=== PATIENT | female | born 1955 | race Caucasian/White ===

== ENCOUNTER 2021-08-26 10:53 | Outpatient (REF) | payer MEDICARE, MEDICAID, SELFPAY ==
[2021-08-26 13:46] LABS: MANUAL DIFF FLAG NO
[2021-08-26 13:58] LABS: Basophils Percent Auto 0.3 % (0-2); Eosinophils Percent Auto 0.4 % (0-4); Hematocrit 47.2 % (37-47); Imm Gran Abs Auto 0.03 X10*3/uL (0.00-0.03); Imm Gran Pct Auto 0.3 % (0.0-0.4); Lymphocytes Absolute Auto 0.6 X10*3/uL (1.2-4.9); Lymphocytes Percent Auto 6.7 % (20-40); Mean Corpuscular HGB Conc 31.8 g/dl (31.0-35.0); Mean Corpuscular Volume 91.1 fL (80-98); Mean Platelet Volume 10.9 fL (9.4-12.3); Monocytes Absolute Auto 0.7 X10*3/uL (0.1-1.2); Neutrophils Absolute Auto 8.1 X10*3/uL (2.0-8.3); Neutrophils Percent Auto 85.3 % (45-73); Platelet Count 438 X10*3/uL (160-400); Red Blood Count 5.18 X10*6/uL (4.20-5.50); White Blood Count 9.5 X10*3/uL (4.8-10.8)
[2021-08-26 14:04] LABS: Alanine Aminotransferase 12 U/L (0-31); Albumin Level 3.9 g/dL (3.5-5.0); Alkaline Phosphatase 106 U/L (39-117); Anion Gap 18 (12-20); Aspartate Amino Transferase 16 U/L (5-31); Bilirubin Total 0.4 mg/dL (0.0-1.0); Blood Urea Nitrogen 7 mg/dL (9-16); Calcium 9.4 mg/dL (8.4-10.2); Carbon Dioxide 23 mmol/L (22-29); Chloride 100 mmol/L (96-108); Cholesterol 219 mg/dL; Estimated Glomerular Filt Rate > 60; Glucose Fasting 117 mg/dL (60-99); HDL Cholesterol 52 mg/dL; LDL Cholesterol Calculated 133 mg/dl; Potassium 4.8 mmol/L (3.3-5.1); Sodium 136 mmol/L (135-145); Total Protein 7.5 g/dL (6.5-8.0); Triglycerides 170 mg/dL
== END 2021-08-26 10:54 | disposition home or self-care (01) ==
LOC: HO.10HDL 10:53
PROVIDERS: Visit Provider Internal Medicine
DX: E78.2 Mixed hyperlipidemia (principal); F10.94 Alcohol use, unspecified with alcohol-induced mood disorder; F33.42 Major depressive disorder, recurrent, in full remission; J44.1 Chronic obstructive pulmonary disease with (acute) exacerbation; K51.90 Ulcerative colitis, unspecified, without complications; Z93.2 Ileostomy status
CPT/HCPCS: 36415; 80053; 80061; 85025

== ENCOUNTER 2022-02-23 11:22 | Outpatient (REF) | payer MEDICARE, MEDICAID, SELFPAY ==
[2022-02-23 12:25] LABS: MANUAL DIFF FLAG NO
[2022-02-23 12:32] LABS: Basophils Percent Auto 0.3 % (0-2); Eosinophils Absolute Auto 0.1 X10*3/uL (0.0-0.4); Eosinophils Percent Auto 0.6 % (0-4); Hematocrit 46.1 % (37.0-47.0); Hemoglobin 15.1 g/dl (12.0-16.0); Imm Gran Abs Auto 0.02 X10*3/uL (0.00-0.03); Imm Gran Pct Auto 0.2 % (0.0-0.4); Lymphocytes Percent Auto 10.6 % (20-40); Mean Corpuscular HGB Conc 32.8 g/dl (31.0-35.0); Mean Corpuscular Hemoglobin 31.1 pg (27.0-33.0); Mean Corpuscular Volume 95.1 fL (80.0-98.0); Mean Platelet Volume 10.8 fL (9.4-12.3); Monocytes Absolute Auto 0.5 X10*3/uL (0.1-1.2); Monocytes Percent Auto 5.4 % (2-11); Neutrophils Absolute Auto 7.5 x10*3/uL (2.0-8.3); Neutrophils Percent Auto 82.9 % (45-73); Platelet Count 285 X10*3/uL (160-400); Red Blood Count 4.85 X10*6/uL (4.20-5.50); Red Cell Distribution Width 12.3 % (11.0-16.0); White Blood Count 9.1 X10*3/uL (4.8-10.8)
[2022-02-23 12:46] LABS: Alanine Aminotransferase 14 U/L (0-31); Albumin Level 4.2 g/dL (3.5-5.0); Alkaline Phosphatase 87 U/L (39-117); Anion Gap 13 (12-20); Aspartate Amino Transferase 17 U/L (5-31); Bilirubin Total 0.5 mg/dL (0.0-1.0); Blood Urea Nitrogen 12 mg/dL (9-16); Calcium 9.8 mg/dL (8.4-10.2); Carbon Dioxide 26 mmol/L (22-29); Chloride 105 mmol/L (96-108); Cholesterol 239 mg/dL; Estimated Glomerular Filt Rate 60; Glucose Random 146 mg/dL (60-115); HDL Cholesterol 88 mg/dL; LDL Cholesterol Calculated 83 mg/dl; Potassium 4.3 mmol/L (3.3-5.1); Sodium 140 mmol/L (135-145); Total Protein 7.3 g/dL (6.5-8.0); Triglycerides 343 mg/dL
[2022-02-23 13:06] LABS: Thyroid Stimulating Hormone 1.48 uIU/mL (0.32-4.0)
== END 2022-02-23 11:23 | disposition home or self-care (01) ==
LOC: HO.10HDL 11:22
PROVIDERS: Visit Provider Internal Medicine
DX: E78.2 Mixed hyperlipidemia (principal); F10.21 Alcohol dependence, in remission; I47.1 Supraventricular tachycardia; J44.1 Chronic obstructive pulmonary disease with (acute) exacerbation; F17.201 Nicotine dependence, unspecified, in remission
CPT/HCPCS: 36415; 80053; 80061; 84443; 85025

== ENCOUNTER 2022-04-10 13:46 | Outpatient (REF) | payer MEDICARE, MEDICAID, SELFPAY ==
--- NOTE | ~2022-04-10 | CT_ITS ---
EXAMINATION: CT CHEST SCREENING CLINICAL INFORMATION: Former smoker. 46 pack year history. Quit 5 years ago COMPARISON: None. TECHNIQUE: Multidetector volumetric CT imaging of the chest is performed without contrast using low dose technique. Additional 2D coronal and sagittal reformatted images and axial 3D maximum intensity projection (MIP) images are generated on the CT workstation. This CT examination was performed using dose optimization techniques as appropriate, variously including the following: *Automated exposure control *Adjustment of mA and/or kV according to patient size (this includes techniques or standardized protocols for targeted exams where dose is matched to indication/reason for exam; i.e. extremities or head) *Use of iterative reconstruction technique DLP: 36 mGy-cm FINDINGS: LUNGS: There is evidence of emphysema. There is mild biapical pleural and parenchymal scarring. There is a 4 mm left apical nodule axial image 46 series 5. This may be related to pleural and parenchymal scarring. There is a scarring or subsegmental atelectasis in the lateral right upper lobe extending to the major fissure, for example axial image 195 series 5 . There is a 3 mm left lower lobe nodule axial image 246 series 5. There is a 5 mm slightly heterogeneous left upper lobe nodule axial image 296 series 5. There is a heterogeneous 1.5 cm left upper lobe nodule axial image 304 series 5. This is solid component and cystic or reticular component/question air bronchograms. There is a 3 mm peripheral or subpleural right middle lobe nodule adjacent to the minor fissure axial image 313 series 5. This may represent a subpleural lymph node. There is a 2 mm calcified left lower lobe nodule axial image 344 series 5. There are areas of scarring or subsegmental atelectasis at the lung bases in the right middle lobe, lingula and bilateral lower lobes. There is a nodular appearing area in the right lower lobe measuring 1 cm in AP and transverse dimension laterally axial image 397 series 5 probably representing thick bandlike atelectasis. No endobronchial or endotracheal lesion is seen. MEDIASTINUM: There is atherosclerotic disease. The mediastinum is otherwise normal. PLEURA: There is no pleural effusion. No pleural mass or thickening. AXILLA: No lymphadenopathy. UPPER ABDOMEN: Unremarkable OSSEOUS STRUCTURES: Unremarkable. CT/CT lung screening IMPRESSION: Emphysema. Multiple pulmonary nodules and areas of linear scarring or subsegmental atelectasis. Largest nodule is a heterogeneous 1.5 cm left upper lobe nodule. ASSESSMENT: Lung-RADS category 4 a: Suspicious RECOMMENDATION: 3 month low-dose chest CT follow-up recommended.
== END 2022-04-10 13:47 | disposition home or self-care (01) ==
LOC: HO.CT 13:46
PROVIDERS: PCP Internal Medicine; Visit Provider Physician Assistant Medical
DX: Z12.2 Encounter for screening for malignant neoplasm of respiratory organs (principal); Z87.891 Personal history of nicotine dependence
CPT/HCPCS: 71271; G0296

== ENCOUNTER 2022-08-28 10:53 | Outpatient (REF) | payer MEDICARE, MEDICAID, SELFPAY ==
--- NOTE | ~2022-08-28 | CT_ITS ---
EXAMINATION: CT CHEST SCREENING CLINICAL INFORMATION: Former smoker. Quit 6 years ago. 47 pack year history. COMPARISON: Previous chest CT March 2022 TECHNIQUE: Multidetector volumetric CT imaging of the chest is performed without contrast using low dose technique. Additional 2D coronal and sagittal reformatted images and axial 3D maximum intensity projection (MIP) images are generated on the CT workstation. This CT examination was performed using dose optimization techniques as appropriate, variously including the following: *Automated exposure control *Adjustment of mA and/or kV according to patient size (this includes techniques or standardized protocols for targeted exams where dose is matched to indication/reason for exam; i.e. extremities or head) *Use of iterative reconstruction technique DLP: 33 mGy-cm FINDINGS: LUNGS: There is evidence of emphysema. Left: There is apical pleural and parenchymal scarring. The 3 mm peripheral or subpleural left upper lobe nodule axial image 78 series 5 is stable. The 4 mm left apical nodule axial image 51 series 5 is stable. The 5 mm peripheral or subpleural left upper lobe nodule axial image 297 series 5 is stable. The other the 3 x 5 mm left upper lobe nodule axial image 262 series 5 is stable. The heterogeneous partially cystic partially reticular left upper lobe nodule measuring up to 1.5 cm is no longer seen. The 5 mm left lower lobe nodule axial image 234 series 5 is stable. The 4 mm left lower lobe nodule axial image 252 series 5 is stable. There is a Right: There is apical pleural and parenchymal scarring. The 3 mm right upper lobe nodule axial image 146 series 5 is stable. There is chronic scarring or subsegmental atelectasis of the right upper lobe and some retraction of the right major fissure. This is stable. There is a new peripheral or subpleural nodular density in the right upper lobe adjacent to the minor fissure measuring 5 x 10 mm. On sagittal and coronal reconstructed images this appears linear and probably represents an area of thick bandlike atelectasis. There is an area of peripheral or subpleural thick bandlike atelectasis in the lateral posterior right lower lobe for example axial image 381 series 5 that is stable. MEDIASTINUM: The mediastinum is normal. CORONARY ARTERY CALCIFICATION: None visualized on this study. There is atherosclerotic disease with calcification of the thoracic aorta. PLEURA: There is no pleural effusion. No pleural mass or thickening. AXILLA: No lymphadenopathy. UPPER ABDOMEN: Unremarkable OSSEOUS STRUCTURES: Unremarkable. CT/CT lung screen follow up IMPRESSION: Emphysema. Previously identified 1.5 cm heterogeneous left upper lobe nodule is no longer seen. Otherwise smaller pulmonary nodules are stable. New 5 x 10 mm peripheral or subpleural right upper lobe nodule adjacent to the minor fissure probably representing thick bandlike atelectasis. Pulmonary findings are otherwise stable ASSESSMENT: Lung-RADS category 2: Benign RECOMMENDATION: Annual low-dose chest CT follow-up recommended.
== END 2022-08-28 10:54 | disposition home or self-care (01) ==
LOC: HO.CT 10:53
PROVIDERS: Visit Provider Physician Assistant Medical
DX: Z12.2 Encounter for screening for malignant neoplasm of respiratory organs (principal); Z87.891 Personal history of nicotine dependence
CPT/HCPCS: 71250

== ENCOUNTER 2022-09-15 08:48 | Outpatient (REF) | payer MEDICARE, MEDICAID, SELFPAY ==
[2022-09-15 09:05] LABS: MANUAL DIFF FLAG NO
[2022-09-15 09:53] LABS: Basophils Percent Auto 0.3 % (0-2); Eosinophils Absolute Auto 0.1 X10*3/uL (0.0-0.4); Hematocrit 45.8 % (37.0-47.0); Hemoglobin 14.9 g/dl (12.0-16.0); Imm Gran Abs Auto 0.01 X10*3/uL (0.00-0.03); Imm Gran Pct Auto 0.1 % (0.0-0.4); Lymphocytes Absolute Auto 1.1 X10*3/uL (1.2-4.9); Lymphocytes Percent Auto 15.4 % (20-40); Mean Corpuscular HGB Conc 32.5 g/dl (31.0-35.0); Mean Corpuscular Hemoglobin 30.8 pg (27.0-33.0); Mean Corpuscular Volume 94.8 fL (80.0-98.0); Mean Platelet Volume 10.9 fL (9.4-12.3); Monocytes Absolute Auto 0.5 X10*3/uL (0.1-1.2); Monocytes Percent Auto 7.1 % (2-11); Neutrophils Absolute Auto 5.4 x10*3/uL (2.0-8.3); Neutrophils Percent Auto 76.1 % (45-73); Platelet Count 289 X10*3/uL (160-400); Red Blood Count 4.83 X10*6/uL (4.20-5.50); Red Cell Distribution Width 12.3 % (11.0-16.0); White Blood Count 7.1 X10*3/uL (4.8-10.8)
[2022-09-15 10:08] LABS: Estimated Average Glucose 108 mg/dL; Hemoglobin A1c % 5.4 %
[2022-09-15 10:26] LABS: Alanine Aminotransferase 12 U/L (0-31); Albumin Level 4.5 g/dL (3.5-5.0); Alkaline Phosphatase 71 U/L (39-117); Anion Gap 18 (12-20); Aspartate Amino Transferase 18 U/L (5-31); Bilirubin Total 0.6 mg/dL (0.0-1.0); Blood Urea Nitrogen 12 mg/dL (9-16); Calcium 10.1 mg/dL (8.4-10.2); Carbon Dioxide 25 mmol/L (22-29); Chloride 104 mmol/L (96-108); Cholesterol 260 mg/dL; Estimated Glomerular Filt Rate > 60; Glucose Random 101 mg/dL (60-115); HDL Cholesterol 97 mg/dL; LDL Cholesterol Calculated 133 mg/dl; Sodium 142 mmol/L (135-145); Total Protein 7.7 g/dL (6.5-8.0); Triglycerides 154 mg/dL
== END 2022-09-15 08:49 | disposition home or self-care (01) ==
LOC: HO.LAB 08:48
PROVIDERS: PCP Internal Medicine; Visit Provider Internal Medicine
DX: E78.2 Mixed hyperlipidemia (principal); F10.29 Alcohol dependence with unspecified alcohol-induced disorder; G25.0 Essential tremor; I10 Essential (primary) hypertension; J44.9 Chronic obstructive pulmonary disease, unspecified; R73.01 Impaired fasting glucose
CPT/HCPCS: 36415; 80053; 80061; 83036; 85025

== ENCOUNTER → 2022-09-25 09:25 | Outpatient (BNVA) | payer MEDICARE, MEDICAID, SELFPAY | PROVIDERS: PCP Internal Medicine; Visit Provider Surgery | DX: R91.8 Other nonspecific abnormal finding of lung field (principal); Z87.891 Personal history of nicotine dependence | CPT/HCPCS: 99202 ==

== ENCOUNTER → 2023-06-04 10:24 | Outpatient (BNVA) | payer MEDICARE, MEDICAID, SELFPAY | PROVIDERS: Visit Provider Nurse Practitioner Family | DX: J44.9 Chronic obstructive pulmonary disease, unspecified (principal); R91.8 Other nonspecific abnormal finding of lung field; Z87.891 Personal history of nicotine dependence | CPT/HCPCS: 94640; 99202 ==

== ENCOUNTER 2023-06-14 09:24 | Outpatient (REF) | payer MEDICARE, MEDICAID, SELFPAY ==
--- NOTE | 2023-06-14 10:24 | PFT_ITS ---
FLOWS: 1. FEV1 26% of predicted at 0.69 L. 2. FVC 46% of predicted at 1.59 L. 3. FEV1 to FVC ratio of 0.44. 4. No bronchodilator response. LUNG VOLUMES: 1. Total lung capacity 99% of predicted at 5.50 L. 2. Residual volume 154% of predicted at 3.53 L. 3. Slow vital capacity 61% of predicted at 1.97 L. 4. Expiratory reserve volume 64% of predicted at 0.56 L. 5. Diffusion capacity is decreased, diffusion capacity adjusted to moderately decreased after corrects for alveolar ventilation. IMPRESSION: Very severe obstructive ventilatory defect with no bronchodilator response. Increased residual volume suggests air trapping. Decreased diffusion capacity suggests emphysema. MD JONI Waters/MODL / [id number]
== END 2023-06-14 09:25 | disposition home or self-care (01) ==
LOC: HO.RESP 09:24
PROVIDERS: PCP Family Medicine; Visit Provider Nurse Practitioner Family
DX: J44.9 Chronic obstructive pulmonary disease, unspecified (principal)
CPT/HCPCS: 94010; 94727; 94729

== ENCOUNTER → 2023-06-14 10:24 | Outpatient (BNV) | payer MEDICARE, MEDICAID, SELFPAY | PROVIDERS: PCP Family Medicine; Visit Provider Internal Medicine Pulmonary Disease | DX: J44.9 Chronic obstructive pulmonary disease, unspecified (principal) | CPT/HCPCS: 94060; 94727; 94729 ==

== ENCOUNTER 2023-07-07 09:46 | Outpatient (AMB) | payer MEDICARE, MEDICAID, SELFPAY ==
--- NOTE | 2023-07-07 10:00 | MHC.OFFVIS ---
Intake Vital Signs 07/07/23 10:02 Height 5 ft 7 in Weight 134 lb 7.712 oz BMI 21.1 BP 146/74 H Blood Pressure Location Lt brachial Position Sitting Pulse 86 Pulse Source Pulse Oximeter Pulse Oximetry (%) 92 Oxygen Delivery Method Room Air Intake Visit Reasons: COPD Investor Relations Specialist Required: No School Guard: School Guard offered & declined Accompanied by: Self / Same As Patient Allergies No Known Allergies Allergy (Verified 07/07/23 10:05) Medication List - Last Reconciled 07/07/23 by Asuncion Keys LPN albuterol sulfate 90 mcg/actuation (Ventolin HFA) 2 puffs inhalation Q6H PRN albuterol sulfate 1.25 mg inhalation BID PRN azithromycin For 250 mg dose pack: take 500 mg today (day 1), then 250 mg for 4 days (days 2-5) PO okmokukxzzn-ahfeqbfmr-ljwpzagm 200-62.5-25 mcg (Trelegy Ellipta) 1 inh inhalation DAILY pravastatin 40 mg PO BEDTIME prednisone 4 tabs daily for 4 days, 3 tabs daily for 2 days, 2 tabs daily for 2 days, 1 tab daily for 2 days PO daily; 10 days prednisone 40 mg (2 x 20 mg) PO DAILY sertraline 50 mg PO DAILY HPI COPD HPI Details Mica is a pleasant 67 year old female, former smoker with 47 pack year history, quit 2016 , with underlying COPD. At the last visit, she was having an exacerbation, treated with prednisone and azithromycin and reports feeling back to baseline. She continues with dyspnea on minimal exertion, suboptimally controlled on Trelegy and albuterol neb/MDI. Today she presents to review PFT results. [facility] Medical History (Updated 05/11/23 @ 11:39 by Ronak Pierce) COPD (chronic obstructive pulmonary disease) Depression Personal history of nicotine dependence Surgical History (System 12/31/22 @ 09:41 by Liz Shepherd) History of ankle surgery History of ileostomy (~2018) History of tonsillectomy Social History (Updated 07/07/23 @ 10:07 by Asuncion Keys LPN) Alcohol intake: current Patient Tobacco Use Status: Former Tobacco user Quit Date: 05/02/2016 Tobacco use type: Cigarette Years Smoked: (onset 13, 1.5ppd x 47yrs, 60pyh - quit 2016) Review of Systems Const Denies chills, Denies excessive sweating, Denies fever(s), Denies headache(s) and Denies night sweats Eyes Denies dry eyes, Denies irritation and Denies itchy eyes ENT Reports Normal hearing present and Denies headache(s) Card Denies chest pain, Denies chest pain at rest, Denies chest pain with activity, Denies leg edema, Reports dyspnea on exertion, Denies orthopnea and Denies paroxysmal nocturnal dyspnea Resp Denies pain on inspiration, Denies pain with cough, Reports dyspnea on exertion and Denies stridor Musc Denies myalgias Neuro Reports Normal hearing present and Denies headache(s) Endo Denies excessive sweating Ramiro/Lymph Denies lymphadenopathy Aller/Immun Denies itchy eyes and Denies seasonal rhinorrhea Physical Exam Vital Signs: Last Vital Signs Pulse 86 07/07/23 10:02 BP 146/74 H 07/07/23 10:02 Pulse Ox 92 07/07/23 10:02 Oxygen Delivery Method Room Air 07/07/23 10:02 BMI result Body Mass Index 21.1 Const General: cooperative, healthy appearing, no acute distress, well developed and alert Orientation/consciousness: patient oriented x3 Limitations: no limitations HEENT Head: Yes normal to inspection, Yes normocephalic and Yes atraumatic Ears: hearing grossly normal bilaterally and external ears normal Eyes General: appearance normal, both eyes and all related structures Eyelids: Yes eyelids normal Sclerae: sclerae normal EOM: EOMs intact bilaterally Neck Neck: Yes normal visual inspection and Yes no lymphadenopathy Lymphatic: no lymphadenopathy noted Chest Chest palpation & inspection: normal inspection of the chest Resp Other: moderate respiratory effort Effort & Inspection: able to speak in complete sentences, no audible wheezes, no cough, no stridor, not tachypneic, no tripod positioning and no use of accessory muscles Auscultation: diminished lung sounds Cardio Jugular venous distension: no JVD Rate: regular rate Rhythm: regular rhythm Skin Other: warm, dry General skin exam: no rashes or lesions noted Neuro General: patient oriented x3 Cranial nerves: Yes Normal hearing present Cognition (Neuro): normal cognition Gait exam (Neuro): Normal gait present Extrem General: Yes normal to inspection, Yes capillary refill normal, Yes no clubbing, cyanosis or edema and Yes no pedal edema Psych Appearance: grossly normal and well kempt Speech and movement: Normal speech and movement present and Clear speech present Affect: normal affect Attitude: cooperative Thought process: Normal thought process present Thought content: Normal thought content present Insight: Good insight present (Psych) Judgement: Good judgement present (Psych) Office Procedures 6 Minute Walk Time:: 10:15 SPO2 % at rest: 95 Pulse at rest: 86 SPO2 % during excercise: 90 Pulse during excercise: 115 SPO2 % after excercise: 94 Pulse after excercise: 96 Distance in yards walked: 160 Yvonne Score: 8 Performance Observations:: Patient walked without assistance on level ground. Maintained O2 saturation of 90 during the entire walk. Patient reports significant effort when walking any distance. Patient was short of breath during the entire walk but did not require any supplemental O2. [address]105 - 6 Minute Walk Results Reviewed Results Reviewed: Assessment & Plan Assessment & Plan (1) COPD (chronic obstructive pulmonary disease): Code(s): J44.9 - Chronic obstructive pulmonary disease, unspecified (2) Multiple pulmonary nodules: Code(s): R91.8 - Other nonspecific abnormal finding of lung field (3) Personal history of nicotine dependence: Comment: (former smoker - onset 13, 1.5ppd x 47yrs, 60pyh - quit 2015) Code(s): Z87.891 - Personal history of nicotine dependence Plan Mica has been back on Trelegy regularly and reports decreasing effectiveness with dyspnea on minimal exertion and increased work of breathing. 6MWT performed, at this time patient does not qualify for supplemental oxygen. Reviewed PFT results with patient which revealed severe COPD with a FEV1/FVC 44 , FVC 26 and DLCO 36. Full report above. Will attempt to switch to nebulized therapy only with duonebs and brovana in place of Trelegy. Consider adding Yupelri. Briefly discussed theophylline. Will follow up in 4 weeks. She is aware to call if she needs to be seen sooner. All questions were answered and patient is in agreement of plan. Orders: Orders AMB 6 minute walk 07/07/23 J44.9 - Chronic obstructive pulmonary disease, unspecified Medications: New ipratropium-albuterol 0.5 mg-3 mg(2.5 mg base)/3 mL 3 mL inhalation Q6H PRN 180 mL 3RF wheezing albuterol sulfate 90 mcg/actuation (Ventolin HFA) 2 puffs inhalation Q6H PRN 3 ea 1RF shortness of breath or wheezing arformoterol (Brovana) 2 mL inhalation BID 120 mL 3RF Refilled mjurrjioiyq-kutobduul-lrjlhsyn 200-62.5-25 mcg (Trelegy Ellipta) 1 inh inhalation DAILY 180 ea 2RF Coding Level of Care Code Est Pt Level 4 (98188) Diagnoses COPD (chronic obstructive pulmonary disease) J44.9 Multiple pulmonary nodules R91.8 Personal history of nicotine dependence Z87.891 CPT Codes Coding ([id number])
[2023-07-07 10:02] VITALS: BP 146/74; PULSE 86; O2SAT 92; BMI 21.1
[2023-07-07 10:35] VITALS: PULSE 86; O2SAT 95
== END 2023-07-07 10:42 | disposition home or self-care (01) ==
PROVIDERS: Visit Provider Nurse Practitioner Family
DX: J44.9 Chronic obstructive pulmonary disease, unspecified (principal)
CPT/HCPCS: 94618; 99214

== ENCOUNTER → 2023-07-07 09:46 | Outpatient (BNVA) | payer MEDICARE, MEDICAID, SELFPAY | PROVIDERS: Visit Provider Nurse Practitioner Family | DX: J44.9 Chronic obstructive pulmonary disease, unspecified (principal); R91.8 Other nonspecific abnormal finding of lung field; Z87.891 Personal history of nicotine dependence | CPT/HCPCS: 94618; 99212 ==

== ENCOUNTER 2023-07-30 10:07 | Outpatient (AMB) | payer MEDICARE, MEDICAID, SELFPAY ==
[2023-07-30 10:11] VITALS: BP 130/68; PULSE 92; O2SAT 88; BMI 20.9
--- NOTE | 2023-07-30 10:11 | MHC.OFFVIS ---
Intake Vital Signs 07/30/23 10:11 Height 5 ft 7 in Weight 133 lb 6.075 oz BMI 20.9 BP 130/68 Blood Pressure Location Lt brachial Position Sitting Pulse 92 Pulse Source Pulse Oximeter Pulse Oximetry (%) 88 L Oxygen Delivery Method Room Air Intake Visit Reasons: COPD Disk And Tape Machine Tender Required: No Surgical Training Specialist: Surgical Training Specialist offered & declined Accompanied by: Self / Same As Patient Allergies No Known Allergies Allergy (Verified 07/30/23 10:20) Medication List - Last Reconciled 07/30/23 by Asuncion Keys LPN albuterol sulfate 1.25 mg inhalation BID PRN arformoterol (Brovana) 2 mL inhalation BID azithromycin For 250 mg dose pack: take 500 mg today (day 1), then 250 mg for 4 days (days 2-5) PO euumftopuqq-tzgmovmit-zifkskcf 200-62.5-25 mcg (Trelegy Ellipta) 1 inh inhalation DAILY ipratropium-albuterol 0.5 mg-3 mg(2.5 mg base)/3 mL 3 mL inhalation Q6H PRN pravastatin 40 mg PO BEDTIME prednisone 4 tabs daily for 4 days, 3 tabs daily for 2 days, 2 tabs daily for 2 days, 1 tab daily for 2 days PO daily; 10 days prednisone 40 mg (2 x 20 mg) PO DAILY sertraline 50 mg PO DAILY Ventolin HFA 90 mcg/actuation (albuterol sulfate) 2 puffs inhalation Q6H PRN NS HPI COPD HPI Details Mica is a pleasant 67 year old female, former smoker with 47 pack year history, quit 2016, with underlying severe COPD. At the last visit, she was switched from Trelegy to Brovana and Duoneb due to FEV1 of 26. She reports increased chest tightness, dyspnea on minimal exertion, fever and increased cough over the last week. Of note, she did receive her pneumonia and flu vaccinations, with plan to get the RSV vaccine. [facility] Medical History (Updated 05/11/23 @ 11:39 by Ronak Pierce) COPD (chronic obstructive pulmonary disease) Depression Personal history of nicotine dependence Surgical History (System 12/31/22 @ 09:41 by Liz Shepherd) History of ankle surgery History of ileostomy (~2018) History of tonsillectomy Social History (Updated 07/30/23 @ 10:24 by Asuncion Keys LPN) Alcohol intake: current Patient Tobacco Use Status: Former Tobacco user Quit Date: 05/02/2016 Tobacco use type: Cigarette Years Smoked: (onset 13, 1.5ppd x 47yrs, 60pyh - quit 2016) Review of Systems Const Denies chills, Denies excessive sweating, Denies fever(s), Denies headache(s) and Denies night sweats Eyes Denies dry eyes, Denies irritation and Denies itchy eyes ENT Reports Normal hearing present and Denies headache(s) Card Denies chest pain, Denies chest pain at rest, Denies chest pain with activity, Denies leg edema, Reports dyspnea on exertion, Denies orthopnea and Denies paroxysmal nocturnal dyspnea Resp Denies pain on inspiration, Denies pain with cough, Reports dyspnea on exertion and Denies stridor Musc Denies myalgias Neuro Reports Normal hearing present and Denies headache(s) Endo Denies excessive sweating Ramiro/Lymph Denies lymphadenopathy Aller/Immun Denies itchy eyes and Denies seasonal rhinorrhea Physical Exam Vital Signs: Last Vital Signs Pulse 92 07/30/23 10:11 BP 130/68 07/30/23 10:11 Pulse Ox 88 L 07/30/23 10:11 Oxygen Delivery Method Room Air 07/30/23 10:11 BMI result Body Mass Index 20.9 Const General: cooperative, healthy appearing, no acute distress, well developed and alert Orientation/consciousness: patient oriented x3 Limitations: no limitations HEENT Head: Yes normal to inspection, Yes normocephalic and Yes atraumatic Ears: hearing grossly normal bilaterally and external ears normal Eyes General: appearance normal, both eyes and all related structures Eyelids: Yes eyelids normal Sclerae: sclerae normal EOM: EOMs intact bilaterally Neck Neck: Yes normal visual inspection and Yes no lymphadenopathy Lymphatic: no lymphadenopathy noted Chest Chest palpation & inspection: normal inspection of the chest Resp Other: moderate respiratory effort Effort & Inspection: able to speak in complete sentences, no audible wheezes, no cough and no stridor Auscultation: diminished lung sounds Cardio Jugular venous distension: no JVD Rate: regular rate Rhythm: regular rhythm Skin Other: warm, dry General skin exam: no rashes or lesions noted Neuro General: patient oriented x3 Cranial nerves: Yes Normal hearing present Cognition (Neuro): normal cognition Gait exam (Neuro): Normal gait present Extrem General: Yes normal to inspection, Yes capillary refill normal, Yes no clubbing, cyanosis or edema and Yes no pedal edema Psych Appearance: grossly normal and well kempt Speech and movement: Normal speech and movement present and Clear speech present Affect: normal affect Attitude: cooperative Thought process: Normal thought process present Thought content: Normal thought content present Insight: Good insight present (Psych) Judgement: Good judgement present (Psych) Office Procedures 6 Minute Walk Time:: 11:00 SPO2 % at rest: 89 Pulse at rest: 99 SPO2 % during excercise: 84 Pulse during excercise: 112 SPO2 % after excercise: 94 Pulse after excercise: 100 Distance in yards walked: 100 Yvonne Score: 9 Supplemental Oxygen: 2L Performance Observations:: Patient walked on level ground without assistance. After 50 yards O2 saturation dropped to 84% pulse 112. Patient is very short of breath. Applied O2 at 1L and rested. After one minute O2 saturation increased to 88. O2 increased to 2L and one minute more of rest O2 saturation then increased to 94% pulse 100. Patient was able to complete the walk with O2 saturation of 94%. Patient remains very short of breath. Supplemental O2 at 2L needed to maintain O2 saturation. 09630 - 6 Minute Walk Assessment & Plan Assessment & Plan (1) COPD (chronic obstructive pulmonary disease): Code(s): J44.9 - Chronic obstructive pulmonary disease, unspecified (2) Multiple pulmonary nodules: Code(s): R91.8 - Other nonspecific abnormal finding of lung field (3) Personal history of nicotine dependence: Comment: (former smoker - onset 13, 1.5ppd x 47yrs, 60pyh - quit 2016) Code(s): Z87.891 - Personal history of nicotine dependence Plan Mica has stopped Trelegy since being prescribed Brovana and duonebs, but unfortunately she never received duoneb and has had an increase in symptoms. Will resend to [address], per patient request. Nebulized treatement given in office with moderate improvement in symptoms. Will send in zpak for bronchitic symptoms. 6MWT performed, and patient does qualify for oxygen 2L continuously. Will send in order. Briefly discussed the lung transplant program. Will follow up in 2-4 weeks. She is aware to call if she needs to be seen sooner. All questions were answered and patient is in agreement of plan. Orders: Orders CT chest wo IV con Today R91.8 - Other nonspecific abnormal finding of lung field AMB 6 minute walk Today J44.1 - Chronic obstructive pulmonary disease with (acute) exacerbation, R06.02 - Shortness of breath Medications: Changed From ipratropium-albuterol 0.5 mg-3 mg(2.5 mg base)/3 mL 3 mL inhalation Q6H PRN 180 mL 3RF wheezing To ipratropium-albuterol 0.5 mg-3 mg(2.5 mg base)/3 mL med for home 3 mL inhalation Q6H PRN 180 mL 3RF wheezing Refilled azithromycin For 250 mg dose pack: take 500 mg today (day 1), then 250 mg for 4 days (days 2-5) PO 6 tabs 0RF Coding Level of Care Code Est Pt Level 4 (69192) Diagnoses COPD (chronic obstructive pulmonary disease) J44.9 Multiple pulmonary nodules R91.8 Personal history of nicotine dependence Z87.891 CPT Codes Coding ([id number])
[2023-07-30 11:21] VITALS: PULSE 99; O2SAT 89
== END 2023-07-30 11:39 | disposition home or self-care (01) ==
PROVIDERS: Visit Provider Nurse Practitioner Family
DX: J44.9 Chronic obstructive pulmonary disease, unspecified (principal); R91.8 Other nonspecific abnormal finding of lung field; Z87.891 Personal history of nicotine dependence
CPT/HCPCS: 94618; 99214

== ENCOUNTER → 2023-07-30 10:07 | Outpatient (BNVA) | payer MEDICARE, MEDICAID, SELFPAY | PROVIDERS: Visit Provider Nurse Practitioner Family | DX: J44.9 Chronic obstructive pulmonary disease, unspecified (principal); R91.8 Other nonspecific abnormal finding of lung field; Z87.891 Personal history of nicotine dependence | CPT/HCPCS: 94618; 99212 ==

== ENCOUNTER 2023-08-04 09:48 | Outpatient (AMB) | payer MEDICARE, SELFPAY ==
--- NOTE | 2023-08-04 09:56 | MHC.PC.OV ---
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 She would like a refill of Sertraline. Allergies No Known Allergies Allergy (Verified 08/04/23 10:04) Medication List - Last Reconciled 08/04/23 by Yeyo España MD albuterol sulfate 1.25 mg inhalation BID PRN arformoterol (Brovana) 2 mL inhalation BID azithromycin For 250 mg dose pack: take 500 mg today (day 1), then 250 mg for 4 days (days 2-5) PO pccenidsnkv-giffrjvdq-gfrfzuip 200-62.5-25 mcg (Trelegy Ellipta) 1 inh inhalation DAILY ipratropium-albuterol 0.5 mg-3 mg(2.5 mg base)/3 mL 3 mL inhalation Q6H PRN pravastatin 40 mg PO BEDTIME sertraline 50 mg PO DAILY Ventolin HFA 90 mcg/actuation (albuterol sulfate) 2 puffs inhalation Q6H PRN NS Tobacco use date assessed: 08/04/23 Fall risk assessment: No Falls in past year Last assessed Fall Risk: 08/04/23 Dental Screening Dental Screen Date: 08/04/23 Did you have a dental visit in the last 12 months?: No Did you have a dental problem in the last 6 months where you did not have access to dental care?: No Was dental information given to patient?: 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 Last office visit/CPE: Acute issue(s): PMHx: COPD, Anxiety/Depression, HLD, Ulcerative Colitis SurgHx: Ileostomy and Colectomy, R ankle surgery. Tonsils, Appendectomy, Hysterectomy, Cataracts FHx: Mom: CAD, [place] SocHx: 47 yr hx of smoking and quit 2015. EtOH: 3-6 beers per night. No drugs. [facility] Medical History (Updated 08/04/23 @ 10:38 by Ronak Llenardo Pierce) COPD (chronic obstructive pulmonary disease) Depression Personal history of nicotine dependence Surgical History (Updated 08/04/23 @ 10:11 by Zainab Archuleta [facility]) H/O: hysterectomy History of ankle surgery History of appendectomy History of ileostomy (~2018) History of tonsillectomy Hx of cataract surgery Family History (Updated 08/04/23 @ 10:12 by Zainab Archuleta CMA) Brother History of mental health disorder in sibling Social History (Updated 08/04/23 @ 10:15 by Zainab Archuleta CMA) Household Members: None Housing: House Alcohol intake: current Patient Tobacco Use Status: Former Tobacco user Quit Date: 05/02/2016 Tobacco use type: Cigarette Years Smoked: (onset 13, 1.5ppd x 47yrs, 60pyh - quit 2015) e-Cigarette/Vaping Use: Never Used Special carmen needs: No service: No Current occupational status: retired Cognitive needs: No Hearing needs: No Vision needs: No Questionnaire PHQ-9 Over the last 2 weeks, how often have you been bothered by any of the following problems? 1. Little interest or pleasure in doing things: not at all 2. Feeling down, depressed, or hopeless: not at all 3. Trouble falling or staying asleep, or sleeping too much: not at all 4. Feeling tired or having little energy: not at all 5. Poor appetite or overeating: not at all 6. Feeling bad about yourself - or that you are a failure or have let yourself or your family down: not at all 7. Trouble concentrating on things, such as reading the newspaper or watching television: not at all 8. Moving or speaking so slowly that other people could have noticed. Or the opposite - being so fidgety or restless that you have been moving around a lot more than usual: several days 9. Thoughts that you would be better off or of hurting yourself in some way: not at all Total score: 1 Source: Developed by Drs. Bartolome Geller, Iveth Kaye, Richie Swenson and colleagues, with an educational matilde from [employer]. Thrive Questionnaire I am a: Patient What is your living situation today?: I have a steady place to live Within the past 12 months, did the food you bought not last and you didn't have the money to get more?: Never true Within the past 12 months, did you worry whether your food would run out before you got money to buy more?: Never true Do you have trouble paying for medicines?: No Do you have trouble getting transportation to medical appointments?: No Do you have trouble paying your heating and electricity bill?: No Do you have trouble taking care of your child, family member or friend?: No Do you have trouble with day-to-day activities such as bathing, preparing meals, shopping, managing finances, etc.?: No Are you currently unemployed and looking for a job?: No Are you interested in more education?: No AUDIT C Alcohol Use Questionnaire (AUDIT-C) 1. How often do you have a drink containing alcohol?: 4 or more times a week 2. How many drinks containing alcohol do you have on a typical day when you are drinking?: 3 or 4 3. How often do you have six or more drinks on one occasion?: Less than monthly Total Score: 6 ALIDA-7 AMB Questionnaire ALIDA-7 Feeling nervous, anxious, or on edge: 1 = Several days Not being able to stop or control worryin = Not at all Worrying too much about different things: 0 = Not at all Trouble relaxin = Not at all Being so restless that it is hard to sit still: 0 = Not at all Becoming easily annoyed or irritable: 1 = Several days Feeling afraid as if something awful might happen: 0 = Not at all Total ALIDA-7 score (0-4 normal; 5-9 mild; 10-14 moderate; 15-21 severe): 2 Source: Developed by Drs. Bartolome Geller, Iveth Kaye, Richie Swenson and colleagues, with an educational matilde from [employer]. Review of Systems Const Denies chills, Denies fatigue, Denies fever(s), Denies headache(s) and Denies weakness ENT Denies dizziness and Denies headache(s) Card Denies chest pain, Denies lightheadedness, Denies dyspnea and Denies other (Palpitations) Resp Denies cough, Denies dyspnea, Denies wheezing and Denies other ( shortness of breath) Musc Denies numbness and Denies tingling Neuro Denies dizziness, Denies headache(s), Denies numbness, Denies tingling, Denies paresthesias and Denies weakness Psych Denies anxiety and Denies depression Endo Denies fatigue Aller/Immun Denies wheezing Physical exam (Primary Care) Vital Signs: Last Vital Signs Pulse 91 08/04/23 09:59 BP 140/78 H 08/04/23 09:59 Pulse Ox 94 08/04/23 09:59 Oxygen Delivery Method Room Air 08/04/23 09:59 Oxygen Flow Rate 2 08/04/23 09:59 BMI result Body Mass Index 21.0 Tobacco/Smoking Status: Tobacco use Status Tobacco use date assessed 08/04/23 08/04/23 10:12 Patient Tobacco Use Status Former Tobacco user 08/04/23 10:15 Tobacco use type Cigarette 08/04/23 10:15 e-Cigarette/Vaping Use Never Used 08/04/23 10:12 PHQ-9: PHQ-9 Score PHQ-9: Total score 1 08/04/23 10:28 Const General: no acute distress and well developed Nutritional Appearance: well nourished Orientation/consciousness: patient oriented x3 HENMT Head: Yes normocephalic and Yes atraumatic Eyes General: appearance normal, both eyes and all related structures Pupils: Equal, round and reactive pupils present EOM: EOMs intact bilaterally Resp Effort & Inspection: normal respiratory effort Auscultation: clear to auscultation bilaterally Cardio Rate: regular rate Rhythm: regular rhythm Heart sounds: S1 normal heart sound present, S2 normal heart sound present, no gallops, no murmurs and no rubs Neuro General: patient oriented x3 and gait normal Cranial nerves: Yes Equal, round and reactive pupils present Psych Affect: normal affect Assessment and Plan Assessment & Plan (1) COPD (chronic obstructive pulmonary disease): Code(s): J44.9 - Chronic obstructive pulmonary disease, unspecified Plan: Stable and improving but she does not have her DuoNeb yet. Sent script Continue inhaled meds and follow-up with pulmonology as recommended (2) Depression with anxiety: Code(s): F41.8 - Other specified anxiety disorders Plan: Stable on sertraline 50 mg daily Continue current medication (3) History of ulcerative colitis: Code(s): Z87.19 - Personal history of other diseases of the digestive system Plan: Patient notes history of colectomy Will request records (4) History of smoking: Code(s): Z87.891 - Personal history of nicotine dependence Plan: Former smoker Followed by pulmonology (5) Alcohol use: Code(s): Z78.9 - Other specified health status Plan: Advised weaning this down Check labs (6) Laboratory exam ordered as part of routine general medical examination: Code(s): Z00.00 - Encounter for general adult medical examination without abnormal findings Plan: Check labs Orders: Orders Comprehensive [place]. Panel Fast Today Z00.00 - Encounter for general adult medical examination without abnormal findings Lipid Panel Today Z00.00 - Encounter for general adult medical examination without abnormal findings TSH reflex Free T4 Today Z00.00 - Encounter for general adult medical examination without abnormal findings Microalbumin, Random (w Creat) Today I10 - Essential (primary) hypertension Complete Blood Count Auto Diff Today Z00.00 - Encounter for general adult medical examination without abnormal findings UA and rflx microscopic Today Z00.00 - Encounter for general adult medical examination without abnormal findings Medications: Changed From sertraline 50 mg PO DAILY To sertraline 50 mg PO DAILY 90 tabs 2RF 90 days Refilled ipratropium-albuterol 0.5 mg-3 mg(2.5 mg base)/3 mL med for home 3 mL inhalation Q6H PRN 180 mL 3RF wheezing Coding Level of Care Code Est Pt Level 4 (26281) Diagnoses COPD (chronic obstructive pulmonary disease) J44.9 Depression with anxiety F41.8 History of ulcerative colitis Z87.19 History of smoking Z87.891 Alcohol use Z78.9 Laboratory exam ordered as part of routine general medical examination Z00.00
[2023-08-04 09:59] VITALS: BP 140/78; PULSE 91; O2SAT 94; BMI 21.0
== END 2023-08-04 10:49 | disposition home or self-care (01) ==
PROVIDERS: Visit Provider Family Medicine
DX: J44.9 Chronic obstructive pulmonary disease, unspecified (principal); F41.8 Other specified anxiety disorders; Z87.19 Personal history of other diseases of the digestive system; Z87.891 Personal history of nicotine dependence; Z78.9 Other specified health status; Z00.00 Encounter for general adult medical examination without abnormal findings
CPT/HCPCS: 99214

== ENCOUNTER 2023-08-11 13:38 | Outpatient (REF) | payer MEDICARE, MEDICAID, SELFPAY ==
--- NOTE | ~2023-08-11 | CT_ITS ---
EXAMINATION: CT CHEST WITHOUT CONTRAST CLINICAL INFORMATION: Follow-up lung nodules, abnormal findings of lungs COMPARISON: 04/10/2022 and 08/28/2022 TECHNIQUE: Multidetector volumetric CT imaging of the chest was done. Axial MIP volume rendering provided. Sagittal and coronal reformatted images were obtained. This CT examination was performed using dose optimization techniques as appropriate, variously including the following: *Automated exposure control *Adjustment of mA and/or kV according to patient size (this includes techniques or standardized protocols for targeted exams where dose is matched to indication/reason for exam; i.e. 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 A 6 mm nodule in the left lower lobe, with a linear pleural tail is not significantly changed since 04/10/2022 or 08/28/2022, series 4 image 33. 12 mm area of groundglass opacity in the left lower lobe, series 4 image 32, is unchanged since 08/28/2022. Discoid atelectasis or scar in the right upper lobe and right middle lobe is again evident. Subpleural scarring at both lung bases is unchanged, including a 10 x 10 mm rounded area of nodularity in the subpleural right lower lobe, series 4 image 48. Biapical pleural scarring is unchanged. The trachea and major bronchi are patent. No new mass, nodule or consolidation is evident.- MEDIASTINUM: The mediastinum is normal. CORONARY ARTERY CALCIFICATION: Mild left main coronary artery calcifications are present. PLEURA: There is no pleural effusion. No pleural mass or thickening. AXILLA: No lymphadenopathy. UPPER ABDOMEN: Unremarkable. OSSEOUS STRUCTURES: Unremarkable. CT/CT chest wo IV con IMPRESSION: 1. Since 04/10/2022, no significant change and no new or suspicious disease in the chest. 2. Moderate emphysema, left lower lobe groundglass and nodule and bibasilar nodularity and scarring are stable. 3. Continued annual low-dose screening is recommended. Fleischner guidelines were followed.
== END 2023-08-11 13:39 | disposition home or self-care (01) ==
LOC: HO.CT 13:38
PROVIDERS: PCP Family Medicine; Visit Provider Nurse Practitioner Family
DX: R91.8 Other nonspecific abnormal finding of lung field (principal)
CPT/HCPCS: 71250

== ENCOUNTER 2023-08-20 09:37 | Outpatient (AMB) | payer MEDICARE, MEDICAID, SELFPAY ==
[2023-08-20 09:42] VITALS: BP 116/70; PULSE 78; O2SAT 96; BMI 21.0
--- NOTE | 2023-08-20 09:42 | MHC.OFFVIS ---
Intake Vital Signs 08/20/23 09:42 Height 5 ft 7 in Weight 134 lb BMI 21.0 BP 116/70 Blood Pressure Location Lt brachial Position Sitting Pulse 78 Pulse Source Pulse Oximeter Pulse Oximetry (%) 96 Oxygen Delivery Method Room Air Intake Visit Reasons: COPD Pharmacy Technician Instructor Required: No Carpenter Helper: Carpenter Helper offered & declined Accompanied by: Self / Same As Patient Allergies No Known Allergies Allergy (Verified 08/20/23 09:46) Medication List - Last Reconciled 08/20/23 by Asuncion Keys LPN albuterol sulfate 1.25 mg inhalation BID PRN arformoterol (Brovana) 2 mL inhalation BID azithromycin For 250 mg dose pack: take 500 mg today (day 1), then 250 mg for 4 days (days 2-5) PO ojrecbsgozu-guoiqsdyg-gcdmmzxa 200-62.5-25 mcg (Trelegy Ellipta) 1 inh inhalation DAILY ipratropium-albuterol 0.5 mg-3 mg(2.5 mg base)/3 mL 3 mL inhalation Q6H PRN pravastatin 40 mg PO BEDTIME sertraline 50 mg PO DAILY 90 days Ventolin HFA 90 mcg/actuation (albuterol sulfate) 2 puffs inhalation Q6H PRN NS HPI COPD HPI Details Mica is a pleasant 67 year old female, former smoker with 47 pack year history, quit 2016, with underlying severe COPD, FEV1 26. Patient was trialed on Brovana and duoneb but unfortunately was unable to obtain duoneb, so discontinued Brovana and restarted Trelegy. She reports feeling as though her symptoms are back to baseline, still with moderate dyspnea. Today she is here to discuss medication regimen and review chest CT. [facility], [facility] Medical History (Updated 08/04/23 @ 10:38 by Ronak Pierce) Depression COPD (chronic obstructive pulmonary disease) Personal history of nicotine dependence Surgical History (Updated 08/04/23 @ 10:11 by Zainab Archuleta CMA) History of appendectomy H/O: hysterectomy Hx of cataract surgery History of ileostomy (~2018) History of tonsillectomy History of ankle surgery Family History (Updated 08/04/23 @ 10:12 by Zainab Archuleta CMA) Brother History of mental health disorder in sibling Social History (Updated 08/20/23 @ 09:49 by Asuncion Keys LPN) Household Members: None Housing: House Alcohol intake: current Patient Tobacco Use Status: Former Tobacco user Quit Date: 05/02/2016 Tobacco use type: Cigarette Years Smoked: (onset 13, 1.5ppd x 47yrs, 60pyh - quit 2016) Smoked in Last 30 Days: No e-Cigarette/Vaping Use: Never Used Special carmen needs: No service: No Current occupational status: retired Cognitive needs: No Hearing needs: No Vision needs: No Review of Systems Const Denies chills, Denies excessive sweating, Denies fever(s), Denies headache(s) and Denies night sweats Eyes Denies dry eyes, Denies irritation and Denies itchy eyes ENT Reports Normal hearing present and Denies headache(s) Card Denies chest pain, Denies chest pain at rest, Denies chest pain with activity, Denies leg edema, Reports dyspnea on exertion, Denies orthopnea and Denies paroxysmal nocturnal dyspnea Resp Denies pain on inspiration, Denies pain with cough, Reports dyspnea on exertion and Denies stridor Musc Denies myalgias Neuro Reports Normal hearing present and Denies headache(s) Endo Denies excessive sweating Ramiro/Lymph Denies lymphadenopathy Aller/Immun Denies itchy eyes and Denies seasonal rhinorrhea Physical Exam Vital Signs: Last Vital Signs Pulse 78 08/20/23 09:42 BP 116/70 08/20/23 09:42 Pulse Ox 96 08/20/23 09:42 Oxygen Delivery Method Room Air 08/20/23 09:42 BMI result Body Mass Index 21.0 Const General: cooperative, healthy appearing, no acute distress, well developed and alert Orientation/consciousness: patient oriented x3 Limitations: no limitations HEENT Head: Yes normal to inspection, Yes normocephalic and Yes atraumatic Ears: hearing grossly normal bilaterally and external ears normal Eyes General: appearance normal, both eyes and all related structures Eyelids: Yes eyelids normal Sclerae: sclerae normal EOM: EOMs intact bilaterally Neck Neck: Yes normal visual inspection and Yes no lymphadenopathy Lymphatic: no lymphadenopathy noted Chest Chest palpation & inspection: normal inspection of the chest Resp Other: moderate respiratory effort Effort & Inspection: able to speak in complete sentences, no audible wheezes, no cough and no stridor Auscultation: diminished lung sounds Cardio Jugular venous distension: no JVD Rate: regular rate Rhythm: regular rhythm Skin Other: warm, dry General skin exam: no rashes or lesions noted Neuro General: patient oriented x3 Cranial nerves: Yes Normal hearing present Cognition (Neuro): normal cognition Gait exam (Neuro): Normal gait present Extrem General: Yes normal to inspection, Yes capillary refill normal, Yes no clubbing, cyanosis or edema and Yes no pedal edema Psych Appearance: grossly normal and well kempt Speech and movement: Normal speech and movement present and Clear speech present Affect: normal affect Attitude: cooperative Thought process: Normal thought process present Thought content: Normal thought content present Insight: Good insight present (Psych) Judgement: Good judgement present (Psych) Office Procedures Nebulizer Treatment Nebulizer Treatment 50037-Xyzwhpgik/MDI RX initial, or Nebulizer Subsequent Treatment Office Meds ipratropium 0.5 mg-albuterol 3 mg (2.5 mg base)/3 mL nebulization soln Performing Provider: Ebony Hill NP Performing Location[place] [facility] Administered by: Asuncion Keys LPN on 08/20/23 10:20 Dose Route Admin Location Dispensed Lot Number Expiration Date [facility] Director [employer] 3 mL inhalation 3 mL [id number] 01/26/25 1418-8849-11 [email or web address] JENNIE Results Reviewed Results Reviewed: [address] [address] [address] Scan Report Signed Patient: Mica Dillard MR#: [id number] : 1955 Acct:[id number] Age/Sex: 67 / F ADM Date: 08/11/23 Loc: HO.CT Attending Dr: Ebony Hill NP Ordering Physician: Ebony Hill NP Date of Service: 08/11/23 Procedure(s): CT chest wo IV con Accession Number(s): [id number] cc: Yeyo España MD; Ebony Hill NP~ EXAMINATION: CT CHEST WITHOUT CONTRAST CLINICAL INFORMATION: Follow-up lung nodules, abnormal findings of lungs COMPARISON: 04/10/2022 and 08/28/2022 TECHNIQUE: Multidetector volumetric CT imaging of the chest was done. Axial MIP volume rendering provided. Sagittal and coronal reformatted images were obtained. This CT examination was performed using dose optimization techniques as appropriate, variously including the following: *Automated exposure control *Adjustment of mA and/or kV according to patient size (this includes techniques or standardized protocols for targeted exams where dose is matched to indication/reason for exam; i.e. 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 A 6 mm nodule in the left lower lobe, with a linear pleural tail is not significantly changed since 04/10/2022 or 08/28/2022, series 4 image 33. 12 mm area of groundglass opacity in the left lower lobe, series 4 image 32, is unchanged since 08/28/2022. Discoid atelectasis or scar in the right upper lobe and right middle lobe is again evident. Subpleural scarring at both lung bases is unchanged, including a 10 x 10 mm rounded area of nodularity in the subpleural right lower lobe, series 4 image 48. Biapical pleural scarring is unchanged. The trachea and major bronchi are patent. No new mass, nodule or consolidation is evident.- MEDIASTINUM: The mediastinum is normal. CORONARY ARTERY CALCIFICATION: Mild left main coronary artery calcifications are present. PLEURA: There is no pleural effusion. No pleural mass or thickening. AXILLA: No lymphadenopathy. UPPER ABDOMEN: Unremarkable. OSSEOUS STRUCTURES: Unremarkable. CT/CT chest wo IV con IMPRESSION: 1. Since 04/10/2022, no significant change and no new or suspicious disease in the chest. 2. Moderate emphysema, left lower lobe groundglass and nodule and bibasilar nodularity and scarring are stable. 3. Continued annual low-dose screening is recommended. Fleischner guidelines were followed. Assessment & Plan Assessment & Plan (1) COPD (chronic obstructive pulmonary disease): Code(s): J44.9 - Chronic obstructive pulmonary disease, unspecified (2) Multiple pulmonary nodules: Code(s): R91.8 - Other nonspecific abnormal finding of lung field (3) Personal history of nicotine dependence: Comment: (former smoker - onset 13, 1.5ppd x 47yrs, 60pyh - quit 2016) Code(s): Z87.891 - Personal history of nicotine dependence Plan Reviewed chest CT with patient which revealed stable nodules and stable areas of ground glass opacities compared to scan from one year ago. Will schedule repeat CT in one year. Mica restarted Trelegy as there have been issues with obtaining duoneb. Advised patient to continue Trelegy at this time, as she reports improvements and will attempt Brovana again once able to obtain duoneb. Spoke with pharmacist at [address], informed patient she will need to call for shipment and she should receive the prescription. If she feels as though her symptoms are controlled once starting duoneb QD, then will see her in 3 months, otherwise will schedule a follow up in 4 weeks. She is aware to call if she needs to be seen sooner. All questions were answered and patient is in agreement of plan. Orders: Orders AMB Nebulizer Treatment Today J44.9 - Chronic obstructive pulmonary disease, unspecified Medications: Refilled ipratropium-albuterol 0.5 mg-3 mg(2.5 mg base)/3 mL med for home 3 mL inhalation Q6H PRN 180 mL 3RF wheezing Coding Level of Care Code Est Pt Level 4 (64904) Diagnoses COPD (chronic obstructive pulmonary disease) J44.9 Multiple pulmonary nodules R91.8 Personal history of nicotine dependence Z87.891 CPT Codes Nebulizer Treatment - Nebulizer Treatment, initial or subsequent: [id number]/MDI RX initial, or Nebulizer Subsequent Treatment ([id number])
== END 2023-08-20 14:02 | disposition home or self-care (01) ==
PROVIDERS: PCP Family Medicine; Visit Provider Nurse Practitioner Family
DX: J44.9 Chronic obstructive pulmonary disease, unspecified (principal)
CPT/HCPCS: 99214

== ENCOUNTER → 2023-08-20 09:37 | Outpatient (BNVA) | payer MEDICARE, MEDICAID, SELFPAY | PROVIDERS: PCP Family Medicine; Visit Provider Nurse Practitioner Family | DX: J44.9 Chronic obstructive pulmonary disease, unspecified (principal); R91.8 Other nonspecific abnormal finding of lung field; Z87.891 Personal history of nicotine dependence | CPT/HCPCS: 94640; 99212 ==

== ENCOUNTER 2023-10-27 06:59 | Outpatient (REF) | payer MEDICARE, MEDICAID, SELFPAY ==
[2023-10-27 11:28] LABS: MANUAL DIFF FLAG NO
[2023-10-27 11:43] LABS: Basophils Percent Auto 0.9 % (0-2); Eosinophils Absolute Auto 0.1 X10*3/uL (0.0-0.4); Eosinophils Percent Auto 3.3 % (0-4); Hematocrit 44.8 % (37.0-47.0); Hemoglobin 14.3 g/dl (12.0-16.0); Imm Gran Abs Auto 0.01 X10*3/uL (0.00-0.03); Imm Gran Pct Auto 0.2 % (0.0-0.4); Lymphocytes Absolute Auto 1.2 X10*3/uL (1.2-4.9); Mean Corpuscular HGB Conc 31.9 g/dl (31.0-35.0); Mean Corpuscular Hemoglobin 29.8 pg (27.0-33.0); Mean Corpuscular Volume 93.3 fL (80.0-98.0); Mean Platelet Volume 11.5 fL (9.4-12.3); Monocytes Absolute Auto 0.4 X10*3/uL (0.1-1.2); Monocytes Percent Auto 8.9 % (2-11); Neutrophils Absolute Auto 2.5 x10*3/uL (2.0-8.3); Neutrophils Percent Auto 58.7 % (45-73); Platelet Count 294 X10*3/uL (160-400); Red Cell Distribution Width 12.9 % (11.0-16.0); White Blood Count 4.3 X10*3/uL (4.8-10.8)
[2023-10-27 12:15] LABS: Alanine Aminotransferase 11 U/L (0-31); Albumin Level 3.9 g/dL (3.5-5.0); Alkaline Phosphatase 71 U/L (39-117); Anion Gap 12 (12-20); Aspartate Amino Transferase 16 U/L (5-31); Bilirubin Total 0.3 mg/dL (0.0-1.0); Blood Urea Nitrogen 12 mg/dL (9-16); Calcium 9.4 mg/dL (8.4-10.2); Carbon Dioxide 28 mmol/L (22-29); Chloride 106 mmol/L (96-108); Cholesterol 199 mg/dL (<200); Estimated Glomerular Filt Rate > 60; Glucose Fasting 81 mg/dL (60-99); HDL Cholesterol 74 mg/dL (>40); LDL Cholesterol Calculated 59 mg/dL (<100); Potassium 4.3 mmol/L (3.3-5.1); Sodium 142 mmol/L (135-145); Total Protein 7.2 g/dL (6.5-8.0); Triglycerides 334 mg/dL (<150)
[2023-10-27 13:16] LABS: TSH reflex Free T4 2.67 uIU/mL (0.32-4.0)
== END 2023-10-27 07:00 | disposition home or self-care (01) ==
LOC: HO.WFDLDS 06:59
PROVIDERS: Visit Provider Family Medicine
DX: Z00.00 Encounter for general adult medical examination without abnormal findings (principal)
CPT/HCPCS: 36415; 80053; 80061; 84443; 85025

== ENCOUNTER 2023-11-04 10:39 | Outpatient (AMB) | payer MEDICARE, MEDICAID, SELFPAY ==
--- NOTE | 2023-11-04 10:45 | MHC.PC.OV ---
Vital Signs 11/04/23 10:47 Height 5 ft 7 in Weight 132 lb BMI 20.7 BP 148/70 H Blood Pressure Location Lt brachial Position Sitting Respiration 15 Pulse 97 Pulse Source Pulse Oximeter Pulse Oximetry (%) 92 Oxygen Delivery Method Room Air Intake Visit Reasons: Extended exam with f/u labs and health maint. In Service Coordinator Required: No Allergies No Known Allergies Allergy (Verified 11/04/23 10:50) Tobacco use date assessed: 11/04/23 Fall risk assessment: No Falls in past year Last assessed Fall Risk: 11/04/23 Dental Screening Dental Screen Date: 11/04/23 Did you have a dental visit in the last 12 months?: Yes Did you have a dental problem in the last 6 months where you did not have access to dental care?: No Was dental information given to patient?: Patient has dentist HPI Extended exam with f/u labs and health maint. HPI Details 68 y/o female presents for an extended exam with f/u labs and health maintenance. Labs were drawn 10/27/23. Reviewed labs with pt. Triglycerides 334. TC 199. LDL 59. HDL 74. Pt reports it has been awhile since she had her last mammogram. Pt reports last bone density test was in the 90s. HPI Comments History of Present Illness Details Documentation assistance for Yeyo España MD, was provided by Ronak Pierce,? [employer] on 11/04/2023 11:41 AM IONA. Albertina, Dr. España, have read, observed, and verified documentation.? [facility] Medical History Depression COPD (chronic obstructive pulmonary disease) Personal history of nicotine dependence Surgical History History of appendectomy H/O: hysterectomy Hx of cataract surgery History of ileostomy (~2018) History of tonsillectomy History of ankle surgery Family History Brother History of mental health disorder in sibling Social History Household Members: None Housing: House Alcohol intake: current Patient Tobacco Use Status: Former Tobacco user Quit Date: 05/02/2016 Tobacco use type: Cigarette Years Smoked: (onset 13, 1.5ppd x 47yrs, 60pyh - quit 2015) e-Cigarette/Vaping Use: Never Used Special carmen needs: No service: No Current occupational status: retired Cognitive needs: No Hearing needs: No Vision needs: No Questionnaire PHQ-9 Over the last 2 weeks, how often have you been bothered by any of the following problems? 1. Little interest or pleasure in doing things: not at all 2. Feeling down, depressed, or hopeless: not at all 3. Trouble falling or staying asleep, or sleeping too much: not at all 4. Feeling tired or having little energy: not at all 5. Poor appetite or overeating: not at all 6. Feeling bad about yourself - or that you are a failure or have let yourself or your family down: not at all 7. Trouble concentrating on things, such as reading the newspaper or watching television: not at all 8. Moving or speaking so slowly that other people could have noticed. Or the opposite - being so fidgety or restless that you have been moving around a lot more than usual: not at all 9. Thoughts that you would be better off or of hurting yourself in some way: not at all Total score: 0 Depression Screening Interpretation: Negative Depression Screening Done: Yes 68023 - PHQ-9 Billing: Yes Source: Developed by Drs. Bartolome Geller, Iveth Kaye, Richie Swenson and colleagues, with an educational matilde from [employer]. Thrive Questionnaire Date Thrive assessed: 11/04/23 I am a: Patient What is your living situation today?: I have a steady place to live Within the past 12 months, did the food you bought not last and you didn't have the money to get more?: Never true Within the past 12 months, did you worry whether your food would run out before you got money to buy more?: Never true Do you have trouble paying for medicines?: No Do you have trouble getting transportation to medical appointments?: No Do you have trouble paying your heating and electricity bill?: No Do you have trouble taking care of your child, family member or friend?: No Do you have trouble with day-to-day activities such as bathing, preparing meals, shopping, managing finances, etc.?: No Are you currently unemployed and looking for a job?: No Are you interested in more education?: No Please select the resources that you would like help with: None Currently or been in a relationship where the following occur: no concerns reported Review of Systems Const Denies chills, Denies fatigue, Denies fever(s), Denies headache(s) and Denies weakness Eyes Denies change in vision ENT Denies dizziness, Denies headache(s), Denies hearing loss, Denies nasal congestion, Denies sinus pain, Denies sinus pressure and Denies sore throat Card Denies chest pain, Denies lightheadedness, Denies dyspnea and Denies other (palpitations) Resp Denies cough, Denies dyspnea and Denies wheezing GI Denies abdominal pain, Denies melena, Denies hematochezia, Denies change in bowel habits, Denies dyspepsia and Denies nausea Denies hematuria and Denies dysuria Musc Denies abnormal gait, Denies myalgias, Denies arthralgias, Denies numbness and Denies tingling Skin/Breast Denies rash, Denies unusual bruising and Denies wounds Neuro Denies abnormal gait, Denies dizziness, Denies headache(s), Denies memory loss, Denies numbness, Denies Sensory deficit (Neuro), Denies tingling and Denies weakness Psych Denies anxiety, Denies depression and Denies memory loss Endo Denies cold intolerance, Denies fatigue, Denies heat intolerance, Denies polydipsia and Denies polyuria Ramiro/Lymph Denies easy bleeding and Denies easy bruising Aller/Immun Denies wheezing Physical exam (Primary Care) Vital Signs: Last Vital Signs Pulse 97 11/04/23 10:47 Resp 15 11/04/23 10:47 BP 148/70 H 11/04/23 10:47 Pulse Ox 92 11/04/23 10:47 Oxygen Delivery Method Room Air 11/04/23 10:47 BMI result Body Mass Index 20.7 Tobacco/Smoking Status: Tobacco use Status Tobacco use date assessed 11/04/23 11/04/23 10:51 Patient Tobacco Use Status Former Tobacco user 11/04/23 10:46 Tobacco use type Cigarette 11/04/23 10:46 e-Cigarette/Vaping Use Never Used 11/04/23 10:46 PHQ-9: PHQ-9 Score PHQ-9: Total score 0 11/04/23 11:29 Depression Screening Interpretation: Negative Thrive Assessment: Date of Thrive Assessment Date Thrive assessed 11/04/23 11/04/23 10:54 Currently or been in a relationship where the following occur: no concerns reported Const General: no acute distress, well developed, alert and awake Nutritional Appearance: well nourished Orientation/consciousness: patient oriented x3 HENMT Head: Yes normocephalic and Yes atraumatic Ears: hearing grossly normal bilaterally and TM's normal bilaterally General nose exam: Normal external nose present and Normal nares present Mouth: Normal oral and palatal mucosa present and moist mucous membranes Teeth and gingiva: dentition normal Throat: Yes posterior oropharynx normal Eyes General: appearance normal, both eyes and all related structures Pupils: Equal, round and reactive pupils present and Pupil accommodation reflex normal EOM: EOMs intact bilaterally Neck Neck: Yes normal visual inspection, Yes no lymphadenopathy and Yes trachea midline Thyroid: Thyroid normal Carotids: no bruits Lymphatic: no lymphadenopathy noted Chest Chest palpation & inspection: normal inspection of the chest Resp Other: Distant breath sounds but clear Effort & Inspection: normal respiratory effort Auscultation: clear to auscultation bilaterally Cardio Rate: regular rate Rhythm: regular rhythm Heart sounds: S1 normal heart sound present, S2 normal heart sound present, no gallops, no murmurs and no rubs Bruits: no abdominal aortic bruits and no carotid bruits GI Palpation (GI): No Abdominal aortic bruit present, Soft to palpation, nontender, No hepatosplenomegaly present and No Rebound tenderness present Auscultation: normal bowel sounds General: Yes no CVA tenderness Back/Spine/Pelvis Back: no CVA tenderness Cervical Spine: cervical ROM normal and No Cervical spine tenderness Thoracic/Lumbar Spine: thoraco-lumbar ROM normal, No pain with thoraco-lumbar ROM, No thoracic spinal tenderness and No lumbar spinal tenderness Skin Lesions: no lesions Rashes: no rashes Trauma: no lacerations or abrasions Wounds: no wounds Nails: normal Neuro General: patient oriented x3 Cranial nerves: Yes Equal, round and reactive pupils present Cognition (Neuro): normal cognition Gait exam (Neuro): Normal gait present Motor exam (neuro): 5/5 motor strength present throughout Sensory Exam: No Sensory deficit (Neuro) Deep tendon reflexes (DTR's): Right patellar reflex intensity grade: 2+ and Left patellar reflex intensity grade: 2+ Extrem General: Yes normal to inspection and No edema Psych Appearance: grossly normal Affect: normal affect Attitude: cooperative Thought process: Normal thought process present Assessment and Plan Assessment & Plan (1) Hypertriglyceridemia: Code(s): E78.1 - Pure hyperglyceridemia Plan: Patient's?triglycerides?fluctuate?but?are?high.??She?would?like?to?try?medication?to?control?this Start?fenofibrate (2) Hypertension: Code(s): I10 - Essential (primary) hypertension Plan: Blood?pressure?fluctuates Avoid?salt/sodium Get?plenty?of?sleep Gave?her?a?blood?pressure?monitor?to?check?her?blood?pressures?at?home No?change?to?her?medication?regimen?today (3) COPD (chronic obstructive pulmonary disease): Code(s): J44.9 - Chronic obstructive pulmonary disease, unspecified Plan: Ongoing?shortness?of?breath.??Lungs?are?clear?today. Continue?inhaled?medications?and?follow-up?with?pulmonology?as?recommended (4) Screening for colon cancer: Code(s): Z12.11 - Encounter for screening for malignant neoplasm of colon Plan: Patient?had?colectomy (5) Breast cancer screening by mammogram: Code(s): Z12.31 - Encounter for screening mammogram for malignant neoplasm of breast Plan: Overdue?for?mammogram-ordered (6) Screening for osteoporosis: Code(s): Z13.820 - Encounter for screening for osteoporosis Plan: Overdue?for?bone?density?testing - ordered (7) Adult general medical exam: Code(s): Z00.00 - Encounter for general adult medical examination without abnormal findings Plan: 68-year-old?female?presents?for?extended?exam Stable Orders: Orders MM tomosynthesis screening BI Today Z12.31 - Encounter for screening mammogram for malignant neoplasm of breast XR DEXA axial skeleton Today M81.0 - Age-related osteoporosis without current pathological fracture Lipid Panel Today E78.1 - Pure hyperglyceridemia, Z00.00 - Encounter for general adult medical examination without abnormal findings Comprehensive Kirby. Panel Fast Today E78.1 - Pure hyperglyceridemia, Z00.00 - Encounter for general adult medical examination without abnormal findings Medications: New blood pressure monitor Automatic, Digital. Dx: I10. Daily As directed, 999 days/lifetime 1 ea 0RF I10 - Essential (primary) hypertension blood pressure monitor Automatic, Digital. Dx: I10. Daily As directed, 999 days/lifetime 1 ea 0RF I10 - Essential (primary) hypertension fenofibrate 160 mg PO DAILY 30 days 30 tabs 2RF Coding Level of Care Code Est Pt Level 4 (02743) Diagnoses Hypertriglyceridemia E78.1 Hypertension I10 COPD (chronic obstructive pulmonary disease) J44.9 Screening for colon cancer Z12.11 Breast cancer screening by mammogram Z12.31 Screening for osteoporosis Z13.820 Adult general medical exam Z00.00
[2023-11-04 10:47] VITALS: BP 148/70; PULSE 97; RESP 15; O2SAT 92; BMI 20.7
== END 2023-11-04 11:50 | disposition home or self-care (01) ==
PROVIDERS: Visit Provider Family Medicine
DX: E78.1 Pure hyperglyceridemia (principal); I10 Essential (primary) hypertension; J44.9 Chronic obstructive pulmonary disease, unspecified; Z12.11 Encounter for screening for malignant neoplasm of colon; Z12.31 Encounter for screening mammogram for malignant neoplasm of breast; Z13.820 Encounter for screening for osteoporosis; Z00.00 Encounter for general adult medical examination without abnormal findings
CPT/HCPCS: 99214

== ENCOUNTER 2023-12-10 13:38 | Outpatient (REF) | payer MEDICARE, MEDICAID, SELFPAY | END 2023-12-10 13:39 | disposition home or self-care (01) | LOC: HO.MAMMO 13:38 | PROVIDERS: PCP Family Medicine; Visit Provider Family Medicine | DX: Z12.31 Encounter for screening mammogram for malignant neoplasm of breast (principal) | CPT/HCPCS: 77063; 77067 ==

== ENCOUNTER → 2023-12-10 13:45 | Outpatient (BNV) | payer MEDICARE, MEDICAID, SELFPAY | PROVIDERS: PCP Family Medicine; Visit Provider Radiology Diagnostic Radiology | DX: Z12.31 Encounter for screening mammogram for malignant neoplasm of breast (principal) | CPT/HCPCS: 77063; 77067 ==

== ENCOUNTER 2024-02-03 07:13 | Outpatient (REF) | payer MEDICARE, MEDICAID, SELFPAY ==
[2024-02-03 11:31] LABS: Appearance Urine Turbid; Color Urine Yellow; Glucose Urine UA Negative (Negative); Leukocyte Esterase Urine Trace (Negative); Nitrite Urine Negative (Negative); PH 5.5 (5.0-9.0); Specific Gravity - Urine 1.015 (1.005-1.025); UMIC TRIGGER UA YES; Urine Blood Negative (Negative); Urine Ketones Negative (Negative); Urine Protein Negative (Neg-Trace)
[2024-02-03 11:38] LABS: Bacteria Urine None Seen (None Seen); Hyaline Casts Urine 0-2 /LPF (0-2); RBC Urine 0-2 /HPF (0-2); Squamous Epithelial Cell Urine 0-2 /HPF (0-2)
[2024-02-03 12:33] LABS: Alanine Aminotransferase 10 U/L (0-31); Albumin Level 4.1 g/dL (3.5-5.0); Alkaline Phosphatase 63 U/L (39-117); Anion Gap 11 (12-20); Aspartate Amino Transferase 16 U/L (5-31); Bilirubin Total 0.3 mg/dL (0.0-1.0); Blood Urea Nitrogen 12 mg/dL (9-16); Calcium 9.5 mg/dL (8.4-10.2); Carbon Dioxide 31 mmol/L (22-29); Chloride 104 mmol/L (96-108); Cholesterol 208 mg/dL (<200); Estimated Glomerular Filt Rate > 60; Glucose Fasting 79 mg/dL (60-99); HDL Cholesterol 76 mg/dL (>40); LDL Cholesterol Calculated 80 mg/dL (<100); Potassium 4.5 mmol/L (3.3-5.1); Sodium 141 mmol/L (135-145); Total Protein 7.3 g/dL (6.5-8.0); Triglycerides 263 mg/dL (<150)
[2024-02-03 12:36] LABS: Creatinine Urine 86.88 mg/dL; Microalbum/Creatinine Ratio Ur 12.6 ug/mg cr (<30)
== END 2024-02-03 07:14 | disposition home or self-care (01) ==
LOC: HO.WFDLDS 07:13
PROVIDERS: Visit Provider Family Medicine
DX: Z00.00 Encounter for general adult medical examination without abnormal findings (principal); E78.1 Pure hyperglyceridemia; I10 Essential (primary) hypertension
CPT/HCPCS: 36415; 80053; 80061; 81001; 82043; 82570

== ENCOUNTER 2024-02-07 10:35 | Outpatient (AMB) | payer MEDICARE, MEDICAID, SELFPAY ==
--- NOTE | 2024-02-07 10:45 | MHC.PC.OV ---
Vital Signs 02/07/24 10:47 Height 5 ft 7 in Weight 138 lb 4 oz BMI 21.7 BP 132/80 Blood Pressure Location Lt brachial Position Sitting Pulse 86 Pulse Source Pulse Oximeter Pulse Oximetry (%) 97 Oxygen Delivery Method Room Air Intake Visit Reasons: f/u hypertension Intake Note: Patient is here to follow up on hypertension today. Allergies No Known Allergies Allergy (Verified 02/07/24 10:48) Tobacco use date assessed: 02/07/24 Fall risk assessment: No Falls in past year Last assessed Fall Risk: 02/07/24 HPI f/u hypertension HPI Details 68 y/o female presents to f/u hypertension. Blood pressure today 132/80. She states she was able to get a BP monitor - she notes it has been mostly normal but a few times it has been high. She is unsure what is associated with the few times it has been high. Labs were drawn 02/03/24. Reviewed labs with pt. Triglycerides 263. Improved from 334. She is on fenofibrate 160mg and pravastatin 40mg. LDL 80. HDL 76. PFSH Medical History Depression COPD (chronic obstructive pulmonary disease) Personal history of nicotine dependence Surgical History History of appendectomy H/O: hysterectomy Hx of cataract surgery History of ileostomy (~2018) History of tonsillectomy History of ankle surgery Family History Brother History of mental health disorder in sibling Social History Household Members: None Housing: House Alcohol intake: current Patient Tobacco Use Status: Former Tobacco user Quit Date: 05/02/2016 Tobacco use type: Cigarette Years Smoked: (onset 13, 1.5ppd x 47yrs, 60pyh - quit 2015) e-Cigarette/Vaping Use: Never Used Special carmen needs: No service: No Current occupational status: retired Cognitive needs: No Hearing needs: No Vision needs: No Questionnaire Thrive Questionnaire Date Thrive assessed: 11/04/23 Review of Systems Const Denies chills, Denies fatigue, Denies fever(s), Denies headache(s) and Denies weakness ENT Denies dizziness and Denies headache(s) Card Denies chest pain, Denies lightheadedness, Denies dyspnea and Denies other (Palpitations) Resp Denies cough, Denies dyspnea, Denies wheezing and Denies other ( shortness of breath) Musc Denies numbness and Denies tingling Neuro Denies dizziness, Denies headache(s), Denies numbness, Denies tingling, Denies paresthesias and Denies weakness Psych Denies anxiety and Denies depression Endo Denies fatigue Aller/Immun Denies wheezing Physical exam (Primary Care) Vital Signs: Last Vital Signs Pulse 86 02/07/24 10:47 BP 132/80 02/07/24 10:47 Pulse Ox 97 02/07/24 10:47 Oxygen Delivery Method Room Air 02/07/24 10:47 BMI result Body Mass Index 21.7 Tobacco/Smoking Status: Tobacco use Status Tobacco use date assessed 02/07/24 02/07/24 10:48 Patient Tobacco Use Status Former Tobacco user 02/07/24 10:47 Tobacco use type Cigarette 02/07/24 10:47 e-Cigarette/Vaping Use Never Used 02/07/24 10:47 Thrive Assessment: Date of Thrive Assessment Date Thrive assessed 11/04/23 02/07/24 10:47 Const General: no acute distress and well developed Nutritional Appearance: well nourished Orientation/consciousness: [facility]: Yes normocephalic and Yes atraumatic Eyes General: appearance normal, both eyes and all related structures Pupils: Equal, round and reactive pupils present EOM: EOMs intact bilaterally Resp Effort & Inspection: normal respiratory effort Auscultation: clear to auscultation bilaterally Cardio Rate: regular rate Rhythm: regular rhythm Heart sounds: S1 normal heart sound present, S2 normal heart sound present, no gallops, no murmurs and no rubs Neuro General: patient oriented x3 and gait normal Cranial nerves: Yes Equal, round and reactive pupils present Psych Affect: normal affect Assessment and Plan Assessment & Plan (1) Hypertension: Code(s): I10 - Essential (primary) hypertension Plan: Blood?pressure?is?better?than?her?last?visit?and?is?controlled.??Goal?is?less?than?140/90 She?has?a?blood?pressure?monitor?at?home?now?and?notes?that?blood?pressures?are?mostly Controlled?there?as?well. I?asked?her?to?keep?a?diary?for?when?her?blood?pressures?are?higher (2) Hypertriglyceridemia: Code(s): E78.1 - Pure hyperglyceridemia Plan: Triglycerides?fairly?well?controlled?on?fenofibrate. Continue?fenofibrate Continue?pravastatin Coding Level of Care Code Est Pt Level 3 (80799) Diagnoses Hypertension I10 Hypertriglyceridemia E78.1
[2024-02-07 10:47] VITALS: BP 132/80; PULSE 86; O2SAT 97; BMI 21.7
== END 2024-02-07 11:14 | disposition home or self-care (01) ==
PROVIDERS: PCP Family Medicine; Visit Provider Family Medicine
DX: I10 Essential (primary) hypertension (principal); E78.1 Pure hyperglyceridemia
CPT/HCPCS: 99213

== ENCOUNTER 2024-05-08 10:40 | Outpatient (AMB) | payer MEDICARE, MEDICAID, SELFPAY ==
--- NOTE | 2024-05-08 10:50 | A.OFFPC_ITS ---
Vital Signs 05/08/24 10:52 Height 5 ft 7 in Weight 136 lb 6 oz BMI 21.4 BP 130/66 Blood Pressure Location Lt brachial Position Sitting Pulse 93 Pulse Source Pulse Oximeter Pulse Oximetry (%) 99 Oxygen Delivery Method Room Air Intake Visit Reasons: f/u hypertension Intake Note: Patient is here to follow up on hypertension. Allergies No Known Allergies Allergy (Verified 05/08/24 10:53) Medication List - Last Reconciled 05/08/24 by Yeyo España MD albuterol sulfate 1.25 mg inhalation BID PRN albuterol sulfate 90 mcg/actuation (Ventolin HFA) 2 puffs inhalation Q6H PRN arformoterol (Brovana) 2 mL inhalation BID azithromycin For 250 mg dose pack: take 500 mg today (day 1), then 250 mg for 4 days (days 2-5) PO blood pressure monitor Automatic, Digital. Dx: I10. Daily As directed, 999 days/lifetime fenofibrate 160 mg PO DAILY 30 days lrhddrphrsq-agfttqqie-qszxbjmx 200-62.5-25 mcg (Trelegy Ellipta) 1 inh inh alation DAILY 90 days ipratropium-albuterol 0.5 mg-3 mg(2.5 mg base)/3 mL 3 mL inhalation Q6H PRN pravastatin 40 mg PO BEDTIME 90 days sertraline 50 mg PO DAILY 90 days Tobacco use date assessed: 05/08/24 Fall risk assessment: No Falls in past year Last assessed Fall Risk: 05/08/24 Dental Screening Dental Screen Date: 05/08/24 Did you have a dental visit in the last 12 months?: No Did you have a dental problem in the last 6 months where you did not have access to dental care?: No Was dental information given to patient?: Patient has dentist HPI f/u hypertension HPI Details 68 y/o female presents to f/u hypertensi on. Blood pressure today 130/66. Blood pressures at home have been reaching hypertensive range. She also reports increased heart rate at home. [facility] Medical History Depression COPD (chronic obstructive pulmonary disease) Personal history of nicotine dependence Surgical History History of appendectomy H/O: hysterectomy Hx of cataract surgery History of ileostomy (~2018) History of tonsillectomy History of ankle surgery Family History Brother History of mental health disorder in sibling Social History Household Members: None Housing: House Alcohol intake: current Patient Tobacco Use Status: Former Tobacco user Tobacco use type: Cigarette Years Smoked: (onset 13, 1.5ppd x 47yrs, 60pyh - quit 2016) e-Cigarette/Vaping Use: Never Used Special carmen needs: No service: No Current occupational status: retired Cognitive needs: No Hearing needs: No Vision needs: No Questionnaire Thrive Questionnaire Date Thrive assessed: 11/04/23 Review of Systems Const Denies chills, Denies fatigue, Denies fever(s), Denies headache(s) and Denies weakness ENT Denies dizziness and Denies headache(s) Card Denies chest pain, Denies lightheadedness, Denies dyspnea and Denies other (Palpitations) Resp Denies cough, Denies dyspnea, Denies wheezing and Denies other ( shortness of breath) Musc Denies numbness and Denies tingling Neuro Denies dizziness, Denies headache(s), Denies numbness, Denies tingling, Denies paresthesias and Denies weakness Psych Denies anxiety and Denies depression Endo Denies fatigue Aller/Immun Denies wheezing Physical exam (Primary Care) Vital Signs: Last Vital Signs Pulse 93 05/08/24 10:52 BP 130/66 05/08/24 10:52 Pulse Ox 99 05/08/24 10:52 Oxygen Delivery Method Room Air 05/08/24 10:52 BMI result Body Mass Index 21.4 Tobacco/Smoking Status: Tobacco use Status Tobacco use date assessed 05/08/24 05/08/24 10:54 Patient Tobacco Use Status Former Tobacco user 05/08/24 10:50 Tobacco use type Cigarette 05/08/24 10:50 e-Cigarette/Vaping Use Never Used 05/08/24 10:50 Thrive Assessment: Date of Thrive Assessment Date Thrive assessed 11/04/23 05/08/24 10:50 Const General: no acute distress and well developed Nutritional Appearance: well nourished Orientation/consciousness: patient oriented x3 [facility] Head: Yes normocephalic and Yes atraumatic Eyes General: appearance normal, both eyes and all related structures Pupils: Equal, round and reactive pupils present EOM: EOMs intact bilaterally Resp Effort & Inspection: normal respiratory effort Auscultation: clear to auscultation bilaterally Cardio Rate: regular rate Rhythm: regular rhythm Heart sounds: S1 normal heart sound present, S2 normal heart sound present, no gallops, no murmurs and no rubs Neuro General: patient oriented x3 and gait normal Cranial nerves: Yes Equal, round and reactive pupils present Psych Affect: normal affect Assessment and Plan Assessment & Plan (1) Hypertension: Code(s): I10 - Essential (primary) hypertension Plan: Blood?pressures?at?home?are?getting?up?in?to?hypertensive?range?and?heart?rates? are?at?the?higher?end?of?normal?as?well Will?trial?metoprolol ER?12.5?mg?daily Medications: New metoprolol succinate ER 12.5 mg (1/2 x 25 mg) PO DAILY 90 days 45 tabs 2RF Coding Level of Care Code Est Pt Level 3 (48348) Diagnoses Hypertension I10
[2024-05-08 10:52] VITALS: BP 130/66; PULSE 93; O2SAT 99; BMI 21.4
== END 2024-05-08 11:39 | disposition home or self-care (01) ==
PROVIDERS: PCP Family Medicine; Visit Provider Family Medicine
DX: I10 Essential (primary) hypertension (principal)
CPT/HCPCS: 99213

== ENCOUNTER 2024-06-30 09:27 | Outpatient (AMB) | payer MEDICARE, MEDICAID, SELFPAY ==
--- NOTE | 2024-06-30 09:29 | MHC.OFFVIS ---
Vital Signs 06/30/24 09:30 Height 5 ft 7 in Weight 136 lb 4 oz BMI 21.3 BP 144/68 H Blood Pressure Location Rt brachial Position Sitting Pulse 79 Pulse Source Pulse Oximeter Pulse Oximetry (%) 95 Oxygen Delivery Method Room Air Intake Visit Reasons: COPD Allergies No Known Allergies Allergy (Verified 06/30/24 09:33) HPI HPI COPD: Details: Mica is a pleasant 68 year old female, former smoker with 47 pack year history, quit 2016, with underlying severe COPD, FEV1 26. Patient was trialed on Brovana with minimal effect. She has been using Trelegy and Duoneb with moderate effect. She uses DuoNeb 1-2 times per day depending on symptoms with good relief. She does note significant dyspnea on exertion with associated dry cough and wheezing. She has been using 2L supplemental oxygen at home, but reluctant to use when she leaves her house. Today she presents for routine visit and to recertify for supplemental oxygen. She denies any visits to urgent care or hospitalizations since the last visit. [facility] Medical History (Updated 06/19/24 @ 11:08 by Rin Knapp PA-C) Depression COPD (chronic obstructive pulmonary disease) Personal history of nicotine dependence Surgical History History of appendectomy H/O: hysterectomy Hx of cataract surgery History of ileostomy (~2018) History of tonsillectomy History of ankle surgery Family History Brother History of mental health disorder in sibling Social History Household Members: None Housing: House Alcohol intake: current Patient Tobacco Use Status: Former Tobacco user Tobacco use type: Cigarette Years Smoked: (onset 13, 1.5ppd x 47yrs, 60pyh - quit 2015) e-Cigarette/Vaping Use: Never Used Special carmen needs: No service: No Current occupational status: retired Cognitive needs: No Hearing needs: No Vision needs: No Review of Systems Const Denies chills, Denies excessive sweating, Denies fever(s), Denies headache(s) and Denies night sweats Eyes Denies dry eyes, Denies irritation and Denies itchy eyes ENT Reports Normal hearing present and Denies headache(s) Card Denies chest pain, Denies chest pain at rest, Denies chest pain with activity, Denies leg edema, Reports dyspnea on exertion, Denies orthopnea and Denies paroxysmal nocturnal dyspnea Resp Reports cough, Denies hemoptysis, Denies pain on inspiration, Denies pain with cough, Reports dyspnea on exertion, Denies stridor and Reports wheezing Musc Denies myalgias Neuro Reports Normal hearing present and Denies headache(s) Endo Denies excessive sweating Ramiro/Lymph Denies lymphadenopathy Aller/Immun Denies itchy eyes, Denies seasonal rhinorrhea and Reports wheezing Physical Exam Vital Signs: Last Vital Signs Pulse 79 06/30/24 09:30 BP 144/68 H 06/30/24 09:30 Pulse Ox 95 06/30/24 09:30 Oxygen Delivery Method Room Air 06/30/24 09:30 BMI result Body Mass Index 21.3 Const General: cooperative, no acute distress and alert Nutritional Appearance: thin Orientation/consciousness: patient oriented x3 Limitations: no limitations HEENT Head: Yes normal to inspection, Yes normocephalic and Yes atraumatic Ears: hearing grossly normal bilaterally and external ears normal Eyes General: appearance normal, both eyes and all related structures Eyelids: Yes eyelids normal Sclerae: sclerae normal EOM: EOMs intact bilaterally Neck Neck: Yes normal visual inspection and Yes no lymphadenopathy Lymphatic: no lymphadenopathy noted Chest Chest palpation & inspection: normal inspection of the chest Resp Other: moderate respiratory effort Effort & Inspection: able to speak in complete sentences, no audible wheezes, no cough and no stridor Auscultation: diminished lung sounds Cardio Jugular venous distension: no JVD Rate: regular rate Rhythm: regular rhythm Skin Other: warm, dry General skin exam: no rashes or lesions noted Neuro General: patient oriented x3 Cranial nerves: Yes Normal hearing present Cognition (Neuro): normal cognition Gait exam (Neuro): Normal gait present Extrem General: Yes normal to inspection, Yes capillary refill normal, Yes no clubbing, cyanosis or edema and Yes no pedal edema Psych Appearance: grossly normal and well kempt Speech and movement: Normal speech and movement present and Clear speech present Affect: normal affect Attitude: cooperative Thought process: Normal thought process present Thought content: Normal thought content present Insight: Good insight present (Psych) Judgement: Good judgement present (Psych) Office Procedures 6 Minute Walk Time:: 09:53 SPO2 % at rest: 96 Pulse at rest: 84 SPO2 % during excercise: 88 Pulse during excercise: 124 SPO2 % after excercise: 95 Pulse after excercise: 100 Distance in yards walked: 100 Yvonne Score: 9 Performance Observations:: Patient walked unassisted on level ground at a moderate pace. Patient very short of breath after 20 or so yards with O2 sat at 91 and pulse rate of 112. Stopped to rest for a minute and resumed walk. Patient continues to be very short of breath with O2 sat dropped to 88% and pulse of 124. Rested and O2 applied at 2L via nasal cannula with O2 saturation returned to 95% and pulse of 110. Resumed walk and maintained O2 saturation of 94-95%. Patient reports she tires easily and is short of breath with any exertion. Patient did require the use of supplemental oxygen. 403[address] - 6 Minute Walk Assessment & Plan Assessment & Plan (1) COPD (chronic obstructive pulmonary disease): Code(s): J44.9 - Chronic obstructive pulmonary disease, unspecified Category: Medical (2) Multiple pulmonary nodules: Code(s): R91.8 - Other nonspecific abnormal finding of lung field Category: Medical (3) Personal history of nicotine dependence: Comment: (former smoker - onset 13, 1.5ppd x 47yrs, 60pyh - quit 2016) Code(s): Z87.891 - Personal history of nicotine dependence Category: Medical Plan Mica reports moderate control of symptoms on current regimen, advised to continue. She is aware to call if she needs to be seen sooner. 6MWT performed and patient continues to require 2L on exertion. Discussed importance of using supplemental oxygen and she is interested in B cylinder tanks to use when outside the house. She upcoming chest CT to be scheduled in July. Will review when available. All questions were answered and patient is in agreement of plan. Will follow up in 3 months or sooner if needed. Orders: Orders AMB 6 minute walk Today J44.9 - Chronic obstructive pulmonary disease, unspecified Coding Level of Care Code Est Pt Level 4 (87784) Diagnoses COPD (chronic obstructive pulmonary disease) J44.9 Multiple pulmonary nodules R91.8 Personal history of nicotine dependence Z87.891 CPT Codes Coding ([id number])
[2024-06-30 09:30] VITALS: BP 144/68; PULSE 79; O2SAT 95; BMI 21.3
[2024-06-30 10:33] VITALS: PULSE 84; O2SAT 96
== END 2024-06-30 10:06 | disposition home or self-care (01) ==
PROVIDERS: PCP Family Medicine; Visit Provider Nurse Practitioner Family
DX: J44.9 Chronic obstructive pulmonary disease, unspecified (principal); R91.8 Other nonspecific abnormal finding of lung field; Z87.891 Personal history of nicotine dependence
CPT/HCPCS: 94618; 99214

== ENCOUNTER → 2024-06-30 09:27 | Outpatient (BNVA) | payer MEDICARE, MEDICAID, SELFPAY | PROVIDERS: PCP Family Medicine; Visit Provider Nurse Practitioner Family | DX: J44.9 Chronic obstructive pulmonary disease, unspecified (principal); R91.8 Other nonspecific abnormal finding of lung field; Z87.891 Personal history of nicotine dependence | CPT/HCPCS: 94618; 99212 ==

== ENCOUNTER 2024-07-19 10:36 | Outpatient (AMB) | payer MEDICARE, MEDICAID, SELFPAY ==
--- NOTE | 2024-07-19 10:40 | MHC.PC.OV ---
Vital Signs 07/19/24 10:42 Height 5 ft 7 in Weight 139 lb BMI 21.8 BP 110/60 Blood Pressure Location Lt brachial Position Sitting Respiration 12 Pulse 81 Pulse Source Pulse Oximeter Temp 96.0 F L Temp Source Tympanic Pulse Oximetry (%) 94 Oxygen Delivery Method Room Air Intake Visit Reasons: f/u hypertension Intake Note: FOLLOW UP ON HTN Allergies No Known Allergies Allergy (Verified 07/19/24 10:40) Medication List - Last Reconciled 07/19/24 by Yeyo España MD albuterol sulfate 1.25 mg inhalation BID PRN albuterol sulfate 90 mcg/actuation (Ventolin HFA) 2 puffs inhalation Q6H PRN arformoterol (Brovana) 2 mL inhalation BID blood pressure monitor Automatic, Digital. Dx: I10. Daily As directed, 999 days/lifetime fenofibrate 160 mg PO DAILY 30 days jsvtvvfpfmo-tupmygmni-ompqaypj 200-62.5-25 mcg (Trelegy Ellipta) 1 inh inhalation DAILY 90 days ipratropium-albuterol 0.5 mg-3 mg(2.5 mg base)/3 mL 3 mL inhalation Q6H PRN metoprolol succinate ER 12.5 mg (1/2 x 25 mg) PO DAILY 90 days pravastatin 40 mg PO BEDTIME 90 days sertraline 50 mg PO DAILY 90 days Tobacco use date assessed: 05/08/24 Dental Screening Dental Screen Date: 05/08/24 HPI f/u hypertension HPI Details 68 y/o female presents to f/u hypertension. Had started her on metoprolol 12.5mg daily. Blood pressure today 110/60, 81p. Has complaints of a rash. Denies any pruritus. [facility] Medical History (Updated 07/19/24 @ 11:22 by Ronak Pierce) Depression COPD (chronic obstructive pulmonary disease) Personal history of nicotine dependence Surgical History History of appendectomy H/O: hysterectomy Hx of cataract surgery History of ileostomy (~2017) History of tonsillectomy History of ankle surgery Family History Brother History of mental health disorder in sibling Social History Household Members: None Housing: House Alcohol intake: current Patient Tobacco Use Status: Former Tobacco user Tobacco use type: Cigarette Years Smoked: (onset 13, 1.5ppd x 47yrs, 60pyh - quit 2015) e-Cigarette/Vaping Use: Never Used Special carmen needs: No service: No Current occupational status: retired Cognitive needs: No Hearing needs: No Vision needs: No Questionnaire Thrive Questionnaire Date Thrive assessed: 11/04/23 Review of Systems Const Denies chills, Denies fatigue, Denies fever(s), Denies headache(s) and Denies weakness ENT Denies dizziness and Denies headache(s) Card Denies dyspnea Resp Denies cough, Denies dyspnea, Denies wheezing and Denies other (shortness of breath) Musc Denies numbness and Denies tingling Neuro Denies dizziness, Denies headache(s), Denies numbness, Denies tingling and Denies weakness Psych Denies anxiety and Denies depression Endo Denies fatigue Aller/Immun Denies wheezing Physical exam (Primary Care) Vital Signs: Last Vital Signs Temp 96.0 F L 07/19/24 10:42 Pulse 81 07/19/24 10:42 Resp 12 07/19/24 10:42 BP 110/60 07/19/24 10:42 Pulse Ox 94 07/19/24 10:42 Oxygen Delivery Method Room Air 07/19/24 10:42 BMI result Body Mass Index 21.8 Tobacco/Smoking Status: Tobacco use Status Tobacco use date assessed 05/08/24 07/19/24 10:44 Patient Tobacco Use Status Former Tobacco user 07/19/24 10:44 Tobacco use type Cigarette 07/19/24 10:44 e-Cigarette/Vaping Use Never Used 07/19/24 10:44 Thrive Assessment: Date of Thrive Assessment Date Thrive assessed 11/04/23 07/19/24 10:44 Const General: well developed; No acute distress Nutritional Appearance: well nourished Orientation/consciousness: patient oriented x3 HENMT Head: Yes normocephalic and Yes atraumatic Eyes General: appearance normal, both eyes and all related structures Pupils: Equal, round and reactive pupils present EOM: EOMs intact bilaterally Resp Effort & Inspection: normal respiratory effort Auscultation: clear to auscultation bilaterally Cardio Rate: regular rate Rhythm: regular rhythm Heart sounds: S1 normal heart sound present, S2 normal heart sound present, no gallops, no murmurs and no rubs Neuro General: patient oriented x3 and gait normal Cranial nerves: Yes Equal, round and reactive pupils present Psych Affect: normal affect Assessment and Plan Assessment & Plan (1) Hypertension: Code(s): I10 - Essential (primary) hypertension Plan: Blood?pressure?is?controlled.??Goal?is?less?than?140/90 Continue?current?medication (2) COPD (chronic obstructive pulmonary disease): Code(s): J44.9 - Chronic obstructive pulmonary disease, unspecified Plan: Breathing Without?effort Lungs?are?clear Follow-up?with?pulmonology?as?recommended (3) Rash: Code(s): R21 - Rash and other nonspecific skin eruption Plan: Mild?rash?on?left?forearm?and?right?lower?leg Probable?contact?dermatitis?or?eczema Will?give?her?a?script?for?he?steroid?cream?and?she?can?use?a?moisturizer?without?dyes?or?perfumes She?will?let?me?know?if?this?is?worsening?or?not?improving Medications: New triamcinolone acetonide 0.025% 1 appl topical BID 14 days 15 grams 1RF blood pressure monitor Automatic, Digital. Dx: I10. Daily As directed, 999 days/lifetime 1 ea 0RF I10 - Essential (primary) hypertension Coding Level of Care Code Est Pt Level 3 (64410) Diagnoses Hypertension I10 COPD (chronic obstructive pulmonary disease) J44.9 Rash R21
[2024-07-19 10:42] VITALS: BP 110/60; PULSE 81; RESP 12; TEMP 35.6; O2SAT 94; BMI 21.8
== END 2024-07-19 11:30 | disposition home or self-care (01) ==
PROVIDERS: PCP Family Medicine; Visit Provider Family Medicine
DX: I10 Essential (primary) hypertension (principal); J44.9 Chronic obstructive pulmonary disease, unspecified; R21 Rash and other nonspecific skin eruption
CPT/HCPCS: 99213

== ENCOUNTER 2024-08-14 09:21 | Outpatient (REF) | payer MEDICARE, MEDICAID, SELFPAY ==
--- NOTE | ~2024-08-14 | CT_ITS ---
EXAMINATION: CT LOW-DOSE SCREENING CHEST WITHOUT CONTRAST CLINICAL INFORMATION: Personal history of nicotine dependence. The patient has a 94 pack-year history of smoking, having quit 8 years ago. COMPARISON: CT chest 08/28/2022 and 04/10/2022. 08/28/2022 report: There is a new peripheral or subpleural nodular density in the right upper lobe adjacent to the minor fissure measuring 5 x 10 mm. On sagittal and coronal reconstructed images this appears linear and probably represents an area of thick band-like atelectasis. TECHNIQUE: Multidetector volumetric CT imaging of the chest is performed on a Siemens SOMATOM Definition scanner without contrast using low dose technique. Additional 2D coronal and sagittal reformatted images and axial 3D maximum intensity projection (MIP) images are generated on the CT workstation. This CT examination was performed using dose optimization techniques as appropriate, variously including the following: *Automated exposure control *Adjustment of mA and/or kV according to patient size (this includes techniques or standardized protocols for targeted exams where dose is matched to indication/reason for exam; i.e. extremities or head) *Use of iterative reconstruction technique TOTAL EXAM DLP: 38 mGy-cm. CTDIvol: 1.06 mGy. FINDINGS: PULMONARY NODULES: There is increase in size of a mixed ground-glass and solid nodule in the superior segment of the left lower lobe. Overall size has increased from 12 mm to 18 mm with increase in size of the solid component from 6 mm to 8 mm (5:243 compare prior 7:306). There is an additional left lower lobe nodule that is similar in volume measuring 7.9 x 4.4 mm today and 5.8 x 5.2 mm previously (5:257 compare prior 7:323). LUNGS: Lungs bilaterally symmetrically expanded. Biapical pleural-parenchymal scarring is present and unchanged. Band-like atelectasis at the lung bases is unchanged. No effusion or pneumothorax. Central airways patent. MEDIASTINUM: No mediastinal, hilar or axillary adenopathy or free fluid collection. CORONARY ARTERY CALCIFICATION: Present. THYROID GLAND: Unremarkable to the extent seen. CARDIOVASCULAR STRUCTURES: Aortic and heart size normal. No pericardial effusion. CHEST WALL/AXILLA: Unremarkable. UPPER ABDOMEN: Included portions of the solid organs in the upper abdomen unremarkable on noncontrast imaging. OSSEOUS STRUCTURES: No suspicious focal findings. CT/CT lung screening IMPRESSION: Increase in size of mixed ground-glass and solid nodule in the superior segment of the left lower lobe. ASSESSMENT: 1. Lung-RADS Category 4B: Suspicious findings. N/A 2. Lung-RADS Category S: Negative. There are no clinically significant or potentially clinically significant findings not related to the lungs requiring urgent additional evaluation. RECOMMENDATION: A PET/CT could be performed. A PET/CT may be used when there is a solid nodule greater than or equal to 8 mm. At the very least, a follow-up CT scan in 3 months is recommended. Electronically signed by: Fabian Rose MD 10/10/2024 07:51 PM [facility]
== END 2024-08-14 09:22 | disposition home or self-care (01) ==
LOC: HO.CT 09:21
PROVIDERS: PCP Family Medicine; Visit Provider Physician Assistant Medical
DX: Z12.2 Encounter for screening for malignant neoplasm of respiratory organs (principal); Z87.891 Personal history of nicotine dependence
CPT/HCPCS: 71271

== ENCOUNTER 2024-10-10 10:47 | Outpatient (AMB) | payer MEDICARE, MEDICAID, SELFPAY ==
[2024-10-10 10:52] VITALS: BP 130/60; PULSE 110; O2SAT 91; BMI 21.8
--- NOTE | 2024-10-10 10:52 | MHC.OFFVIS ---
Vital Signs 10/10/24 10:52 Height 5 ft 7 in Weight 139 lb 2 oz BMI 21.8 BP 130/60 Blood Pressure Location Lt brachial Position Sitting Pulse 110 H Pulse Source Pulse Oximeter Pulse Oximetry (%) 91 L Oxygen Delivery Method Room Air Intake Visit Reasons: COPD Allergies No Known Allergies Allergy (Verified 10/10/24 10:56) HPI HPI COPD: Details: Mica is a pleasant 68 year old female, former smoker with 47 pack year history, quit 2016, with underlying severe COPD, FEV1 26. Patient was trialed on Brovana with minimal effect. She has been using Trelegy and Duoneb with moderate effect. She uses DuoNeb infrequently however feels she should be using more frequently. She does note significant dyspnea on exertion with associated dry cough and wheezing. She has been using 2L supplemental oxygen at home, but reluctant to use when she leaves her house. She denies any visits to urgent care or hospitalizations since the last visit. She is a part of the lung screening program and presents to review chest CT. [facility] Medical History (Updated 10/10/24 @ 11:27 by Ebony Hill NP) Depression COPD (chronic obstructive pulmonary disease) Personal history of nicotine dependence Surgical History History of appendectomy H/O: hysterectomy Hx of cataract surgery History of ileostomy (~2018) History of tonsillectomy History of ankle surgery Family History Brother History of mental health disorder in sibling Social History Household Members: None Housing: House Alcohol intake: current Patient Tobacco Use Status: Former Tobacco user Tobacco use type: Cigarette Years Smoked: (onset 13, 1.5ppd x 47yrs, 60pyh - quit 2015) e-Cigarette/Vaping Use: Never Used Special carmen needs: No service: No Current occupational status: retired Cognitive needs: No Hearing needs: No Vision needs: No Review of Systems Const Denies chills, Denies excessive sweating, Denies fever(s), Denies headache(s) and Denies night sweats Eyes Denies dry eyes, Denies irritation and Denies itchy eyes ENT Reports Normal hearing present and Denies headache(s) Card Denies chest pain, Denies chest pain at rest, Denies chest pain with activity, Denies leg edema, Reports dyspnea on exertion, Denies orthopnea and Denies paroxysmal nocturnal dyspnea Resp Reports cough, Denies hemoptysis, Denies pain on inspiration, Denies pain with cough, Reports dyspnea on exertion, Denies stridor and Reports wheezing Musc Denies myalgias Neuro Reports Normal hearing present and Denies headache(s) Endo Denies excessive sweating Ramiro/Lymph Denies lymphadenopathy Aller/Immun Denies itchy eyes, Denies seasonal rhinorrhea and Reports wheezing Physical Exam Vital Signs: Last Vital Signs Pulse 110 H 10/10/24 10:52 BP 130/60 10/10/24 10:52 Pulse Ox 91 L 10/10/24 10:52 Oxygen Delivery Method Room Air 10/10/24 10:52 BMI result Body Mass Index 21.8 Const General: cooperative, no acute distress and alert Nutritional Appearance: thin Orientation/consciousness: patient oriented x3 Limitations: no limitations HEENT Head: Yes normal to inspection, Yes normocephalic and Yes atraumatic Ears: hearing grossly normal bilaterally and external ears normal Eyes General: appearance normal, both eyes and all related structures Eyelids: Yes eyelids normal Sclerae: sclerae normal EOM: EOMs intact bilaterally Neck Neck: Yes normal visual inspection and Yes no lymphadenopathy Lymphatic: no lymphadenopathy noted Chest Chest palpation & inspection: normal inspection of the chest Resp Other: moderate respiratory effort Effort & Inspection: able to speak in complete sentences, no audible wheezes, no cough and no stridor Auscultation: diminished lung sounds Cardio Jugular venous distension: no JVD Rate: regular rate Rhythm: regular rhythm Skin Other: warm, dry General skin exam: no rashes or lesions noted Neuro General: patient oriented x3 Cranial nerves: Yes Normal hearing present Cognition (Neuro): normal cognition Gait exam (Neuro): Normal gait present Extrem General: Yes normal to inspection, Yes capillary refill normal, Yes no clubbing, cyanosis or edema and Yes no pedal edema Psych Appearance: grossly normal and well kempt Speech and movement: Normal speech and movement present and Clear speech present Affect: normal affect Attitude: cooperative Thought process: Normal thought process present Thought content: Normal thought content present Insight: Good insight present (Psych) Judgement: Good judgement present (Psych) Assessment & Plan Assessment & Plan (1) COPD (chronic obstructive pulmonary disease): Code(s): J44.9 - Chronic obstructive pulmonary disease, unspecified Category: Medical (2) Multiple pulmonary nodules: Code(s): R91.8 - Other nonspecific abnormal finding of lung field Category: Medical (3) Personal history of nicotine dependence: Comment: (former smoker - onset 13, 1.5ppd x 47yrs, 60pyh - quit 2016) Code(s): Z87.891 - Personal history of nicotine dependence Category: Medical Plan Mica reports moderate control of symptoms on current regimen, advised to use DuoNeb 1-2 times per day and will trial Daliresp 250 mcg x 4 weeks and if tolerates, will increase to 500 mcg. Will obtain baseline liver panel prior to starting. Patient given informational handout of Daliresp provided from [employer]. She is aware to call if she needs to be seen sooner. Chest CT from 07/2024 not officially read however reviewed with patient and there is an increase in the solid component of 12 mm semisolid nodule of LLL. Discussed with patient the possibility that this could be a malignant process. Reviewed with Dr. Holbrook, given patient's severely decreased lung capacity likely not a surgical candidate. Patient agreeable to [address] which would be 4 months from now. All questions were answered and patient is in agreement of plan. Will follow up in 4 weeks or sooner if needed. Orders: Orders Liver Panel Today Z01.818 - Encounter for other preprocedural examination CT chest wo IV con 4 Months R91.8 - Other nonspecific abnormal finding of lung field Medications: New roflumilast (Daliresp) 250 mcg PO DAILY 30 tabs 0RF roflumilast (Daliresp) 500 mcg PO DAILY 30 tabs 6RF Coding Level of Care Code Est Pt Level 4 (80763) Diagnoses COPD (chronic obstructive pulmonary disease) J44.9 Multiple pulmonary nodules R91.8 Personal history of nicotine dependence Z87.891
== END 2024-10-10 11:32 | disposition home or self-care (01) ==
PROVIDERS: PCP Family Medicine; Visit Provider Nurse Practitioner Family
DX: J44.9 Chronic obstructive pulmonary disease, unspecified (principal); R91.8 Other nonspecific abnormal finding of lung field; Z87.891 Personal history of nicotine dependence
CPT/HCPCS: 99214

== ENCOUNTER → 2024-10-10 10:47 | Outpatient (BNVA) | payer MEDICARE, MEDICAID, SELFPAY | PROVIDERS: PCP Family Medicine; Visit Provider Nurse Practitioner Family | DX: J44.9 Chronic obstructive pulmonary disease, unspecified (principal); R91.8 Other nonspecific abnormal finding of lung field; Z87.891 Personal history of nicotine dependence; Z99.81 Dependence on supplemental oxygen | CPT/HCPCS: 99212 ==

== ENCOUNTER 2024-10-24 07:39 | Outpatient (REF) | payer MEDICARE, MEDICAID, SELFPAY ==
[2024-10-24 12:27] LABS: Alanine Aminotransferase 18 U/L (0-31); Alkaline Phosphatase 56 U/L (39-117); Aspartate Amino Transferase 21 U/L (5-31); Bilirubin Direct 0.1 mg/dL (0.0-0.5); Bilirubin Total 0.3 mg/dL (0.0-1.0)
== END 2024-10-24 07:40 | disposition home or self-care (01) ==
LOC: HO.WFDLDS 07:39
PROVIDERS: Visit Provider Nurse Practitioner Family
DX: Z01.818 Encounter for other preprocedural examination (principal)
CPT/HCPCS: 36415; 80076

== ENCOUNTER 2024-11-10 09:35 | Outpatient (AMB) | payer MEDICARE, MEDICAID, SELFPAY ==
[2024-11-10 09:37] VITALS: BP 138/60; PULSE 96; O2SAT 95; BMI 21.7
--- NOTE | 2024-11-10 09:37 | MHC.OFFVIS ---
Vital Signs 11/10/24 09:37 Height 5 ft 7 in Weight 138 lb 8 oz BMI 21.7 BP 138/60 Blood Pressure Location Rt brachial Position Sitting Pulse 96 Pulse Source Pulse Oximeter Pulse Oximetry (%) 95 Oxygen Delivery Method Room Air Intake Visit Reasons: COPD Allergies No Known Allergies Allergy (Verified 11/10/24 10:46) HPI HPI COPD: Details: Mica is a pleasant 69 year old female, former smoker with 47 pack year history, quit 2016, with underlying severe COPD, FEV1 26. Patient was trialed on Brovana with minimal effect. She has been using Trelegy and Duoneb with moderate effect, started on Daliresp 3 weeks ago unsure of effects. She has reported nausea since starting. Over the last few days has had increased dyspnea on exertion, chest tightness with minimal relief from DuoNeb. She dwenies wheezing or cough. She has been using 2L supplemental oxygen at home, but reluctant to use when she leaves her house, not wearing any today. Today she presents to revisit chest CT results. [facility] Medical History (Updated 11/10/24 @ 11:04 by Alan Dover [facility]) Depression COPD (chronic obstructive pulmonary disease) Personal history of nicotine dependence Surgical History History of appendectomy H/O: hysterectomy Hx of cataract surgery History of ileostomy (~2018) History of tonsillectomy History of ankle surgery Family History Brother History of mental health disorder in sibling Social History Household Members: None Housing: House Alcohol intake: current Patient Tobacco Use Status: Former Tobacco user Tobacco use type: Cigarette Years Smoked: (onset 13, 1.5ppd x 47yrs, 60pyh - quit 2015) e-Cigarette/Vaping Use: Never Used Special carmen needs: No Patient : No service: No Current occupational status: retired Cognitive needs: No Hearing needs: No Vision needs: No Review of Systems Const Denies chills, Denies excessive sweating, Denies fever(s), Denies headache(s) and Denies night sweats Eyes Denies dry eyes, Denies irritation and Denies itchy eyes ENT Reports Normal hearing present and Denies headache(s) Card Denies chest pain, Denies chest pain at rest, Denies chest pain with activity, Denies leg edema, Reports dyspnea on exertion, Denies orthopnea and Denies paroxysmal nocturnal dyspnea Resp Denies hemoptysis, Denies pain on inspiration, Denies pain with cough, Reports dyspnea on exertion and Denies stridor Musc Denies myalgias Neuro Reports Normal hearing present and Denies headache(s) Endo Denies excessive sweating Ramiro/Lymph Denies lymphadenopathy Aller/Immun Denies itchy eyes and Denies seasonal rhinorrhea Physical Exam Vital Signs: Last Vital Signs Pulse 96 11/10/24 09:37 BP 138/60 11/10/24 09:37 Pulse Ox 95 11/10/24 09:37 Oxygen Delivery Method Room Air 11/10/24 09:37 BMI result Body Mass Index 21.7 Const General: cooperative, no acute distress and alert Nutritional Appearance: thin Orientation/consciousness: patient oriented x3 Limitations: no limitations HEENT Head: Yes normal to inspection, Yes normocephalic and Yes atraumatic Ears: hearing grossly normal bilaterally and external ears normal Eyes General: appearance normal, both eyes and all related structures Eyelids: Yes eyelids normal Sclerae: sclerae normal EOM: EOMs intact bilaterally Neck Neck: Yes normal visual inspection and Yes no lymphadenopathy Lymphatic: no lymphadenopathy noted Chest Chest palpation & inspection: normal inspection of the chest Resp Other: moderate respiratory effort Effort & Inspection: able to speak in complete sentences, no audible wheezes, no cough and no stridor Auscultation: diminished lung sounds Cardio Jugular venous distension: no JVD Rate: regular rate Rhythm: regular rhythm Skin Other: warm, dry General skin exam: no rashes or lesions noted Neuro General: patient oriented x3 Cranial nerves: Yes Normal hearing present Cognition (Neuro): normal cognition Gait exam (Neuro): Normal gait present Extrem General: Yes normal to inspection, Yes capillary refill normal, Yes no clubbing, cyanosis or edema and Yes no pedal edema Psych Appearance: grossly normal and well kempt Speech and movement: Normal speech and movement present and Clear speech present Affect: normal affect Attitude: cooperative Thought process: Normal thought process present Thought content: Normal thought content present Insight: Good insight present (Psych) Judgement: Good judgement present (Psych) Results Reviewed Results Reviewed: [address] [address] [address] Scan Report Signed Patient: Mica Dillard MR#: [id number] : 1955 Acct:[id number] Age/Sex: 68 / F ADM Date: 08/14/24 Loc: HO.CT Attending Dr: Rin Knapp PA-C Ordering Physician: Rin Knapp PA-C Date of Service: 08/14/24 Procedure(s): CT lung screening Accession Number(s): [id number] cc: Yeyo España MD; Rin Knapp PA-C~ EXAMINATION: CT LOW-DOSE SCREENING CHEST WITHOUT CONTRAST CLINICAL INFORMATION: Personal history of nicotine dependence. The patient has a 94 pack-year history of smoking, having quit 8 years ago. COMPARISON: CT chest 08/28/2022 and 04/10/2022. 08/28/2022 report: There is a new peripheral or subpleural nodular density in the right upper lobe adjacent to the minor fissure measuring 5 x 10 mm. On sagittal and coronal reconstructed images this appears linear and probably represents an area of thick band-like atelectasis. TECHNIQUE: Multidetector volumetric CT imaging of the chest is performed on a Siemens SOMATOM Definition scanner without contrast using low dose technique. Additional 2D coronal and sagittal reformatted images and axial 3D maximum intensity projection (MIP) images are generated on the CT workstation. This CT examination was performed using dose optimization techniques as appropriate, variously including the following: *Automated exposure control *Adjustment of mA and/or kV according to patient size (this includes techniques or standardized protocols for targeted exams where dose is matched to indication/reason for exam; i.e. extremities or head) *Use of iterative reconstruction technique TOTAL EXAM DLP: 38 mGy-cm. CTDIvol: 1.06 mGy. FINDINGS: PULMONARY NODULES: There is increase in size of a mixed ground-glass and solid nodule in the superior segment of the left lower lobe. Overall size has increased from 12 mm to 18 mm with increase in size of the solid component from 6 mm to 8 mm (5:243 compare prior 7:306). There is an additional left lower lobe nodule that is similar in volume measuring 7.9 x 4.4 mm today and 5.8 x 5.2 mm previously (5:257 compare prior 7:323). LUNGS: Lungs bilaterally symmetrically expanded. Biapical pleural-parenchymal scarring is present and unchanged. Band-like atelectasis at the lung bases is unchanged. No effusion or pneumothorax. Central airways patent. MEDIASTINUM: No mediastinal, hilar or axillary adenopathy or free fluid collection. CORONARY ARTERY CALCIFICATION: Present. THYROID GLAND: Unremarkable to the extent seen. CARDIOVASCULAR STRUCTURES: Aortic and heart size normal. No pericardial effusion. CHEST WALL/AXILLA: Unremarkable. UPPER ABDOMEN: Included portions of the solid organs in the upper abdomen unremarkable on noncontrast imaging. OSSEOUS STRUCTURES: No suspicious focal findings. CT/CT lung screening IMPRESSION: Increase in size of mixed ground-glass and solid nodule in the superior segment of the left lower lobe. ASSESSMENT: 1. Lung-RADS Category 4B: Suspicious findings. N/A 2. Lung-RADS Category S: Negative. There are no clinically significant or potentially clinically significant findings not related to the lungs requiring urgent additional evaluation. RECOMMENDATION: A PET/CT could be performed. A PET/CT may be used when there is a solid nodule greater than or equal to 8 mm. At the very least, a follow-up CT scan in 3 months is recommended. Electronically signed by: Fabian Rose MD 10/10/2024 07:51 PM [facility] Dictated By: Fabian Rose MD Signed By: <Electronically signed by Fabian Rose MD in OV> 10/10/241950 DD/ 0933 Assessment & Plan Assessment & Plan (1) COPD (chronic obstructive pulmonary disease): Code(s): J44.9 - Chronic obstructive pulmonary disease, unspecified Category: Medical (2) Multiple pulmonary nodules: Code(s): R91.8 - Other nonspecific abnormal finding of lung field Category: Medical (3) Personal history of nicotine dependence: Comment: (former smoker - onset 13, 1.5ppd x 47yrs, 60pyh - quit 2016) Code(s): Z87.891 - Personal history of nicotine dependence Category: Medical Plan Will send in prednisone today and mantain on daliresp 250 mcg until next visit as she reports moderate nausea. Chest CT from 07/2024 read as a RADS 4B and reviewed at conference with recommendations for CT guided biopsy vs navigational, Quantitative VQ scan and PET. Patient unsure of how she would like to proceed and would like to repeat chest CT now to assess nodule. Discussed with patient the possibility that this could be a malignant process and postponing biopsy could delay treatment as well as further progression of possible malignancy. All questions were answered and patient is in agreement of plan. Will follow up to review results or sooner if needed. Orders: Orders CT chest wo IV con Today R91.8 - Other nonspecific abnormal finding of lung field Medications: New prednisone see taper instructions; 40 mg Daily x3 days, 30 mg daily x3 days, 20 mg daily x3 days, 10 mg daily x3 days 10 mg PO DIRECTED 30 tabs 0RF Refilled roflumilast (Daliresp) 250 mcg PO DAILY 30 tabs 0RF Discontinued roflumilast (Daliresp) Discontinued Reason: Entered in error 500 mcg PO DAILY 30 tabs 6RF Coding Level of Care Code Est Pt Level 4 (73278) Diagnoses COPD (chronic obstructive pulmonary disease) J44.9 Multiple pulmonary nodules R91.8 Personal history of nicotine dependence Z87.89
== END 2024-11-10 10:15 | disposition home or self-care (01) ==
PROVIDERS: PCP Family Medicine; Visit Provider Nurse Practitioner Family
DX: J44.9 Chronic obstructive pulmonary disease, unspecified (principal); R91.8 Other nonspecific abnormal finding of lung field; Z87.891 Personal history of nicotine dependence
CPT/HCPCS: 99214

== ENCOUNTER → 2024-11-10 09:35 | Outpatient (BNVA) | payer MEDICARE, MEDICAID, SELFPAY | PROVIDERS: PCP Family Medicine; Visit Provider Nurse Practitioner Family | DX: M79.672 Pain in left foot (principal); G89.29 Other chronic pain; J44.9 Chronic obstructive pulmonary disease, unspecified; R91.8 Other nonspecific abnormal finding of lung field; Z87.891 Personal history of nicotine dependence | CPT/HCPCS: 99212 ==

== ENCOUNTER 2024-11-10 10:18 | Outpatient (AMB) | payer MEDICARE, MEDICAID, SELFPAY ==
--- NOTE | 2024-11-10 10:41 | MHC.OFFWIV ---
Intake Vital Signs 11/10/24 10:47 Height 5 ft 7 in Weight 138 lb 4 oz BMI 21.7 BP 132/60 Blood Pressure Location Rt brachial Position Sitting Respiration 16 Pulse 93 Pulse Source Pulse Oximeter Temp 98.0 F Temp Source Oral Pulse Oximetry (%) 94 Oxygen Delivery Method Room Air Intake Visit Reasons: left foot pain on top Intake Note: patient here c/o left foot on top is swollen and discolored. 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 The condition began almost a year ago when she stubbed her second toe, resulting in discoloration and subsequent persistent swelling. The patient reports that the discoloration has improved but the swelling remained. Recently, the area has become painful, and she describes ache-like discomfort with a pain severity of 7 out of 10. The pain intensifies with toe movement but subsides when the foot is at rest. The patient has been using Epsom salt soaks and taking ibuprofen on occasion. There is no associated history of fever, chills, recent trauma, or falls. She denies any fever, chills or body aches related to this issue. [facility] Medical History (Updated 11/10/24 @ 11:04 by Alan Dover CNP) Depression COPD (chronic obstructive pulmonary disease) Personal history of nicotine dependence Surgical History History of appendectomy H/O: hysterectomy Hx of cataract surgery History of ileostomy (~2018) History of tonsillectomy History of ankle surgery Family History Brother History of mental health disorder in sibling Social History Household Members: None Housing: House Alcohol intake: current Patient Tobacco Use Status: Former Tobacco user Tobacco use type: Cigarette Years Smoked: (onset 13, 1.5ppd x 47yrs, 60pyh - quit 2016) e-Cigarette/Vaping Use: Never Used Special carmen needs: No Patient : No service: No Current occupational status: retired Cognitive needs: No Hearing needs: No Vision needs: No Review of Systems Const Details: Denies chills, Denies fatigue, Denies fever(s), Denies headache(s) and Denies weakness Cardiac Denies chest pain, Denies claudication, Denies leg edema, Denies lightheadedness, Denies palpitations, Denies dyspnea, Denies dyspnea on exertion, Denies orthopnea and Denies other (Loss of consciousness) Resp Denies cough, Denies excessive phlegm production, Denies dyspnea, Denies dyspnea on exertion, Denies snoring and Denies wheezing Musc Reports as per HPI Physical Exam Vital Signs: Last Vital Signs Temp 98.0 F 11/10/24 10:47 Pulse 93 11/10/24 10:47 Resp 16 11/10/24 10:47 BP 132/60 11/10/24 10:47 Pulse Ox 94 11/10/24 10:47 Oxygen Delivery Method Room Air 11/10/24 10:47 BMI result Body Mass Index 21.7 Const Other: General: comfortable and no acute distress Orientation/consciousness: patient oriented x3 Chest Chest palpation & inspection: normal inspection of the chest Resp Auscultation: clear to auscultation bilaterally Cardiac Palpation: normal PMI Heart sounds: S1 normal heart sound present, S2 normal heart sound present, no gallops, no murmur, no rubs Musc Mild swelling on the top of the left foot below the second and third toes, no redness, well vascularized, not hot to touch Assessment & Plan Assessment & Plan (1) Chronic pain in left foot: Code(s): M79.672 - Pain in left foot; G89.29 - Other chronic pain Plan: - Initiate treatment with naproxen, advising the patient to take it twice daily as needed with food to minimize gastrointestinal irritation. - Reassess the patient?s condition if symptoms continue or worsen, with a follow-up visit to her primary care physician, [facility], if needed. - Advise continued observation of symptoms without indicating suspicion of infection or gout presently, based on the absence of indicative signs on physical examination. Patient was informed and verbally consented to the use of an ambient scribe for clinic note documentation during this visit. Medications: New naproxen 500 mg PO BID PRN 60 tabs 0RF pain Coding Level of Care Code Est Pt Level 3 (81763) Diagnoses Chronic pain in left foot M79.672; G89.29
[2024-11-10 10:47] VITALS: BP 132/60; PULSE 93; RESP 16; TEMP 36.7; O2SAT 94; BMI 21.7
== END 2024-11-10 11:23 | disposition home or self-care (01) ==
LOC: HO.HMCWIW 10:18
PROVIDERS: PCP Family Medicine; Visit Provider Nurse Practitioner Family
DX: M79.672 Pain in left foot (principal); G89.29 Other chronic pain

== ENCOUNTER 2024-12-01 14:12 | Outpatient (REF) | payer MEDICARE, MEDICAID, SELFPAY ==
--- NOTE | ~2024-12-01 | CT_ITS ---
CLINICAL HISTORY: R91.8 - Other nonspecific abnormal finding of lung field Exam: CT chest without intravenous contrast. Comparison: August 11, 2023. Findings: Moderate emphysematous changes are seen throughout the lungs. Pulmonary nodules described on the patient's prior study are primarily unchanged. However, there has been interval increase in size of a ground-glass pulmonary nodule within the left lower lobe with surrounding areas of interstitial prominence. This now measures 15 x 8 mm in size when it previously measured 12 x 5 mm in size. No pleural effusion or pneumothorax. No dense area of consolidation. Vascular calcification of the thoracic aorta. No pathologically enlarged mediastinal, hilar, or axillary lymph nodes identified. Trace pericardial effusion. No free fluid or free air within the upper abdomen. No acute bony abnormality. Impression: Moderate emphysema with primarily unchanged pulmonary nodules. However, there is increased size of the ground-glass area of nodularity and interstitial prominence in the left lower lobe. This is nonspecific. Given this interval change, follow-up noncontrast chest CT in 3 months suggested for further evaluation This document has been electronically signed by: Tim Truong MD on 12/02/2024 06:17:45
== END 2024-12-01 14:13 | disposition home or self-care (01) ==
LOC: HO.CT 14:12
PROVIDERS: PCP Family Medicine; Visit Provider Nurse Practitioner Family
DX: R91.8 Other nonspecific abnormal finding of lung field (principal)
CPT/HCPCS: 71250

== ENCOUNTER → 2024-12-01 14:17 | Outpatient (BNV) | payer MEDICARE, MEDICAID, SELFPAY | PROVIDERS: PCP Family Medicine; Visit Provider Radiology Diagnostic Radiology | DX: R91.8 Other nonspecific abnormal finding of lung field (principal) | CPT/HCPCS: 71250 ==

== ENCOUNTER → 2025-01-02 12:30 | Outpatient (BNV) | payer MEDICARE, MEDICAID, SELFPAY | PROVIDERS: PCP Family Medicine; Visit Provider Internal Medicine | DX: Z12.31 Encounter for screening mammogram for malignant neoplasm of breast (principal) | CPT/HCPCS: 77063; 77067 ==

== ENCOUNTER 2025-01-24 07:33 | Outpatient (REF) | payer MEDICARE, MEDICAID, SELFPAY ==
[2025-01-24 11:10] LABS: MANUAL DIFF FLAG NO
[2025-01-24 11:16] LABS: Appearance Urine Turbid; Color Urine Yellow; Glucose Urine UA Negative (Negative); Leukocyte Esterase Urine Trace (Negative); Nitrite Urine Negative (Negative); Specific Gravity - Urine 1.025 (1.005-1.025); UMIC TRIGGER UA YES; Urine Blood Negative (Negative); Urine Ketones Negative (Negative); Urine Protein Negative (Neg-Trace)
[2025-01-24 11:20] LABS: Basophils Percent Auto 0.6 % (0-2); Eosinophils Absolute Auto 0.2 X10*3/uL (0.0-0.4); Eosinophils Percent Auto 4.7 % (0-4); Hematocrit 44.1 % (37.0-47.0); Hemoglobin 13.8 g/dl (12.0-16.0); Imm Gran Abs Auto 0.01 X10*3/uL (0.00-0.03); Imm Gran Pct Auto 0.2 % (0.0-0.4); Lymphocytes Percent Auto 20.4 % (20-40); Mean Corpuscular HGB Conc 31.3 g/dl (31.0-35.0); Mean Corpuscular Hemoglobin 29.4 pg (27.0-33.0); Mean Corpuscular Volume 93.8 fL (80.0-98.0); Mean Platelet Volume 11.2 fL (9.4-12.3); Monocytes Absolute Auto 0.4 X10*3/uL (0.1-1.2); Monocytes Percent Auto 8.9 % (2-11); Neutrophils Absolute Auto 3.2 x10*3/uL (2.0-8.3); Neutrophils Percent Auto 65.2 % (45-73); Platelet Count 286 X10*3/uL (160-400); Red Cell Distribution Width 12.5 % (11.0-16.0); White Blood Count 4.9 X10*3/uL (4.8-10.8)
[2025-01-24 11:27] LABS: Bacteria Urine None Seen (None Seen); RBC Urine 0-2 /HPF (0-2)
[2025-01-24 11:34] LABS: Alanine Aminotransferase 11 U/L (0-31); Albumin Level 3.9 g/dL (3.5-5.0); Alkaline Phosphatase 62 U/L (39-117); Anion Gap 14 (12-20); Aspartate Amino Transferase 23 U/L (5-31); Bilirubin Total 0.3 mg/dL (0.0-1.0); Blood Urea Nitrogen 16 mg/dL (9-16); Calcium 9.5 mg/dL (8.4-10.2); Carbon Dioxide 26 mmol/L (22-29); Chloride 108 mmol/L (96-108); Cholesterol 194 mg/dL (<200); Estimated Glomerular Filt Rate 58; Glucose Fasting 82 mg/dL (60-99); HDL Cholesterol 81 mg/dL (>40); LDL Cholesterol Calculated 83 mg/dL (<100); Potassium 4.7 mmol/L (3.3-5.1); Sodium 143 mmol/L (135-145); Total Protein 7.4 g/dL (6.5-8.0); Triglycerides 151 mg/dL (<150)
[2025-01-24 11:44] LABS: Creatinine Urine 162.33 mg/dL; Microalbum/Creatinine Ratio Ur 8.6 ug/mg cr (<30)
[2025-01-24 12:14] LABS: TSH reflex Free T4 1.96 uIU/mL (0.32-4.0)
== END 2025-01-24 07:34 | disposition home or self-care (01) ==
LOC: HO.WFDLDS 07:33
PROVIDERS: Visit Provider Family Medicine
DX: Z00.00 Encounter for general adult medical examination without abnormal findings (principal); I10 Essential (primary) hypertension
CPT/HCPCS: 36415; 80053; 80061; 81001; 82043; 82570; 84443; 85025

== ENCOUNTER 2025-01-30 08:51 | Outpatient (AMB) | payer MEDICARE, MEDICAID, SELFPAY ==
--- NOTE | 2025-01-30 08:54 | A.OFFPC_ITS ---
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 Dx: I10. Daily As directed, 999 days/lifetime blood pressure monitor Automatic, Digital. Dx: I10. Daily As directed, 999 days/lifetime fenofibrate 160 mg PO DAILY 30 days cveadexolga-tsjjjoiwt-wvmeywjv 200-62.5-25 mcg (Trelegy Ellipta) 1 inh inhalation DAILY 90 days ipratropium-albuterol 0.5 mg-3 mg(2.5 mg base)/3 mL 3 mL inhalation Q6H PRN metoprolol succinate ER 12.5 mg (1/2 x 25 mg) PO DAILY 90 days naproxen 500 mg PO BID PRN pravastatin 40 mg PO BEDTIME 90 days sertraline 50 mg PO DAILY 90 days triamcinolone acetonide 0.025% 1 appl topical BID 14 days Tobacco use date assessed: 05/08/24 Dental Screening Dental Screen Date: 05/08/24 HPI Physical HPI Details 69 y/o female presents for an extended e xam with f/u labs and health maintenance. Labs drawn 01/24/25. Reviewed labs iwth pt. Triglycerides 151. TC 194. LDL 83. HDL 81. TSH 1.96. Recent mammogram was fine. She has not had a bone density test yet. [facility] Medical History Depression COPD (chronic obstructive pulmonary disease) Personal history of nicotine dependence Surgical History History of appendectomy H/O: hysterectomy Hx of cataract surgery History of ileostomy (~2018) History of tonsillectomy History of ankle surgery Family History (Updated 01/30/25 @ 09:00 by Mandy Parsons CMA) Brother History of mental health disorder in sibling Liver cancer Social History Household Members: None Housing: House Alcohol intake: current Patient Tobacco Use Status: Former Tobacco user Tobacco use type: Cigarette Years Smoked: (onset 13, 1.5ppd x 47yrs, 60pyh - quit 2016) e-Cigarette/Vaping Use: Never Used Special carmen needs: No service: No Current occupational status: retired Cognitive needs: No Hearing needs: No Vision needs: No Questionnaire PHQ-9 Over the last 2 weeks, how often have you been bothered by any of the following problems? 1. Little interest or pleasure in doing things: not at all 2. Feeling down, depressed, or hopeless: not at all 3. Trouble falling or staying asleep, or sleeping too much: not at all 4. Feeling tired or having little energy: several days 5. Poor appetite or overeating: not at all 6. Feeling bad about yourself - or that you are a failure or have let yourself or your family down: not at all 7. Trouble concentrating on things, such as reading the newspaper or watching television: not at all 8. Moving or speaking so slowly that other people could have noticed. Or the opposite - being so fidgety or restless that you have been moving around a lot more than usual: not at all 9. Thoughts that you would be better off or of hurting yourself in some way: not at all Total score: 1 Depression Screening Interpretation: Negative Depression Screening Done: Yes 05024 - PHQ-9 Billing: Yes Source: Developed by Drs. Bartolome Geller, Iveth Kaye, Richie Swenson and colleagues, with an educational matilde from [employer]. ThrYkone Questionnaire Date Thrive assessed: 01/30/25 I am a: Patient What is your living situation today?: I have a steady place to live Within the past 12 months, did the food you bought not last and you didn't have the money to get more?: Never true Within the past 12 months, did you worry whether your food would run out before you got money to buy more?: Never true Do you have trouble paying for medicines?: No Do you have trouble getting transportation to medical appointments?: No Do you have trouble paying your heating and electricity bill?: No Do you have trouble taking care of your child, family member or friend?: No Do you have trouble with day-to-day activities such as bathing, preparing meals, shopping, managing finances, etc.?: No Are you currently unemployed and looking for a job?: No Are you interested in more education?: No Please select the resources that you would like help with: None Currently or been in a relationship where the following occur: No concerns reported THRIVE Score: 0 AUDIT C Alcohol Use Questionnaire (AUDIT-C) 1. How often do you have a drink containing alcohol?: 4 or more times a week 2. How many drinks containing alcohol do you have on a typical day when you are drinking?: 5 or 6 3. How often do you have six or more drinks on one occasion?: Weekly Total Score: 9 Score Reviewed/Action Taken: Yes ALIDA-7 AMB Questionnaire ALIDA-7 Date ALIDA - 7 assessed: 01/30/25 Feeling nervous, anxious, or on edge: 0 = Not at all Not being able to stop or control worryin = Not at all Worrying too much about different things: 0 = Not at all Trouble relaxin = Several days Being so restless that it is hard to sit still: 0 = Not at all Becoming easily annoyed or irritable: 1 = Several days Feeling afraid as if something awful might happen: 0 = Not at all Total ALIDA-7 score (0-4 normal; 5-9 mild; 10-14 moderate; 15-21 severe): 2 Source: Developed by Drs. Bartolome Geller, Iveth Kaye, Richie Swenson and colleagues, with an educational matilde from [employer]. ALIDA-7 Assessment Billing ALIDA-7 Assessment Tool: ALIDA-7 Assessment 21989 Review of Systems Const Denies chills, Denies fatigue, Denies fever(s), Denies headache(s) and Denies weakness Eyes Denies change in vision ENT Denies dizziness and Denies headache(s) Card Denies dyspnea Resp Denies cough, Denies dyspnea, Denies wheezing and Denies other (shortness of breath) GI Denies abdominal pain, Denies melena, Denies hematochezia, Denies change in bowel habits, Denies dyspepsia and Denies nausea Denies hematuria and Denies dysuria Musc Denies numbness and Denies tingling Skin/Breast Denies rash, Denies unusual bruising and Denies wounds Neuro Denies dizziness, Denies headache(s), Denies numbness, Denies Sensory deficit (Neuro), Denies tingling and Denies weakness Psych Denies anxiety and Denies depression Endo Denies fatigue Ramior/Lymph Denies easy bleeding and Denies easy bruising Aller/Immun Denies wheezing Physical exam (Primary Care) Vital Signs: Last Vital Signs Temp 97.8 F 01/30/25 09:02 Pulse 80 01/30/25 09:02 Resp 16 01/30/25 09:02 BP 140/64 H 01/30/25 09:02 Pulse Ox 94 01/30/25 09:02 Oxygen Delivery Method Room Air 01/30/25 09:02 BMI result Body Mass Index 21.5 Tobacco/Smoking Status: Tobacco use Status Tobacco use date assessed 05/08/24 01/30/25 08:56 Patient Tobacco Use Status Former Tobacco user 01/30/25 08:56 Tobacco use type Cigarette 01/30/25 08:56 e-Cigarette/Vaping Use Never Used 01/30/25 08:56 PHQ-9: PHQ-9 Score PHQ-9: Total score 1 01/30/25 09:07 Depression Screening Interpretation: Negative Thrive Assessment: Date of Thrive Assessment Date Thrive assessed 01/30/25 01/30/25 09:05 Currently or been in a relationship where the following occur: No concerns reported Const General: well developed; No acute distress Nutritional Appearance: well nourished Orientation/consciousness: patient oriented x3 HENMT Head: Yes normocephalic and Yes atraumatic Ears: hearing grossly normal bilaterally and TM's normal bilaterally General nose exam: Normal external nose present and Normal nares present Mouth: Normal oral and palatal mucosa present and moist mucous membranes Teeth and gingiva: dentition normal Throat: Yes posterior oropharynx normal Eyes General: appearance normal, both eyes and all related structures Pupils: Equal, round and reactive pupils present EOM: EOMs intact bilaterally Neck Neck: Yes normal visual inspection, Yes no lymphadenopathy and Yes trachea midline Thyroid: Thyroid normal Carotids: no bruits Lymphatic: no lymphadenopathy noted Chest Chest palpation & inspection: normal inspection of the chest Resp Effort & Inspection: normal respiratory effort Auscultation: clear to auscultation bilaterally Cardio Rate: regular rate Rhythm: regular rhythm Heart sounds: S1 normal heart sound present, S2 normal heart sound present, no gallops, no murmurs and no rubs Bruits: no abdominal aortic bruits and no carotid bruits GI Palpation (GI): No Abdominal aortic bruit present, Soft to palpation, nontender, No hepatosplenomegaly present and No Rebound tenderness present Auscultation: normal bowel sounds General: Yes no CVA tenderness Back/Spine/Pelvis Back: no CVA tenderness Cervical Spine: cervical ROM normal and No Cervical spine tenderness Thoracic/Lumbar Spine: thoraco-lumbar ROM normal, No pain with thoraco-lumbar ROM, No thoracic spinal tenderness and No lumbar spinal tenderness Skin Lesions: no lesions Rashes: no rashes Trauma: no lacerations or abrasions Wounds: no wounds Nails: normal Neuro General: patient oriented x3 and gait normal Cranial nerves: Yes Equal, round and reactive pupils present Cognition (Neuro): normal cognition Gait exam (Neuro): Normal gait present Motor exam (neuro): 5/5 motor strength present throughout Sensory Exam: No Sensory deficit (Neuro) Deep tendon reflexes (DTR's): Right patellar reflex intensity grade: 2+ and Left patellar reflex intensity grade: 2+ Extrem General: Yes normal to inspection and No edema Psych Appearance: grossly normal Affect: normal affect Attitude: cooperative Thought process: Normal thought process present Coding Level of Care Code Est Pt Level 4 (00191) Diagnoses Hypertension I10 Hypertriglyceridemia E78.1 Pulmonary nodule R91.1 Screening for osteoporosis Z13.820 Breast cancer screening by mammogram Z12.31 Adult general medical exam Z00.00 Additional Codes ALIDA-7 Assessment Billing - ALIDA-7 Assessment Tool: ALIDA-7 Assessment 49000 ([id number]) PHQ-9 - 68650 - PHQ-9 Billing: Yes ([id number]) Assessment & Plan Assessment & Plan (1) Hypertension: Code(s): I10 - Essential (primary) hypertension Category: Medical Plan: Blood?pressure?is?elevated?and?patient?notes?that?when?she?checks?it?at?home?it? is?elevated?in?the?morning. She?is?taking?her?metoprolol?in?the?morning?and?blood?pressures?are?coming?down? and?controlled?throughout?her?day Will?have?her?take?another?half?tablet?of?her?metoprolol?in?the?evening?whic h?hopefully?lower?her?morning?blood?pressures. (2) Hypertriglyceridemia: Code(s): E78.1 - Pure hyperglyceridemia Category: Medical Plan: She?is?on?fenofibrate Triglycerides?are?much?improved (3) Pulmonary nodule: Code(s): R91.1 - Solitary pulmonary nodule Category: Medical Plan: Patient?has pulmonary?nodule?which?is?being?monitored?by?pulmonary?Medicine. She?has?another?CT?scan?in?February. Currently?no?follow-up?appointment?with?Pulmonary?Medicine?and?advised?her?to?ma ke?1?for?after?CT?scan. (4) Screening for osteoporosis: Code(s): Z13.820 - Encounter for screening for osteoporosis Category: Medical Plan: Due?for?bone?density?testing. Ordered (5) Breast cancer screening by mammogram: Code(s): Z12.31 - Encounter for screening mammogram for malignant neoplasm of breast Category: Medical Plan: Recent?mammogram?showed?no?evidence?of?malignancy Will?continue?annual?screening (6) Adult general medical exam: Code(s): Z00.00 - Encounter for general adult medical examination without abnormal findings Category: Medical Plan: 69-year-old?female?presents?for?an?extended?exam Encouraged?healthy?diet?with?active?lifestyle?and?plenty?of?exercise Plan Total?colectomy.??She?does?not?get screening?for?colon?cancer. Orders: Orders XR DEXA axial skeleton Today M81.0 - Age-related osteoporosis without current pathological fracture Medications: Changed From metoprolol succinate ER 12.5 mg (1/2 x 25 mg) PO DAILY 90 days 45 tabs 2RF To metoprolol succinate ER 12.5 mg (1/2 x 25 mg) PO BID 90 days 90 tabs 2RF
[2025-01-30 09:02] VITALS: BP 140/64; PULSE 80; RESP 16; TEMP 36.6; O2SAT 94; BMI 21.5
== END 2025-01-30 09:35 | disposition home or self-care (01) ==
PROVIDERS: PCP Family Medicine; Visit Provider Family Medicine
DX: I10 Essential (primary) hypertension (principal); E78.1 Pure hyperglyceridemia; R91.1 Solitary pulmonary nodule; Z13.820 Encounter for screening for osteoporosis; Z12.31 Encounter for screening mammogram for malignant neoplasm of breast; Z00.00 Encounter for general adult medical examination without abnormal findings

== ENCOUNTER → 2025-01-30 08:51 | Outpatient (BNVA) | payer MEDICARE, MEDICAID, SELFPAY | PROVIDERS: PCP Family Medicine; Visit Provider Family Medicine | DX: Z00.01 Encounter for general adult medical examination with abnormal findings (principal); I10 Essential (primary) hypertension; E78.1 Pure hyperglyceridemia; R91.1 Solitary pulmonary nodule; M81.0 Age-related osteoporosis without current pathological fracture; Z87.891 Personal history of nicotine dependence; Z79.899 Other long term (current) drug therapy | CPT/HCPCS: 96127; 99212 ==

== ENCOUNTER 2025-03-08 09:49 | Outpatient (REF) | payer MEDICARE, MEDICAID, SELFPAY ==
--- NOTE | ~2025-03-08 | MM_ITS ---
EXAMINATION: DXA BONE DENSITY AXIAL HISTORY: M81.0 - Age-related osteoporosis without current pathological fracture TECHNIQUE: Mira Dx Dual energy absorptiometry (DEXA) of the lumbar spine, total left hip, and femoral neck was performed. COMPARISON: There are no prior studies for comparison. FINDINGS: The bone mineral density of the lumbar spine is 0.875 with a T-score of -2.5, and a Z-score of -0.7. This is indicative of osteoporosis. The bone mineral density of the left total hip is 0.765 with a T-score of -1.9, and a Z-score of -0.4. This is indicative of osteopenia. The bone mineral density of the left femoral neck is 0.696 with a T-score of -2.5, and a Z-score of -0.7. This is indicative of osteoporosis. MM/XR DEXA axial skeleton IMPRESSION: Based on bone mineral density, and according to World Health Organization (WHO) criteria, the diagnosis is consistent with osteoporosis. All bone density values are in grams per centimeter squared (g/cm2). Statistically, 68% of repeat scans fall within 1 SD (+/- 0.010 g/cm2 for AP spine L1-L4) and 1 SD (+/- 0.012 g/cm2 for femur total) FRAX is a trademark of the [employer]'s [employer] [facility] Met[employer] Disease, a World Health Organization (WHO) Collaborating Center. Electronically signed by: Bartolome Gould MD 03/08/2025 10:32 AM EDT
== END 2025-03-08 09:50 | disposition home or self-care (01) ==
LOC: HO.MAMMO 09:49
PROVIDERS: PCP Family Medicine; Visit Provider Family Medicine
DX: M81.0 Age-related osteoporosis without current pathological fracture (principal)
CPT/HCPCS: 77080

== ENCOUNTER → 2025-03-08 10:00 | Outpatient (BNV) | payer MEDICARE, MEDICAID, SELFPAY | PROVIDERS: PCP Family Medicine; Visit Provider Radiology Diagnostic Radiology | DX: E28.39 Other primary ovarian failure (principal) | CPT/HCPCS: 77080 ==

== ENCOUNTER 2025-03-15 10:28 | Outpatient (REF) | payer MEDICARE, MEDICAID, SELFPAY ==
--- NOTE | ~2025-03-15 | CT_ITS ---
CLINICAL HISTORY: R91.1 - Solitary pulmonary nodule CT chest without contrast Comparison: 12/01/2024 Findings: The heart is normal size. The visualized thyroid and mediastinum are unremarkable. The solid/semi solid lesion in the left lower lobe is unchanged with the solid component measuring 0.7 x 0.5 cm No new consolidation or effusion. There are changes of pulmonary bullous disease with areas of scarring or subsegmental atelectasis. The upper abdomen is unremarkable. The bones are intact. IMPRESSION: 1. Short-term stability of left lower lobe solid/semi solid lesion. Consider PET-CT to further characterize given increased size noted on prior study. 2. Pulmonary bullous disease. This document has been electronically signed by: Nolan Soto MD on 03/16/2025 09:10:31
== END 2025-03-15 10:29 | disposition home or self-care (01) ==
LOC: HO.CT 10:28
PROVIDERS: PCP Family Medicine; Visit Provider Nurse Practitioner Family
DX: R91.1 Solitary pulmonary nodule (principal); R91.8 Other nonspecific abnormal finding of lung field
CPT/HCPCS: 71250

== ENCOUNTER → 2025-03-15 10:30 | Outpatient (BNV) | payer MEDICARE, MEDICAID, SELFPAY | PROVIDERS: PCP Family Medicine; Visit Provider Specialist | DX: R91.1 Solitary pulmonary nodule (principal) | CPT/HCPCS: 71250 ==

== ENCOUNTER 2025-04-03 09:13 | Outpatient (AMB) | payer MEDICARE, MEDICAID, SELFPAY ==
--- NOTE | 2025-04-03 09:49 | A.OFFPC_ITS ---
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 Dx: I10. Daily As directed, 999 days/lifetime blood pressure monitor Automatic, Digital. Dx: I10. Daily As directed, 999 days/lifetime fenofibrate 160 mg PO DAILY 30 days ckerfvcqrwy-mcfletuiy-elmbfyvv 200-62.5-25 mcg (Trelegy Ellipta) 1 inh inhalation DAILY 90 days ipratropium-albuterol 0.5 mg-3 mg(2.5 mg base)/3 mL 3 mL inhalation Q6H PRN metoprolol succinate ER 12.5 mg (1/2 x 25 mg) PO BID 90 days naproxen 500 mg PO BID PRN pravastatin 40 mg PO BEDTIME 90 days sertraline 50 mg PO DAILY 90 days triamcinolone acetonide 0.025% 1 appl topical BID 14 days Tobacco use date assessed: 04/03/25 Fall risk assessment: No Falls in past year Last assessed Fall Risk: 04/03/25 Dental Screening Dental Screen Date: 04/03/25 Did you have a dental visit in the last 12 months?: No Did you have a dental problem in the last 6 months where you did not have access to dental care?: No Was dental information given to patient?: Yes HPI f/u HTN HPI Details 69 y/o female presents to f/u HTN, chron ic conditions. Bone density test 03/08/25 positive for osteoporosis. Blood pressure today 132/68, 63p. She is on metoprolol 12.5mg b.i.d. Hx of solitary pulmonary nodule. Chest ct 03/16/25. Per note: 1. Short-term stability of left lower lobe solid/semi solid lesion. Consider PET-CT to further characterize given increased size noted on prior study. 2. Pulmonary bullous disease. Ongoing complaints of a rash. [facility] Medical History Depression COPD (chronic obstructive pulmonary disease) Personal history of nicotine dependence Surgical History History of appendectomy H/O: hysterectomy Hx of cataract surgery History of ileostomy (~2018) History of tonsillectomy History of ankle surgery Family History (Updated 01/30/25 @ 09:00 by LADAN Calix) Brother History of mental health disorder in sibling Liver cancer Social History Household Members: None Housing: House Alcohol intake: current Patient Tobacco Use Status: Former Tobacco user Tobacco use type: Cigarette Years Smoked: (onset 13, 1.5ppd x 47yrs, 60pyh - quit 2015) e-Cigarette/Vaping Use: Never Used Special carmen needs: No service: No Current occupational status: retired Current occupational exposures/hazards: No Cognitive needs: No Hearing needs: No Vision needs: No Questionnaire PHQ-9 Over the last 2 weeks, how often have you been bothered by any of the following problems? 1. Little interest or pleasure in doing things: not at all 2. Feeling down, depressed, or hopeless: not at all 3. Trouble falling or staying asleep, or sleeping too much: not at all 4. Feeling tired or having little energy: not at all 5. Poor appetite or overeating: not at all 6. Feeling bad about yourself - or that you are a failure or have let yourself or your family down: not at all 7. Trouble concentrating on things, such as reading the newspaper or watching television: not at all 8. Moving or speaking so slowly that other people could have noticed. Or the opposite - being so fidgety or restless that you have been moving around a lot more than usual: not at all 9. Thoughts that you would be better off or of hurting yourself in some way: not at all Total score: 0 Depression Screening Interpretation: Negative Depression Screening Done: Yes 66565 - PHQ-9 Billing: Yes Source: Developed by Drs. Bartolome Geller, Iveth Kaye, Richie Swenson and colleagues, with an educational matilde from [employer]. Thrive Questionnaire Date Thrive assessed: 04/03/25 I am a: Patient What is your living situation today?: I have a steady place to live Within the past 12 months, did the food you bought not last and you didn't have the money to get more?: Never true Within the past 12 months, did you worry whether your food would run out before you got money to buy more?: Never true Do you have trouble paying for medicines?: No Do you have trouble getting transportation to medical appointments?: No Do you have trouble paying your heating and electricity bill?: No Do you have trouble taking care of your child, family member or friend?: No Do you have trouble with day-to-day activities such as bathing, preparing meals, shopping, managing finances, etc.?: No Are you currently unemployed and looking for a job?: No Are you interested in more education?: No Please select the resources that you would like help with: None Currently or been in a relationship where the following occur: No concerns reported THRIVE Score: 0 AUDIT C Alcohol Use Questionnaire (AUDIT-C) 1. How often do you have a drink containing alcohol?: 4 or more times a week Total Score: 4 ALIDA-7 AMB Questionnaire ALIDA-7 Date ALIDA - 7 assessed: 04/03/25 Feeling nervous, anxious, or on edge: 0 = Not at all Not being able to stop or control worryin = Not at all Worrying too much about different things: 0 = Not at all Trouble relaxin = Not at all Being so restless that it is hard to sit still: 0 = Not at all Becoming easily annoyed or irritable: 0 = Not at all Feeling afraid as if something awful might happen: 0 = Not at all Total ALIDA-7 score (0-4 normal; 5-9 mild; 10-14 moderate; 15-21 severe): 0 Source: Developed by Drs. Bartolome Geller, Iveth Kaye, Richie Swenson and colleagues, with an educational matilde from [employer]. ALIDA-7 Assessment Billing ALIDA-7 Assessment Tool: ALIDA-7 Assessment 06242 Review of Systems Const Denies chills, Denies fatigue, Denies fever(s), Denies headache(s) and Denies weakness ENT Denies dizziness and Denies headache(s) Card Denies dyspnea Resp Denies cough, Denies dyspnea, Denies wheezing and Denies other (shortness of breath) Musc Denies numbness and Denies tingling Skin/Breast Reports rash Neuro Denies dizziness, Denies headache(s), Denies numbness, Denies tingling and Denies weakness Psych Denies anxiety and Denies depression Endo Denies fatigue Aller/Immun Denies wheezing Physical exam (Primary Care) Vital Signs: Last Vital Signs Temp 97.7 F 04/03/25 09:56 Pulse 63 04/03/25 09:56 Resp 16 04/03/25 09:56 BP 132/68 04/03/25 09:56 Pulse Ox 96 04/03/25 09:56 Oxygen Delivery Method Room Air 04/03/25 09:56 BMI result Body Mass Index 22.0 Tobacco/Smoking Status: Tobacco use Status Tobacco use date assessed 04/03/25 04/03/25 09:56 Patient Tobacco Use Status Former Tobacco user 04/03/25 09:50 Tobacco use type Cigarette 04/03/25 09:50 e-Cigarette/Vaping Use Never Used 04/03/25 09:50 PHQ-9: PHQ-9 Score PHQ-9: Total score 0 04/03/25 10:13 Depression Screening Interpretation: Negative Thrive Assessment: Date of Thrive Assessment Date Thrive assessed 04/03/25 04/03/25 09:56 Currently or been in a relationship where the following occur: No concerns reported Const General: well developed; No acute distress Nutritional Appearance: well nourished Orientation/consciousness: patient oriented x3 HENMT Head: Yes normocephalic and Yes atraumatic Eyes General: appearance normal, both eyes and all related structures Pupils: Equal, round and reactive pupils present EOM: EOMs intact bilaterally Resp Effort & Inspection: normal respiratory effort Neuro General: patient oriented x3 and gait normal Cranial nerves: Yes Equal, round and reactive pupils present Psych Affect: normal affect Coding Level of Care Code Est Pt Level 4 (68638) Diagnoses Hypertension I10 Pulmonary nodule R91.1 Osteoporosis M81.0 Rash R21 Additional Codes ALIDA-7 Assessment Billing - ALIDA-7 Assessment Tool: ALIDA-7 Assessment 16287 ([id number]) PHQ-9 - 30175 - PHQ-9 Billing: Yes ([id number]) Assessment & Plan Assessment & Plan (1) Hypertension: Code(s): I10 - Essential (primary) hypertension Category: Medical Plan: Blood?pressure?appears?controlled?today?in?the?office.??Goal?is?less?than?140/90 However,?patient?notes?that?she has?had?blood?pressures?that?are?high?during?the?day She?will?take?1?tablet?in?the?morning?and?half?tablet?at?night. (2) Pulmonary nodule: Code(s): R91.1 - Solitary pulmonary nodule Category: Medical Plan: Recent?CT?showed?short-term?stability?of?pulmonary?nodule. Had?shown?some?changes?previously. Follow-up?with?Pulmonary?Medicine?as?recommended (3) Osteoporosis: Code(s): M81.0 - Age-related osteoporosis without current pathological fracture Category: Medical Plan: Start?alendronate Encouraged?good?sources?of?calcium?and?vitamin-D. Will?check?vitamin-D?level (4) Rash: Code(s): R21 - Rash and other nonspecific skin eruption Category: Medical Plan: Ongoing?rash?and?patient?has?seen?dermatology. She?has?follow-up?with?Dermatology She?will?let?me?know?if?continues?to?worsen?or?not?improve Orders: Orders Vitamin D 25-OH Total Today E55.9 - Vitamin D deficiency, unspecified, M81.0 - Age-related osteoporosis without current pathological fracture Comprehensive Met. Panel Today M81.0 - Age-related osteoporosis without current pathological fracture Medications: New alendronate 70 mg PO QWEEK 4 tabs 3RF 28 days M81.0 - Age-related osteoporosis without current pathological fracture
[2025-04-03 09:56] VITALS: BP 132/68; PULSE 63; RESP 16; TEMP 36.5; O2SAT 96; BMI 22.0
== END 2025-04-03 10:27 | disposition home or self-care (01) ==
LOC: HO.HMCFM 09:13
PROVIDERS: PCP Family Medicine; Visit Provider Family Medicine
DX: I10 Essential (primary) hypertension (principal); R91.1 Solitary pulmonary nodule; M81.0 Age-related osteoporosis without current pathological fracture; R21 Rash and other nonspecific skin eruption

== ENCOUNTER → 2025-04-03 09:13 | Outpatient (BNVA) | payer MEDICARE, MEDICAID, SELFPAY | PROVIDERS: PCP Family Medicine; Visit Provider Family Medicine | DX: I10 Essential (primary) hypertension (principal); R91.1 Solitary pulmonary nodule; M81.0 Age-related osteoporosis without current pathological fracture; R21 Rash and other nonspecific skin eruption | CPT/HCPCS: 96127; 99212 ==

== ENCOUNTER 2025-04-18 10:38 | Outpatient (AMB) | payer MEDICARE, MEDICAID, SELFPAY ==
--- NOTE | 2025-04-18 10:49 | MHC.OFFVIS ---
Vital Signs 04/18/25 10:50 Height 5 ft 7 in Weight 140 lb 2 oz BMI 21.9 BP 144/60 H Blood Pressure Location Lt brachial Position Sitting Pulse 75 Pulse Source Pulse Oximeter Pulse Oximetry (%) 92 Oxygen Delivery Method Room Air Intake Visit Reasons: COPD Allergies No Known Allergies Allergy (Verified 04/18/25 10:52) HPI HPI COPD: Details: Mica is a pleasant 69 year old female, former 47 pack year smoker, quit 2016, with underlying severe COPD, FEV1 26. ?She has been using Trelegy and Duoneb with suboptimal effect. Patient was trialed on Brovana with minimal effect and could not tolerate Daliresp. ?She continues to report dyspnea on exertion, chest tightness and intermittent wheezing. ?She has been using supplemental oxygen, 2 L with exertion maintaining O2 greater than 92%. ?She also uses 2 L supplemental oxygen at [facility]. ?Previous chest CT revealed left lower lobe spiculated semi solid nodule that increased in size from July 2024 to November 2024 scan. ?She had repeat scan in February which revealed stability of nodule however previously discussed concerning characteristics of nodule. ?We had previously reviewed biopsy versus PET scan, ultimately she agreed to repeat scan which was performed in February 2025. ?She is questioning possible biologics indicated for COPD as she notes increased allergic component. ?She denies any visits to urgent care hospitalizations related to respiratory distress since last visit. [facility] Medical History Depression COPD (chronic obstructive pulmonary disease) Personal history of nicotine dependence Surgical History History of appendectomy H/O: hysterectomy Hx of cataract surgery History of ileostomy (~2017) History of tonsillectomy History of ankle surgery Family History (Updated 01/30/25 @ 09:00 by LADAN Calix) Brother History of mental health disorder in sibling Liver cancer Social History Household Members: None Housing: House Alcohol intake: current Patient Tobacco Use Status: Former Tobacco user Tobacco use type: Cigarette Years Smoked: (onset 13, 1.5ppd x 47yrs, 60pyh - quit 2015) e-Cigarette/Vaping Use: Never Used Special carmen needs: No service: No Current occupational status: retired Current occupational exposures/hazards: No Cognitive needs: No Hearing needs: No Vision needs: No Review of Systems Const Denies chills, Denies excessive sweating, Denies fever(s), Denies headache(s) and Denies night sweats Eyes Denies dry eyes, Denies irritation and Denies itchy eyes ENT Reports Normal hearing present and Denies headache(s) Card Denies chest pain, Denies chest pain at rest, Denies chest pain with activity, Denies leg edema, Reports dyspnea on exertion, Denies orthopnea and Denies paroxysmal nocturnal dyspnea Resp Denies hemoptysis, Denies pain on inspiration, Denies pain with cough, Reports dyspnea on exertion and Denies stridor Musc Denies myalgias Neuro Reports Normal hearing present and Denies headache(s) Endo Denies excessive sweating Ramiro/Lymph Denies lymphadenopathy Aller/Immun Denies itchy eyes and Denies seasonal rhinorrhea Physical Exam Vital Signs: Last Vital Signs Pulse 75 04/18/25 10:50 BP 144/60 H 04/18/25 10:50 Pulse Ox 92 04/18/25 10:50 Oxygen Delivery Method Room Air 04/18/25 10:50 BMI result Body Mass Index 21.9 Const General: cooperative, no acute distress and alert Nutritional Appearance: thin Orientation/consciousness: patient oriented x3 Limitations: no limitations HEENT Head: Yes normal to inspection, Yes normocephalic and Yes atraumatic Ears: hearing grossly normal bilaterally and external ears normal Eyes General: appearance normal, both eyes and all related structures Eyelids: Yes eyelids normal Sclerae: sclerae normal EOM: EOMs intact bilaterally Neck Neck: Yes normal visual inspection and Yes no lymphadenopathy Lymphatic: no lymphadenopathy noted Chest Chest palpation & inspection: normal inspection of the chest Resp Other: moderate respiratory effort Effort & Inspection: able to speak in complete sentences, no audible wheezes, no cough and no stridor Auscultation: diminished lung sounds Cardio Jugular venous distension: no JVD Rate: regular rate Rhythm: regular rhythm Skin Other: warm, dry General skin exam: no rashes or lesions noted Neuro General: patient oriented x3 Cranial nerves: Yes Normal hearing present Cognition (Neuro): normal cognition Gait exam (Neuro): Normal gait present Extrem General: Yes normal to inspection, Yes capillary refill normal, Yes no clubbing, cyanosis or edema and Yes no pedal edema Psych Appearance: grossly normal and well kempt Speech and movement: Normal speech and movement present and Clear speech present Affect: normal affect Attitude: cooperative Thought process: Normal thought process present Thought content: Normal thought content present Insight: Good insight present (Psych) Judgement: Good judgement present (Psych) Assessment & Plan Assessment & Plan (1) COPD (chronic obstructive pulmonary disease): Code(s): J44.9 - Chronic obstructive pulmonary disease, unspecified Category: Medical (2) Multiple pulmonary nodules: Code(s): R91.8 - Other nonspecific abnormal finding of lung field Category: Medical (3) Personal history of nicotine dependence: Comment: (former smoker - onset 13, 1.5ppd x 47yrs, 60pyh - quit 2015) Code(s): Z87.891 - Personal history of nicotine dependence Category: Medical Plan At this time, will send for labs to assess for allergic component. Encouraged increase use of DuoNeb to BID in addition to Trelegy and albuterol MDI. We did discuss adding Theophylline vs Ohtuvayre to regimen, will await allergy labs. Reviewed concerning characteristics of chest CT despite stability over the last three months. Discussed with patient the possibility that this could be a malignant process and postponing biopsy/further testing could delay treatment as well as further progression of possible malignancy. We again discussed biopsy vs PET vs thoracic referral. She agreed to referral to Dr. Donnelly for further evaluation. All questions were answered and patient is in agreement of plan. Will follow up to review results or sooner if needed. Orders: Orders Immunoglobulin E Today Z91.09 - Other allergy status, other than to drugs and biological substances Complete Blood Count Auto Diff Today Z91.09 - Other allergy status, other than to drugs and biological substances Resp Allergy Profile Region I Today Z91.09 - Other allergy status, other than to drugs and biological substances Referrals Thoracic/General Surgery Referral R91.8 - Other nonspecific abnormal finding of lung field Coding Level of Care Code Est Pt Level 4 (37030) Complex EM visit Add On G2211 Diagnoses COPD (chronic obstructive pulmonary disease) J44.9 Multiple pulmonary nodules R91.8 Personal history of nicotine dependence Z87.891
[2025-04-18 10:50] VITALS: BP 144/60; PULSE 75; O2SAT 92; BMI 21.9
== END 2025-04-18 11:37 | disposition home or self-care (01) ==
LOC: HO.HPSW 10:39
PROVIDERS: PCP Family Medicine; Visit Provider Nurse Practitioner Family
DX: J44.9 Chronic obstructive pulmonary disease, unspecified (principal); R91.8 Other nonspecific abnormal finding of lung field; Z87.891 Personal history of nicotine dependence
CPT/HCPCS: 99214; G2211

== ENCOUNTER → 2025-04-18 10:38 | Outpatient (BNVA) | payer MEDICARE, MEDICAID, SELFPAY | PROVIDERS: PCP Family Medicine; Visit Provider Nurse Practitioner Family | DX: Z13.89 Encounter for screening for other disorder (principal) | CPT/HCPCS: 99212 ==

== ENCOUNTER 2025-04-18 11:40 | Outpatient (REF) | payer MEDICARE, MEDICAID, SELFPAY ==
[2025-04-18 14:08] LABS: MANUAL DIFF FLAG NO
[2025-04-18 14:14] LABS: Appearance Urine Turbid; Color Urine Yellow; Glucose Urine UA Negative (Negative); Leukocyte Esterase Urine Trace (Negative); Nitrite Urine Negative (Negative); UMIC TRIGGER UA YES; Urine Blood Negative (Negative); Urine Ketones Trace mg/dL (Negative); Urine Protein Negative (Neg-Trace)
[2025-04-18 14:15] LABS: Basophils Percent Auto 0.4 % (0-2); Eosinophils Absolute Auto 0.1 X10*3/uL (0.0-0.4); Eosinophils Percent Auto 1.8 % (0-4); Hematocrit 42.8 % (37.0-47.0); Hemoglobin 13.9 g/dl (12.0-16.0); Imm Gran Abs Auto 0.03 X10*3/uL (0.00-0.03); Imm Gran Pct Auto 0.4 % (0.0-0.4); Lymphocytes Absolute Auto 0.8 X10*3/uL (1.2-4.9); Lymphocytes Percent Auto 10.6 % (20-40); Mean Corpuscular HGB Conc 32.5 g/dl (31.0-35.0); Mean Corpuscular Hemoglobin 30.1 pg (27.0-33.0); Mean Corpuscular Volume 92.6 fL (80.0-98.0); Mean Platelet Volume 11.3 fL (9.4-12.3); Monocytes Absolute Auto 0.5 X10*3/uL (0.1-1.2); Monocytes Percent Auto 6.7 % (2-11); Neutrophils Absolute Auto 6.3 x10*3/uL (2.0-8.3); Neutrophils Percent Auto 80.1 % (45-73); Platelet Count 276 X10*3/uL (160-400); Red Blood Count 4.62 X10*6/uL (4.20-5.50); Red Cell Distribution Width 13.1 % (11.0-16.0); White Blood Count 7.9 X10*3/uL (4.8-10.8)
[2025-04-18 14:21] LABS: Bacteria Urine None Seen (None Seen); Hyaline Casts Urine 0-2 /LPF (0-2); RBC Urine 0-2 /HPF (0-2); Squamous Epithelial Cell Urine 0-2 /HPF (0-2); WBC Urine 0-5 /HPF (0-5)
[2025-04-18 15:54] LABS: Alanine Aminotransferase 11 U/L (0-31); Albumin Level 4.2 g/dL (3.5-5.0); Alkaline Phosphatase 61 U/L (39-117); Anion Gap 13 (12-20); Aspartate Amino Transferase 19 U/L (5-31); Bilirubin Total 0.2 mg/dL (0.0-1.0); Blood Urea Nitrogen 20 mg/dL (9-16); Calcium 9.7 mg/dL (8.4-10.2); Carbon Dioxide 27 mmol/L (22-29); Chloride 106 mmol/L (96-108); Estimated Glomerular Filt Rate 50; Glucose Random 92 mg/dL (60-115); Potassium 4.1 mmol/L (3.3-5.1); Sodium 142 mmol/L (135-145); Total Protein 7.4 g/dL (6.5-8.0); Vitamin D 25-OH Total 19.9 ng/mL (>30)
[2025-04-20 22:38] LABS: Class Alternaria alternata 0; Class Aspergillus fumigatus 0; Class Bermuda Grass 0; Class Birch 0; Class Cat Dander 0; Class Cladosporium herbarum 0; Class Cockroach 0; Class Common Ragweed 0; Class Cottonwood 0; Class Derm. pterony 0; Class Dermatophagoides farinae 0; Class Dog Dander 0; Class Elm 0; Class Maple Box Elder 0; Class Mountain Cedar 0; Class Mouse Urine Protein 0; Class Mugwort 0; Class Oak 0; Class Penicillium crysogenum 0; Class Rough Pigweed 0; Class Sheep Sorrel 0; Class Sycamore 0; Class Timothy Grass 0; Class Walnut Tree 0; Class White Ash 0; Class White Mulberry 0; D001 IgE D pteronyssinus <0.10 kU/L; D002 - IgE D farinae <0.10 kU/L; E001 - IgE Cat Dander <0.10 kU/L; E005 - IgE Dog Dander <0.10 kU/L; E072-IgE Mouse Urine <0.10 kU/L; G002 IgE Bermuda Grass <0.10 kU/L; G006 - IgE Timothy Grass <0.10 kU/L; I006-IgE Cockroach, German <0.10 kU/L; Immunoglobulin E <2 kU/L (<OR=114); M001 IgE Penicillium chrysogen <0.10 kU/L; M002 - IgE Cladosporium herbar <0.10 kU/L; M003 - IgE Aspergillus fumigat <0.10 kU/L; M006 - IgE Alternaria alternat <0.10 kU/L; T001 IgE Maple/Box Elder <0.10 kU/L; T003 IgE Common Silver Birch <0.10 kU/L; T006 - IgE Cedar, Mountain <0.10 kU/L; T007 - IgE Oak, White <0.10 kU/L; T008 IgE Elm, American <0.10 kU/L; T010 - IgE Walnut <0.10 kU/L; T011 - IgE Maple Leaf Sycamore <0.10 kU/L; T014 - IgE Cottonwood <0.10 kU/L; T015 - IgE Ash, White <0.10 kU/L; T070 - IgE White Mulberry <0.10 kU/L; W001 - IgE Ragweed, Short <0.10 kU/L; W006 - IgE Mugwort <0.10 kU/L; W014 IgE Pigweed, Common <0.10 kU/L; W018 IgE Sheep Sorrel <0.10 kU/L
[2025-04-25 17:24] LABS: Immunoglobulin E 3 kU/L (<OR=114)
== END 2025-04-18 11:41 | disposition home or self-care (01) ==
LOC: HO.WFDLDS 11:40
PROVIDERS: Referring Provider Nurse Practitioner Family; Visit Provider Family Medicine
DX: Z00.00 Encounter for general adult medical examination without abnormal findings (principal); M81.0 Age-related osteoporosis without current pathological fracture; E55.9 Vitamin D deficiency, unspecified; Z91.09 Other allergy status, other than to drugs and biological substances
CPT/HCPCS: 36415; 80053; 81001; 82306; 82785; 85025; 86003; 99212

== ENCOUNTER 2025-06-28 14:29 | Outpatient (AMB) | payer MEDICARE, MEDICAID, SELFPAY ==
--- OUTSIDE RECORDS SUMMARY | 2025-06-20 05:33 | XMS_ITS | Encounter Summary ---
Author Organization 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 lobectomy. Cryo nerve block. DAVINCI left lower lobe segmentectomy, ? lobectomy. Cryo nerve block. Avi Donnelly MD [address] [address] Phone: tel: fax: [facility] Main OR [address] [place] [address] Phone: tel: Referral ID Status Reason Start Date Expiration Date Visits Re quested Visits Authorized [id number] 1 1 Encounter Details Date Type Department Care Team (Latest Contact Info) Description 06/20/2025 5:33 AM EDT - 06/23/2025 2:01 PM EDT Hospital Encounter [facility] Intermediate Care Unit [address] [place] [address] Avi Donnelly MD [address] [address] Paul Meraz MD [address] [place] [phone] Malignant neoplasm of lower lobe of left lung (CMS/HCC V24, CMS/HCC V28) Discharge Disposition: Home-Health Care Svc Social History Tobacco Use Types Packs/Day Years Used Date Smoking Tobacco: Former Cigarettes 1 969 - 05/02/2016 Smokeless Tobacco: Never Alcohol Use Standard Drinks/Week Comments Yes 4 (1 standard drink = 0.6 oz pur e alcohol) beer daily 4 Interpersonal Safety Answer Date Record ed Physical Abuse 06/20/2025 Verbal Abuse 06/20/2025 Comments No Sex and Gender Information Value Date Recorded Sex Assigned at Not on file Legal Sex Female 5:52 PM EST Gender Identity Not on file Sexual Orientation Not on file documented as of this encounter Last Filed Vital Signs Vital Sign Reading Time Taken Comments Blood Pressure 141/77 06/23/2025 11:15 AM EDT Pulse 68 06/23/2025 11:15 AM EDT Temperature 36.2 C (97.2 F) 06/23/2025 11:15 AM EDT Respiratory Rate 19 06/23/2025 11:15 AM EDT Oxygen Saturation 96% 06/23/2025 11:15 AM EDT Inhaled Oxygen Concentration - - Weight 62.9 kg (138 lb 9.6 oz) 06/21/2025 2:58 A M EDT Height 170.2 cm (5' 7.01 ) 06/20/2025 6:00 AM ED T Body Mass Index 21.7 06/20/2025 6:00 AM EDT documented in this encounter Discharge Summaries * CASSIDY Willson - 06/23/2025 12:05 PM EDT Images from the original note were not included. Thoracic Surgery Discharge Summary Name: Mica Dillard : 1955 Date of Admission: 06/20/2025 Date of Discharge: 06/23/25 Discharge Condition: Stable Discharge Disposition: Home, with VNA Discharge Diagnoses 1. Malignant neoplasm of lower lobe of left lung (CMS/HCC V24, CMS/HCC V28) 2. [employer] Procedures 06/20/25: Da Morales left lower lobe superior segmentectomy, mediastinal lymphadenectomy, bronchoscopywith aspiration, intercostal paravertebral nerve blocks, cryo nerve blocks levels 7 and 8. Hospital Course Per Dr. Donnelly's operative note: 69-year-old woman with significant COPD found to have initially an enlarging mixed pulmonary nodule in the superior segment of the left lower lobe. She underwent navigation bronchoscopy with biopsy and EBUS which showed a adenocarcinoma in the superior segment of the left lower lobe and negative mediastinal lymph nodes. PFTs were borderline but FEV1 44% of predicted so I discussed with her the option of surgery versus SBRT. She opted for surgery understanding that she very well may require more oxygen if we end up having to take the lobe of the lung. The patient understood the risks benefits and alternatives of the proposed operation and agreed to proceed. Patient was taken to the operating room electively on June 20, 2025 at which point she had a robotic left lower lobe superior segmentectomy and mediastinal lymphadenectomy. Postoperatively she was extubated and sent to the PACU in stable condition. Over the course of her hospital stay she remained stable from a respiratory standpoint, but did require slightly higher oxygen with activity than her usual. She was evaluated by respiratory therapy prior to discharge who recommended 4 to 5 L of oxygen with activity and to continue her 2 L of oxygen at night which is her baseline. She did have some asymptomatic hypotension that initially required holding of her home medications and the addition ofmidodrine, however her home medications were restarted and the midodrine was stopped of which she tolerated well. She also had a continuing air leak from her chest tube which has been stable on waterseal. She does have a small left apical pneumothorax which is stable on date of discharge. The amount of subcutaneous emphysema over her left chest wall is also stable at time of discharge. She is being sent home with a chest tube to mini atrium device. Prior to discharge she has been out of bed ambulating, tolerating oral diet, voiding, and moving her bowels. Of note, she did note black and maroon stools from her ostomy appliance which was heme positive. Her DVT prophylaxis was stopped at that time and she was started on IV Protonix. Her stools cleared and are now brown on discharge. Her H&H also remained stable. She does admit to having intermittent maroon stools from her ostomy, as well as rectal bleeding, which she states has been going on since her colectomy procedure many years back. She did previously see Dr. Iniguez from GI, but has not followed with GI for many years. I discussed this with the medicine group prior to her discharge and outpatient GI consultation is felt to be appropriate. Ambulatory GI referral was placed prior to herdischarge. [place] [employer] was checked prior to discharging patient with opioids. Physical exam on discharge Visit Vitals BP (!) 141/77 (BP Location: Left arm, Patient Position: Lying) Pulse 68 Temp 36.2 ??C (97.2 ??F) (Temporal) Resp 19 Ht 1.702 m (67.01 ) Wt 62.9 kg (138 lb 9.6 oz) SpO2 96% BMI 21.70 kg/m?? OB Status Postmenopausal Smoking Status Former BSA 1.73 m?? Physical Exam Vitals reviewed. Constitutional: General: She is not in acute distress. Appearance: She is well-developed. She is not ill-appearing, toxic-appearing or diaphoretic. HENT: Head: Normocephalic and atraumatic. Mouth/Throat: Mouth: Mucous membranes are moist. Eyes: General: Lids are normal. No scleral icterus. Neck: Trachea: No tracheal deviation. Cardiovascular: Rate and Rhythm: Normal rate and regular rhythm. Heart sounds: No murmur heard. Pulmonary: Effort: Pulmonary effort is normal. No accessory muscle usage or respiratory distress. Breath sounds: No wheezing, rhonchi or rales. Comments: CTA B Chest: Chest wall: Crepitus (Small to moderate amount over left chest wall, stable compared to previous) present. Comments: Multiple left sided chest incisions are C/D/I without erythema, edema, open areas, or drainage. Left sided chest tube to Atrium on mini atrium, minimal serous sang drainage, + air leak. Abdominal: General: Bowel sounds are normal. There is no distension. Palpations: Abdomen is soft. Tenderness: There is no abdominal tenderness. Musculoskeletal: Cervical back: Neck supple. No crepitus. Right lower leg: No edema. Left lower leg: No edema. Skin: General: Skin is warm and dry. Findings: No rash. Neurological: Mental Status: She is alert and oriented to person, place, and time. Psychiatric: Attention and Perception: Attention normal. Mood and Affect: Mood normal. Speech: Speech normal. Behavior: Behavior normal. Behavior is cooperative. Labs Lab Results Component Value Date WBC 6.3 06/23/2025 HGB 11.9 06/23/2025 HCT 38.2 06/23/2025 PLT 235 06/23/2025 Lab Results Component Value Date NA 140 06/23/2025 K 4.7 06/23/2025 CL 106 06/23/2025 CO2 32 06/23/2025 ANIONGAP 2 (L) 06/23/2025 BUN 12 06/23/2025 CREATININE 0.94 06/23/2025 GLUCOSE 104 (H) 06/23/2025 EGFR 66 06/23/2025 CALCIUM 9.5 06/23/2025 Lab Results Component Value Date PT 10.5 (L) 06/13/2025 INR 0.8 06/13/2025 APTT 31.3 06/13/2025 Radiology 06/23/25 XR Chest 1 View Narrative: History: Postop left lower lobe superior segmentectomy 06/20/25 Comparison: 06/22/25 Findings: Portable AP upright chest at 5:45 AM. Postop changes are again seen in the left hemithorax consistent with recent partial lung resection. Surgical chain suture projects at the level of the inferior hilum. A large bore thoracostomy tube terminates at the left apex. A small left apical pneumothorax is again seen, with approximately 14 mm of pleural separation. Minimal patchy opacity is again seen in the left base. The right lung is grossly clear. The cardiac silhouette remains normal in size. The mediastinal structures are midline. Subcutaneous emphysema is again seen adjacent to the left chest wall and in the left neck. Impression: Impression: 1. Postop changes in the left hemithorax with chest tube in place. 2. Small left apical pneumothorax, without significant change. 3. Persistent subcutaneous emphysema. Telejess BENJAMIN ([id number]) -------- FINAL REPORT -------- Dictated By: Bernadine Reyes Dictated Date: 06/23/2025 08:13 ET Assigned Physician: Bernadine Reyes Reviewed and Electronically Signed By: Bernadine Reyes Signed Date: 06/23/2025 08:15 ET Workstation ID: [id number] Transcribed By: Self Edit Transcribed Date: 06/23/2025 08:13 ET Test Results Pending on Discharge Pending Labs Order Current Status Tissue exam In process Discharge Medication List Your medication list START taking these medications Instructions Last Dose Given Next Dose Due cephalexin 500 mg capsule Commonly known as: KEFLEX Take 1 capsule (500 mg total) by mouth 4 (four) times a day for 10 days. oxyCODONE 5 mg immediate release tablet Commonly known as: ROXICODONE Take 1-2 tablets (5-10 mg total) by mouth every 6 (six) hours if needed (pain). Max Daily Amount: 40 mg pantoprazole 40 mg EC tablet Commonly known as: PROTONIX Take 1 tablet (40 mg total) by mouth 1 (one) time each day before breakfast. Do not crush, chew, orsplit. CONTINUE taking these medications Instructions Last Dose Given Next Dose Due albuterol HFA 90 mcg/actuation inhaler Commonly known as: PROAIR HFA ; PROVENTIL HFA ; VENTOLIN HFA USE 2 PUFFS EVERY 6 HOURS NEEDED FOR FOR WHEEZING alendronate 70 mg tablet Commonly known as: FOSAMAX 70 MG ORALLY EVERY WEEK FOR 28 DAYS fenofibrate 160 mg tablet Commonly known as: LOFIBRA Take 1 tablet (160 mg total) by mouth 1 (one) time each day. totjokchtgh-irybcbybxvzf-lfwvtwyppw 100-62.5-25 mcg inhaler Commonly known as: TRELEGY ELLIPTA Inhale 1 puff (100 mcg total) by mouth 1 (one) time each day. Rinse mouth with water after use to reduce aftertaste and incidence of candidiasis. Do not swallow. lisinopriL 5 mg tablet Commonly known as: PRINIVIL,ZESTRIL Take 1 tablet (5 mg total) by mouth 1 (one) time each day. metoprolol succinate 25 mg 24 hr tablet Commonly known as: TOPROL-XL TAKE 12.5 MG (1/2 X 25 MG) ORALLY DAILY FOR 90 DAYS Oxygen Therapy, Adult Inhale 2 each 1 (one) time each day. prn pravastatin 40 mg tablet Commonly known as: PRAVACHOL Take 1 tablet (40 mg total) by mouth. at bedtime. sertraline 50 mg tablet Commonly known as: ZOLOFT Take 1 tablet (50 mg total) by mouth 1 (one) time each day. triamcinolone 0.025 % cream Commonly known as: KENALOG 1 APPL TOPICALLY 2 TIMES A DAY FOR 14 DAYS Where to Get Your Medications These medications were sent to [facility]/pharmacy #[id number] - [place], [place] - [address] [address] cephalexin 500 mg capsule oxyCODONE 5 mg immediate release tablet pantoprazole 40 mg EC tablet Upcoming Outpatient Appointments Future Appointments Date Time Provider Department Center 07/05/2025 1:15 PM [place]IDY Willson [facility] [place] [address] [facility] [place] Discharge Instructions Patient should contact a provider if they experience ACTIVITY You should be out of bed and walking at least 3x per day. The more the better! No lifting anything heavier than 10lb x 2 weeks (ie, gallon of milk). INCISION CARE Keep all incisions clean and dry. Gently wash incisions with soap and water. No scrubbing the areas. No submerging your incisions under water (tub baths, swimming, etc.) for the next 2-3 weeks. CHEST TUBE CARE Your chest tube is connected to a device called a MINI-ATRIUM. This will hold 500mL of fluid. If it is nearly full you may need to drain some fluid out of it. Todo this, simply screw on an empty syringe to the connector at the bottom and pull back to remove some fluid. If you do need to drain fluid, make sure to leave at least 100mL (so we can check for air leaks in the office). Change dressing around chest tube daily. This is a simple dry gauze and tape. You may shower with the chest tube in place, but most people tend to sponge bathe only for ease. Take down the dressing before showering, cleanse around chest tube site with soapy water gently, then pat around chest tube to dry. Place new dry dressing around chest tube once done with shower. Emergencies and what to do Should the chest tube ever accidentally fall out of your body --> quickly place your hand over the site and prepare the emergency dressing . Place the dressing over the site and call the ThoracicSurgery group if you are feeling well, otherwise call 911 if you are feeling unwell. Should the chest tube become disconnected --> simply reconnect the tube together. If you are feeling well call the Thoracic Surgery group, otherwise call 911 if your are feeling unwell. MEDICATION Home medications You may resume all home medications. Pain management Tylenol 1000mg every 8 hours AVOID NSAIDS (such as Ibuprofen, Aleve) due to your recent GI bleeding. You can use OTC lidocaine patches (such as Salon Pas) for pain also. Just be sure to not place themover any incisions. You can also apply heat and/or cool compresses to the painful areas. If you need additional medication for pain you can take the Oxycodone that was prescribed on discharge and should be available at your pharmacy. Stool softeners If you are taking narcotic pain medication be sure to take stool softeners/laxatives to prevent severe constipation. Suggestions: Colace 100mg twice a day Senna once a day Miralax once a day Home oxygen: It was recommended that you use 4 to 5 L of oxygen with activity (which is a change from your baseline use), but you continue to use 2 L at night. 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 New medications You are going home on an antibiotic to prevent infection while you have the chest tube in place. This is called cephalexin and you will take it 4 times a day as prescribed. You are also being prescribed Protonix pills which will help prevent ongoing GI bleeding. You should follow-up with GI (referral has been placed) who will continue to manage this medication for you. RESPIRATORY CARE You should continue to use your incentive spirometer and flutter valve at home. WHAT TO CALL US FOR: Incisions have increased redness, swelling, open areas, or drainage. Fever >101, chills, significant shortness of breath, chest pain, severe abdominal pain, worsening abdominal distention, severe nausea, vomiting, severe changes in bowel or bladder habits. SMOKING CESSATION: Smoking is hazardous to your health and those around you. Continuing to smoke or use tobacco products can increase your chance of postoperative complications, including delayed wound healing, wound infection, stroke, and heart attack. If you currently use tobacco products (cigarettes, dip, cigars, electronic/vapor cigarettes, etc) talk with your provider about options that are available to help you quit. You can call the [facility] Smokers' Helpline at 6-606-QUIT NOW ( ). For Mauritanian, call 6-606-3-TJ ( ). You can also visit the website at [email or web address].[place]aka. FOLLOW UP APPOINTMENTS: You have an appointment with Herlinda Gonzalez PA-C at the thoracic surgery office on Thursday, June 26, 2025 at 10 AM for chest tube check. Please Arrive 30 minutes prior to your appointment to have a chest xray done at [facility] Radiology (1st floor, [facility]). Go to Patient Registration to check in for the xray. My office will call you on Wednesday to confirm timing of that appointment and make sure that you havePVTA set up for that time. If PVTA is unable to arrange a ride for a 10 AM appointment my office will change the time of your appointment as needed. You also already have an appointment with Herlinda Gonzalez PA-C at the Thoracic Surgery office on 07/05/25 @ 1:15pm for a postop follow up. Keep this appointment for now, we can always change it if we need to based on how your chest tube appointments go. [facility] Thoracic Surgery office [address] [place] [address], [address] [phone] 3. Call your PCP to make sure you have a post-hospital follow up visit scheduled in the next 1-2 weeks. 4. I sent in a new referral to the GI service for your GI bleeding issues. You should be hearing from their office within the next week or so to set up an appointment. If you do not hear from them please call the thoracic office and we can help arrange that for you. 5. You should also call your shrimp trawler captain to set up an appointment since you are requiring slightly more oxygen than your baseline following surgery. They should follow your oxygen needs. [facility] Thoracic Surgery [address] [place] [address], [address] [place] [phone] CASSIDY Willson [facility] Thoracic Surgery [address] [facility], [address] [facility] [phone] * CASSIDY Willson - 06/23/2025 11:56 AM EDT ACTIVITY You should be out of bed and walking at least 3x per day. The more the better! No lifting anything heavier than 10lb x 2 weeks (ie, gallon of milk). INCISION CARE Keep all incisions clean and dry. Gently wash incisions with soap and water. No scrubbing the areas. No submerging your incisions under water (tub baths, swimming, etc.) for the next 2-3 weeks. CHEST TUBE CARE Your chest tube is connected to a device called a MINI-ATRIUM. This will hold 500mL of fluid. If it is nearly full you may need to drain some fluid out of it. Todo this, simply screw on an empty syringe to the connector at the bottom and pull back to remove some fluid. If you do need to drain fluid, make sure to leave at least 100mL (so we can check for air leaks in the office). Change dressing around chest tube daily. This is a simple dry gauze and tape. You may shower with the chest tube in place, but most people tend to sponge bathe only for ease. Take down the dressing before showering, cleanse around chest tube site with soapy water gently, then pat around chest tube to dry. Place new dry dressing around chest tube once done with shower. Emergencies and what to do Should the chest tube ever accidentally fall out of your body --> quickly place your hand over the site and prepare the emergency dressing . Place the dressing over the site and call the ThoracicSurgery group if you are feeling well, otherwise call 911 if you are feeling unwell. Should the chest tube become disconnected --> simply reconnect the tube together. If you are feeling well call the Thoracic Surgery group, otherwise call 911 if your are feeling unwell. MEDICATION Home medications You may resume all home medications. Pain management Tylenol 1000mg every 8 hours AVOID NSAIDS (such as Ibuprofen, Aleve) due to your recent GI bleeding. You can use OTC lidocaine patches (such as Salon Pas) for pain also. Just be sure to not place themover any incisions. You can also apply heat and/or cool compresses to the painful areas. If you need additional medication for pain you can take the Oxycodone that was prescribed on discharge and should be available at your pharmacy. Stool softeners If you are taking narcotic pain medication be sure to take stool softeners/laxatives to prevent severe constipation. Suggestions: Colace 100mg twice a day Senna once a day Miralax once a day Home oxygen: It was recommended that you use 4 to 5 L of oxygen with activity (which is a change from your baseline use), but you continue to use 2 L at night. 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 New medications You are going home on an antibiotic to prevent infection while you have the chest tube in place. This is called cephalexin and you will take it 4 times a day as prescribed. You are also being prescribed Protonix pills which will help prevent ongoing GI bleeding. You should follow-up with GI (referral has been placed) who will continue to manage this medication for you. RESPIRATORY CARE You should continue to use your incentive spirometer and flutter valve at home. WHAT TO CALL US FOR: Incisions have increased redness, swelling, open areas, or drainage. Fever >101, chills, significant shortness of breath, chest pain, severe abdominal pain, worsening abdominal distention, severe nausea, vomiting, severe changes in bowel or bladder habits. SMOKING CESSATION: Smoking is hazardous to your health and those around you. Continuing to smoke or use tobacco products can increase your chance of postoperative complications, including delayed wound healing, wound infection, stroke, and heart attack. If you currently use tobacco products (cigarettes, dip, cigars, electronic/vapor cigarettes, etc) talk with your provider about options that are available to help you quit. You can call the [facility]'s Smokers' Helpline at 8-746-QUIT NOW ( ). For [place]itanian, call 6-319-3-TJ ( ). You can also visit the website at www.Brndstr.org. FOLLOW UP APPOINTMENTS: You have an appointment with Herlinda Gonzalez PA-C at the thoracic surgery office on Thursday, June 26, 2025 at 10 AM for chest tube check. Please Arrive 30 minutes prior to your appointment to have a chest xray done at [facility] Radiology (1st floor, [facility]). Go to Patient Registration to check in for the xray. My office will call you on Wednesday to confirm timing of that appointment and make sure that you havePVTA set up for that time. If PVTA is unable to arrange a ride for a 10 AM appointment my office will change the time of your appointment as needed. You also already have an appointment with Herlinda Gonzalez PA-C at the Thoracic Surgery office on 07/05/25 @ 1:15pm for a postop follow up. Keep this appointment for now, we can always change it if we need to based on how your chest tube appointments go. [facility] Thoracic Surgery office [address] [facility], [address] [address] 3. Call your PCP to make sure you have a post-hospital follow up visit scheduled in the next 1-2 weeks. 4. I sent in a new referral to the GI service for your GI bleeding issues. You should be hearing from their office within the next week or so to set up an appointment. If you do not hear from them please call the thoracic office and we can help arrange that for you. 5. You should also call your shrimp trawler captain to set up an appointment since you are requiring slightly more oxygen than your baseline following surgery. They should follow your oxygen needs. [facility] Thoracic Surgery [address] [facility], [address] [place] [phone] documented in this encounter Discharge Instructions * Attachments The following attachments cannot be sent through Care Everywhere. * Lung Resection: Post op (Lithuanian) documented in this encounter Medications at Time of Discharge albuterol HFA (PROAIR HFA ; PROVENTIL HFA ; VENTOLIN HFA) 90 mcg/actuation inhaler USE 2 PUFFS EVERY 6 HOURS NEEDED FOR FOR WHEEZING 02/03/2025 alendronate (FOSAMAX) 70 mg tablet 70 MG ORALLY EVERY WEEK FOR 28 DAYS 04/03/2025 cephalexin (KEFLEX) 500 mg capsule Take 1 capsule (500 mg total) by mouth 4 (four) times a day for 10 days. 40 each 06/23/2025 fenofibrate (LOFIBRA) 160 mg tablet Take 1 tablet (160 mg total) by mouth 1 (one) time each day. 04/10/2025 fluticasone-umec lidinium-vilante rol (TRELEGY ELLIPTA) 100-62.5-25 mcg inhaler Inhale 1 puff (100 mcg total) by mouth 1 (one) time each day. Rinse mouth with water after use to reduce aftertaste and incidence of candidiasis. Do not swallow. lisinopriL (PRINIVIL,ZESTRI L) 5 mg tablet Take 1 tablet (5 mg total) by mouth 1 (one) time each day. 30 each 11 05/28/2025 6 metoprolol succinate (TOPROL-XL) 25 mg 24 hr tablet TAKE 12.5 MG (1/2 X 25 MG) ORALLY DAILY FOR 90 DAYS 04/17/2025 oxyCODONE (ROXICODONE) 5 mg immediate release tablet Take 1-2 tablets (5-10 mg total) by mouth every 6 (six) hours if needed (pain). Max Daily Amount: 40 mg 30 tablet 06/23/2025 Oxygen Therapy, Adult Inhale 2 each 1 (one) time each day. prn pantoprazole (PROTONIX) 40 mg EC tablet Take 1 tablet (40 mg total) by mouth 1 (one) time each day before breakfast. Do not crush, chew, or split. 30 each 1 06/23/2025 6 pravastatin (PRAVACHOL) 40 mg tablet Take 1 tablet (40 mg total) by mouth. at bedtime. 04/15/2025 sertraline (ZOLOFT) 50 mg tablet Take 1 tablet (50 mg total) by mouth 1 (one) time each day. 01/28/2025 triamcinolone (KENALOG) 0.025 % cream 1 APPL TOPICALLY 2 TIMES A DAY FOR 14 DAYS 02/28/2025 documented as of this encounter Ordered Prescriptions Prescription Sig Dispense Quantity Refills Last Filled Start Date End Date cephalexin (KEFLEX) 500 mg capsule Take 1 capsule (500 mg total) by mouth 4 (four) times a day for 10 days. 40 each 06/23/2025 5 pantoprazole (PROTONIX) 40 mg EC tablet Take 1 tablet (40 mg total) by mouth 1 (one) time each day before breakfast. Do not crush, chew, or split. 30 each 1 06/23/2025 6 oxyCODONE (ROXICODONE) 5 mg immediate release tablet Take 1-2 tablets (5-10 mg total) by mouth every 6 (six) hours if needed (pain). Max Daily Amount: 40 mg 30 tablet 06/23/2025 documented in this encounter Discharge Disposition Disposition Code Departure Means Destination Comment s Home-Health Care [facility] documented in this encounter Progress Notes * Annmarie Lane RN - 06/23/2025 1:51 PM EDT Pt medically cleared for discharge. Dispo is home with [facility] for management of mini atrium. [facility] has accepted and is aware pt being discharged home today. Pt O2 script has changed. Steffi notified. [facility] transportation to be provided. * Favian Robles, CLARISSA - 06/23/2025 11:03 AM EDT 06/23/25 1000 Qualify for Home O2 On at rest Room air SpO2 at rest 94 % On with exertion Oxygen O2 flow with exertion 5 L/min SpO2 w/ exertion 88 % Amount of exertion time walked 10 Minutes Patient mobile at home? Yes Home O2 set up by (company): Pt has O2 at home. Pt requires no O2 while at rest. SpO2 94-95% on RA. While ambulating/doing any activity/bedtime pt already wears 2L. During the home O2 evaluation pt did require 4-5L to maintain Spo2 92-95%. * CASSIDY Villalobos - 06/23/2025 8:44 AM EDT Subjective Patient was seen and examined this morning at bedside. Reports approximately 4/10 pain mostly in the upper left back/shoulder. Denies other chest pain, abdominal pain, shortness of breath Reports she does pass red stool sometimes into her ostomy at home. Reports history of ulcerative colitis. This is not new for her. She has seen Dr. Iniguez in the past Objective Physical Exam General Exam: Age-appropriate female, awake, calm, cooperative, sitting up in the hospital bed in no acute distress skin Exam: Warm, dry and intact without diaphoresis. HEENT exam: Head appears atraumatic. No scleral icterus. Respiratory Exam: Clear to auscultation bilaterally. Left-sided chest tube in place. Crepitus surrounding chest tube site. Cardiovascular Exam: Regular rate and rhythm. Gastrointestinal Exam: Abdomen is soft, nontender, and nondistended. Ostomy. Bowel sounds noted Musculoskeletal Exam: No lower extremity edema is appreciated. Neurological Exam: Alert and oriented x 3. Last Recorded Vitals: Blood pressure (!) 152/69, pulse 66, temperature 36.3 ??C (97.3 ??F), temperature source Temporal, resp. rate 16, height 1.702 m (67.01 ), weight 62.9 kg (138 lb 9.6 oz), SpO2 100%. Medications: acetaminophen, 1,000 mg, oral, q8h CHRISTELLE formoterol, 20 mcg, nebulization, BID And budesonide, 0.5 mg, nebulization, Daily And revefenacin, 175 mcg, nebulization, Daily docusate sodium, 100 mg, oral, BID [Held by provider] enoxaparin, 40 mg, subcutaneous, q24h CHRISTELLE fenofibrate, 145 mg, oral, Daily folic acid, 1 mg, oral, Daily [Held by provider] lisinopriL, 5 mg, oral, Daily metoprolol succinate, 12.5 mg, oral, Daily pantoprazole, 40 mg, intravenous, q12h pantoprazole, 80 mg, intravenous, Once polyetheylene glycol, 17 g, oral, Daily pravastatin, 40 mg, oral, Nightly senna, 2 tablet, oral, Nightly sertraline, 50 mg, oral, Daily sodium chloride, 10 mL, intravenous, BID thiamine, 300 mg, intravenous, q24h PRN medications: albuterol, bisacodyL, bisacodyL, chlordiazePOXIDE OR chlordiazePOXIDE OR chlordiazePOXIDE, ondansetron (ZOFRAN-ODT) disintegrating tablet OR ondansetron, oxyCODONE, oxyCODONE, simethicone, Insert peripheral IV AND Maintain IV access AND Saline lock IV AND sodium chloride AND sodium chloride Lab Results Component Value Date WBC 6.3 06/23/2025 HGB 11.9 06/23/2025 HCT 38.2 06/23/2025 MCV 97.0 06/23/2025 PLT 235 06/23/2025 Lab Results Component Value Date GLUCOSE 104 (H) 06/23/2025 CALCIUM 9.5 06/23/2025 NA 140 06/23/2025 K 4.7 06/23/2025 CO2 32 06/23/2025 CL 106 06/23/2025 BUN 12 06/23/2025 CREATININE 0.94 06/23/2025 XR Chest 1 View Final Result Impression: 1. Postop changes in the left hemithorax with chest tube in place. 2. Small left apical pneumothorax, without significant change. 3. Persistent subcutaneous emphysema. Telerad CASSIDY ([id number]) -------- FINAL REPORT -------- Dictated By: Bernadine Reyes Dictated Date: 06/23/2025 08:13 ET Assigned Physician: Bernadine Reyes Reviewed and Electronically Signed By: Bernadine Reyes Signed Date: 06/23/2025 08:15 ET Workstation ID: [id number] Transcribed By: Self Edit Transcribed Date: 06/23/2025 08:13 ET XR Chest 1 View Final Result FINDINGS/IMPRESSION: Stable small left apical pneumothorax. Left chest tube in place. Subcutaneous emphysema left chest wall. Post surgical changes project over the left hilum. Left basilar atelectasis. Right lung is clear. -------- FINAL REPORT -------- Dictated By: Charli Vera Dictated Date: 06/22/2025 13:09 ET Assigned Physician: Charli Vera Reviewed and Electronically Signed By: Charli Vera Signed Date: 06/22/2025 13:14 ET Workstation ID: [id number] Transcribed By: Self Edit Transcribed Date: 06/22/2025 13:09 ET XR Chest 1 View Final Result Left apical chest tube with a small left pneumothorax. -------- FINAL REPORT -------- Dictated By: Trip Schneider Dictated Date: 06/22/2025 08:27 ET Assigned Physician: Trip Schneider Reviewed and Electronically Signed By: Trip Schneider Signed Date: 06/22/2025 08:28 ET Workstation ID: [id number] Transcribed By: Self Edit Transcribed Date: 06/22/2025 08:27 ET XR Chest 1 View Final Result Similar left-sided postoperative changes with development of left chest wall subcutaneous emphysema. No pneumothorax. -------- FINAL REPORT -------- Dictated By: Oscar Tracy Dictated Date: 06/21/2025 09:38 ET Assigned Physician: Oscar Tracy Reviewed and Electronically Signed By: Oscar Tracy Signed Date: 06/21/2025 09:40 ET Workstation ID: [id number] Transcribed By: Self Edit Transcribed Date: 06/21/2025 09:38 ET XR Chest 1 View Final Result Postoperative changes in the left hemithorax. A large bore surgical chest tube is present with its tip at the left lung apex. There is no pneumothorax. There is mild discoid atelectasis laterally in the left midlung and at the right costophrenic angle. The lungs are otherwise clear. Code 49275 -------- FINAL REPORT -------- Dictated By: Nolan Novak Dictated Date: 06/20/2025 11:44 ET Assigned Physician: Nolan Novak Reviewed and Electronically Signed By: Nolan Novak Signed Date: 06/20/2025 11:47 ET Workstation ID: [id number] Transcribed By: Self Edit Transcribed Date: 06/20/2025 11:44 ET Assessment/Plan This is a 69-year-old female with a past medical history of recently diagnosed lung cancer, COPD on2 L chronic O2, hypertension, hyperlipidemia, depression who presented to the ED for planned thoracic surgery. ARIE was consulted postoperatively for medical comanagement. Lung cancer Status post da Morales assisted left lower lobe superior segmentectomy mediastinal lymphadenectomy CXR 06/21 shows similar left-sided postoperative changes with development of left-sided chest wall subcutaneous emphysema. No pneumothorax Repeat CXR 06/22 shows left apical chest tube with small left pneumothorax -- Management per CT surgery COPD Chronic respiratory failure --Continue 2 L O2 --Continue formoterol, budesonide, revefenacin Depression --Continue sertraline History of hypertension Hypotension Has a history of hypertension maintained on lisinopril and metoprolol at baseline On 06/21 SBP 90s in the morning. Patient reports this is limiting her ability to receive her as needed pain medication SBP 150s on 06/23 --Resume metoprolol --Hold lisinopril this morning. If remains hypertensive after metoprolol can resume otherwise may resume on discharge Hyperlipidemia -- Continue statin and fenofibrate Daily EtOH use Reports 4 [employer] daily Denies hx withdrawal No signs or symptoms of withdrawal 06/21-06/23 --thiamine and folic acid supplementation --Monitor CIWA Heme positive stool History of ulcerative colitis CT surgery team noted maroon stool output 06/22. Stool occult blood positive. Patient reports longstanding history of ulcerative colitis. Passes maroon stool at home at baseline. Has seen Dr. Iniguez in the past H&H has up trended overnight 11.9/38.2 from 11.8/37.8 on 06/22 --Advised outpatient follow-up with rn behavioral health Code status: Full code DVT prophylaxis: Lovenox-may resume but defer to CT surgery Total time spent performing chart review, assessing the patient, documenting, border measurer and cutter, discussing with attending MD/bedside RN/ICC and consultants, updating family, arranging care and performing a high level of medical decision making approximately 35 minutes. Case discussed with Dr. Meraz Cosigned by Paul Meraz MD at 06/23/2025 2:12 PM EDT Associated attestation - Paul Meraz MD - 06/23/2025 2:12 PM EDT This is a split/shared visit with CASSIDY Villalobos. I personally performed the medical decision making (MDM) for the care of this patient on 06/23/25 as documented below Patient was discussed with advanced practitioner . I personally saw and examined the patient bedside. Chart was reviewed by me personally including relevant history, updates, labs, imaging. Agree with the documentation and plan per MARILU except mentioned below. 69 years old female with history of COPD on 2 L O2 nasal cannula, recently diagnosed lung cancer, she had da Morales left lower lobe superior segmentectomy with mediastinal lymphadenectomy done by thoracic surgery and patient was admitted and medicine was consulted for medical comanagement. Chest tube management per primary thoracic surgery team. COPD-continue inhalers/nebulizer treatment. Concern for GI bleed - Per thoracic surgery team there was some concern about dark stool output in ostomy bag yesterday.However her story appears normal brown color today. Hemoglobin is stable 11.9. Has history of ulcerative colitis with intermittent bleeding. Used to follow-up with Dr. Iniguez. Currently patient is he modynamically stable and stable hemoglobin. Recommend outpatient follow-up with GI Paul Meraz MD 06/23/25 2:11 PM EDT * Madie Moreland RN - 06/22/2025 3:03 PM EDT CM 06/22: DYLAN: 06/23 Barrier: s/p VATS, chest tube Plan: [facility] for mini atruim chest tube Visiting [place] # option 1 for transport home * CASSIDY Willson - 06/22/2025 2:39 PM EDT Images from the original note were not included. Thoracic Surgery Progress Note Patient Name: Mica Dillard : 1955 Date of Visit: 06/22/25 Subjective Patient doing well overall. Remains on oxygen ATC, unable to wean as of yet. Denies any severe changes in her breathing since surgery. States she did have some discomfort in her left shoulder blade this morning which has since resolved. Has been tolerating oral intake without any abdominal complaints, voiding, passing gas, and has not moved her bowels. She has been out of bed ambulating without any significant dizziness or lightheadedness. She did have 1 or 2 episodes of bloody streaked sputum,but denies any nausea or hematemesis. Of note, the patient did explain to me that she emptied her ostomy appliance this morning and her stool was black. She also states that she has noticed since her [place] [facility] [place] that she has had bleeding from her rectum every morning when she uses the bathroom. She doesnot currently follow with any GI or general surgeon. Chest tube has remained to waterseal without issue. No Known Allergies Current Facility-Administered Medications Medication Dose Route Frequency Provider Last Rate Last Admin acetaminophen (TYLENOL) tablet 1,000 mg 1,000 mg oral q8h [facility] CASSIDY Willson 1,000 mg at 06/22/25 1310 albuterol 2.5 mg /3 mL (0.083 %) nebulizer solution 2.5 mg 2.5 mg nebulization q6h PRN CASSIDY Willson bisacodyL (DULCOLAX) EC tablet 10 mg 10 mg oral Daily PRN CASSIDY Willson bisacodyL (DULCOLAX) suppository 10 mg 10 mg rectal Daily PRN CASSIDY Willson formoterol (PERFOROMIST) 20 mcg/2 mL nebulizer solution 20 mcg 20 mcg nebulization BID CASSIDY Willson 20 mcg at 06/22/25 0721 And budesonide (PULMICORT) 0.5 mg/2 mL nebulizer solution 0.5 mg 0.5 mg nebulization Daily CASSIDY Willson 0.5 mg at 06/22/25 0722 And revefenacin (YUPELRI) 175 mcg/3 mL nebulizer solution 175 mcg 175 mcg nebulization Daily CASSIDY Willson 175 mcg at 06/22/25 0721 chlordiazePOXIDE (LIBRIUM) capsule 25 mg 25 mg oral q2h PRN CASSIDY Escalona Or chlordiazePOXIDE (LIBRIUM) capsule 50 mg 50 mg oral q2h PRN CASSIDY Escalona Or chlordiazePOXIDE (LIBRIUM) capsule 100 mg 100 mg oral q2h PRN CASSIDY Escalona docusate sodium (COLACE) capsule 100 mg 100 mg oral BID CASSIDY Willson 100 mg at 06/22/25 0816 [Held by provider] enoxaparin (LOVENOX) injection 40 mg 40 mg subcutaneous q24h CHRISTELLE CASSIDY Willosn 40 mg at 06/22/25 0816 fenofibrate (TRICOR) tablet 145 mg 145 mg oral Daily CASSIDY Willson 145 mg at 06/22/25 0816 folic acid (FOLVITE) tablet 1 mg 1 mg oral Daily CASSIDY Villalobos 1 mg at 06/22/25 0816 [Held by provider] lisinopriL (PRINIVIL,ZESTRIL) tablet 5 mg 5 mg oral Daily CASSIDY Willson 5 mg at 06/20/25 1448 [Held by provider] metoprolol succinate (TOPROL-XL) 24 Hour tablet 12.5 mg 12.5 mg oral Daily CASSIDY Villalobos ondansetron ODT (ZOFRAN-ODT) disintegrating tablet 4 mg 4 mg oral q8h PRN CASSIDY Willson Or ondansetron (PF) (ZOFRAN) injection 4 mg 4 mg intravenous q8h PRN CASSIDY Willson oxyCODONE (ROXICODONE) immediate release tablet 10 mg 10 mg oral q4h PRN CASSIDY Willson 10 mg at 06/22/25 0816 oxyCODONE (ROXICODONE) immediate release tablet 5 mg 5 mg oral q4h PRN CASSIDY Willson 5 mg at 06/21/25 0920 [START ON 06/23/2025] pantoprazole (PROTONIX) injection 40 mg 40 mg intravenous q12h CASSIDY Willson pantoprazole (PROTONIX) injection 80 mg 80 mg intravenous Once CASSIDY Willson polyethylene glycol (MIRALAX) packet 17 g 17 g oral Daily CASSIDY Willson 17 g at 06/22/25 0816 pravastatin (PRAVACHOL) tablet 40 mg 40 mg oral Nightly CASSIDY Willson 40 mg at 06/21/252055 senna (SENOKOT) tablet 17.2 mg 2 tablet oral Nightly CASSIDY Willson 17.2 mg at 06/20/252002 sertraline (ZOLOFT) tablet 50 mg 50 mg oral Daily CASSIDY Willson 50 mg at 06/22/25 0816 simethicone (MYLICON) chewable tablet 160 mg 160 mg oral 4x daily PRN CASSIDY Villalobos 160 mg at 06/22/25 0902 sodium chloride 0.9 % flush 10 mL 10 mL intravenous BID CASSIDY Willson 10 mL at 06/22/25 0924 And sodium chloride 0.9 % flush 10 mL 10 mL intravenous PRN CASSIDY Willson thiamine (VITAMIN B-1) 300 mg in dextrose 5 % 50 mL IVPB 300 mg intravenous q24h CASSIDY Villalobos Stopped at 06/21/25 1726 Review of Systems Review of Systems Constitutional: Negative for chills, decreased appetite, diaphoresis, fever, night sweats and weight loss. HENT: Negative for congestion, hoarse voice and sore throat. Eyes: Negative for blurred vision. Cardiovascular: Negative for chest pain, dyspnea on exertion and palpitations. Respiratory: Positive for hemoptysis (1-2 episodes of bloody streaked sputum). Negative for cough, shortness of breath and sputum production. Skin: Negative for rash. Gastrointestinal: Positive for melena. Negative for abdominal pain, constipation, diarrhea, nausea and vomiting. Genitourinary: Negative for dysuria and flank pain. Neurological: Negative for dizziness, light-headedness and numbness. Physical Exam Vitals: 06/22/25 0335 06/22/25 0725 06/22/25 0736 06/22/25 1101 BP: 130/67 126/55 117/61 BP Location: Right arm Left arm Left arm Patient Position: Lying Lying Sitting Pulse: 65 69 69 Resp: 16 18 20 Temp: 36.2 ??C (97.2 ??F) 36 ??C (96.8 ??F) 36.2 ??C (97.1 ??F) TempSrc: Temporal Temporal Temporal SpO2: 98% 97% 96% 98% Weight: Height: Physical Exam Vitals reviewed. Constitutional: General: She is not in acute distress. Appearance: She is well-developed. She is not ill-appearing, toxic-appearing or diaphoretic. HENT: Head: Normocephalic and atraumatic. Mouth/Throat: Mouth: Mucous membranes are moist. Eyes: General: Lids are normal. No scleral icterus. Neck: Trachea: No tracheal deviation. Cardiovascular: Rate and Rhythm: Normal rate and regular rhythm. Heart sounds: No murmur heard. Pulmonary: Effort: Pulmonary effort is normal. No accessory muscle usage or respiratory distress. Breath sounds: No wheezing, rhonchi or rales. Comments: CTA B Chest: Chest wall: Crepitus (Small amount around her incisions and chest tube site (stable)) present. Comments: Multiple left sided chest incisions are C/D/I without erythema, edema, open areas, or drainage. Left sided chest tube to Atrium on waterseal, serosanguineous drainage, 1-2+ air leak. Abdominal: General: Bowel sounds are normal. There is no distension. Palpations: Abdomen is soft. Tenderness: There is no abdominal tenderness. Musculoskeletal: Cervical back: Neck supple. No crepitus. Right lower leg: No edema. Left lower leg: No edema. Skin: General: Skin is warm and dry. Findings: No rash. Neurological: Mental Status: She is alert and oriented to person, place, and time. Psychiatric: Attention and Perception: Attention normal. Mood and Affect: Mood normal. Speech: Speech normal. Behavior: Behavior normal. Behavior is cooperative. Diagnostics Lab Results Component Value Date WBC 9.9 06/22/2025 HGB 11.8 06/22/2025 HCT 37.8 06/22/2025 PLT 241 06/22/2025 Lab Results Component Value Date NA 137 06/21/2025 K 5.0 06/21/2025 CL 104 06/21/2025 CO2 28 06/21/2025 ANIONGAP 5 06/21/2025 BUN 13 06/21/2025 CREATININE 1.12 (H) 06/21/2025 GLUCOSE 119 (H) 06/21/2025 EGFR 53 (L) 06/21/2025 CALCIUM 9.1 06/21/2025 Lab Results Component Value Date PT 10.5 (L) 06/13/2025 INR 0.8 06/13/2025 APTT 31.3 06/13/2025 Microbiology No results found for this or any previous visit (from the past week). Radiology 06/22/25 XR Chest 1 View Narrative: XR CHEST 1 VIEW INDICATION: s/p segmentectomy. F/U PTX. TECHNIQUE: XR CHEST 1 VIEW COMPARISON: 06/22/2025 at 5:00 AM Impression: FINDINGS/IMPRESSION: Stable small left apical pneumothorax. Left chest tube in place. Subcutaneous emphysema left chest wall. Post surgical changes project over the left hilum. Left basilar atelectasis. Right lung is clear. -------- FINAL REPORT -------- Dictated By: Charli Vera Dictated Date: 06/22/2025 13:09 ET Assigned Physician: Charli Vera Reviewed and Electronically Signed By: Charli Vera Signed Date: 06/22/2025 13:14 ET Workstation ID: [id number] Transcribed By: Self Edit Transcribed Date: 06/22/2025 13:09 ET XR Chest 1 View Narrative: PROCEDURE: AP chest radiograph. HISTORY: s/p LLL segmentectomy. Followup. COMPARISON: 06/21/2025. FINDINGS: Stable left apical chest tube and left chest wall emphysema. New small left apical pneumothorax. Unchanged cardiomediastinal contours. Impression: Left apical chest tube with a small left pneumothorax. -------- FINAL REPORT -------- Dictated By: Trip Schneider Dictated Date: 06/22/2025 08:27 ET Assigned Physician: Trip Schneider Reviewed and Electronically Signed By: Trip Schneider Signed Date: 06/22/2025 08:28 ET Workstation ID: [id number] Transcribed By: Self Edit Transcribed Date: 06/22/2025 08:27 ET Assessment and Plan POD#2 s/p robotic left lower lobe superior segmentectomy Melena/GIB Patient noted black tarry stools from her ostomy appliance this morning. Occult blood positive. Famotidine DC'd. IV Protonix ordered. H&H stable compared to yesterday. Will check H&H in the morning to assure stability. ARIE following - appreciate input. Chest tube management Chest x-ray this morning shows a new small left apical pneumothorax. Patient had no significant change in her respiratory status or increasing subcutaneous emphysema associated with this finding. Repeat chest x-ray about 6 hours later shows no worsening of her pneumothorax. Patient also has hadno increasing subcutaneous emphysema over the course of the day. Will continue chest tube to waterseal. Morning chest x-ray ordered Pain management Tylenol ATC Oxycodone PO as needed based on pain scale IV Dilaudid as needed for severe breakthrough pain only Pulmonary toilet IS Flutter valve Ambulation Activity Patient should be OOB ambulating in the hallways at least 3-4 times daily. Patient should be OOB to chair for all meals. Patient should be OOB to the chair for the majority of the day as tolerated. Bowel regimen Colace, Senna, Miralax Dulcolax suppository prn DVT prophylaxis: (Lovenox SQ - on hold for GIB), SCDs GI prophylaxis: IV Protonix Herlinda Gonzalez PA-C [facility] Thoracic Surgery [address] [place] [address], [address] [facility] [id number] * CASSIDY Villalobos - 06/22/2025 11:23 AM EDT Subjective Patient was seen and examined this morning at bedside. She reports 9/10 discomfort at this time, mostly around the chest tube and in the left shoulder Reports she is having ostomy output Denies abdominal pain or nausea No shortness of breath Objective Physical Exam General Exam: Age-appropriate female, awake, calm, cooperative, sitting up in the hospital bed uncomfortable but in no acute distress. Skin Exam: Warm, dry and intact without diaphoresis. HEENT exam: Head appears atraumatic. No scleral icterus. Respiratory Exam: Minimal scattered wheezing. Left-sided chest tube in place. Less crepitus palpated today around chest tube. Cardiovascular Exam: Regular rate and rhythm. Gastrointestinal Exam: Abdomen is soft, nontender, and nondistended. Ostomy. Bowel sounds noted Musculoskeletal Exam: No lower extremity edema is appreciated. Neurological Exam: Alert and oriented x 3. Last Recorded Vitals: Blood pressure 117/61, pulse 69, temperature 36.2 ??C (97.1 ??F), temperature source Temporal, resp. rate 20, height 1.702 m (67.01 ), weight 62.9 kg (138 lb 9.6 oz), SpO2 98%. Medications: acetaminophen, 1,000 mg, oral, q8h CHRISTELLE formoterol, 20 mcg, nebulization, BID And budesonide, 0.5 mg, nebulization, Daily And revefenacin, 175 mcg, nebulization, Daily docusate sodium, 100 mg, oral, BID enoxaparin, 40 mg, subcutaneous, q24h CHRISTELLE famotidine, 20 mg, oral, Daily fenofibrate, 145 mg, oral, Daily folic acid, 1 mg, oral, Daily [Held by provider] lisinopriL, 5 mg, oral, Daily [Held by provider] metoprolol succinate, 12.5 mg, oral, Daily midodrine, 5 mg, oral, TID AC polyetheylene glycol, 17 g, oral, Daily pravastatin, 40 mg, oral, Nightly senna, 2 tablet, oral, Nightly sertraline, 50 mg, oral, Daily sodium chloride, 10 mL, intravenous, BID thiamine, 300 mg, intravenous, q24h PRN medications: albuterol, bisacodyL, bisacodyL, chlordiazePOXIDE OR chlordiazePOXIDE OR chlordiazePOXIDE, ondansetron (ZOFRAN-ODT) disintegrating tablet OR ondansetron, oxyCODONE, oxyCODONE, simethicone, Insert peripheral IV AND Maintain IV access AND Saline lock IV AND sodium chloride AND sodium chloride Lab Results Component Value Date WBC 11.6 (H) 06/21/2025 HGB 12.3 06/21/2025 HCT 39.3 06/21/2025 MCV 96.8 06/21/2025 PLT 275 06/21/2025 Lab Results Component Value Date GLUCOSE 119 (H) 06/21/2025 CALCIUM 9.1 06/21/2025 NA 137 06/21/2025 K 5.0 06/21/2025 CO2 28 06/21/2025 CL 104 06/21/2025 BUN 13 06/21/2025 CREATININE 1.12 (H) 06/21/2025 XR Chest 1 View Final Result Left apical chest tube with a small left pneumothorax. -------- FINAL REPORT -------- Dictated By: Trip Schneider Dictated Date: 06/22/2025 08:27 ET Assigned Physician: Trip Schneider Reviewed and Electronically Signed By: Trip Schneider Signed Date: 06/22/2025 08:28 ET Workstation ID: [id number] Transcribed By: Self Edit Transcribed Date: 06/22/2025 08:27 ET XR Chest 1 View Final Result Similar left-sided postoperative changes with development of left chest wall subcutaneous emphysema. No pneumothorax. -------- FINAL REPORT -------- Dictated By: Oscar Tracy Dictated Date: 06/21/2025 09:38 ET Assigned Physician: Oscar Tracy Reviewed and Electronically Signed By: Oscar Tracy Signed Date: 06/21/2025 09:40 ET Workstation ID: [id number] Transcribed By: Self Edit Transcribed Date: 06/21/2025 09:38 ET XR Chest 1 View Final Result Postoperative changes in the left hemithorax. A large bore surgical chest tube is present with its tip at the left lung apex. There is no pneumothorax. There is mild discoid atelectasis laterally in the left midlung and at the right costophrenic angle. The lungs are otherwise clear. Code 37373 -------- FINAL REPORT -------- Dictated By: Nolan Novak Dictated Date: 06/20/2025 11:44 ET Assigned Physician: Nolan Novak Reviewed and Electronically Signed By: Nolan Novak Signed Date: 06/20/2025 11:47 ET Workstation ID: [id number] Transcribed By: Self Edit Transcribed Date: 06/20/2025 11:44 ET XR Chest 1 View (Results Pending) XR Chest 1 View (Results Pending) Assessment/Plan This is a 69-year-old female with a past medical history of recently diagnosed lung cancer, COPD on2 L chronic O2, hypertension, hyperlipidemia, depression who presented to the ED for planned thoracic surgery. ARIE was consulted postoperatively for medical comanagement. Lung cancer Status post da Morales assisted left lower lobe superior segmentectomy mediastinal lymphadenectomy CXR 06/21 shows similar left-sided postoperative changes with development of left-sided chest wall subcutaneous emphysema. No pneumothorax Repeat CXR 06/22 shows left apical chest tube with small left pneumothorax -- Management per CT surgery COPD Chronic respiratory failure --Continue 2 L O2 --Continue formoterol, budesonide, revefenacin -- Started albuterol Depression --Continue sertraline History of hypertension Hypotension Has a history of hypertension maintained on lisinopril and metoprolol at baseline On 06/21 SBP 90s in the morning. Patient reports this is limiting her ability to receive her as needed pain medication SBP 110s to 120s on 06/22 --Continue to hold lisinopril and metoprolol --DC midodrine Hyperlipidemia -- Continue statin and fenofibrate Daily EtOH use Reports 4 Heineken daily Denies hx withdrawal No signs or symptoms of withdrawal 06/21-06/22 --thiamine and folic acid supplementation --Monitor CIWA Update [address]ified by [address] surgery team patient complained of dark stool output in ostomy. Guaiac was ordered and noted to be positive with maroon stool. H&H this morning remains very stable 11.8/37.8 No known history of ulcers RECS: - Continue to monitor stool output - Hold DVT prophylaxis chemical - Agree with IV PPI - Monitor H&H. If maroon stool continues with downtrending H&H consult GI Code status: Full code DVT prophylaxis: Lovenox- hold due to positive stool occult as above Total time spent performing chart review, assessing the patient, documenting, border measurer and cutter, discussing with attending MD/bedside RN/ICC and consultants, updating family, arranging care and performing a high level of medical decision making approximately 25 minutes. Case discussed with Dr. Meraz Cosigned by Paul Meraz MD at 06/23/2025 2:10 PM EDT Associated attestation - Paul Meraz MD - 06/23/2025 2:10 PM EDT This is a split/shared visit with CASSIDY Villalobos. I personally performed the medical decision making (MDM) for the care of this patient on 06/22/2025 as documented below Patient was discussed with advanced practitioner . I personally saw and examined the patient bedside. Chart was reviewed by me personally including relevant history, updates, labs, imaging. Agree with the documentation and plan per MARILU except mentioned below. 69 years old female with history of COPD on 2 L O2 nasal cannula, recently diagnosed lung cancer, she had da Morales left lower lobe superior segmentectomy with mediastinal lymphadenectomy done by thoracic surgery and patient was admitted and medicine was consulted for medical comanagement. Chest tube management per primary thoracic surgery team. COPD-continue inhalers/nebulizer treatment. Concern for GI bleed - Per thoracic surgery team there was some concern about dark stool output in ostomy tube. H&H this morning showed hemoglobin 11.8. Started PPI and monitor tomorrow H&H. Paul Meraz MD 06/23/25 2:09 PM EDT * Miriam Benedict RN - 06/21/2025 6:55 PM EDT Goals: Identify possible barriers to meeting goals/advancing plan of care: . Stability of the patient: Moderately Stable - Low risk of patient condition declining or worsening End of Shift Summary: . * CASSIDY Willson - 06/21/2025 1:06 PM EDT Images from the original note were not included. Thoracic Surgery Progress Note Patient Name: Mica Dillard : 1955 Date of Visit: 06/21/25 Subjective Patient doing generally well with the exception of discomfort around her incision and chest tube site. She has been out of bed and did 1 lap in the hallway so far today and feels stable on her feet. Denies any significant shortness of breath, but does continue to be on oxygen via nasal cannula. Has voided since her Colon catheter was removed and has passed gas into her ostomy, but no significant stool output as of yet. No Known Allergies Current Facility-Administered Medications Medication Dose Route Frequency Provider Last Rate Last Admin acetaminophen (TYLENOL) tablet 1,000 mg 1,000 mg oral q8h [facility] CASSIDY Willson 1,000 mg at 06/21/25 0609 albuterol 2.5 mg /3 mL (0.083 %) nebulizer solution 2.5 mg 2.5 mg nebulization q6h PRN CASSIDY Willson bisacodyL (DULCOLAX) EC tablet 10 mg 10 mg oral Daily PRN CASSIDY Willson bisacodyL (DULCOLAX) suppository 10 mg 10 mg rectal Daily PRN CASSIDY Willson formoterol (PERFOROMIST) 20 mcg/2 mL nebulizer solution 20 mcg 20 mcg nebulization BID CASSIDY Willson 20 mcg at 06/21/25 0820 And budesonide (PULMICORT) 0.5 mg/2 mL nebulizer solution 0.5 mg 0.5 mg nebulization Daily CASSIDY Willson 0.5 mg at 06/21/25 0819 And revefenacin (YUPELRI) 175 mcg/3 mL nebulizer solution 175 mcg 175 mcg nebulization Daily CASSIDY Willson 175 mcg at 06/21/25 0820 chlordiazePOXIDE (LIBRIUM) capsule 25 mg 25 mg oral q2h PRN CASSIDY Escalona Or chlordiazePOXIDE (LIBRIUM) capsule 50 mg 50 mg oral q2h PRN CASSIDY Escalona Or chlordiazePOXIDE (LIBRIUM) capsule 100 mg 100 mg oral q2h PRN CASSIDY Escalona docusate sodium (COLACE) capsule 100 mg 100 mg oral BID CASSIDY Willson 100 mg at 06/21/25 0907 enoxaparin (LOVENOX) injection 40 mg 40 mg subcutaneous q24h CHRISTELLE CASSIDY Willson 40 mg at 06/21/25 0909 famotidine (PEPCID) tablet 20 mg 20 mg oral Daily CASSIDY Willson fenofibrate (TRICOR) tablet 145 mg 145 mg oral Daily CASSIDY Willson 145 mg at 06/21/25 0907 HYDROmorphone (PF) (DILAUDID) injection 0.5 mg 0.5 mg intravenous q3h PRN CASSIDY Willson 0.5 mg at 06/20/25 1516 [Held by provider] lisinopriL (PRINIVIL,ZESTRIL) tablet 5 mg 5 mg oral Daily CASSIDY Willson 5 mg at 06/20/25 1448 metoprolol succinate (TOPROL-XL) 24 Hour tablet 12.5 mg 12.5 mg oral Daily CASSIDY Villalobos ondansetron ODT (ZOFRAN-ODT) disintegrating tablet 4 mg 4 mg oral q8h PRN CASSIDY Willson Or ondansetron (PF) (ZOFRAN) injection 4 mg 4 mg intravenous q8h PRN CASSIDY Willson oxyCODONE (ROXICODONE) immediate release tablet 10 mg 10 mg oral q4h PRN CASSIDY Willson 10 mg at 06/21/25 0211 oxyCODONE (ROXICODONE) immediate release tablet 5 mg 5 mg oral q4h PRN CASSIDY Willson 5 mg at 06/21/25 0920 polyethylene glycol (MIRALAX) packet 17 g 17 g oral Daily CASSIDY Willson 17 g at 06/21/25 0908 pravastatin (PRAVACHOL) tablet 40 mg 40 mg oral Nightly CASSIDY Willson 40 mg at 06/20/252003 senna (SENOKOT) tablet 17.2 mg 2 tablet oral Nightly CASSIDY Willson 17.2 mg at 06/20/252002 sertraline (ZOLOFT) tablet 50 mg 50 mg oral Daily CASSIDY Willson 50 mg at 06/21/25 0907 sodium chloride 0.9 % flush 10 mL 10 mL intravenous BID CASSIDY Willson 10 mL at 06/21/25 0908 And sodium chloride 0.9 % flush 10 mL 10 mL intravenous PRN CASSIDY Willson Review of Systems Review of Systems Constitutional: Negative for chills, decreased appetite, diaphoresis, fever, night sweats and weight loss. HENT: Negative for congestion, hoarse voice and sore throat. Eyes: Negative for blurred vision. Cardiovascular: Negative for chest pain, dyspnea on exertion and palpitations. Respiratory: Negative for cough, hemoptysis, shortness of breath and sputum production. Skin: Negative for rash. Gastrointestinal: Negative for abdominal pain, constipation, diarrhea, nausea and vomiting. Genitourinary: Negative for dysuria and flank pain. Neurological: Negative for dizziness, light-headedness and numbness. Physical Exam Vitals: 06/21/25 0431 06/21/25 0610 06/21/25 0803 06/21/25 1051 BP: 91/52 (!) 91/43 (!) 109/47 100/50 BP Location: Right arm Patient Position: Lying Pulse: 74 72 75 74 Resp: 16 16 16 Temp: 36.4 ??C (97.5 ??F) 36.3 ??C (97.4 ??F) 36.5 ??C (97.7 ??F) TempSrc: Temporal SpO2: 97% 98% 97% Weight: Height: Physical Exam Vitals reviewed. Constitutional: General: She is not in acute distress. Appearance: She is well-developed. She is not ill-appearing, toxic-appearing or diaphoretic. HENT: Head: Normocephalic and atraumatic. Mouth/Throat: Mouth: Mucous membranes are moist. Eyes: General: Lids are normal. No scleral icterus. Neck: Trachea: No tracheal deviation. Cardiovascular: Rate and Rhythm: Normal rate and regular rhythm. Heart sounds: No murmur heard. Pulmonary: Effort: Pulmonary effort is normal. No accessory muscle usage or respiratory distress. Breath sounds: No wheezing, rhonchi or rales. Comments: CTA B Chest: Chest wall: Crepitus (Small amount around her incisions and chest tube site) present. Comments: Multiple left sided chest incisions are C/D/I without erythema, edema, open areas, or drainage. Left sided chest tube to [facility] on waterseal, serosanguineous drainage, 1-2+ air leak. Abdominal: General: Bowel sounds are normal. There is no distension. Palpations: Abdomen is soft. Tenderness: There is no abdominal tenderness. Musculoskeletal: Cervical back: Neck supple. No crepitus. Right lower leg: No edema. Left lower leg: No edema. Skin: General: Skin is warm and dry. Findings: No rash. Neurological: Mental Status: She is alert and oriented to person, place, and time. Psychiatric: Attention and Perception: Attention normal. Mood and Affect: Mood normal. Speech: Speech normal. Behavior: Behavior normal. Behavior is cooperative. Diagnostics Lab Results Component Value Date WBC 11.6 (H) 06/21/2025 HGB 12.3 06/21/2025 HCT 39.3 06/21/2025 PLT 275 06/21/2025 Lab Results Component Value Date NA 137 06/21/2025 K 5.0 06/21/2025 CL 104 06/21/2025 CO2 28 06/21/2025 ANIONGAP 5 06/21/2025 BUN 13 06/21/2025 CREATININE 1.12 (H) 06/21/2025 GLUCOSE 119 (H) 06/21/2025 EGFR 53 (L) 06/21/2025 CALCIUM 9.1 06/21/2025 Lab Results Component Value Date PT 10.5 (L) 06/13/2025 INR 0.8 06/13/2025 APTT 31.3 06/13/2025 Microbiology No results found for this or any previous visit (from the past week). Radiology 06/21/25 XR Chest 1 View Narrative: INDICATION: Status post left lower lobe segmentectomy FINDINGS: Single portable AP view of the chest obtained. Compared to multiple prior studies most recent from June 20, 2025 11:20 AM. Left-sided chest tube with tip overlying the lung apex. No significant pneumothorax. Small amount of subcutaneous emphysema in the left lower chest wall adjacent to the chest tube. Emphysematous changes. No infiltrates or effusions. Heart normal in size and shape. Posterior lateral left eighth rib fracture. Impression: Similar left-sided postoperative changes with development of left chest wall subcutaneous emphysema. No pneumothorax. -------- FINAL REPORT -------- Dictated By: Oscar Tracy Dictated Date: 06/21/2025 09:38 ET Assigned Physician: Oscar Tracy Reviewed and Electronically Signed By: Oscar Tracy Signed Date: 06/21/2025 09:40 ET Workstation ID: [id number] Transcribed By: Self Edit Transcribed Date: 06/21/2025 09:38 ET Assessment and Plan POD#1 s/p robotic left lower lobe superior segmentectomy Chest tube management Chest x-ray today shows no pneumothorax or large pleural effusion. She does have a small amount of subcutaneous emphysema and a 1-2+ airleak from her chest tube. Will continue her tube to waterseal and order a morning chest x-ray. Pain management Tylenol ATC Oxycodone PO as needed based on pain scale IV Dilaudid as needed for severe breakthrough pain only Pulmonary toilet IS Flutter valve Ambulation Activity Patient should be OOB ambulating in the hallways at least 3-4 times daily. Patient should be OOB to chair for all meals. Patient should be OOB to the chair for the majority of the day as tolerated. Bowel regimen Colace, Senna, Miralax Dulcolax suppository prn DVT prophylaxis: Lovenox SQ, SCDs GI prophylaxis: Famotidine p.o. Herlinda Gonzalez PA-C [facility] Thoracic Surgery [address], [address] [facility] [id number] * CASSIDY Villalobos - 06/21/2025 9:40 AM EDT Subjective Patient seen and examined this morning at bedside. She reports severe pain at the site of her chest tube Reports she has not been able to receive much pain medication as her blood pressure has been too low. Reports some mild shortness of breath currently as she just got back from the bathroom Denies other chest pain, abdominal pain, nausea or vomiting Objective Physical Exam General Exam: Age-appropriate female, awake, calm, cooperative, lying in the hospital bed in no acute distress. Skin Exam: Warm, dry and intact without diaphoresis. HEENT exam: Head appears atraumatic. No scleral icterus. Respiratory Exam: Coarse in the left lung field>right. No wheezing. Left sided chest tube in place with some surrounding crepitus. O2 via n/c. Non labored Cardiovascular Exam: Regular rate and rhythm. Gastrointestinal Exam: Abdomen is soft, nontender, and nondistended. Musculoskeletal Exam: No lower extremity edema is appreciated. Neurological Exam: Alert and oriented x 3. Psychiatric: Stable mood and affect. Last Recorded Vitals: Blood pressure (!) 109/47, pulse 75, temperature 36.3 ??C (97.4 ??F), resp. rate 16, height 1.702 m(67.01 ), weight 62.9 kg (138 lb 9.6 oz), SpO2 98%. Medications: acetaminophen, 1,000 mg, oral, q8h CHRISTELLE formoterol, 20 mcg, nebulization, BID And budesonide, 0.5 mg, nebulization, Daily And revefenacin, 175 mcg, nebulization, Daily docusate sodium, 100 mg, oral, BID enoxaparin, 40 mg, subcutaneous, q24h CHRISTELLE fenofibrate, 145 mg, oral, Daily [Held by provider] lisinopriL, 5 mg, oral, Daily metoprolol succinate, 12.5 mg, oral, Daily midodrine, 5 mg, oral, Once polyetheylene glycol, 17 g, oral, Daily pravastatin, 40 mg, oral, Nightly senna, 2 tablet, oral, Nightly sertraline, 50 mg, oral, Daily sodium chloride, 10 mL, intravenous, BID sodium chloride, 75 mL/hr PRN medications: albuterol, bisacodyL, bisacodyL, chlordiazePOXIDE OR chlordiazePOXIDE OR chlordiazePOXIDE, HYDROmorphone, ondansetron (ZOFRAN- ODT) disintegrating tablet OR ondansetron, oxyCODONE, oxyCODONE, Insert peripheral IV AND Maintain IV access AND Saline lock IV AND sodium chloride AND sodium chloride Lab Results Component Value Date WBC 11.6 (H) 06/21/2025 HGB 12.3 06/21/2025 HCT 39.3 06/21/2025 MCV 96.8 06/21/2025 PLT 275 06/21/2025 Lab Results Component Value Date GLUCOSE 119 (H) 06/21/2025 CALCIUM 9.1 06/21/2025 NA 137 06/21/2025 K 5.0 06/21/2025 CO2 28 06/21/2025 CL 104 06/21/2025 BUN 13 06/21/2025 CREATININE 1.12 (H) 06/21/2025 XR Chest 1 View Final Result Postoperative changes in the left hemithorax. A large bore surgical chest tube is present with its tip at the left lung apex. There is no pneumothorax. There is mild discoid atelectasis laterally in the left midlung and at the right costophrenic angle. The lungs are otherwise clear. Code 26203 -------- FINAL REPORT -------- Dictated By: Nolan Novak Dictated Date: 06/20/2025 11:44 ET Assigned Physician: Nolan Novak Reviewed and Electronically Signed By: Nolan Novak Signed Date: 06/20/2025 11:47 ET Workstation ID: [id number] Transcribed By: Self Edit Transcribed Date: 06/20/2025 11:44 ET XR Chest 1 View (Results Pending) Assessment/Plan This is a 69-year-old female with a past medical history of recently diagnosed lung cancer, COPD on2 L chronic O2, hypertension, hyperlipidemia, depression who presented to the ED for planned thoracic surgery. ARIE was consulted postoperatively for medical comanagement. Lung cancer Status post da Morales assisted left lower lobe superior segmentectomy mediastinal lymphadenectomy CXR 06/21 shows similar left-sided postoperative changes with development of left-sided chest wall subcutaneous emphysema. No pneumothorax -- Management per CT surgery COPD Chronic respiratory failure --Continue 2 L O2 --Continue formoterol, budesonide, revefenacin Depression --Continue sertraline History of hypertension Hypotension Has a history of hypertension maintained on lisinopril and metoprolol at baseline On 06/21 SBP 90s in the morning. Patient reports this is limiting her ability to receive her as needed pain medication -- Hold lisinopril and metoprolol --Start midodrine 5 mg p.o. 3 times daily with holding parameters for SBP greater than 110 Hyperlipidemia -- Continue statin and fenofibrate Daily EtOH use Reports 4 [employer] daily Denies hx withdrawal No signs or symptoms of withdrawal 06/21 --Start thiamine and folic acid supplementation --Monitor CIWA Code status: Full code DVT prophylaxis: Lovenox Total time spent performing chart review, assessing the patient, documenting, border measurer and cutter, discussing with attending MD/bedside RN/ICC and consultants, updating family, arranging care and performing a high level of medical decision making approximately 35 minutes. Case discussed with Dr. Meraz Cosigned by Paul Meraz MD at 06/23/2025 2:08 PM EDT Associated attestation - Paul Meraz MD - 06/23/2025 2:08 PM EDT This is a split/shared visit with CASSIDY Villalobos. I personally performed the medical decision making (MDM) for the care of this patient on 06/21/2025 as documented below Patient was discussed with advanced practitioner . I personally saw and examined the patient bedside. Chart was reviewed by me personally including relevant history, updates, labs, imaging. Agree with the documentation and plan per MARILU except mentioned below. 69 years old female with history of COPD on 2 L O2 nasal cannula, recently diagnosed lung cancer, she had da Morales left lower lobe superior segmentectomy with mediastinal lymphadenectomy done by thoracic surgery and patient was admitted and medicine was consulted for medical comanagement. Chest tube management per primary thoracic surgery team. Patient is somewhat hypotensive. Midodrine. Holding antihypertensive. COPD-continue inhalers/nebulizer treatment. Paul Meraz MD 06/23/25 2:07 PM EDT * Annmarie Lane RN - 06/20/2025 2:42 PM EDT 06/20/25 1441 Initial Transition Plan Initial Transition Plan Home Discharge Planning Living Arrangements Alone Type of Residence Private residence Assistive Devices None Support Systems None Medication Coverage Has Med Coverage Under Insurance Plan Yes Medication Affordability No concerns related to payment for meds Informed Choice Informed Choice Given? Yes DYLAN: 06/22 Barrier: POD #0 s/p VATS, chest tube Plan: home self documented in this encounter H&P Notes * Avi Donnelly MD - 06/20/2025 7:17 AM EDT Discussed plan for da Morales left lower lobe segmentectomy versus lobectomy. Discussed risks, benefits, and alternatives which she understood and agreed to proceed. All questions were answered. No change in physical exam, signs, or symptoms since her office visit. Source Note - CASSIDY Willson - 05/24/2025 10:00 AM EDT Images from the original note were not included. Thoracic Surgery Postoperative Visit Patient name Mica Dillard 1955 Date of Visit: May 24, 2025 Care Team PCP: Yeyo España MD Reason for Visit Chief Complaint Patient presents with office visit S/p 05/17/25 Diogenes Bronch Recent Thoracic Procedure Information Date of procedure: May 17, 2025 Type of procedure performed: Navigational bronchoscopy with FluoroNav and radial EBUS with transbronchial biopsy, endobronchial cryobiopsy, protected brushings, and bronchial lavage left lower lobe nodule; linear EBUS with biopsy multiple lymph node stations (R4, L4) History of Present Illness Ms. Dillard is a 69 y.o. female who presents today for her postoperative/pathology review after her recent procedure. This patient had a CT chest done at [facility] in February 2025 that showed a mixed groundglass/solid nodule in the superior segment of the left lower lobe with the solid component measuring7 x 5 mm. When compared to previous exams it has increased in both size and density. The patient was seen in consultation with Dr. Donnelly where he discussed the nodule and options. Ultimately the decision was made to biopsy the nodule and stage mediastinum at the same time. The patient had a navigational bronchoscopy with biopsy of the nodule and EBUS with biopsy of mediastinal lymph nodes on May 17, 2025. Patient states that she did well after the surgery. Denies any significant hemoptysis, subtendinous emphysema, or worsening shortness of breath since. Overall she is feeling well has no complaints at today's visit. Patient states that she is able to do her activities of daily living without significant shortness of breath, but does have dyspnea with exertion when ambulating further distances (for example walking from the parking lot to the office). She is able to climb a flight of stairs without needing to stop, but does have shortness of breath at the end of that. Of note, patient's most recent pulmonary function testing done on 05/16/2025 shows an FEV1 of 44% predicted and a DLCO VA of 62% predicted. Past Medical History: Diagnosis Date COPD (chronic obstructive pulmonary disease) ([facility] V24, [facility] V28) Depression Glaucoma Hyperlipidemia Hypertension Lung cancer ([facility] V24, [facility] V28) 05/17/2025 LLL Osteoporosis Pulmonary nodule Patient Active Problem List Diagnosis COPD (chronic obstructive pulmonary disease) ([facility] V24, [facility] V28) Malignant neoplasm of lower lobe of left lung ([facility] V24, [facility] V28) Past Surgical History: Procedure Laterality Date APPENDECTOMY HYSTERECTOMY ILEOSTOMY OTHER SURGICAL HISTORY ankle sx OTHER SURGICAL HISTORY cataract sx OTHER SURGICAL HISTORY Left 05/17/2025 NavBronch EBUS Bx LLL TONSILLECTOMY TOTAL COLECTOMY No Known Allergies Current Outpatient Medications on File Prior to Visit Medication Sig Dispense Refill albuterol HFA (PROAIR HFA ; PROVENTIL HFA ; VENTOLIN HFA) 90 mcg/actuation inhaler USE 2 PUFFS EVERY 6 HOURS NEEDED FOR FOR WHEEZING alendronate (FOSAMAX) 70 mg tablet 70 MG ORALLY EVERY WEEK FOR 28 DAYS fenofibrate (LOFIBRA) 160 mg tablet Take 1 tablet (160 mg total) by mouth 1 (one) time each day. metoprolol succinate (TOPROL-XL) 25 mg 24 hr tablet TAKE 12.5 MG (1/2 X 25 MG) ORALLY DAILY FOR 90 DAYS Oxygen Therapy, Adult Inhale 2 each 1 (one) time each day. prn pravastatin (PRAVACHOL) 40 mg tablet Take 1 tablet (40 mg total) by mouth. at bedtime. sertraline (ZOLOFT) 50 mg tablet Take 1 tablet (50 mg total) by mouth 1 (one) time each day. triamcinolone (KENALOG) 0.025 % cream 1 APPL TOPICALLY 2 TIMES A DAY FOR 14 DAYS No current facility-administered medications on file prior to visit. Social History Tobacco Use Smoking status: Former Current packs/day: 0.00 Types: Cigarettes Start date: 1968 Quit date: 05/02/2016 Years since quittin.0 Smokeless tobacco: Never Vaping Use Vaping status: Never Used Substance Use Topics Alcohol use: Yes Alcohol/week: 7.0 standard drinks of alcohol Types: 7 Cans of beer per week Comment: beer daily Drug use: Never Social History Social History Narrative Not on file Review of Systems Review of Systems Constitutional: Negative for decreased appetite, fever, night sweats and weight loss. HENT: Negative for congestion and hoarse voice. Cardiovascular: Negative for chest pain and palpitations. Respiratory: Positive for shortness of breath (With exertion). Negative for cough, hemoptysis and sputum production. Hematologic/Lymphatic: Negative for adenopathy. Skin: Negative for rash. Gastrointestinal: Negative for abdominal pain and nausea. Genitourinary: Negative for dysuria. Neurological: Negative for light-headedness. Physical Exam Vitals: 05/24/25 0955 BP: (!) 155/62 BP Location: Left arm Patient Position: Sitting BP Cuff Size: Large adult Pulse: 87 Resp: 16 Temp: 36.9 ??C (98.4 ??F) TempSrc: Temporal SpO2: 95% Weight: 62.9 kg (138 lb 9.6 oz) Height: 1.702 m (67 ) Physical Exam Vitals reviewed. Constitutional: General: She is not in acute distress. Appearance: She is well-developed. She is not ill-appearing. HENT: Head: Normocephalic and atraumatic. Mouth/Throat: Mouth: Mucous membranes are moist. Eyes: General: Lids are normal. No scleral icterus. Cardiovascular: Rate and Rhythm: Normal rate and regular rhythm. Heart sounds: No murmur heard. Pulmonary: Effort: Pulmonary effort is normal. No accessory muscle usage or respiratory distress. Breath sounds: No wheezing, rhonchi or rales. Comments: CTA B Chest: Chest wall: No crepitus. Lymphadenopathy: Cervical: No cervical adenopathy. Upper Body: Right upper body: No supraclavicular adenopathy. Left upper body: No supraclavicular adenopathy. Skin: General: Skin is warm and dry. Neurological: Mental Status: She is alert and oriented to person, place, and time. Psychiatric: Attention and Perception: Attention normal. Mood and Affect: Mood normal. Behavior: Behavior is cooperative. Pathology Lab Results Component Value Date FINALDX 05/17/2025 Lung, Left Lower Lobe-cryobiopsy: -ADENOCARCINOMA COMDX 05/17/2025 The neoplasm has is predominantly lepidic in this biopsy. Immunohistology supports the morphologic diagnosis. Neoplastic cells express TTF-1 and are negativefor p40. The immunohistochemistry stains were medically necessary and performed because the additional information was needed by the pathologist to determine immunophenotype of the neoplasm/malignancy. GROSSDES 05/17/2025 A. Lung, Left Lower Lobe, left lower lobe lung nodule cryobiopsy: Labeled left lowe lung LLL . Received in formalin are three soft to friable, pink to red tissue fragments ranging from 0.15 cm to 0.3 cm in greatest diameter, with attached blood, which are wrapped in paper and submitted in toto in two cassettes, one and two pieces respectively (one H&E, +6 unstained slides for potential immunohistochemical stains and one H&E), conserving tissue on each block. Fine needle aspiration: [id number] Order: [id number] Collected 05/17/2025 12:09 Status: Final result Visible to patient: Yes (seen) Dx: Pulmonary nodule 0 Result Notes Component Final Diagnosis A. Lung, left lower lobe lung nodule -fine needle aspiration, (ThinPrep, cell block): FEW ATYPICAL CELLS B. Mediastinum, right paratracheal lymph node -fine needle aspiration, (ThinPrep, cell block): Negative for malignant cells. C. Mediastinum, left paratracheal lymph node -fine needle aspiration, (ThinPrep, cell block): Negative for malignant cells. D. Lung, left lower lobe bronchial brushing (ThinPrep, cell block): FEW ATYPICAL CELLS E. Lung, Left Lower Lobe, left lower lobe bronchial washing (ThinPrep, cell block): Negative for malignant cells. Microbiology Lab Results Component Value Date FUNGCX Negative for Fungal Growth to Date 05/17/2025 AFBSTR 05/17/2025 No Acid fast bacilli seen on direct smear (Fuchsin method, 1000x) GRAMSTAIN 05/17/2025 No polymorphonuclear leukocytes, No epithelial cells, and No organisms noted AFBSPECI Concentration 05/17/2025 ACIDFAST Negative 05/17/2025 Radiology I personally viewed the patient's current and past imaging studies, in addition to reviewing the dictated report from the reading radiologist. Pulmonary function testing: Carbon Monoxide Diffusing Capacity, Nitrogen Wash Out, Spirometry with Bronchodilator Table formatting from the original result was not included. Images from the original result were not included. [facility] [address] [place] [id number] Pulmonary Functions Report Date of service: 05/16/25 Patient Name: Mica Dillard Date of : 1955 Age: 69 y.o. Gender: female Ordering Provider: Avi Donnelly MD Diagnosis listed on Order: Pulmonary nodule Reason for Exam: Order Questions Answers Reason for Exam: Preop Which PFTs would you like to perform? Carbon Monoxide Diffusing Capacity,Nitrogen Wash Out,Spirometry with Bronchodilator SPIROMETRY: FEV1 is 44 % predicted and an FVC is 61 % predicted. The FEV1/FVC ratio is 72% of normal, no response to bronchodilators noted. LUNG VOLUMES: Total lung capacity (TLC): 71% predicted. Residual volume (RV): 95% predicted RV/TLC ratio is 134% of normal DIFFUSION CAPACITY: DLCO 40% predicted. DlCO/VA 62% of predicted COMPARISONS: INTERPRETATION: This pulmonary function test shows severe obstructive changes with corresponding decline in the diffusion capacity. There is also restrictive changes based on decrease in total lung capacity and forced vital capacity. Renetta Garcia MD Assessment and Plan Problem List Items Addressed This Visit Malignant neoplasm of lower lobe of left lung (CMS/HCC V24, CMS/HCC V28) - Primary Ms. Dillard is a 69-year-old female who was noted to have a growing mixed groundglass/solid nodulein the superior segment of the left lower lobe with the solid component measuring 7 x 5 mm. Navigational bronchoscopy with biopsy lung nodule and EBUS with mediastinal lymph node biopsies were performed on 05/17/2025. Cryobiopsy of the left lower lobe nodule was positive for adenocarcinoma, predominantly lepidic in the comment. The right paratracheal and left paratracheal lymph nodes were negative for malignancy with good sampling. I discussed the pathology with the patient at length during this visit. At this point clinically she appears to be a stage I lung cancer. Treatments for stage I lung cancer discussed with the patient which include surgical resection or radiation. Patient does have borderline pulmonary function testing and is on oxygen at night. Will get the patient's most recent pulmonology notes from [facility] for review. Risks and benefits were discussed with the patient at length. The typical preoperative, intraoperative, and postoperative course was discussed with the patient. Ultimately, she would like to proceed with surgical resection. I have started the scheduling process of this, but will check with Dr. Donnelly to ensure that we can proceed with resection given her pulmonary function testing. It is likely we will be able to do at least a segmentectomy, but unable to perform lobectomy due to her borderline function. Patient will also need cardiac clearance prior to surgery. Relevant Orders Ambulatory referral to Cardiology Case Request Operating Room: Robotic left lower lobe segmentectomy, possible lobectomy. Cryo nerve block. (Completed) NPO Instructions Prior to Day of Procedure Basic metabolic panel CBC and differential Prothrombin time with INR Activated partial thromboplastin time Type and screen ECG 12 lead - Procedural (No Charge) Other Visit Diagnoses Neoplasm Relevant Orders Prothrombin time with INR Activated partial thromboplastin time Time Based Billing Total time spent on this encounter: 44 minutes. Total time spent included: Reviewing patient's chart, Independently reviewing current/past imaging,Visit with the patient, Counseling and educating patient/family on diagnosis, Discussion of ongoingmanagement, Documenting clinical information in the patient's medical record, and Discussion of surgical intervention and/or biopsy. CASSIDY Willson [facility] Thoracic Surgery [address], [address] [facility] [id number] documented in this encounter Procedure Notes * Avi Donnelly MD - 06/20/2025 8:43 AM EDT Date: 06/20/2025 Preoperative diagnosis: Left lower lobe lung cancer Postoperative diagnosis: Same Operation: Da Morales left lower lobe superior segmentectomy, mediastinal lymphadenectomy, bronchoscopy with aspiration, intercostal paravertebral nerve blocks, cryo nerve blocks levels 7 and 8. Surgeon:Avi Donnelly MD Asst.: Herlinda Gonzalez PA-C Anesthesia: Gen. Specimens: Mediastinal and hilar lymph nodes to pathology, left lower lobe superior segment to pathology EBL: 30 cc Complications: None Indications for the operation: 69-year-old woman with significant COPD found to have initially an enlarging mixed pulmonary nodule in the superior segment of the left lower lobe. She underwent navigation bronchoscopy with biopsy and EBUS which showed a adenocarcinoma in the superior segment of the left lower lobe and negative mediastinal lymph nodes. PFTs were borderline but FEV1 44% of predicted so I discussed with her the option of surgery versus SBRT. She opted for surgery understanding thatshe very well may require more oxygen if we end up having to take the lobe of the lung. The patientunderstood the risks benefits and alternatives of the proposed operation and agreed to proceed. Operative findings: The pediatric bronchoscope was used and confirmed placement of the double-lumenendotracheal tube. A bronchoscopy was done down to the segmental level and no endobronchial lesionswere noted. On VATS exploration there were no chest wall lesions or diaphragm lesions. Grossly the margin was 2cm once we remove the segment. She did have significant adhesions and a very underdeveloped fissuremaking this operation quite difficult and adding at least an hour and a half to the operation. Patient tolerated the procedure well. Operation in detail: The patient was brought to the operating room, placed supine on the operating room table, anesthesia monitoring devices were placed, and the patient was intubated with a double-lumen endotracheal tube. The pediatric bronchoscope was used to confirm placement of the double-lumentube and once in position a bronchoscopy was done(findings above). The patient was then turned on their right side and the left chest was widely prepped and draped inthe standard sterile fashion. A timeout was performed confirming the correct patient and procedure. After injection of local anesthetic, an 8 mm incision was made over the seventh intercostal space anterior axillary line and the chest was entered without difficulty. A robotic camera port was inserted into the chest and the robotic camera was inserted and the chest was explored (C findings above).The bedside hospital aides and assistants teacher controlled the camera and placed several of the ports during this portion of the operation. CO2 insufflation was established and the camera was directed posteriorly and inferiorly. A small chaitanya in the skin of the chest was made and using a sheath tunneler a sheath was tunneled underneath the pleura and paravertebrally under direct vision. The On-Q infusion pain catheter was then placed into the sheath under vision and the peel-away catheter sheath was removed. With the catheter in place, bupivacaine infusion was used and started immediately. This was done for postoperative pain control. With the camera directed posteriorly by the bedside hospital aides and assistants teacher, an 8 mm incision was made 20 cm posterior to the camera port and at the level of the mid lower lobe of the lung an 8 mm robotic port wasplaced under direct vision after injection of local anesthetic. 10 cm posterior to the camera port a 1 cm incision was made and after local anesthetic was given a robotic stapling port was placed under direct vision without difficulty. With the camera now directed anteriorly, a 1 cm incision was made by the bedside hospital aides and assistants teacher 10 cm from the camera port and a robotic stapling port was placed under direct vision after injection of local anesthetic. Finally, between the anterior port and the camera port a 1 cm incision was made and a 12 mm air seal port was placed into the chest under direct vision just above the diaphragm. With all ports now in place, the robot was then docked to to the trochars and I began the operation sitting down at the console. From this point forward all instrument transfers, suctioning, and gauze cigars were inserted and removed by the bedside hospital aides and assistants teacher. All specimens were also removed by the bedside hospital aides and assistants teacher. We began the operation by exploring the chest. Findings listed above. We took down the adhesions tothe lateral chest wall first with bipolar electrocautery then we switched to monopolar hook electrocautery and took down the adhesions to the posterior chest wall and posterior mediastinum as well asthe diaphragm. This was quite challenging and added significant time to the operation as above. Once we had enough of the adhesions down, we were able to assess the fissure which was very poor. We first retracted the lung posteriorly and dissected the posterior hilum identifying the main pulmonary artery as it enters the fissure removing some level 7 and level 11 lymph nodes in the process. We then dissected directly on the main pulmonary artery from back to front as far as we could over a significant amount of time until we were able to visualize the superior segmental branch of the pulmonary artery. We did take a good portion of the posterior fissure with 3 firings of a blue load 45 mm robotic stapler placing the anvil directly on the artery and folding the lung into it. Eventually this did clear enough space for us to be able to visualize and dissect the more anterior border of the suprasegmental branch of the artery. After removal of another hilar lymph node we were able to encircle this with a Silastic and carefully get around it with a 30 mm robotic vascular stapler. This was fired without difficulty. The bronchus was dissected right behind this in order to be part of our resection. Intravenous ICG was then injected and using firefly we were able to visualize quite nicely the devascularized portion of the lung constituting the superior segment and its parenchymal borders. These were marked with bipolar electrocautery and using this as a guide multiple firings of a green load 45 mm robotic stapler were fired along the parenchymal lines until we reached the bronchus and again this was included staying underneath the artery that we had just taken. This the specimen completely, it was placed in an Endo Catch bag, examined at the bedside, and sent for permanent section due to quite adequate margins. Hemostasis was then assured, Vistaseal/pro gel were applied, and the robot was undocked. A 28 Greenlandic straight chest tube was placed and directed to lie posteriorly and up towards the apex tunneled between 2 of the incisions. This was done under direct vision and the chest tube was secured in place. Lung was brought up under direct vision and under water, no air leaks were noted in the lung easily approximated the chest wall. All ports were then removed, and the remaining incisions were closed with a deep 0 Vicryl suture followed by running 3-0 Vicryl suture and Dermabond glue. The chest tube was dressing connected to a Pleur- evac. The patient was extubated in the operating room brought to the PACU in stable condition. 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 ARIE CONSULT NOTE Please contact author [CASSIDY Escalona] via [employer]. Patient: Mica Dillard Admission Date/Time: 06/20/2025 5:33 AM : 1955 [69 y.o.] Patient's PCP: Yeyo España MD Attending Provider: Avi Donnelly MD REASON FOR CONSULT Medical Co-Management HISTORY OF PRESENT ILLNESS Mica is a pleasant 69 year old female with a past medical history to include a recent diagnosis of lung CA status post Da Morales assisted left lower lobe superior segmentectomy and mediastinal lymphadenectomy, COPD on 2L chronically, hypertension, hyperlipidemia, depression who presents to the hospital for thoracic surgery. Consultation has been placed to the medicine team for medical comanagement during hospital stay. Established with pulmonology in the community for management of COPD; usingmedications at home appropriately. Otherwise identifies taking medication for depression, hypertension and hyperlipidemia. Followed by her primary care provider on a annual basis. Feeling well overall, identifies some pain to the left lower chest from the surgical procedure, using oxycodone here appropriately. Does acknowledge that the pain improves with IV dilaudid 0.5mg as well as PO oxycodone 10mg although the pain does not resolve. Drinks 4 cans of beer (Heineken) daily, typically in the evening. Denies a history of alcohol withdrawal syndrome. Former smoker, quit 9 years ago. Denies history of unprescribed drug use. Review of Systems Review of Systems Constitutional: Negative for chills and fever. Respiratory: Positive for shortness of breath. Cardiovascular: Positive for chest pain. Gastrointestinal: Negative for constipation, diarrhea, nausea and vomiting. Genitourinary: Negative for frequency and urgency. Musculoskeletal: Negative for gait problem. Skin: Negative for rash. Neurological: Negative for syncope, weakness and headaches. Psychiatric/Behavioral: Negative for suicidal ideas. All other systems reviewed and are negative. MEDICAL HISTORY Past Medical History Past Medical History: Diagnosis Date COPD (chronic obstructive pulmonary disease) ([facility] V24, [facility] V28) Depression Hyperlipidemia Hypertension Lung cancer ([facility] V24, [facility] V28) 05/17/2025 LLL Osteoporosis Pulmonary nodule Past Surgical History Past Surgical History: Procedure Laterality Date APPENDECTOMY HYSTERECTOMY ILEOSTOMY OTHER SURGICAL HISTORY ankle sx OTHER SURGICAL HISTORY cataract sx OTHER SURGICAL HISTORY Left 05/17/2025 NavBronch EBUS Bx LLL TONSILLECTOMY TOTAL COLECTOMY Social History reports that she quit smoking about 9 years ago. Her smoking use included cigarettes. She started smoking about 56 years ago. She has never used smokeless tobacco. She reports current alcohol use of about 4.0 standard drinks of alcohol per week. She reports that she does not use drugs. Family History family history is not on file. Allergies has No Known Allergies. Home Medications No current facility-administered medications on file prior to encounter. Current Outpatient Medications on File Prior to Encounter Medication Sig Dispense Refill albuterol HFA (PROAIR HFA ; PROVENTIL HFA ; VENTOLIN HFA) 90 mcg/actuation inhaler USE 2 PUFFS EVERY 6 HOURS NEEDED FOR FOR WHEEZING fenofibrate (LOFIBRA) 160 mg tablet Take 1 tablet (160 mg total) by mouth 1 (one) time each day. metoprolol succinate (TOPROL-XL) 25 mg 24 hr tablet TAKE 12.5 MG (1/2 X 25 MG) ORALLY DAILY FOR 90 DAYS Oxygen Therapy, Adult Inhale 2 each 1 (one) time each day. prn pravastatin (PRAVACHOL) 40 mg tablet Take 1 tablet (40 mg total) by mouth. at bedtime. sertraline (ZOLOFT) 50 mg tablet Take 1 tablet (50 mg total) by mouth 1 (one) time each day. alendronate (FOSAMAX) 70 mg tablet 70 MG ORALLY EVERY WEEK FOR 28 DAYS triamcinolone (KENALOG) 0.025 % cream 1 APPL TOPICALLY 2 TIMES A DAY FOR 14 DAYS Objective Vitals Visit Vitals BP 135/60 Pulse 80 Temp 36.4 ??C (97.5 ??F) Resp 22 Temp (24hrs), Av.2 ??C (97.2 ??F), Min:36.1 ??C (96.9 ??F), Max:36.4 ??C (97.5 ??F) Physical Examination Physical Exam Vitals reviewed. Constitutional: General: She is not in acute distress. Appearance: She is not toxic-appearing. HENT: Head: Normocephalic and atraumatic. Nose: Nose normal. Mouth/Throat: Mouth: Mucous membranes are moist. Pharynx: Oropharynx is clear. Eyes: Extraocular Movements: Extraocular movements intact. Pupils: Pupils are equal, round, and reactive to light. Cardiovascular: Rate and Rhythm: Normal rate and regular rhythm. Heart sounds: No murmur heard. No friction rub. No gallop. Pulmonary: Effort: Pulmonary effort is normal. No respiratory distress. Abdominal: General: There is no distension. Palpations: Abdomen is soft. Tenderness: There is no abdominal tenderness. There is no guarding or rebound. Musculoskeletal: General: Normal range of motion. Cervical back: Normal range of motion and neck supple. No rigidity. Skin: General: Skin is warm and dry. Findings: No rash. Neurological: Mental Status: She is alert and oriented to person, place, and time. LAB RESULTS (most recent) HEMATOLOGY Lab Results Component Value Date WBC 16.3 (H) 06/20/2025 HGB 12.7 06/20/2025 HCT 39.7 06/20/2025 MCV 93.2 06/20/2025 PLT 250 06/20/2025 CHEMISTRY Lab Results Component Value Date GLUCOSE 136 (H) 06/20/2025 NA 137 06/20/2025 K 4.7 06/20/2025 CO2 25 06/20/2025 CL 108 06/20/2025 BUN 13 06/20/2025 CREATININE 1.11 (H) 06/20/2025 EGFR 54 (L) 06/20/2025 CALCIUM 8.9 06/20/2025 MG 2.2 06/20/2025 PHOS 4.2 06/20/2025 ANIONGAP 4 06/20/2025 Radiology XR Chest 1 View Final Result Postoperative changes in the left hemithorax. A large bore surgical chest tube is present with its tip at the left lung apex. There is no pneumothorax. There is mild discoid atelectasis laterally in the left midlung and at the right costophrenic angle. The lungs are otherwise clear. Code 82497 -------- FINAL REPORT -------- Dictated By: Nolan Novak Dictated Date: 06/20/2025 11:44 ET Assigned Physician: Nolan Novak Reviewed and Electronically Signed By: Nolan Novak Signed Date: 06/20/2025 11:47 ET Workstation ID: [id number] Transcribed By: Self Edit Transcribed Date: 06/20/2025 11:44 ET XR Chest 1 View (Results Pending) ASSESSMENT & PLAN COPD Followed by pulmonology in the community On 2L via nasal canula at baseline; continue supplemental O2 here Continue albuterol nebulizer PRN Continue budesonide nebulizer Depression Continue Zoloft 50 mg daily Hypertension Blood pressure control has been reasonable Continue lisinopril 5 mg daily Continue metoprolol 12.5mg daily Hyperlipidemia I don't see recent lipid profile; defer to primary care for ongoing management Continue pravastatin 40 mg daily Continue fenofibrate 145 mg daily Heavy Alcohol Consumption She reports to drink four 12 ounce cans of beer daily Outpatient cardiology note documented 5-6 cans daily, thoracic note documented 1 can daily There is no reported history of alcohol withdrawal syndrome I think it would be reasonable to monitor for symptoms with CIWA Will order adjunctive librium if needed but hopeful this will not occur Thank you for the consultation Cosigned by Cr May MD at 06/21/2025 4:40 AM EDT Associated attestation - Cr May MD - 06/21/2025 4:40 AM EDT This is a split/shared visit with CASSIDY Escalona. I personally performed the medical decision making (MDM) for the care of this patient on 06/20/2025 as documented below 69 year-old female with history of chronic hypoxemic respiratory failure on 2 L/min O2 secondary toCOPD, hypertension, hyperlipidemia, depression, and recent diagnosis of left upper lobe adenocarcinoma of the lung POD #0 from robot- assisted left upper lobe segmentectomy. The Hospitalist service was consulted for postoperative medical management. The patient is currently resting comfortably. She is on her baseline oxygen requirement. Her home medications will be continued as detailed below. She does drink daily but has had no history of withdrawal. We will monitor her per CIWA protocol but at this time there is no indication for additional medications. Cr May MD 06/21/25 4:29 AM EDT documented in this encounter Plan of Treatment Upcoming Encounters Date Type Department Care Team (Late st Contact Info) Description 06/29/2025 10:00 AM EDT Office Visit Thoracic Surgery - [address] [place] [phone] Herlinda Gonzalez PA [address] [place] [address], [address] [address] 07/04/2025 11:00 AM EDT Consult Gastroenterology - [address] [place] [address] [place] [phone] Patricia Gil PA [address] Balaji [address] [place] [id number] 07/05/2025 2:00 PM EDT Office Visit Thoracic Surgery - [address] [facility] [address] [phone] Herlinda Gonzalez PA [address], [address] [address] documented as of this encounter Procedures Procedure Name Priority Date/Time Associated Diagnosis Comments HOME O2 EVAL (DESATURATION SCREEN) Routine 06/23/2025 9:46 AM EDT XR CHEST 1 VIEW Routine 06/23/2025 5:45 AM EDT CBC WITH AUTO DIFFERENTIAL Routine 06/23/2025 5:32 AM EDT CBC AND DIFFERENTIAL Routine 06/23/2025 5:32 AM EDT BASIC METABOLIC PANEL Routine 06/23/2025 5:32 AM EDT XR CHEST 1 VIEW STAT 06/22/2025 12:11 PM EDT OCCULT BLOOD STOOL, GUAIAC Routine 06/22/2025 11:41 AM EDT COMPLETE BLOOD COUNT Routine 06/22/2025 11:20 AM EDT XR CHEST 1 VIEW Routine 06/22/2025 5:10 AM EDT COMPLETE BLOOD COUNT Timed 06/21/2025 5:52 AM EDT PHOSPHORUS Routine 06/21/2025 5:52 AM EDT MAGNESIUM Routine 06/21/2025 5:52 AM EDT BASIC METABOLIC PANEL Routine 06/21/2025 5:52 AM EDT XR CHEST 1 VIEW Routine 06/21/2025 5:20 AM EDT PEP THERAPY Routine 06/20/2025 10:00 PM EDT COMPLETE BLOOD COUNT STAT 06/20/2025 1:54 PM EDT PHOSPHORUS STAT 06/20/2025 1:54 PM EDT MAGNESIUM STAT 06/20/2025 1:54 PM EDT BASIC METABOLIC PANEL STAT 06/20/2025 1:54 PM EDT PEP THERAPY Routine 06/20/2025 1:42 PM EDT PEP THERAPY Routine 06/20/2025 1:42 PM EDT PEP THERAPY Routine 06/20/2025 1:42 PM EDT PEP THERAPY Routine 06/20/2025 1:42 PM EDT XR CHEST 1 VIEW STAT 06/20/2025 11:39 AM EDT OXYGEN THERAPY, ADULT Routine 06/20/2025 11:16 AM EDT TISSUE EXAM Routine 06/20/2025 9:24 AM EDT Malignant neoplasm of lower lobe of left lung (CMS/HCC V24, CMS/HCC V28) PREPARE RBC Routine 06/20/2025 8:44 AM EDT HI REMOVAL OF LUNG OTHER THAN PNEUMONECTOMY SINGLE LOBE 06/20/2025 7:33 AM EDT Malignant neoplasm of lower lobe of left lung (CMS/HCC V24, CMS/HCC V28) Case Notes atricure, HI THORACOSCOPY SURGICAL WITH LOBECTOMY 06/20/2025 7:33 AM EDT Malignant neoplasm of lower lobe of left lung (CMS/HCC V24, CMS/HCC V28) Case Notes atricure, documented in this encounter Results * XR Chest 1 View (06/23/2025 5:45 AM EDT) Anatomical Region Laterality Modality Body Radiographic Diana ging 06/23/2025 8:13 AM EDT Impressions 06/23/2025 8:15 AM EDT Impression: 1. Postop changes in the left hemithorax with chest tube in place. 2. Small left apical pneumothorax, without significant change. 3. Persistent subcutaneous emphysema. Telerad CASSIDY ([id number]) -------- FINAL REPORT -------- Dictated By: Bernadine Reyes Dictated Date: 06/23/2025 08:13 ET Assigned Physician: Bernadine Reyes Reviewed and Electronically Signed By: Bernadine Reyes Signed Date: 06/23/2025 08:15 ET Workstation ID: [id number] Transcribed By: Self Edit Transcribed Date: 06/23/2025 08:13 ET Narrative 06/23/2025 8:15 AM EDT History: Postop left lower lobe superior segmentectomy 06/20/25 Comparison: 06/22/25 Findings: Portable AP upright chest at 5:45 AM. Postop changes are again seen in the left hemithorax consistent with recent partial lung resection. Surgical chain suture projects at the level of the inferior hilum. A large bore thoracostomy tube terminates at the left apex. A small left apical pneumothorax is again seen, with approximately 14 mm of pleural separation. Minimal patchy opacity is again seen in the left base. The right lung is grossly clear. The cardiac silhouette remains normal in size. The mediastinal structures are midline. Subcutaneous emphysema is again seen adjacent to the left chest wall and in the left neck. Procedure Note Bernadine Reyes MD - 06/23/2025 History: Postop left lower lobe superior segmentectomy 06/20/25 Comparison: 06/22/25 Findings: Portable AP upright chest at 5:45 AM. Postop changes are again seen in theleft hemithorax consistent with recent partial lung resection. Surgicalchain suture projects at the level of the inferior hilum. A large borethoracostomy tube terminates at the left apex. A small left apicalpneumothorax is again seen, with approximately 14 mm of pleuralseparation. Minimal patchy opacity is again seen in the left base. Theright lung is grossly clear. The cardiac silhouette remains normal in size. The mediastinal structuresare midline. Subcutaneous emphysema is again seen adjacent to the left chest wall andin the left neck. IMPRESSION: Impression: 1. Postop changes in the left hemithorax with chest tube in place. 2. Small left apical pneumothorax, without significant change. 3. Persistent subcutaneous emphysema. Jerry BENJAMIN ([id number]) -------- FINAL REPORT -------- Dictated By: Bernadine Reyes Dictated Date: 06/23/2025 08:13 ET Assigned Physician: Bernadine Reyes Reviewed and Electronically Signed By: Bernadine Reyes Signed Date: 06/23/2025 08:15 ET Workstation ID: [id number] Transcribed By: Self Edit Transcribed Date: 06/23/2025 08:13 ET us Herlinda BENJAMIN IMG XR PROCEDURES Final Resul t * (ABNORMAL) CBC auto differential (06/23/2025 5:32 AM EDT) [facility] WBC 6.3 4.8 - 10.8 K/mcL LAB HEMETOLOGY METHOD 06/23/2025 6:38 AM EDT [facility] RBC 3.90 3.80 - 4.80 M/mcL LAB HEMETOLOGY METHOD 06/23/2025 6:38 AM EDT [facility] Hemoglobin 11.9 11.5 - 16.0 g/dL LAB HEMETOLOGY METHOD 06/23[facility]2025 [facility] Hematocrit 38.2 35.0 - 47.0 % LAB HEMETOLOGY METHOD 06/23/2025 6:[facility] MCV 97.0 79.0 - 98.0 FL LAB HEMETOLOGY METHOD 06/23/2025 6:[facility] MCH 30.2 27.0 - 32.0 pcg LAB HEMETOLOGY METHOD 06/23/2025 6:38 AM [facility] MCHC 31.2(L) 32.0 - 37.0 g/dL LAB HEMETOLOGY METHOD 06/23/2025 6:[facility] RDW 12.6 11.0 - 15.0 % LAB HEMETOLOGY METHOD 06/23/2025 6:38 AM EDT [facility] Platelets 235 130 - 400 K/mcL LAB HEMETOLOGY METHOD 06/23/2025 6:[facility] MPV 10.6 7.0 - 11.0 FL LAB HEMETOLOGY METHOD 06/23/2025 6:38 AM EDT [facility] NRBC 0.0 <1.0 % LAB HEMETOLOGY METHOD 06/23/2025 6:38 AM [facility] NRBC Absolute 0.00 <0.10 K/mcL LAB HEMETOLOGY METHOD 06/23/2025 6:38 AM [facility] Neutrophils Relative 76.4 % LAB HEMETOLOGY METHOD 06/23/2025 6:38 AM [facility] Lymphocytes Relative 14.2 % LAB HEMETOLOGY METHOD 06/23/2025 6:38 AM [facility] Monocytes Relative 6.8 % LAB HEMETOLOGY METHOD 06/23/2025 6:38 AM [facility] Eosinophils Relative 1.9 % LAB HEMETOLOGY METHOD 06/23/2025 6:38 AM [facility] Basophils Relative 0.2 % LAB HEMETOLOGY METHOD 06/23/2025 6:38 AM [facility] Immature Granulocytes Relative 0.5 % LAB HEMETOLOGY METHOD 06/23/2025 6:38 AM [facility] Neutrophils Absolute 4.83 1.50 - 7.00 K/mcL LAB HEMETOLOGY METHOD 06/23/2025 6:38 AM [facility] Lymphocytes Absolute 0.90(L) 1.00 - 5.00 K/mcL LAB HEMETOLOGY METHOD 06/23/2025 6:38 AM [facility] Monocytes Absolute 0.43 0.20 - 1.00 K/mcL LAB HEMETOLOGY METHOD 06/23/2025 6:38 AM [facility] Eosinophils Absolute 0.12 0.00 - 0.50 K/mcL LAB HEMETOLOGY METHOD 06/23/2025 6:38 AM [facility] Basophils Absolute 0.01 0.00 - 0.20 K/mcL LAB HEMETOLOGY METHOD 06/23/2025 6:38 AM [facility] Immature Granulocytes Absolute 0.03 0.00 - 0.03 K/[facility] LAB HEMETOLOGY METHOD 06/23/2025 6:38 AM [facility] Blood Venous blood specimen / Unknown Venipuncture / Unknown 06/23/2025 5:32 AM EDT 06/23/2025 6:28 AM EDT Amalia BENJAMIN LAB BLOOD ORDERABLES Final Result [facility] [address] [place] [address], [place] [phone] * (ABNORMAL) Basic metabolic panel (06/23/2025 5:32 AM EDT) Sodium 140 133 - 145 mmol/L LAB CHEMISTRY METHOD 06/23/2025 7:21 AM [facility] Potassium 4.7 3.5 - 5.5 mmol/L LAB CHEMISTRY METHOD 06/23/2025 7:21 AM [facility] Chloride 106 96 - 110 mmol/L LAB CHEMISTRY METHOD 06/23/2025 7:21 AM [facility] CO2 32 21 - 32 mmol/L LAB CHEMISTRY METHOD 06/23/2025 7:21 AM [facility] Anion Gap 2(L) 3 - 11 LAB CHEMISTRY METHOD 06/23/2025 7:21 AM [facility] Glucose 104(H) 70 - 100 mg/dL LAB CHEMISTRY METHOD 06/23/2025 7:21 AM [facility] BUN 12 5 - 25 mg/dL LAB CHEMISTRY METHOD 06/23/2025 7:21 AM [facility] Creatinine 0.94 0.50 - 1.10 mg/dL LAB CHEMISTRY METHOD 06/23/2025 7:21 AM [facility] eGFR 66 >=60 mL/min/1. 73m2 LAB CHEMISTRY METHOD 06/23/2025 7:21 AM EDT [facility] Comment:Calculation based on the Chronic Kidney Disease Epidemiology Collaboration (CKD-EPI) equation refit without adjustment for race. BUN/Creatinine Ratio 12.8 LAB CHEMISTRY METHOD 06/23/2025 7:21 AM EDT [facility] Calcium 9.5 8.5 - 10.5 mg/dL LAB CHEMISTRY METHOD 06/23/2025 7:21 AM EDT [facility] Blood Venous blood specimen / Unknown Venipuncture / Unknown 06/23/2025 5:32 AM EDT 06/23/2025 6:28 AM EDT us Amalia BENJAMIN LAB BLOOD ORDERABLES Final Result [facility] [address] [place] [address], [place] [phone] * XR Chest 1 View (06/22/2025 12:11 PM EDT) Anatomical Region Laterality Modality Body Radiographic Diana ging 06/22/2025 1:09 PM EDT Impressions 06/22/2025 1:14 PM EDT FINDINGS/IMPRESSION: Stable small left apical pneumothorax. Left chest tube in place. Subcutaneous emphysema left chest wall. Post surgical changes project over the left hilum. Left basilar atelectasis. Right lung is clear. -------- FINAL REPORT -------- Dictated By: Charli Vera Dictated Date: 06/22/2025 13:09 ET Assigned Physician: Charli Vera Reviewed and Electronically Signed By: Charli Vera Signed Date: 06/22/2025 13:14 ET Workstation ID: [id number] Transcribed By: Self Edit Transcribed Date: 06/22/2025 13:09 ET Narrative 06/22/2025 1:14 PM EDT XR CHEST 1 VIEW INDICATION: s/p segmentectomy. F/U PTX. TECHNIQUE: XR CHEST 1 VIEW COMPARISON: 06/22/2025 at 5:00 AM Procedure Note Charli Vera MD - 06/22/2025 XR CHEST 1 VIEW INDICATION: s/p segmentectomy. F/U PTX. TECHNIQUE: XR CHEST 1 VIEW COMPARISON: 06/22/2025 at 5:00 AM IMPRESSION: FINDINGS/IMPRESSION: Stable small left apical pneumothorax. Left chesttube in place. Subcutaneous emphysema left chest wall. Post surgicalchanges project over the left hilum. Left basilar atelectasis. Rightlung is clear. -------- FINAL REPORT -------- Dictated By: Charli Vera Dictated Date: 06/22/2025 13:09 ET Assigned Physician: Charli Vera Reviewed and Electronically Signed By: Charli Vera Signed Date: 06/22/2025 13:14 ET Workstation ID: [id number] Transcribed By: Self Edit Transcribed Date: 06/22/2025 13:09 ET Herlinda BENJAMIN IMG XR PROCEDURES Final Resul t * (ABNORMAL) Occult blood stool, guaiac (06/22/2025 11:41 AM EDT) [facility] Occult Blood, Stool #1 Positive( A) Negative 06/22/2025 12:02 PM EDT [facility] Stool Stoma / Unknown Non-blood Collection / Unknown 06/22/2025 11:41 AM EDT 06/22/2025 11:51 AM EDT Herlinda BENJAMIN LAB BODY FLUIDS AND STOOLS OR DERABLES Final Result [facility] [address] [place] [address], [place] [phone] * (ABNORMAL) Complete blood count (06/22/2025 11:20 AM EDT) Pathologist [facility] WBC 9.9 4.8 - 10.8 K/[facility] LAB HEMETOLOGY METHOD 06/22/2025 11:29 AM EDT [facility] RBC 3.90 3.80 - 4.80 M/[facility] LAB HEMETOLOGY METHOD 06/22/2025 11:29 AM [facility] Hemoglobin 11.8 11.5 - 16.0 g/dL LAB HEMETOLOGY METHOD 06/22/2025 11:29 AM [facility] Hematocrit 37.8 35.0 - 47.0 % LAB HEMETOLOGY METHOD 06/22/2025 11:29 AM [facility] MCV 96.2 79.0 - 98.0 FL LAB HEMETOLOGY METHOD 06/22/2025 11:29 AM [facility] MCH 30.0 27.0 - 32.0 pcg LAB HEMETOLOGY METHOD 06/22/2025 11:29 AM [facility] MCHC 31.2(L) 32.0 - 37.0 g/dL LAB HEMETOLOGY METHOD 06/22/2025 11:29 AM [facility] RDW 12.6 11.0 - 15.0 % LAB HEMETOLOGY METHOD 06/22/2025 11:29 AM [facility] Platelets 241 130 - 400 K/mcL LAB HEMETOLOGY METHOD 06/22/2025 11:29 AM [facility] MPV 10.6 7.0 - 11.0 FL LAB HEMETOLOGY METHOD 06/22/2025 11:29 AM [facility] NRBC 0.0 <1.0 % LAB HEMETOLOGY METHOD 06/22/2025 11:29 AM [facility] NRBC Absolute 0.00 <0.10 K/mcL LAB HEMETOLOGY METHOD 06/22/2025 11:29 AM [facility] Blood Venous blood specimen / Unknown Venipuncture / Unknown 06/22/2025 11:20 AM EDT 06/22/2025 11:24 AM EDT us Herlinda BENJAMIN LAB BLOOD ORDERABLES Final Re sult [facility] [address] [place] [address], [place] [phone] * XR Chest 1 View (06/22/2025 5:10 AM EDT) Anatomical Region Laterality Modality Body Radiographic Diana ging 06/22/2025 8:27 AM EDT Impressions 06/22/2025 8:28 AM EDT Left apical chest tube with a small left pneumothorax. -------- FINAL REPORT -------- Dictated By: Trip Schneider Dictated Date: 06/22/2025 08:27 ET Assigned Physician: Trip Schneider Reviewed and Electronically Signed By: Trip Schneider Signed Date: 06/22/2025 08:28 ET Workstation ID: [id number] Transcribed By: Self Edit Transcribed Date: 06/22/2025 08:27 ET Narrative 06/22/2025 8:28 AM EDT PROCEDURE: AP chest radiograph. HISTORY: s/p LLL segmentectomy. Followup. COMPARISON: 06/21/2025. FINDINGS: Stable left apical chest tube and left chest wall emphysema. New small left apical pneumothorax. Unchanged cardiomediastinal contours. Procedure Note Trip Schneider MD - 06/22/2025 PROCEDURE: AP chest radiograph. HISTORY: s/p LLL segmentectomy. Followup. COMPARISON: 06/21/2025. FINDINGS: Stable left apical chest tube and left chest wall emphysema. New smallleft apical pneumothorax. Unchanged cardiomediastinal contours. IMPRESSION: Left apical chest tube with a small left pneumothorax. -------- FINAL REPORT -------- Dictated By: Trip Schneider Dictated Date: 06/22/2025 08:27 ET Assigned Physician: Trip Schneider Reviewed and Electronically Signed By: Trip Schneider Signed Date: 06/22/2025 08:28 ET Workstation ID: [id number] Transcribed By: Self Edit Transcribed Date: 06/22/2025 08:27 ET us Herlinda BENJAMIN IMG XR PROCEDURES Final Resul t * (ABNORMAL) CBC - Every 3 Days (06/21/2025 5:52 AM EDT) WBC 11.6(H) 4.8 - 10.8 K/mcL LAB HEMETOLOGY METHOD 06/21/2025 6:51 AM EDT [facility] RBC 4.10 3.80 - 4.80 M/mcL LAB HEMETOLOGY METHOD 06/21/2025 6:51 AM [facility] Hemoglobin 12.3 11.5 - 16.0 g/dL LAB HEMETOLOGY METHOD 06/21/2025 6:51 AM [facility] Hematocrit 39.3 35.0 - 47.0 % LAB HEMETOLOGY METHOD 06/21/2025 6:51 AM [facility] MCV 96.8 79.0 - 98.0 FL LAB HEMETOLOGY METHOD 06/21/2025 6:51 AM [facility] MCH 30.3 27.0 - 32.0 pcg LAB HEMETOLOGY METHOD 06/21/2025 6:51 AM [facility] MCHC 31.3(L) 32.0 - 37.0 g/dL LAB HEMETOLOGY METHOD 06/21/2025 6:51 AM [facility] RDW 12.5 11.0 - 15.0 % LAB HEMETOLOGY METHOD 06/21/2025 6:51 AM [facility] Platelets 275 130 - 400 K/mcL LAB HEMETOLOGY METHOD 06/21/2025 6:51 AM [facility] MPV 11.0 7.0 - 11.0 FL LAB HEMETOLOGY METHOD 06/21/2025 6:51 AM [facility] NRBC 0.0 <1.0 % LAB HEMETOLOGY METHOD 06/21/2025 6:51 AM EDT [facility] NRBC Absolute 0.00 <0.10 K/mcL LAB HEMETOLOGY METHOD 06/21/2025 6:51 AM EDT [facility] Blood Venous blood specimen / Unknown Venipuncture / Unknown 06/21/2025 5:52 AM EDT 06/21/2025 6:24 AM EDT Herlinda BENJAMIN LAB BLOOD ORDERABLES Final Re sult [facility] [address] [place] [address], [place] [phone] * Magnesium (06/21/2025 5:52 AM EDT) Magnesium 2.5 1.9 - 2.6 mg/dL LAB CHEMISTRY METHOD 06/21/2025 7:21 AM EDT [facility] Blood Venous blood specimen / Unknown Venipuncture / Unknown 06/21/2025 5:52 AM EDT 06/21/2025 6:23 AM EDT us Herlinda BENJAMIN LAB BLOOD ORDERABLES Final Re sult [facility] [address] [place] [address], [place] [phone] * Phosphorus (06/21/2025 5:52 AM EDT) Phosphorus 4.0 2.5 - 4.5 mg/dL LAB CHEMISTRY METHOD 06/21/2025 7:21 AM EDT [facility] Blood Venous blood specimen / Unknown Venipuncture / Unknown 06/21/2025 5:52 AM EDT 06/21/2025 6:23 AM EDT us Herlinda BENJAMIN LAB BLOOD ORDERABLES Final Re sult [facility] [address] [place] [address], * (ABNORMAL) Basic metabolic panel (06/21/2025 5:52 AM EDT) Sodium 137 133 - 145 mmol/L LAB CHEMISTRY METHOD 06/21/2025 7:21 AM [facility] Potassium 5.0 3.5 - 5.5 mmol/L LAB CHEMISTRY METHOD 06/21/2025 7:21 AM [facility] Chloride 104 96 - 110 mmol/L LAB CHEMISTRY METHOD 06/21/2025 7:21 AM [facility] CO2 28 21 - 32 mmol/L LAB CHEMISTRY METHOD 06/21/2025 7:21 AM [facility] Anion Gap 5 3 - 11 LAB CHEMISTRY METHOD 06/21/2025 7:21 AM [facility] Glucose 119(H) 70 - 100 mg/dL LAB CHEMISTRY METHOD 06/21/2025 7:21 AM [facility] BUN 13 5 - 25 mg/dL LAB CHEMISTRY METHOD 06/21/2025 7:21 AM [facility] Creatinine 1.12(H) 0.50 - 1.10 mg/dL LAB CHEMISTRY METHOD 06/21/2025 7:21 AM [facility] eGFR 53(L) >=60 mL/min/1. 73m2 LAB CHEMISTRY METHOD 06/21/2025 7:21 AM [facility] Comment:Calculation based on the Chronic Kidney Disease Epidemiology Collaboration (CKD-EPI) equation refit without adjustment for race. BUN/Creatinine Ratio 11.6 LAB CHEMISTRY METHOD 06/21/2025 7:21 AM [facility] Calcium 9.1 8.5 - 10.5 mg/dL LAB CHEMISTRY METHOD 06/21/2025 7:21 AM EDT [facility] Blood Venous blood specimen / Unknown Venipuncture / Unknown 06/21/2025 5:52 AM EDT 06/21/2025 6:23 AM EDT Herlinda BENJAMIN LAB BLOOD ORDERABLES Final Re sult [facility] [address] [place] [address], * XR Chest 1 View (06/21/2025 5:20 AM EDT) Anatomical Region Laterality Modality Body Radiographic Diana ging 06/21/2025 9:38 AM EDT Impressions 06/21/2025 9:40 AM EDT Similar left-sided postoperative changes with development of left chest wall subcutaneous emphysema. No pneumothorax. -------- FINAL REPORT -------- Dictated By: Oscar Tracy Dictated Date: 06/21/2025 09:38 ET Assigned Physician: Oscar Tracy Reviewed and Electronically Signed By: Oscar Tracy Signed Date: 06/21/2025 09:40 ET Workstation ID: [id number] Transcribed By: Self Edit Transcribed Date: 06/21/2025 09:38 ET Narrative 06/21/2025 9:40 AM EDT INDICATION: Status post left lower lobe segmentectomy FINDINGS: Single portable AP view of the chest obtained. Compared to multiple prior studies most recent from June 20, 2025 11:20 AM. Left-sided chest tube with tip overlying the lung apex. No significant pneumothorax. Small amount of subcutaneous emphysema in the left lower chest wall adjacent to the chest tube. Emphysematous changes. No infiltrates or effusions. Heart normal in size and shape. Posterior lateral left eighth rib fracture. Procedure Note Oscar Tracy MD - 06/21/2025 INDICATION: Status post left lower lobe segmentectomy FINDINGS: Single portable AP view of the chest obtained. Compared tomultiple prior studies most recent from June 20, 2025 11:20 AM. Left-sided chest tube with tip overlying the lung apex. No significantpneumothorax. Small amount of subcutaneous emphysema in the left lowerchest wall adjacent to the chest tube. Emphysematous changes. No infiltrates or effusions. Heart normal in size and shape. Posterior lateral left eighth rib fracture. IMPRESSION: Similar left-sided postoperative changes with development of left chestwall subcutaneous emphysema. No pneumothorax. -------- FINAL REPORT -------- Dictated By: Oscar Tracy Dictated Date: 06/21/2025 09:38 ET Assigned Physician: Oscar Tracy Reviewed and Electronically Signed By: Oscar Tracy Signed Date: 06/21/2025 09:40 ET Workstation ID: [id number] Transcribed By: Self Edit Transcribed Date: 06/21/2025 09:38 ET Herlinda BENJAMIN IMG XR PROCEDURES Final Resul t * Magnesium (06/20/2025 1:54 PM EDT) Magnesium 2.2 1.9 - 2.6 mg/dL LAB CHEMISTRY METHOD 06/20/2025 2:18 PM EDT [facility] Blood Venous blood specimen / Unknown Venipuncture / Unknown 06/20/2025 1:54 PM EDT 06/20/2025 1:57 PM EDT Herlinda BENJAMIN LAB BLOOD ORDERABLES Final Re sult [facility] [address] [place] [address], [place] [phone] * Phosphorus (06/20/2025 1:54 PM EDT) Phosphorus 4.2 2.5 - 4.5 mg/dL LAB CHEMISTRY METHOD 06/20/2025 2:18 PM EDT [facility] Blood Venous blood specimen / Unknown Venipuncture / Unknown 06/20/2025 1:54 PM EDT 06/20/2025 1:57 PM EDT us Herlinda BENJAMIN LAB BLOOD ORDERABLES Final Re sult [facility] [address] [place] [address], [place] [phone] * (ABNORMAL) Basic metabolic panel (06/20/2025 1:54 PM EDT) Pathologist [facility] Sodium 137 133 - 145 mmol/L LAB CHEMISTRY METHOD 06/20/2025 2:18 PM EDT [facility] Potassium 4.7 3.5 - 5.5 mmol/L LAB CHEMISTRY METHOD 06/20/2025 2:18 PM [facility] Chloride 108 96 - 110 mmol/L LAB CHEMISTRY METHOD 06/20/2025 2:18 PM [facility] CO2 25 21 - 32 mmol/L LAB CHEMISTRY METHOD 06/20/2025 2:18 PM EDT [facility] Anion Gap 4 3 - 11 LAB CHEMISTRY METHOD 06/20/2025 2:18 PM T [facility] Glucose 136(H) 70 - 100 mg/dL LAB CHEMISTRY METHOD 06/20/2025 2:18 PM [facility] BUN 13 5 - 25 mg/dL LAB CHEMISTRY METHOD 06/20/2025 2:18 PM T [facility] Creatinine 1.11(H) 0.50 - 1.10 mg/dL LAB CHEMISTRY METHOD 06/20/2025 2:18 PM EDT [facility] eGFR 54(L) >=60 mL/min/1. 73m2 LAB CHEMISTRY METHOD 06/20/2025 2:18 PM T [facility] Comment:Calculation based on the Chronic Kidney Disease Epidemiology Collaboration (CKD-EPI) equation refit without adjustment for race. BUN/Creatinine Ratio 11.7 LAB CHEMISTRY METHOD 06/20/2025 2:18 PM T [facility] Calcium 8.9 8.5 - 10.5 mg/dL LAB CHEMISTRY METHOD 06/20/2025 2:18 PM EDT [facility] Blood Venous blood specimen / Unknown Venipuncture / Unknown 06/20/2025 1:54 PM EDT 06/20/2025 1:57 PM EDT us [facility] LAB BLOOD ORDERABLES Final Re sult [facility] 299 [place] [address], [place] [phone] * (ABNORMAL) Complete blood count (06/20/2025 1:54 PM EDT) WBC 16.3(H) 4.8 - 10.8 K/mcL LAB HEMETOLOGY METHOD 06/20/2025 2:02 PM EDT [facility] RBC 4.30 3.80 - 4.80 M/mcL LAB HEMETOLOGY METHOD 06/20[facility]25 [facility] Hemoglobin 12.7 11.5 - 16.0 g/dL LAB HEMETOLOGY METHOD 06/20/2025 [facility] Hematocrit 39.7 35.0 - 47.0 % LAB HEMETOLOGY METHOD 06/20/2025 2:02 PM EDT [facility] MCV 93.2 79.0 - 98.0 FL LAB HEMETOLOGY METHOD 06/20/2025 2:02 PM [facility] MCH 29.8 27.0 - 32.0 pcg LAB HEMETOLOGY METHOD 06/20/2025 2:02 PM [facility] MCHC 32.0 32.0 - 37.0 g/dL LAB HEMETOLOGY METHOD 06/20/2025 2:02 PM EDT [facility] RDW 12.5 11.0 - 15.0 % LAB HEMETOLOGY METHOD 06/20/2025 2:02 PM EDT [facility] Platelets 250 130 - 400 K/mcL LAB HEMETOLOGY METHOD 06/20/2025 2:02 PM EDT [facility] MPV 10.7 7.0 - 11.0 FL LAB HEMETOLOGY METHOD 06/20/2025 2:02 PM EDT [facility] NRBC 0.0 <1.0 % LAB HEMETOLOGY METHOD 06/20/2025 2:02 PM EDT [facility] NRBC Absolute 0.00 <0.10 K/mcL LAB HEMETOLOGY METHOD 06/20/2025 2:02 PM EDT [facility] Blood Venous blood specimen / Unknown Venipuncture / Unknown 06/20/2025 1:54 PM EDT 06/20/2025 1:57 PM EDT us Herlinda BENJAMIN LAB BLOOD ORDERABLES Final Re sult [facility] [address] [place] [address], [place] [phone] * XR Chest 1 View (06/20/2025 11:39 AM EDT) Anatomical Region Laterality Modality Body Radiographic Diana ging 06/20/2025 11:4 4 AM EDT Impressions 06/20/2025 11:47 AM EDT Postoperative changes in the left hemithorax. A large bore surgical chest tube is present with its tip at the left lung apex. There is no pneumothorax. There is mild discoid atelectasis laterally in the left midlung and at the right costophrenic angle. The lungs are otherwise clear. Code 20142 -------- FINAL REPORT -------- Dictated By: Nolan Novak Dictated Date: 06/20/2025 11:44 ET Assigned Physician: Nolan Novak Reviewed and Electronically Signed By: Nolan Novak Signed Date: 06/20/2025 11:47 ET Workstation ID: [id number] Transcribed By: Self Edit Transcribed Date: 06/20/2025 11:44 ET Narrative 06/20/2025 11:47 AM EDT HISTORY: The patient is a 69-year-old female who underwent left lower lobe superior segmentectomy immediately prior to this examination. FINDINGS: Sitting AP portable radiograph of the chest obtained in the postanesthesia care unit is submitted. The study demonstrates surgical sutures in the left perihilar area, a new finding since the prior study performed 05/17/2025. A large bore surgical chest tube has been placed, with its tip at the left lung apex. The bony structures are of normal appearance. The cardiac silhouette is within normal limits. The aortic knob is calcified. There is mild discoid atelectasis in the left midlung and at the right costophrenic angle. The lungs are otherwise clear and the costophrenic angles are sharp. There is no pneumothorax. Procedure Note Nolan Novak MD - 06/20/2025 HISTORY: The patient is a 69-year-old female who underwent left lower lobesuperior segmentectomy immediately prior to this examination. FINDINGS: Sitting AP portable radiograph of the chest obtained in thepostanesthesia care unit is submitted. The study demonstrates surgicalsutures in the left perihilar area, a new finding since the prior studyperformed 05/17/2025. A large bore surgical chest tube has been placed,with its tip at the left lung apex. The bony structures are of normalappearance. The cardiac silhouette is within normal limits. The aorticknob is calcified. There is mild discoid atelectasis in the left midlungand at the right costophrenic angle. The lungs are otherwise clear and thecostophrenic angles are sharp. There is no pneumothorax. IMPRESSION: Postoperative changes in the left hemithorax. A large bore surgical chesttube is present with its tip at the left lung apex. There is nopneumothorax. There is mild discoid atelectasis laterally in the leftmidlung and at the right costophrenic angle. The lungs are otherwiseclear. Code 72954 -------- FINAL REPORT -------- Dictated By: Nolan Novak Dictated Date: 06/20/2025 11:44 ET Assigned Physician: Nolan Novak Reviewed and Electronically Signed By: Nolan Novak Signed Date: 06/20/2025 11:47 ET Workstation ID: [id number] Transcribed By: Self Edit Transcribed Date: 06/20/2025 11:44 ET Herlinda BENJAMIN IMG XR PROCEDURES Final Resul t * Tissue exam (06/20/2025 9:24 AM EDT) Final Diagnosis A. Lymph Node, level 10, left: -BENIGN LYMPH NODE B. Lymph Node, level 11, left: -BENIGN LYMPH NODE C. Lymph Node, level 7: -BENIGN LYMPH NODE D. Lymph Node, level 6: -BENIGN LYMPH NODE E. Lymph Node, level 5: -BENIGN LYMPH NODE F. Lymph Node, level 11 #2,left: -BENIGN LYMPH NODE G. Lung, Left Lower Lobe, superior segmentectomy: -INVASIVE MICROPAPILLARY ADENOCARCINOMA -See synoptic summary 11:04 AM EDT [facility] ([facility]) [facility] Synoptic Checklist LUNG LUNG - All Specimens AJCC 9 - Protocol posted: 11/08/2024 SPECIMEN Procedure: Segmentectomy Specimen Laterality: Left TUMOR Tumor Focality: Single focus Tumor Site: Lower lobe of lung: superior segment Tumor Size: Invasive Tumor Size: Greatest Dimension (Centimeters): 3.3 cm Additional Dimension (Centimeters): 1.4 cm Additional Dimension (Centimeters): 1.1 cm Histologic Type: Invasive micropapillary adenocarcinoma Histologic Patterns: Acinar Histologic Patterns: Solid Histologic Patterns: Micropapillary Histologic Grade: G3, poorly differentiated Spread Through Air Spaces (FERCHO): Present Visceral Pleura Invasion: Not identified Direct Invasion of Other Structures: Not applicable (no other structures present) Treatment Effect: No known presurgical therapy Lymphatic and / or Vascular Invasion: Present : Arterial invasion present Tumor Comment: ERG highlights vascular invasion MARGINS Margin Status for Invasive Tumor: All margins negative for invasive tumor Closest Margin(s) to Invasive Tumor: Parenchymal Distance from Invasive Tumor to Closest Margin: 0.5 cm Margin Status for Non-Invasive Tumor: Not applicable REGIONAL LYMPH NODES Lymph Node(s) from Prior Procedures: Included Prior Lymph Node Procedure(s) Included: negative for malignant cells. Fine needle aspirate [id number], right paratracheal node, [id number]: Left paratracheal node Regional Lymph Node Status: : All regional lymph nodes negative for tumor Number of Lymph Nodes Examined: 8 Arnold Site(s) Examined: 7: Subcarinal Arnold Site(s) Examined: 5: Subaortic / aortopulmonary (AP) / AP window Arnold Site(s) Examined: 6: Para-aortic (ascending aorta or phrenic) Arnold Site(s) Examined: 10L: Hilar Arnold Site(s) Examined: 11L: Interlobar Arnold Site(s) Examined: 12L-14L: Intrapulmonary : 13L: Segmental pTNM CLASSIFICATION (AJCC Version 9) Reporting of pT, pN, and (when applicable) pM categories is based on information available to the pathologist at the time the report is issued. As per the AJCC (Chapter 1, 8th Ed.) it is the managing physician's responsibility to establish the final pathologic stage based upon all pertinent information, including but potentially not limited to this pathology report. pT Category: pT1c pN Category: pN0 ADDITIONAL FINDINGS Additional Findings: Atypical adenomatous hyperplasia Additional Findings: Diffuse neuroendocrine hyperplasia Additional Findings: Emphysema Additional Findings: Patchy organizing pneumonia, respiratory bronchiolitis Comment(s): INSM-1 alivia KENCH 5 11:04 AM EDT [facility] ([facility]) [facility] Gross Description A. Lymph Node, level 10, left: Labeled ID: 1, lymph node, level 10 . Received in formalin is a 0.7 x 0.4 x 0.2 cm anthracotic lymph node which is bisected and entirely submitted in one cassette, two pieces. B. Lymph Node, level 11, left: Labeled ID: 2, lymph node, level 11 . Received in formalin is a 0.4 x 0.2 x 0.1 cm irregular anthracotic lymph node which is submitted in toto in one cassette, one piece. C. Lymph Node, level 7: Labeled ID: 3, lymph node, level 7 L . Received in formalin is a 0.6 x 0.4 x 0.2 cm disrupted anthracotic lymph node which is bisected and entirely submitted in one cassette, two pieces. D. Lymph Node, level 6: Labeled ID: 4, lymph node, level 6 L . Received in formalin is a 0.3 x 0.2 x 0.1 cm anthracotic lymph node with attached adipose tissue, which is submitted in toto in one cassette, one piece. E. Lymph Node, level 5: Labeled ID: 5, lymph node, level 5 L . Received in formalin is a 0.6 x 0.3 x 0.1 cm yellow portion of adipose tissue with a central anthracotic possible lymph node measuring 0.1 cm in greatest dimension. The specimen is submitted in toto in one cassette, one piece. F. Lymph Node, level 11 #2,left: Labeled ID: 6, lymph node, level 11 . Received in formalin is a 0.4 x 0.3 x 0.1 cm disrupted anthracotic lymph node which is submitted in toto in one cassette, one piece. G. Lung, Left Lower Lobe, superior segmentectomy: Labeled lung LLL, superior . Received in formalin is a 29 g, 8.5 x 7.8 x 3.5 cm segment of lung with an irregular staple line along one edge. The serosa is pink-purple with focal membranous adhesions. The staple line is removed and the underlying parenchyma is inked black. The cut surfaces display a 2.3 x 1.4 x 1.1 cm ill-defined damon-white, focally anthracotic ill-defined mass, located 0.5 cm from the parenchymal margin, and 0.2 cm from the pleura. The uninvolved parenchyma is red-brown and spongy with some dilated airspaces. Two possible anthracotic lymph nodes are identified, each measuring approximately 0.2 cm in greatest dimension. A gross photograph is taken. Humanities Professor sections are submitted as follows: 1 and 2, mass to perpendicular parenchymal margin, one piece each 3 and 4, mass, one piece each 5, mass to pleura, one piece 6, en face bronchial and vascular margins and two possible lymph nodes 7-9, uninvolved parenchyma, one piece each-nine DARA 5 11:04 AM EDT [facility] ([facility]) [facility] Disclaimer The immunohistochemistry and/or special stains were medically necessary and performed because additional information was needed by the pathologist to determine: 1) whether DIPNECH was present; 2) whether vascular invasion was present. The immunohistochemical tests and in situ hybridization tests were developed and their performance characteristics were determined by [facility]. They have not been cleared or approved by the U.S. Food and Drug Administration. The FDA has determined that such clearance or approval is not necessary. These tests are used for clinical purposes. They should not be regarded as investigational or for research. This laboratory is certified under the Clinical Laboratory Improvement Amendments of 1988 (CLIA) as qualified to perform high complexity clinical laboratory testing. (controls appropriate) Unless otherwise specified, all tissue is 10% NB formalin fixed and paraffin embedded. 11:04 AM EDT [facility] Tissue Lymph node specimen / Unknown 06/20/2025 9:24 AM EDT 06/20/2025 11:45 AM EDT Tissue specimen (specimen) Lymph node specimen / Unknown 06/20/2025 9:27 AM EDT 06/20/2025 11:45 AM EDT Tissue specimen (specimen) Lymph node specimen / Unknown 06/20/2025 9:29 AM EDT 06/20/2025 11:45 AM EDT Tissue specimen (specimen) Lymph node specimen / Unknown 06/20/2025 9:55 AM EDT 06/20/2025 11:45 AM EDT Tissue specimen (specimen) Lymph node specimen / Unknown 06/20/2025 9:57 AM EDT 06/20/2025 11:45 AM EDT Tissue specimen (specimen) Lymph node specimen / Unknown 06/20/2025 10:18 AM EDT 06/20/2025 11:45 AM EDT Tissue specimen (specimen) Structure of lower lobe of left lung / Unknown 06/20/2025 10:39 AM EDT 06/20/2025 11:45 AM EDT us Avi Donnelly MD LAB PATHOLOGY ORDERABLES Final R esult [facility]) [facility] [address] [place] [address], * Prepare RBC: 2 Units (06/20/2025 8:44 AM EDT) Product Code [id number] 06/21/2025 8:38 AM EDT [facility] Unit Number [id number] 06/21/20 8:38 AM EDT [facility] Crossmatch Compatible 06/20/2025 11:30 AM EDT [facility] Dispense Status Released From Crossmatch 06/21/2025 8:38 AM EDT [facility] Unit ABO Rh OPOS 06/21/2025 8:38 AM EDT [facility] Unit Expiration Date Time [id number] 06/21/2025 8:38 AM EDT [facility] Unit Blood Type 5100 06/21/2025 8:38 AM EDT [facility] Product Code [id number] 06/21/2025 8:38 AM EDT [facility] Unit Number [id number] 06/21/20 8:38 AM EDT [facility] Crossmatch Compatible 06/20/2025 11:31 AM EDT [facility] Dispense Status Released From Crossmatch 06/21/2025 8:38 AM EDT [facility] Unit ABO Rh OPOS 06/21/2025 8:38 AM EDT [facility] Unit Expiration Date Time [id number] 06/21/2025 8:38 AM EDT [facility] Unit Blood Type 5100 06/21/2025 8:38 AM EDT [facility] Blood Venous blood specimen / Unknown 06/20/2025 8:44 AM EDT 06/13/2025 8:56 AM EDT Herlinda BENJAMIN BLOOD BANK PRODUCT ORDERABLES Final Result [facility] [address] [place] [address], documented in this encounter Visit Diagnoses Diagnosis Malignant neoplasm of lower lobe of left lung (CMS/HCC V24, CMS/HCC V28)- Primary documented in this encounter Admitting Diagnoses Diagnosis Malignant neoplasm of lower lobe of left lung (CMS/HCC V24, CMS/HCC V28) documented in this encounter Administered Medications Inactive Administered Medications - up to 3 most recent administrations Medication Order MAR Action Action Date Dose Rate Site acetaminophen (TYLENOL) tablet 1,000 mg 1,000 mg, oral, Once, On Wed06/20/25 at 0615, For 1 dose, Preprocedure, Give 1 hour prior to surgery Given 06/20/2025 6:28 AM EDT 1,000 mg acetaminophen (TYLENOL) tablet 1,000 mg 1,000 mg, oral, Every 8 hours scheduled, First dose on Wed06/20/25 at 1400, Recovery & On Unit Given 06/23/2025 1:37 PM EDT 1,000 mg Given 06/23/2025 6:11 AM EDT 1,000 mg Given 06/22/2025 9:42 PM EDT 1,000 mg budesonide (PULMICORT) 0.5 mg/2 mL nebulizer solution 0.5 mg 0.5 mg, nebulization, Daily, First dose on Wed06/20/25 at 1400, Phase II/On Unit, Rinse mouth with water after use to reduce aftertaste and incidence of candidiasis. Do not swallow. Therapeutic substitution for TRELEGY ELLIPTA is budesonide neb once daily, formoterol neb twice daily, and revefenacin neb once daily. Given 06/23/2025 7:47 AM EDT 0.5 mg Given 06/22/2025 7:22 AM EDT 0.5 mg Given 06/21/2025 8:19 AM EDT 0.5 mg chlordiazePOXIDE (LIBRIUM) capsule 100 mg 100 mg, oral, Every 2 hours PRN, withdrawal, CIWA-Ar GREATER than or EQUAL to 19 AND seizure OR hallucination., Starting on Wed06/20/25 at 2125, Notify provider Re-assess CIWA-Ar in 1 hour Hold dose and notify provider for BP LESS than 90/60, RR LESS than 10 per minute, marked somnolence, pooling of secretions, intoxicated symptoms (ataxia, slurred speech.) Notify provider if 300 mg is given within 24 hours. chlordiazePOXIDE (LIBRIUM) capsule 25 mg 25 mg, oral, Every 2 hours PRN, withdrawal, CIWA-Ar 10-18, Starting on Wed06/20/25 at 2125, Re-assess CIWA-Ar in 1 hour Hold dose and notify provider for BP LESS than 90/60, RR LESS than 10 per minute, marked somnolence, pooling of secretions, intoxicated symptoms (ataxia, slurred speech.) Notify provider if 300 mg is given within 24 hours. chlordiazePOXIDE (LIBRIUM) capsule 50 mg 50 mg, oral, Every 2 hours PRN, withdrawal, CIWA-Ar GREATER than or EQUAL to 19 WITHOUT evidence of seizure or hallucinations, Starting on Wed06/20/25 at 2125, Re-assess CIWA-Ar in 1 hour Hold dose and notify provider for BP LESS than 90/60, RR LESS than 10 per minute, marked somnolence, pooling of secretions, intoxicated symptoms (ataxia, slurred speech.) Notify provider if 300 mg is given within 24 hours. docusate sodium (COLACE) capsule 100 mg 100 mg, oral, 2 times daily, First dose on Wed06/20/25 at 1400, Phase II/On Unit Given 06/22/2025 8:16 AM EDT 100 mg Given 06/21/2025 9:07 AM EDT 100 mg Given 06/20/2025 8:03 PM EDT 100 mg enoxaparin (LOVENOX) injection 40 mg 40 mg, subcutaneous, Every 24 hours scheduled, First dose on Wed06/20/25 at 1145, Recovery & On Unit, Indication: VTE/PE Prophylaxis, On hold since Wed06/22/2025 at 1303 until manually unheld Given 06/22/2025 8:16 AM EDT 40 mg Le ft Upper Abdomen Given 06/21/2025 9:09 AM EDT 40 mg Le ft Upper Arm (Back) Given 06/20/2025 3:16 PM EDT 40 mg Ri ght Lower Abdomen famotidine (PEPCID) tablet 20 mg 20 mg, oral, Daily, First dose on Tati 06/21/25 at 1330 Given 06/22/2025 8:16 AM EDT 20 mg Given 06/21/2025 2:17 PM EDT 20 mg fenofibrate (TRICOR) tablet 145 mg 145 mg, oral, Daily, First dose on Wed06/20/25 at 1400, Phase II/On Unit Given 06/23/2025 9:07 AM EDT 145 mg Given 06/22/2025 8:16 AM EDT 145 mg Given 06/21/2025 9:07 AM EDT 145 mg folic acid (FOLVITE) tablet 1 mg 1 mg, oral, Daily, First dose on Wed06/22/25 at 0900 Given 06/23/2025 9:06 AM EDT 1 mg Given 06/22/2025 8:16 AM EDT 1 mg formoterol (PERFOROMIST) 20 mcg/2 mL nebulizer solution 20 mcg 20 mcg, nebulization, 2 times daily, First dose on Wed06/20/25 at 1400, Phase II/On Unit, Therapeutic substitution for TRELEGY ELLIPTA is budesonide neb once daily, formoterol neb twice daily, and revefenacin neb once daily. Given 06/23/2025 7:47 AM EDT 20 mcg Given 06/22/2025 8:23 PM EDT 20 mcg Given 06/22/2025 7:21 AM EDT 20 mcg HYDROmorphone (PF) (DILAUDID) injection 0.5 mg 0.5 mg, intravenous, Every 3 hours PRN, severe breakthrough pain, Starting on Wed06/20/25 at 1115, For 2 days, Recovery & On Unit Given 06/22/2025 8:54 AM EDT 0.5 mg Given 06/20/2025 3:16 PM EDT 0.5 mg lactated Ringer's infusion 75 mL/hr, intravenous, Continuous, Starting on Wed06/20/25 at 0615, Preprocedure New Bag 06/20/2025 10:58 AM EDT New Bag 06/20/2025 7:39 AM EDT Continued by Anesthesia 06/20/2025 7:33 AM EDT 75 mL/hr lactated Ringer's infusion 75 mL/hr, intravenous, Continuous, Starting on Wed06/20/25 at 1145, Recovery (only) Continued from OR 06/20/2025 11:36 AM EDT 75 mL/hr 75 mL/hr lisinopriL (PRINIVIL,ZESTRIL) tablet 5 mg 5 mg, oral, Daily, First dose on Wed06/20/25 at 1400, Phase II/On Unit, On hold since Wed06/21/2025 at 0922 until manually unheld Given 06/20/2025 2:48 PM EDT 5 mg metoprolol succinate (TOPROL-XL) 24 Hour tablet 12.5 mg 12.5 mg, oral, Daily, First dose on Wed06/21/25 at 0900, Phase II/On Unit, Holkd for SBP<110 HR<55 Do not crush or chew. Given 06/23/2025 9:06 AM EDT 12.5 mg midodrine (PROAMATINE) tablet 5 mg 5 mg, oral, Once, On Wed06/21/25 at 1000, For 1 dose Given 06/21/2025 10:11 AM EDT 5 mg midodrine (PROAMATINE) tablet 5 mg 5 mg, oral, 3 times daily before meals, First dose on Wed06/21/25 at 1630, Hold for SBP>110 Given 06/21/2025 4:38 PM EDT 5 mg ondansetron (PF) (ZOFRAN) injection 4 mg 4 mg, intravenous, Every 8 hours PRN, vomiting, nausea, Starting on Wed06/20/25 at 1115, Recovery & On Unit, -ONLY give IV if patient is unable to take orally. -If inadequate response within 30 minutes, proceed to next-line agent or contact provider if no further options ordered. ondansetron ODT (ZOFRAN-ODT) disintegrating tablet 4 mg 4 mg, oral, Every 8 hours PRN, vomiting, nausea, Starting on Wed06/20/25 at 1115, Recovery & On Unit, -Give IV if patient is unable to take orally. -If inadequate response within 30 minutes, proceed to next-line agent or contact provider if no further options ordered. For ODT tablets: -Do not remove from blister pack until just before administering. -Patient should allow tablet to dissolve on tongue. oxyCODONE (ROXICODONE) immediate release tablet 10 mg 10 mg, oral, Every 4 hours PRN, severe pain, Starting on Wed06/20/25 at 1342, Phase II/On Unit Given 06/23/2025 9:06 AM EDT 10 mg Given 06/23/2025 4:06 AM EDT 10 mg Given 06/22/2025 8:16 AM EDT 10 mg oxyCODONE (ROXICODONE) immediate release tablet 5 mg 5 mg, oral, Every 4 hours PRN, moderate pain, Starting on Wed06/20/25 at 1342, Phase II/On Unit Given 06/21/2025 9:20 AM EDT 5 mg pantoprazole (PROTONIX) injection 40 mg 40 mg, intravenous, Administer over 2 Minutes, Every 12 hours, First dose on Wed06/23/25 at 0030, For 72 hours, Pantroprazole - IV push: Reconstitute powder for injection with 10 mL NS; final concentration: 4 mg/mL., Indication for IV Push Pantoprazole? EGD evidence of PUD with stigmata or Upper G.I. Bleed Given 06/23/2025 12:30 PM EDT 40 mg Given 06/23/2025 1:11 AM EDT 40 mg pantoprazole (PROTONIX) injection 80 mg 80 mg, intravenous, Administer over 2 Minutes, Once, On Wed06/22/25 at 1300, For 1 dose, Pantroprazole - IV push: Reconstitute powder for injection with 10 mL NS; final concentration: 4 mg/mL., Indication for IV Push Pantoprazole? EGD evidence of PUD with stigmata or Upper G.I. Bleed Given 06/22/2025 1:09 PM EDT 80 mg polyethylene glycol (MIRALAX) packet 17 g 17 g, oral, Daily, First dose on Wed06/20/25 at 1400, Phase II/On Unit, Bowel Regimen - for prevention of constipation Given 06/22/2025 8:16 AM EDT 17 g Given 06/21/2025 9:08 AM EDT 17 g Given 06/20/2025 2:49 PM EDT 17 g pravastatin (PRAVACHOL) tablet 40 mg 40 mg, oral, Nightly, First dose on Wed06/20/25 at 2100, Phase II/On Unit Given 06/22/2025 9:43 PM EDT 40 mg Given 06/21/2025 8:56 PM EDT 40 mg Given 06/20/2025 8:04 PM EDT 40 mg revefenacin (YUPELRI) 175 mcg/3 mL nebulizer solution 175 mcg 175 mcg, nebulization, Daily, First dose on Wed06/20/25 at 1400, Phase II/On Unit, Therapeutic substitution for TRELEGY ELLIPTA is budesonide neb once daily, formoterol neb twice daily, and revefenacin neb once daily. Given 06/23/2025 7:47 AM EDT 175 mcg Given 06/22/2025 7:21 AM EDT 175 mcg Given 06/21/2025 8:20 AM EDT 175 mcg senna (SENOKOT) tablet 17.2 mg 17.2 mg (2 tablet), oral, Nightly, First dose on Wed06/20/25 at 2100, Recovery & On Unit, Bowel Regimen - for prevention of constipation Given 06/20/2025 8:03 PM EDT 17.2 mg sertraline (ZOLOFT) tablet 50 mg 50 mg, oral, Daily, First dose on Wed06/21/25 at 0900, Phase II/On Unit Given 06/23/2025 9:06 AM EDT 50 mg Given 06/22/2025 8:16 AM EDT 50 mg Given 06/21/2025 9:07 AM EDT 50 mg simethicone (MYLICON) chewable tablet 160 mg 160 mg, oral, 4 times daily PRN, flatulence, indigestion, Starting on Wed06/22/25 at 0844 Given 06/22/2025 9:02 AM EDT 160 mg sodium chloride 0.9 % flush 10 mL 10 mL, intravenous, 2 times daily, First dose on Wed06/20/25 at 1145, Recovery & On Unit Given 06/23/2025 9:07 AM EDT 1 0 mL Given 06/22/2025 10:04 PM EDT 10 mL Given 06/22/2025 9:24 AM EDT 10 mL sodium chloride 0.9 % flush 10 mL 10 mL, intravenous, As needed, line care, Starting on Wed06/20/25 at 1115, Recovery & On Unit sodium chloride 0.9 % infusion 250 mL/hr, intravenous, Once, On Wed06/21/25 at 0645, For 1 dose New Bag 06/21/2025 6:39 AM EDT 250 mL/hr 250 mL/hr sodium chloride 0.9 % infusion 75 mL/hr, intravenous, Continuous, Starting on Wed06/21/25 at 1000, For 6 hours New Bag 06/21/2025 10:12 AM EDT 75 mL/hr 7 5 mL/hr thiamine (VITAMIN B-1) 300 mg in dextrose 5 % 50 mL IVPB 300 mg, intravenous, at 100 mL/hr, Administer over 30 Minutes, Every 24 hours, First dose on Wed06/21/25 at 1600, For 3 doses New Bag 06/22/2025 4:38 PM EDT 300 mg 100 mL/hr New Bag 06/21/2025 4:37 PM EDT 300 mg 100 mL/hr documented in this encounter Active and Recently Administered Medications Times are shown in EDT. Scheduled Medication Order 06/21/2025 06/22/2025 06/23/2025 acetaminophen (TYLENOL) tablet 1,000 mg 1,000 mg, oral, Every 8 hours scheduled, First dose on Wed06/20/25 at 1400, Recovery & On Unit 0609 (Given - Provider: Aric Mendez, WISAM)1417 (Given - Provider: Miriam Benedict, WISAM)2104 (Given - Provider: Kiana Bernardo RN) 0617 (Given - Provider: Kiana Bernardo RN)1310 (Given - Provider: Annie Browne, WISAM)2142 (Given - Provider: Parris Gandhi RN) 0611 (Given - Provider: Parris Gandhi RN)1337 (Given - Provider: Annie Browne RN) budesonide (PULMICORT) 0.5 mg/2 mL nebulizer solution 0.5 mg(Linked Group 1) 0.5 mg, nebulization, Daily, First dose on Wed06/20/25 at 1400, Phase II/On Unit, Rinse mouth with water after use to reduce aftertaste and incidence of candidiasis. Do not swallow. Therapeutic substitution for TRELEGY ELLIPTA is budesonide neb once daily, formoterol neb twice daily, and revefenacin neb once daily. 08 (Given - Provider: Trenton Tang, LG) 0722 (Given - Provider: Nanette Stacy, DATA REDUCTION TECHNICIAN) 0747 (Given - Provider: Favian Robles, CAD PROGRAMMER) docusate sodium (COLACE) capsule 100 mg 100 mg, oral, 2 times daily, First dose on Wed06/20/25 at 1400, Phase II/On Unit 0907 (Given - Provider: Miriam Benedict, RN)2055 (Not Given - Provider: Kiana Bernardo, WISAM - Reason: Patient/Resident/Age nt refused - education provided ) 0816 (Given - Provider: Taylor Cho RN)220 (Not Given - Provider: Parris Gandhi RN - Reason: Patient/Resident/Age nt refused - education provided ) 09 (Not Given - Provider: Annie Browne RN - Reason: Other) enoxaparin (LOVENOX) injection 40 mg 40 mg, subcutaneous, Every 24 hours scheduled, First dose on Wed06/20/25 at 1145, Recovery & On Unit, Indication: VTE/PE Prophylaxis, On hold since Wed06/22/2025 at 1303 until manually unheld 0909 (Given - Provider: Miriam Benedict RN) 0816 (Given - Provider: Taylor Cho RN)1303 (Held by provider - Provider: CASSIDY Villalobos - Reason: Other) 0900 (Not Given - Provider: Annie Browne RN - Reason: Other - Comment: hold by md)1601 (Unheld by provider - Provider: Automatic Discharge Provider) famotidine (PEPCID) tablet 20 mg (CANCELED) 20 mg, oral, Daily, First dose on Wed06/21/25 at 1330 1417 (Given - Provider: Miriam Benedict, RN) 0816 (Given - Provider: Taylor Cho, WISAM) fenofibrate (TRICOR) tablet 145 mg 145 mg, oral, Daily, First dose on Wed06/20/25 at 1400, Phase II/On Unit 0907 (Given - Provider: Miriam Benedict, WISAM) 0816 (Given - Provider: Taylor Cho, WISAM) 0907 (Given - Provider: Annie Browne, WISAM) folic acid (FOLVITE) tablet 1 mg 1 mg, oral, Daily, First dose on Wed06/22/25 at 0900 0816 (Given - Provider: Taylor Cho RN) 0906 (Given - Provider: Annie Browne, WISAM) formoterol (PERFOROMIST) 20 mcg/2 mL nebulizer solution 20 mcg(Linked Group 1) 20 mcg, nebulization, 2 times daily, First dose on Wed06/20/25 at 1400, Phase II/On Unit, Therapeutic substitution for TRELEGY ELLIPTA is budesonide neb once daily, formoterol neb twice daily, and revefenacin neb once daily. 0820 (Given - Provider: Trenton Tang, DATA REDUCTION TECHNICIAN)2003 (Given - Provider: Ángela Smith DATA REDUCTION TECHNICIAN) 07 (Given - Provider: Nanette Stacy, DATA REDUCTION TECHNICIAN)2022 (Given - Provider: Ángela Smith RRT) 07 (Given - Provider: Favian Robles, CAD PROGRAMMER) lisinopriL (PRINIVIL,ZESTRIL) tablet 5 mg 5 mg, oral, Daily, First dose on Wed06/20/25 at 1400, Phase II/On Unit, On hold since Wed06/21/2025 at 0922 until manually unheld 09 (Hold - Provider: Miriam Benedict RN - Reason: See Provider Order - Comment: bp low)0922 (Held by provider - Provider: CASSIDY Villalobos - Reason: Other) 09 (Not Given - Provider: Annie Browne RN - Reason: Other - Comment: hold by ) 09 (Not Given - Provider: Annie Browne RN - Reason: Other - Comment: hold by )1601 (Unheld by provider - Provider: Automatic Discharge Provider) metoprolol succinate (TOPROL-XL) 24 Hour tablet 12.5 mg 12.5 mg, oral, Daily, First dose on Wed06/21/25 at 0900, Phase II/On Unit, Holkd for SBP<110 HR<55 Do not crush or chew. 0921 (Hold - Provider: Miriam Benedict RN - Reason: See Provider Order - Comment: bp low)1425 (Held by provider - Provider: CASSIDY Villalobos - Reason: Other) 0900 (Not Given - Provider: Annie Browne RN - Reason: Other - Comment: hold by ) 0712 (Unheld by provider - Provider: CASSIDY Villalobos)0906 (Given - Provider: Annie Browne, WISAM) midodrine (PROAMATINE) tablet 5 mg (COMPLETED) 5 mg, oral, Once, On Tati 06/21/25 at 1000, For 1 dose 1011 (Given - Provider: Miriam Benedict, WISAM) midodrine (PROAMATINE) tablet 5 mg (CANCELED) 5 mg, oral, 3 times daily before meals, First dose on Tati 06/21/25 at 1630, Hold for SBP>110 1638 (Given - Provider: Miriam Benedict, WISAM) 0814 (Not Given - Provider: Taylor hCo RN - Reason: Order parameters not met - Comment: blood pressure greater than 110)1107 (Not Given - Provider: Annie Browne RN - Reason: Contraindicated) pantoprazole (PROTONIX) injection 40 mg 40 mg, intravenous, Administer over 2 Minutes, Every 12 hours, First dose on Wed06/23/25 at 0030, For 72 hours, Pantroprazole - IV push: Reconstitute powder for injection with 10 mL NS; final concentration: 4 mg/mL., Indication for IV Push Pantoprazole? EGD evidence of PUD with stigmata or Upper G.I. Bleed 0111 (Given - Provider: Parris Gandhi RN)1230 (Given - Provider: Annie Browne RN) pantoprazole (PROTONIX) injection 80 mg (COMPLETED) 80 mg, intravenous, Administer over 2 Minutes, Once, On Wed06/22/25 at 1300, For 1 dose, Pantroprazole - IV push: Reconstitute powder for injection with 10 mL NS; final concentration: 4 mg/mL., Indication for IV Push Pantoprazole? EGD evidence of PUD with stigmata or Upper G.I. Bleed 1309 (Given - Provider: Annie Browne RN) pantoprazole (PROTONIX) injection 80 mg 80 mg, intravenous, Administer over 2 Minutes, Once, On Wed06/22/25 at 1345, For 1 dose, To make up for only 1 vial being pulled from first order instead of 2 Pantroprazole - IV push: Reconstitute powder for injection with 10 mL NS; final concentration: 4 mg/mL., Indication for IV Push Pantoprazole? EGD evidence of PUD with stigmata or Upper G.I. Bleed 1326 (Not Given - Provider: Annie Browne RN - Reason: Other - Comment: dublicate) polyethylene glycol (MIRALAX) packet 17 g 17 g, oral, Daily, First dose on Wed06/20/25 at 1400, Phase II/On Unit, Bowel Regimen - for prevention of constipation 09 (Given - Provider: Miriam Benedict RN) 08 (Given - Provider: Taylor Cho RN) 906 (Not Given - Provider: Annie Browne RN - Reason: Other) pravastatin (PRAVACHOL) tablet 40 mg 40 mg, oral, Nightly, First dose on Wed06/20/25 at 2100, Phase II/On Unit 2055 (Given - Provider: Kiana Bernardo RN) 2142 (Given - Provider: Parris Gandhi, WISAM) revefenacin (YUPELRI) 175 mcg/3 mL nebulizer solution 175 mcg(Linked Group 1) 175 mcg, nebulization, Daily, First dose on Wed06/20/25 at 1400, Phase II/On Unit, Therapeutic substitution for TRELEGY ELLIPTA is budesonide neb once daily, formoterol neb twice daily, and revefenacin neb once daily. 0820 (Given - Provider: Trenton Tang, DATA REDUCTION TECHNICIAN) 0721 (Given - Provider: Nanette Stacy, DATA REDUCTION TECHNICIAN) 0747 (Given - Provider: Favian Robles, CAD PROGRAMMER) senna (SENOKOT) tablet 17.2 mg 17.2 mg (2 tablet), oral, Nightly, First dose on Wed06/20/25 at 2100, Recovery & On Unit, Bowel Regimen - for prevention of constipation 2055 (Not Given - Provider: Kiana Bernardo RN - Reason: Patient/Resident/Age nt refused - education provided ) 2203 (Not Given - Provider: Parris Gandhi RN - Reason: Patient/Resident/Age nt refused - education provided ) sertraline (ZOLOFT) tablet 50 mg 50 mg, oral, Daily, First dose on Wed06/21/25 at 0900, Phase II/On Unit 09 (Given - Provider: Miriam Benedict RN) 0816 (Given - Provider: Taylor Cho RN) 0906 (Given - Provider: Annie Browne, WISAM) sodium chloride 0.9 % flush 10 mL(Linked Group 2) 10 mL, intravenous, 2 times daily, First dose on Wed06/20/25 at 1145, Recovery & On Unit 0908 (Given - Provider: Miriam Benedict, WISAM)2058 (Given - Provider: Kiana Bernardo, WISAM) 0924 (Given - Provider: Annie Browne, WISAM)2204 (Given - Provider: Parris Gandhi, WISAM) 0907 (Given - Provider: Annie Browne RN) sodium chloride 0.9 % infusion (COMPLETED) 250 mL/hr, intravenous, Once, On Tati 06/21/25 at 0645, For 1 dose 0639 (New Bag - Provider: Aric Mendez RN) thiamine (VITAMIN B-1) 300 mg in dextrose 5 % 50 mL IVPB 300 mg, intravenous, at 100 mL/hr, Administer over 30 Minutes, Every 24 hours, First dose on Tati 06/21/25 at 1600, For 3 doses 1637 (New Bag - Provider: Miriam Benedict RN)1726 (Stopped - Provider: Miriam Benedict RN) 1638 (New Bag - Provider: Annie Browne RN)1717 (Stopped - Provider: Annie Browne RN) 1600 (Canceled Entry - Provider: Automatic Discharge Provider - Comment: Automatically canceled at discontinue of medication order) Continuous Medication Order 06/21/2025 06/22/2025 06/23/2025 sodium chloride 0.9 % infusion (CANCELED) 75 mL/hr, intravenous, Continuous, Starting on Tati 06/21/25 at 1000, For 6 hours 1012 (New Bag - Provider: Miriam Benedict RN)1338 (Stopped - Provider: Miriam Benedict RN) PRN Medication Order 06/21/2025 06/22/2025 06/23/2025 albuterol 2.5 mg /3 mL (0.083 %) nebulizer solution 2.5 mg 2.5 mg, nebulization, Every 6 hours PRN, wheezing, Starting on Wed06/20/25 at 1120, Recovery & On Unit bisacodyL (DULCOLAX) EC tablet 10 mg 10 mg, oral, Daily PRN, constipation, Starting on Wed06/20/25 at 1342, Phase II/On Unit, 1st line for treatment of constipation - give scheduled if no bowel movement in past 24 hours. Do not crush, chew, or split. bisacodyL (DULCOLAX) suppository 10 mg 10 mg, rectal, Daily PRN, constipation, Starting on Wed06/20/25 at 1342, Phase II/On Unit, 2nd line for treatment of constipation - give scheduled (in addition to 1st line agent) if no bowel movement in past 48 hours chlordiazePOXIDE (LIBRIUM) capsule 100 mg(Linked Group 3) 100 mg, oral, Every 2 hours PRN, withdrawal, CIWA-Ar GREATER than or EQUAL to 19 AND seizure OR hallucination., Starting on Wed06/20/25 at 2124, Notify provider Re-assess CIWA-Ar in 1 hour Hold dose and notify provider for BP LESS than 90/60, RR LESS than 10 per minute, marked somnolence, pooling of secretions, intoxicated symptoms (ataxia, slurred speech.) Notify provider if 300 mg is given within 24 hours. chlordiazePOXIDE (LIBRIUM) capsule 25 mg(Linked Group 3) 25 mg, oral, Every 2 hours PRN, withdrawal, CIWA-Ar 10-18, Starting on Wed06/20/25 at 2124, Re-assess CIWA-Ar in 1 hour Hold dose and notify provider for BP LESS than 90/60, RR LESS than 10 per minute, marked somnolence, pooling of secretions, intoxicated symptoms (ataxia, slurred speech.) Notify provider if 300 mg is given within 24 hours. chlordiazePOXIDE (LIBRIUM) capsule 50 mg(Linked Group 3) 50 mg, oral, Every 2 hours PRN, withdrawal, CIWA-Ar GREATER than or EQUAL to 19 WITHOUT evidence of seizure or hallucinations, Starting on Wed06/20/25 at 2124, Re-assess CIWA-Ar in 1 hour Hold dose and notify provider for BP LESS than 90/60, RR LESS than 10 per minute, marked somnolence, pooling of secretions, intoxicated symptoms (ataxia, slurred speech.) Notify provider if 300 mg is given within 24 hours. HYDROmorphone (PF) (DILAUDID) injection 0.5 mg () 0.5 mg, intravenous, Every 3 hours PRN, severe breakthrough pain, Starting on Wed06/20/25 at 1115, For 2 days, Recovery & On Unit 0854 (Given - Provider: Taylor Cho, WISAM) ondansetron (PF) (ZOFRAN) injection 4 mg(Linked Group 4) 4 mg, intravenous, Every 8 hours PRN, vomiting, nausea, Starting on Wed06/20/25 at 1115, Recovery & On Unit, -ONLY give IV if patient is unable to take orally. -If inadequate response within 30 minutes, proceed to next-line agent or contact provider if no further options ordered. ondansetron ODT (ZOFRAN-ODT) disintegrating tablet 4 mg(Linked Group 4) 4 mg, oral, Every 8 hours PRN, vomiting, nausea, Starting on Wed06/20/25 at 1115, Recovery & On Unit, -Give IV if patient is unable to take orally. -If inadequate response within 30 minutes, proceed to next-line agent or contact provider if no further options ordered. For ODT tablets: -Do not remove from blister pack until just before administering. -Patient should allow tablet to dissolve on tongue. oxyCODONE (ROXICODONE) immediate release tablet 10 mg 10 mg, oral, Every 4 hours PRN, severe pain, Starting on Wed06/20/25 at 1342, Phase II/On Unit 0211 (Given - Provider: Aric Mendez RN) 0355 (Given - Provider: Kiana Bernardo RN)0816 (Given - Provider: Taylor Cho, WISAM) 0406 (Given - Provider: Parris Gandhi, WISAM)0906 (Given - Provider: Annie Browne RN) oxyCODONE (ROXICODONE) immediate release tablet 5 mg 5 mg, oral, Every 4 hours PRN, moderate pain, Starting on Wed06/20/25 at 1342, Phase II/On Unit 0920 (Given - Provider: Miriam Benedict RN) simethicone (MYLICON) chewable tablet 160 mg 160 mg, oral, 4 times daily PRN, flatulence, indigestion, Starting on Wed06/22/25 at 0844 0902 (Given - Provider: Taylor Cho RN) sodium chloride 0.9 % flush 10 mL(Linked Group 2) 10 mL, intravenous, As needed, line care, Starting on Wed06/20/25 at 1115, Recovery & On Unit Linked Groups Order Group 1: formoterol (PERFOROMIST) 20 mcg/2 mL nebulizer solution 20 mcgJump to med 20 mcg, nebulization, 2 times daily, First dose on Wed06/20/25 at 1400, Phase II/On Unit, Therapeutic substitution for TRELEGY ELLIPTA is budesonide neb once daily, formoterol neb twice daily, and revefenacin neb once daily. And budesonide (PULMICORT) 0.5 mg/2 mL nebulizer solution 0.5 mgJump to med 0.5 mg, nebulization, Daily, First dose on Wed06/20/25 at 1400, Phase II/On Unit, Rinse mouth with water after use to reduce aftertaste and incidence of candidiasis. Do not swallow. Therapeutic substitution for TRELEGY ELLIPTA is budesonide neb once daily, formoterol neb twice daily, and revefenacin neb once daily. And revefenacin (YUPELRI) 175 mcg/3 mL nebulizer solution 175 mcgJump to med 175 mcg, nebulization, Daily, First dose on Wed06/20/25 at 1400, Phase II/On Unit, Therapeutic substitution for TRELEGY ELLIPTA is budesonide neb once daily, formoterol neb twice daily, and revefenacin neb once daily. Group 2: Insert peripheral IV (CANCELED) STAT, Once, On Wed06/20/25 at 1116, For 1 occurrence, Recovery & On Unit And Maintain IV access (CANCELED) Until discontinued, Starting on Wed06/20/25 at 1116, Until Specified, Recovery & On Unit And Saline lock IV (CANCELED) Routine, Once, On Wed06/20/25 at 1116, For 1 occurrence, When tolerating PO fluids, Recovery & On Unit And sodium chloride 0.9 % flush 10 mLJump to med 10 mL, intravenous, 2 times daily, First dose on Wed06/20/25 at 1145, Recovery & On Unit And sodium chloride 0.9 % flush 10 mLJump to med 10 mL, intravenous, As needed, line care, Starting on Wed06/20/25 at 1115, Recovery & On Unit Group 3: chlordiazePOXIDE (LIBRIUM) capsule 25 mgJump to med 25 mg, oral, Every 2 hours PRN, withdrawal, CIWA-Ar 10-18, Starting on Wed06/20/25 at 2125, Re-assess CIWA-Ar in 1 hour Hold dose and notify provider for BP LESS than 90/60, RR LESS than 10 per minute, marked somnolence, pooling of secretions, intoxicated symptoms (ataxia, slurred speech.) Notify provider if 300 mg is given within 24 hours. Or chlordiazePOXIDE (LIBRIUM) capsule 50 mgJump to med 50 mg, oral, Every 2 hours PRN, withdrawal, CIWA-Ar GREATER than or EQUAL to 19 WITHOUT evidence of seizure or hallucinations, Starting on Wed06/20/25 at 2125, Re-assess CIWA-Ar in 1 hour Hold dose and notify provider for BP LESS than 90/60, RR LESS than 10 per minute, marked somnolence, pooling of secretions, intoxicated symptoms (ataxia, slurred speech.) Notify provider if 300 mg is given within 24 hours. Or chlordiazePOXIDE (LIBRIUM) capsule 100 mgJump to med 100 mg, oral, Every 2 hours PRN, withdrawal, CIWA-Ar GREATER than or EQUAL to 19 AND seizure OR hallucination., Starting on Wed06/20/25 at 2125, Notify provider Re- assess CIWA-Ar in 1 hour Hold dose and notify provider for BP LESS than 90/60, RR LESS than 10 per minute, marked somnolence, pooling of secretions, intoxicated symptoms (ataxia, slurred speech.) Notify provider if 300 mg is given within 24 hours. Group 4: ondansetron ODT (ZOFRAN-ODT) disintegrating tablet 4 mgJump to med 4 mg, oral, Every 8 hours PRN, vomiting, nausea, Starting on Wed06/20/25 at 1115, Recovery & On Unit, -Give IV if patient is unable to take orally. -If inadequate response within 30 minutes, proceed to next-line agent or contact provider if no further options ordered. For ODT tablets: -Do not remove from blister pack until just before administering. -Patient should allow tablet to dissolve on tongue. Or ondansetron (PF) (ZOFRAN) injection 4 mgJump to med 4 mg, intravenous, Every 8 hours PRN, vomiting, nausea, Starting on Wed06/20/25 at 1115, Recovery & On Unit, -ONLY give IV if patient is unable to take orally. -If inadequate response within 30 minutes, proceed to next-line agent or contact provider if no further options ordered. documented in this encounter Orders Medications Ordered That Olivier ht Not Have Been Administered Count Last Ordered Date First Ordered Date pantoprazole (PROTONIX) injection 80 mg 1 0 06/22/2025 midodrine (PROAMATINE) tablet 2.5 mg 05/30 albuterol 2.5 mg /3 mL (0.08 3 %) nebulizer solution 2.5 mg 1 06/20/2025 bisacodyL (DULCOLAX) EC tablet 10 mg 05/30 bisacodyL (DULCOLAX) suppository 10 mg bupivacaine-EPINEPHrine (PF) (MARCAINE w/EPI) 0.25 %-1:200,000 injection 06/20/2025 ceFAZolin (ANCEF) 2 g in balaji rile water 20 mL IV syringe 06/20/2025 chlordiazePOXIDE (LIBRIUM) capsule 100 mg 06/20/2025 chlordiazePOXIDE (LIBRIUM) capsule 25 mg 06/20/2025 chlordiazePOXIDE (LIBRIUM) capsule 50 mg 06/20/2025 diphenhydrAMINE (BENADRYL) i njection 12.5 mg 06/20/2025 fentaNYL (PF) (SUBLIMAZE) injection 50 mcg 06/20/2025 haloperidol lactate (HALDOL) injection 1 mg 06/20/2025 HYDROmorphone (PF) (DILAUDID ) injection 0.5 mg 06/20/2025 methylPREDNISolone acetate ( DEPO-Medrol) injection 06/20/2025 ondansetron (PF) (ZOFRAN) injection 4 mg 06/20/2025 ondansetron ODT (ZOFRAN-ODT) disintegrating tablet 4 mg 06/20/2025 oxyCODONE (ROXICODONE) immed iate release tablet 5 mg 1 06/20/2025 sodium chloride 0.9 % flush 10 mL 5 025 Consult Count Last Ordered Date First Orde red Date IP CONSULT TO HOSPITALIST 1 06/20/2025 Respiratory Care Count Last Ordered Date First Ordered Date HOME O2 EVAL (DESATURATION SCREEN) 1 2024 OXYGEN THERAPY, ADULT 1 06/20/2025 PEP THERAPY 5 06/20/2025 Admission Count Last Ordered Date First Orde red Date ADMIT TO INPATIENT 1 06/20/2025 Discharge Count Last Ordered Date First Orde red Date DISCHARGE PATIENT 1 06/23/2025 CORE MEASURES Count Last Ordered Date First Ord ered Date MONITORING DOCUMENTATION 22 06/23/2025 documented in this encounter Care Teams Embryology Professor Relationship Specialty Start Date End Date Yeyo España MD [address] [place] [id number] PCP - General Family Medicine 04/26/25 documented as of this encounter
--- NOTE | 2025-06-28 14:37 | MHC.PC.OV ---
Vital Signs 06/28/25 14:46 Height 5 ft 7 in Weight 133 lb 8 oz BMI 20.9 BP 120/60 Blood Pressure Location Lt brachial Position Sitting Respiration 14 Pulse 80 Pulse Source Pulse Oximeter Temp 98.3 F Temp Source Oral Pulse Oximetry (%) 95 Oxygen Delivery Method Room Air Intake Visit Reasons: BP and medication check Intake Note: patient is scheduled to review b/p and bp medications due to recent fluctuating b/p between highs/lows Client Relations Associate Required: No Allergies No Known Allergies Allergy (Verified 06/28/25 14:39) Medication List - Last Reconciled 06/28/25 by Yeyo España MD albuterol sulfate 1.25 mg inhalation BID PRN albuterol sulfate 90 mcg/actuation (Ventolin HFA) 2 puffs inhalation Q6H PRN alendronate 70 mg PO QWEEK 28 days blood pressure monitor Automatic, Digital. Dx: I10. Daily As directed, 999 days/lifetime blood pressure monitor Automatic, Digital. Dx: I10. Daily As directed, 999 days/lifetime cephalexin 500 mg PO TID fenofibrate 160 mg PO DAILY 30 days dpnlbswjmdj-ovajqvyle-xaylqujl 200-62.5-25 mcg (Trelegy Ellipta) 1 inh inhalation DAILY 90 days ipratropium-albuterol 0.5 mg-3 mg(2.5 mg base)/3 mL 3 mL inhalation Q6H PRN lisinopril 5 mg PO DAILY metoprolol succinate ER 12.5 mg (1/2 x 25 mg) PO BID 90 days naproxen 500 mg PO BID PRN oxycodone 5 mg PO Q6H PRN pantoprazole 40 mg PO DAILY pravastatin 40 mg PO BEDTIME 90 days sertraline 50 mg PO DAILY 90 days triamcinolone acetonide 0.025% 1 appl topical BID 14 days Tobacco use date assessed: 04/03/25 Dental Screening Dental Screen Date: 04/03/25 HPI BP and medication check HPI Details 69 y/o female presents to f/u HTN, chronic conditions. BP today 120/60, 80p. Pt notes she was advised to stop her BP meds - had been off it x2 days. [facility] Medical History Depression COPD (chronic obstructive pulmonary disease) Personal history of nicotine dependence Surgical History History of appendectomy H/O: hysterectomy Hx of cataract surgery History of ileostomy (~2018) History of tonsillectomy History of ankle surgery Family History (Updated 01/30/25 @ 09:00 by LADAN Calix) Brother History of mental health disorder in sibling Liver cancer Social History (Reviewed 04/18/25 @ 10:52 by Erum Rucker [facility]) Household Members: None Housing: House Alcohol intake: current Patient Tobacco Use Status: Former Tobacco user Tobacco use type: Cigarette Years Smoked: (onset 13, 1.5ppd x 47yrs, 60pyh - quit 2015) e-Cigarette/Vaping Use: Never Used Special carmen needs: No service: No Current occupational status: retired Current occupational exposures/hazards: No Cognitive needs: No Hearing needs: No Vision needs: No Questionnaire Thrive Questionnaire Date Thrive assessed: 03/27/25 I am a: Patient What is your living situation today?: I have a steady place to live Within the past 12 months, did the food you bought not last and you didn't have the money to get more?: Never true Within the past 12 months, did you worry whether your food would run out before you got money to buy more?: Never true Do you have trouble paying for medicines?: No Do you have trouble getting transportation to medical appointments?: No Do you have trouble paying your heating and electricity bill?: No Do you have trouble taking care of your child, family member or friend?: No Do you have trouble with day-to-day activities such as bathing, preparing meals, shopping, managing finances, etc.?: No Are you currently unemployed and looking for a job?: No Are you interested in more education?: No Please select the resources that you would like help with: None Currently or been in a relationship where the following occur: No concerns reported THRIVE Score: 0 ALIDA-7 AMB Questionnaire ALIDA-7 Date ALIDA - 7 assessed: 04/03/25 Source: Developed by Drs. Bartolome Geller, Iveth Kaye, Richie Swenson and colleagues, with an educational matilde from [employer]. Review of Systems Const Denies chills, Denies fatigue, Denies fever(s), Denies headache(s) and Denies weakness ENT Denies dizziness and Denies headache(s) Card Denies dyspnea Resp Denies cough, Denies dyspnea, Denies wheezing and Denies other (shortness of breath) Musc Denies numbness and Denies tingling Neuro Denies dizziness, Denies headache(s), Denies numbness, Denies tingling and Denies weakness Psych Denies anxiety and Denies depression Endo Denies fatigue Aller/Immun Denies wheezing Physical exam (Primary Care) Vital Signs: Last Vital Signs Temp 98.3 F 06/28/25 14:46 Pulse 80 06/28/25 14:46 Resp 14 06/28/25 14:46 BP 120/60 06/28/25 14:46 Pulse Ox 95 06/28/25 14:46 Oxygen Delivery Method Room Air 06/28/25 14:46 BMI result Body Mass Index 20.9 Tobacco/Smoking Status: Tobacco use Status Tobacco use date assessed 04/03/25 06/28/25 14:48 Patient Tobacco Use Status Former Tobacco user 06/28/25 14:48 Tobacco use type Cigarette 06/28/25 14:48 e-Cigarette/Vaping Use Never Used 06/28/25 14:48 Thrive Assessment: Date of Thrive Assessment Date Thrive assessed 03/27/25 06/28/25 14:48 Currently or been in a relationship where the following occur: No concerns reported Const General: well developed; No acute distress Nutritional Appearance: well nourished Orientation/consciousness: patient oriented x3 HENMT Head: Yes normocephalic and Yes atraumatic Eyes General: appearance normal, both eyes and all related structures Pupils: Equal, round and reactive pupils present EOM: EOMs intact bilaterally Resp Effort & Inspection: normal respiratory effort Auscultation: clear to auscultation bilaterally Cardio Rate: regular rate Rhythm: regular rhythm Heart sounds: S1 normal heart sound present, S2 normal heart sound present, no gallops, no murmurs and no rubs Neuro General: patient oriented x3 and gait normal Cranial nerves: Yes Equal, round and reactive pupils present Psych Affect: normal affect Coding Level of Care Code Est Pt Level 3 (06846) Diagnoses Hypertension I10 Low vitamin D level R79.89 Assessment & Plan Assessment & Plan (1) Hypertension: Code(s): I10 - Essential (primary) hypertension Category: Medical Plan: Blood pressure 120/60 today. Goal is less than 140/90 Currently on oxycodone for pain control after lung lobectomy Blood pressures may begin to rise when she is not the oxycodone. Start with lisinopril if systolic blood pressure greater than 140 or diastolic pressure greater than 90 and call office Will follow-up again in June as she already has an appointment (2) Low vitamin D level: Code(s): R79.89 - Other specified abnormal findings of blood chemistry Category: Medical Plan: She is taking Viactiv Will recheck vitamin-D level with her next blood draw. Orders: Orders Comprehensive Met. Panel Today I10 - Essential (primary) hypertension Microalbumin, Random (w Creat) Today I10 - Essential (primary) hypertension Vitamin D 25-OH Total Today E55.9 - Vitamin D deficiency, unspecified, R79.89 - Other specified abnormal findings of blood chemistry
[2025-06-28 14:46] VITALS: BP 120/60; PULSE 80; RESP 14; TEMP 36.8; O2SAT 95; BMI 20.9
== END 2025-06-28 15:10 | disposition home or self-care (01) ==
LOC: HO.HMCFM 14:30
PROVIDERS: PCP Family Medicine; Visit Provider Family Medicine
DX: I10 Essential (primary) hypertension (principal); R79.89 Other specified abnormal findings of blood chemistry

== ENCOUNTER → 2025-06-28 14:29 | Outpatient (BNVA) | payer MEDICARE, MEDICAID, SELFPAY | PROVIDERS: PCP Family Medicine; Visit Provider Family Medicine | DX: I10 Essential (primary) hypertension (principal); R79.89 Other specified abnormal findings of blood chemistry | CPT/HCPCS: 99212 ==

== ENCOUNTER 2025-07-02 14:44 | Outpatient (REF) | payer MEDICARE, MEDICAID, SELFPAY ==
[2025-07-02 18:07] LABS: Alanine Aminotransferase 13 U/L (0-31); Albumin Level 3.8 g/dL (3.5-5.0); Alkaline Phosphatase 65 U/L (39-117); Anion Gap 12 (12-20); Aspartate Amino Transferase 19 U/L (5-31); Blood Urea Nitrogen 9 mg/dL (9-16); Calcium 9.0 mg/dL (8.4-10.2); Carbon Dioxide 25 mmol/L (22-29); Chloride 106 mmol/L (96-108); Estimated Glomerular Filt Rate 58; Potassium 4.3 mmol/L (3.3-5.1); Sodium 139 mmol/L (135-145); Total Protein 6.9 g/dL (6.5-8.0)
== END 2025-07-02 14:45 | disposition home or self-care (01) ==
LOC: HO.WFDLDS 14:44
PROVIDERS: Visit Provider Family Medicine
DX: I10 Essential (primary) hypertension (principal); E55.9 Vitamin D deficiency, unspecified; R79.89 Other specified abnormal findings of blood chemistry
CPT/HCPCS: 36415; 80053; 82306

== ENCOUNTER 2025-07-05 09:30 | Outpatient (AMB) | payer MEDICARE, MEDICAID, SELFPAY ==
--- NOTE | 2025-07-05 09:34 | MHC.PC.OV ---
Vital Signs 07/05/25 09:40 Height 5 ft 7 in Weight 134 lb 8 oz BMI 21.1 BP 132/70 Blood Pressure Location Rt brachial Position Sitting Respiration 15 Pulse 85 Pulse Source Pulse Oximeter Temp 97.7 F Temp Source Temporal Artery Scan Pulse Oximetry (%) 95 Oxygen Delivery Method Room Air Intake Visit Reasons: f/u HTN, chronic conditions Intake Note: Mica presents in the office today for hypertension and other chronic conditions. Allergies No Known Allergies Allergy (Verified 07/05/25 09:37) Tobacco use date assessed: 07/05/25 Dental Screening Dental Screen Date: 07/05/25 Did you have a dental visit in the last 12 months?: No Did you have a dental problem in the last 6 months where you did not have access to dental care?: No Was dental information given to patient?: Patient has dentist HPI f/u HTN, chronic conditions HPI Details 69 y/o female presents to .u HTN, chronic conditions. BP today 132/70, 85p. She is on lisinopril 5mg, metoprolol 12.5mg b.i.d. Vitamin D level improved to 29.5. [facility] Medical History Depression COPD (chronic obstructive pulmonary disease) Personal history of nicotine dependence Surgical History History of appendectomy H/O: hysterectomy Hx of cataract surgery History of ileostomy (~2018) History of tonsillectomy History of ankle surgery Family History Brother History of mental health disorder in sibling Liver cancer Social History (Updated 07/05/25 @ 09:39 by Charmaine Christina MA) Household Members: None Housing: House Alcohol intake: current Patient Tobacco Use Status: Former Tobacco user Tobacco use type: Cigarette Years Smoked: (onset 13, 1.5ppd x 47yrs, 60pyh - quit 2015) e-Cigarette/Vaping Use: Never Used Second Hand Smoke Exposure: No Use of substances other than those prescribed or required for medical reasons: No Special carmen needs: No service: No Current occupational status: retired Current occupational exposures/hazards: No Cognitive needs: No Hearing needs: No Vision needs: No Questionnaire Thrive Questionnaire Date Thrive assessed: 03/27/25 I am a: Patient What is your living situation today?: I have a steady place to live Within the past 12 months, did the food you bought not last and you didn't have the money to get more?: Never true Within the past 12 months, did you worry whether your food would run out before you got money to buy more?: Never true Do you have trouble paying for medicines?: No Do you have trouble getting transportation to medical appointments?: No Do you have trouble paying your heating and electricity bill?: No Do you have trouble taking care of your child, family member or friend?: No Do you have trouble with day-to-day activities such as bathing, preparing meals, shopping, managing finances, etc.?: No Are you currently unemployed and looking for a job?: No Are you interested in more education?: No Please select the resources that you would like help with: None Currently or been in a relationship where the following occur: No concerns reported THRIVE Score: 0 ALIDA-7 AMB Questionnaire ALIDA-7 Date ALIDA - 7 assessed: 04/03/25 Source: Developed by Drs. Bartolome Geller, Iveth Kaye, Richie Swenson and colleagues, with an educational matilde from [employer]. Review of Systems Const Denies chills, Denies fatigue, Denies fever(s), Denies headache(s) and Denies weakness ENT Denies dizziness and Denies headache(s) Card Denies chest pain, Denies lightheadedness, Denies dyspnea and Denies other (Palpitations) Resp Denies cough, Denies dyspnea, Denies wheezing and Denies other ( shortness of breath) Musc Denies numbness and Denies tingling Neuro Denies dizziness, Denies headache(s), Denies numbness, Denies tingling, Denies paresthesias and Denies weakness Psych Denies anxiety and Denies depression Endo Denies fatigue Aller/Immun Denies wheezing Physical exam (Primary Care) Vital Signs: Last Vital Signs Temp 97.7 F 07/05/25 09:40 Pulse 85 07/05/25 09:40 Resp 15 07/05/25 09:40 BP 132/70 07/05/25 09:40 Pulse Ox 95 07/05/25 09:40 Oxygen Delivery Method Room Air 07/05/25 09:40 BMI result Body Mass Index 21.1 Tobacco/Smoking Status: Tobacco use Status Tobacco use date assessed 07/05/25 07/05/25 09:42 Patient Tobacco Use Status Former Tobacco user 07/05/25 09:39 Tobacco use type Cigarette 07/05/25 09:39 e-Cigarette/Vaping Use Never Used 07/05/25 09:39 Thrive Assessment: Date of Thrive Assessment Date Thrive assessed 03/27/25 07/05/25 09:36 Currently or been in a relationship where the following occur: No concerns reported Const General: no acute distress and well developed Nutritional Appearance: well nourished Orientation/consciousness: patient oriented x3 HENMT Head: Yes normocephalic and Yes atraumatic Eyes General: appearance normal, both eyes and all related structures Pupils: Equal, round and reactive pupils present EOM: EOMs intact bilaterally Resp Effort & Inspection: normal respiratory effort Auscultation: clear to auscultation bilaterally Cardio Rate: regular rate Rhythm: regular rhythm Heart sounds: S1 normal heart sound present, S2 normal heart sound present, no gallops, no murmurs and no rubs Neuro General: patient oriented x3 and gait normal Cranial nerves: Yes Equal, round and reactive pupils present Psych Affect: normal affect Coding Level of Care Code Est Pt Level 4 (34048) Diagnoses Hypertension I10 Low vitamin D level R79.89 COPD (chronic obstructive pulmonary disease) J44.9 Assessment & Plan Assessment & Plan (1) Hypertension: Code(s): I10 - Essential (primary) hypertension Category: Medical Plan: Blood pressure in prehypertensive range of her medications. She is monitoring blood pressures at home If blood pressures are increasing she will resume lisinopril and let know. (2) Low vitamin D level: Code(s): R79.89 - Other specified abnormal findings of blood chemistry Category: Medical Plan: Vitamin-D level has improved significantly. She does have a history of osteoporosis and she is on alendronate Continue Viactiv with D She can also use a multivitamin Will recheck vitamin-D levels in wintertime (3) COPD (chronic obstructive pulmonary disease): Code(s): J44.9 - Chronic obstructive pulmonary disease, unspecified Category: Medical Plan: COPD and reason history of lobectomy Patient notes that she is breathing comfortably today. Her lungs are clear. She has an upcoming appointment with her thoracic surgeon today. She has not when with pulmonology later this month
[2025-07-05 09:40] VITALS: BP 132/70; PULSE 85; RESP 15; TEMP 36.5; O2SAT 95; BMI 21.1
== END 2025-07-05 09:59 | disposition home or self-care (01) ==
LOC: HO.HMCFM 09:31
PROVIDERS: PCP Family Medicine; Visit Provider Family Medicine
DX: I10 Essential (primary) hypertension (principal); R79.89 Other specified abnormal findings of blood chemistry; J44.9 Chronic obstructive pulmonary disease, unspecified

== ENCOUNTER → 2025-07-05 09:30 | Outpatient (BNVA) | payer MEDICARE, MEDICAID, SELFPAY | PROVIDERS: PCP Family Medicine; Visit Provider Family Medicine | DX: I10 Essential (primary) hypertension (principal); R79.89 Other specified abnormal findings of blood chemistry; J44.9 Chronic obstructive pulmonary disease, unspecified | CPT/HCPCS: 99212 ==

== ENCOUNTER → 2025-07-13 23:59 | Outpatient (BNV) | payer MEDICARE, MEDICAID, SELFPAY | PROVIDERS: PCP Family Medicine; Visit Provider Family Medicine | DX: C34.32 Malignant neoplasm of lower lobe, left bronchus or lung (principal); J44.9 Chronic obstructive pulmonary disease, unspecified; I95.0 Idiopathic hypotension | CPT/HCPCS: G0180 ==

== ENCOUNTER 2025-07-18 10:52 | Outpatient (AMB) | payer MEDICARE, MEDICAID, SELFPAY ==
--- NOTE | 2025-07-18 10:55 | MHC.OFFVIS ---
Vital Signs 07/18/25 10:56 Height 5 ft 7 in Weight 135 lb 4 oz BMI 21.2 BP 124/56 L Blood Pressure Location Rt brachial Position Sitting Pulse 73 Pulse Source Pulse Oximeter Pulse Oximetry (%) 93 Oxygen Delivery Method Room Air Intake Visit Reasons: COPD Allergies No Known Allergies Allergy (Verified 07/18/25 10:57) HPI HPI COPD: Details: Mica is a pleasant 69 year old female, former 47 pack year smoker, quit 2016, with underlying severe COPD, FEV1 26 and recent dx of adenocarcinoma of lung. ?She has been using Trelegy and Duoneb PRN with suboptimal effect. Patient was trialed on Brovana with minimal effect and could not tolerate Daliresp. ?She continues to report dyspnea on exertion, chest tightness and intermittent wheezing. ?She has been using supplemental oxygen, 2 L with exertion maintaining O2 greater than 92% however does not use consistently and uses 2 L supplemental oxygen at [facility]. ?Previous chest CT revealed left lower lobe spiculated semi solid nodule that increased in size from July 2024 to November 2024 scan. ?She had repeat scan in February which revealed stability of nodule however previously discussed concerning characteristics of nodule. Patient was in agreement to referral to Dr. Donnelly, thoracic, and underwent biopsy which revealed adenocarinoma. Ultimately patient underwent LLL superior segmentectomy on 06/20 and will be following with thoracic for further imaging follow up. She reports recovering well, moderate incisional discomfort and continues with dyspnea on exertion. Today she is not wearing supplemental oxygen but endorses use at home. [facility] Medical History Depression COPD (chronic obstructive pulmonary disease) Personal history of nicotine dependence Surgical History History of appendectomy H/O: hysterectomy Hx of cataract surgery History of ileostomy (~2018) History of tonsillectomy History of ankle surgery Family History Brother History of mental health disorder in sibling Liver cancer Social History Household Members: None Housing: House Alcohol intake: current Patient Tobacco Use Status: Former Tobacco user Tobacco use type: Cigarette Years Smoked: (onset 13, 1.5ppd x 47yrs, 60pyh - quit 2016) e-Cigarette/Vaping Use: Never Used Second Hand Smoke Exposure: No Special carmen needs: No service: No Current occupational status: retired Current occupational exposures/hazards: No Cognitive needs: No Hearing needs: No Vision needs: No Review of Systems Const Denies chills, Denies excessive sweating, Denies fever(s), Denies headache(s) and Denies night sweats Eyes Denies dry eyes, Denies irritation and Denies itchy eyes ENT Reports Normal hearing present and Denies headache(s) Card Denies chest pain, Denies chest pain at rest, Denies chest pain with activity, Denies leg edema, Reports dyspnea on exertion, Denies orthopnea and Denies paroxysmal nocturnal dyspnea Resp Denies hemoptysis, Denies pain on inspiration, Denies pain with cough, Reports dyspnea on exertion and Denies stridor Musc Denies myalgias Neuro Reports Normal hearing present and Denies headache(s) Endo Denies excessive sweating Ramiro/Lymph Denies lymphadenopathy Aller/Immun Denies itchy eyes and Denies seasonal rhinorrhea Physical Exam Vital Signs: Last Vital Signs Pulse 73 07/18/25 10:56 BP 124/56 L 07/18/25 10:56 Pulse Ox 93 07/18/25 10:56 Oxygen Delivery Method Room Air 07/18/25 10:56 BMI result Body Mass Index 21.2 Const General: cooperative, no acute distress and alert Nutritional Appearance: thin Orientation/consciousness: patient oriented x3 Limitations: no limitations HEENT Head: Yes normal to inspection, Yes normocephalic and Yes atraumatic Ears: hearing grossly normal bilaterally and external ears normal Eyes General: appearance normal, both eyes and all related structures Eyelids: Yes eyelids normal Sclerae: sclerae normal EOM: EOMs intact bilaterally Neck Neck: Yes normal visual inspection and Yes no lymphadenopathy Lymphatic: no lymphadenopathy noted Chest Chest palpation & inspection: normal inspection of the chest Resp Effort & Inspection: able to speak in complete sentences, no audible wheezes, no cough, no stridor and prolonged expiratory phase Auscultation: no crackles, no rhonchi, no wheezes and diminished lung sounds Cardio Jugular venous distension: no JVD Rate: regular rate Rhythm: regular rhythm Skin Other: warm, dry General skin exam: no rashes or lesions noted Neuro General: patient oriented x3 Cranial nerves: Yes Normal hearing present Cognition (Neuro): normal cognition Gait exam (Neuro): Normal gait present Extrem General: Yes normal to inspection, Yes capillary refill normal, Yes no clubbing, cyanosis or edema and Yes no pedal edema Psych Appearance: grossly normal and well kempt Speech and movement: Normal speech and movement present and Clear speech present Affect: normal affect Attitude: cooperative Thought process: Normal thought process present Thought content: Normal thought content present Insight: Good insight present (Psych) Judgement: Good judgement present (Psych) Assessment & Plan Assessment & Plan (1) Adenocarcinoma, lung: Code(s): C34.90 - Malignant neoplasm of unspecified part of unspecified bronchus or lung Category: Medical (2) Status post lung surgery: Code(s): Z98.890 - Other specified postprocedural states Category: Surgical (3) COPD (chronic obstructive pulmonary disease): Code(s): J44.9 - Chronic obstructive pulmonary disease, unspecified Category: Medical (4) Multiple pulmonary nodules: Code(s): R91.8 - Other nonspecific abnormal finding of lung field Category: Medical Plan Since the last visit Mica underwent LLL superior segmentectomy on 06/[address] Donnelly and has been recovering well from surgery. She continues with dyspnea on exertion despite Trelegy and DuoNeb PRN, previously trialed alternative medications with suboptimal effect. Will send in Combivent PRN. She is aware to call if symptoms do not improve, Discussed importance of using supplemental oxygen with any exertion and to continue use 2L NOC. Will schedule 6MWT to assess for any increased need of supplemental oxygen s/p surgery. She will follow with thoracic for serial chest CT for recent adenocarcinoma. All questions were answered and patient is in agreement of plan. Will follow up in 6-8 weeks or sooner if needed. Medications: New ipratropium-albuterol 20-100 mcg/actuation (Combivent Respimat) 1 puff inhalation Q6H 4 grams 6RF Coding Level of Care Code Est Pt Level 4 (96896) Diagnoses Adenocarcinoma, lung C34.90 Status post lung surgery Z98.890 COPD (chronic obstructive pulmonary disease) J44.9 Multiple pulmonary nodules R91.8
[2025-07-18 10:56] VITALS: BP 124/56; PULSE 73; O2SAT 93; BMI 21.2
== END 2025-07-18 11:21 | disposition home or self-care (01) ==
LOC: HO.HPSW 10:52
PROVIDERS: PCP Family Medicine; Visit Provider Nurse Practitioner Family
DX: C34.90 Malignant neoplasm of unspecified part of unspecified bronchus or lung (principal); Z98.890 Other specified postprocedural states; J44.9 Chronic obstructive pulmonary disease, unspecified; R91.8 Other nonspecific abnormal finding of lung field
CPT/HCPCS: 99214

== ENCOUNTER → 2025-07-18 10:52 | Outpatient (BNVA) | payer MEDICARE, MEDICAID, SELFPAY | PROVIDERS: PCP Family Medicine; Visit Provider Nurse Practitioner Family | DX: C34.90 Malignant neoplasm of unspecified part of unspecified bronchus or lung (principal); R91.8 Other nonspecific abnormal finding of lung field; J44.9 Chronic obstructive pulmonary disease, unspecified; Z98.890 Other specified postprocedural states | CPT/HCPCS: 99212 ==

== ENCOUNTER → 2025-08-30 10:45 | Outpatient (BNVA) | payer MEDICARE, MEDICAID, SELFPAY | PROVIDERS: PCP Family Medicine; Visit Provider Nurse Practitioner Family | DX: J44.9 Chronic obstructive pulmonary disease, unspecified (principal); Z87.891 Personal history of nicotine dependence | CPT/HCPCS: 94618 ==

== ENCOUNTER → 2025-08-30 10:45 | Outpatient (AMB) | payer MEDICARE, MEDICAID, SELFPAY ==
--- NOTE | 2025-08-30 11:09 | MHC.OFFVIS ---
Intake Visit Reasons: 6MWT Allergies No Known Allergies Allergy (Verified 07/18/25 10:57) [facility] Medical History Depression COPD (chronic obstructive pulmonary disease) Personal history of nicotine dependence Surgical History History of appendectomy H/O: hysterectomy Hx of cataract surgery History of ileostomy (~2018) History of tonsillectomy History of ankle surgery Family History Brother History of mental health disorder in sibling Liver cancer Social History Household Members: None Housing: House Alcohol intake: current Patient Tobacco Use Status: Former Tobacco user Tobacco use type: Cigarette Years Smoked: (onset 13, 1.5ppd x 47yrs, 60pyh - quit 2015) e-Cigarette/Vaping Use: Never Used Second Hand Smoke Exposure: No Special carmen needs: No service: No Current occupational status: retired Current occupational exposures/hazards: No Cognitive needs: No Hearing needs: No Vision needs: No Office Procedures 6 Minute Walk Time:: 10:55 SPO2 % at rest: 97 Pulse at rest: 84 SPO2 % during excercise: 88 Pulse during excercise: 104 SPO2 % after excercise: 96 Pulse after excercise: 92 Distance in yards walked: 200 Yvonne Score: 7 Performance Observations:: Patient walked unassisted on level ground at moderate pace. After 3.5 minutes O2 saturation dropped to 88% with pulse of 104.Rested and O2 applied at 1L with not much change. O2 2L with O2 sat increased to 95% and pulse 104. Patient maintained that O2 sat for the remainder of walk with pulse of 96-104. Patient did benefit from supplemental oxygen. [id number] - 6 Minute Walk Assessment & Plan Assessment & Plan (1) COPD (chronic obstructive pulmonary disease): Code(s): J44.9 - Chronic obstructive pulmonary disease, unspecified Category: Medical Plan nurse visit for 6MWT Orders: Orders AMB 6 minute walk 08/30/25 J44.9 - Chronic obstructive pulmonary disease, unspecified, Z98.890 - Other specified postprocedural states Coding Level of Care Code Procedure Only Diagnoses COPD (chronic obstructive pulmonary disease) J44.9 CPT Codes Coding ([id number])
[2025-08-30 11:16] VITALS: PULSE 84; O2SAT 97
--- OUTSIDE RECORDS SUMMARY | 2025-08-30 12:36 | XMS_ITS | Clinical Summary ---
Author Organization [facility] [address] [facility] Address [address] [place] [address] Phone Care Team Providers Care Shade Hanger Name Role Phone Yeyo España MD Primary Care Provider Allergies No known active allergies Medications albuterol HFA (PROAIR HFA ; PROVENTIL HFA ; VENTOLIN HFA) 90 mcg/actuation inhaler USE 2 PUFFS EVERY 6 HOURS NEEDED FOR FOR WHEEZING 5 Active alendronate (FOSAMAX) 70 mg tablet 70 MG ORALLY EVERY WEEK FOR 28 DAYS 5 Active fenofibrate (LOFIBRA) 160 mg tablet Take 1 tablet (160 mg total) by mouth 1 (one) time each day. 5 Active metoprolol succinate (TOPROL-XL) 25 mg 24 hr tablet TAKE 12.5 MG (1/2 X 25 MG) ORALLY DAILY FOR 90 DAYS 5 Active pravastatin (PRAVACHOL) 40 mg tablet Take 1 tablet (40 mg total) by mouth. at bedtime. 5 Active triamcinolone (KENALOG) 0.025 % cream 1 APPL TOPICALLY 2 TIMES A DAY FOR 14 DAYS 5 Active sertraline (ZOLOFT) 50 mg tablet Take 1 tablet (50 mg total) by mouth 1 (one) time each day. 5 Active Oxygen Therapy, Adult Inhale 2 each 1 (one) time each day. prn Active lisinopriL (PRINIVIL,ZESTR IL) 5 mg tablet Take 1 tablet (5 mg total) by mouth 1 (one) time each day. 30 each 5 05/28/20 Active Additional Information Patient not taking.Reported on 07/04/2025 fluticasone-ume clidinium-vilan terol (TRELEGY ELLIPTA) 100-62.5-25 mcg inhaler Inhale 1 puff (100 mcg total) by mouth 1 (one) time each day. Rinse mouth with water after use to reduce aftertaste and incidence of candidiasis. Do not swallow. Active pantoprazole (PROTONIX) 40 mg EC tablet Take 1 tablet (40 mg total) by mouth 1 (one) time each day before breakfast. Do not crush, chew, or split. 30 each 5 06/23/20 Active mesalamine (CANASA) 1,000 mg suppositoryIndi cations:Ulcerat michelle proctitis with rectal bleeding ([facility] V24, CMS/[facility] V28) Insert 1 suppository (1,000 mg total) into the rectum at bedtime. 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 Recommend restarting canasa suppositories nightly. Examined ostomy output, brown stool today. Possible dark melena output while hospitalized. Patient denies a history of melena. Continue PPI as directed. Patient is currently not a candidate for further evaluation with EGD or flexible sigmoidoscopy. Will reassess symptoms after 1-2 months of canasa suppositories. Orders: Ambulatory referral to Gastroenterology mesalamine (CANASA) 1,000 mg suppository; Insert 1 suppository (1,000 mg total) into the rectum at bedtime. Use as directed H/O total colectomy 07/04/2025 H/O ileostomy 07/04/2025 GERD (gastroesophageal reflux disease) Chest tube in place 06/26/2025 Assessment & Plan (07/05/2025 3:50 PM EDT): The patient has no airleak on today's exam. She has only put out about 100 cc of serous drainage over the past several days. Overall her subcutaneous emphysema has significantly improved since I saw her last week. Chest x-ray today shows a stable trace left apical pneumothorax. The patient's 1 left-sided chest tube was removed without difficulty at time of this visit. An occlusive dressing was placed over the site. The patient tolerated this well. The patient is educated to keep this dressing in place, untouched, for 48 hours. She is told that should this dressing becomes saturated prior to removal that she is to reinforce it only, and not take it off until Wednesday. She is educated she may remove this dressing on 07/07/2025 and leave it open to air if there is no drainage. If there is ongoing drainage she can place a new dressing and change it at least daily until the drainage stops. She may shower once the dressing is removed on Wednesday. Will set the patient up for a wound check in 2 weeks to ensure adequate healing. I have read prescribed her antibiotics for another few days as she did have some mild amount of blanching erythema around the insertion site. Assessment & Plan (07/02/2025 2:25 PM EDT): Ms. Stroud is a 69-year-old female who had a robotic left lower lobe superior segmentectomy on June 20, 2025. During her hospitalization she had a self- limited upper GI bleed of which she is seeing GI next week for. She was also noted to have some hypotension initially requiring holding of her home medications, as well as an ongoing air leak requiring discharge with chest tube. Postoperative pathology reveals a stage IA3 (pT1c, pN0) invasive micropapillary adenocarcinoma. Prolonged air leak Patient continues to have an air leak at the time of today's visit. She has no increasing shortness of breath and subcutaneous emphysema noted previously unchanged. She does not have any respiratory instability or shortness of breath at this time. Chest x-ray today showing stable appearance of PTX as well subcutaneous emphysema. Will continue chest tube to atrium with plans to follow up with the patient on for an additional chest tube check and x-ray. Patient was educated that should she have any significantly increasing subcutaneous emphysema or shortness of breath that she should call our office, or if significant go to the emergency department, prior to her follow-up visit. Patient was educated to continue takin her prophylactic antibiotics as instructed. Assessment & Plan (06/26/2025 12:07 PM EDT): Ms. Stroud is a 69-year-old female who had a robotic left lower lobe superior segmentectomy on June 20, 2025. Postoperative pathology is still pending at time of this visit. During her hospitalization she had a self-limited upper GI bleed of which she is seeing GI next week for. She was also noted to have some hypotension initially requiring holding of her home medications, as well as an ongoing air leak requiring discharge with chest tube. Prolonged airleak Patient continues to have an air leak at time of this visit. She also has some slight increasing subcutaneous emphysema on exam when compared to when she was discharged home. She does not have any respiratory instability or shortness of breath at present time. Chest tube remains in place and she will be seen on Wednesday for an additional chest tube check with chest x-ray. I educated the patient that should she have any significantly increasing subcutaneous emphysema or shortness of breath that she should call our office, or if significant go to the emergency department, prior to her follow-up visit. I also educated her to continue on her prophylactic antibiotics. Hypotension 06/26/2025 Assessment & Plan (06/26/2025 12:08 PM EDT): Patient with hypotension at today's visit. She did have 1 episode of dizziness and lightheadedness which happened while sitting in the middle of our exam. Patient did have a positive orthostatic blood pressure when going from sitting to standing, however the patient was asymptomatic at that time. Most likely this is secondary to the patient's home medications which include metoprolol and lisinopril. She also has been taking oxycodone intermittently and did take it this morning. Prior to the patient leaving this office she had no dizziness or lightheadedness and was able to ambulate without difficulty. I will have my office reach out to the patient's primary care physician to attempt an earlier appointment for blood pressure check. I educated the patient to hold off on her antihypertensives at this time until she is seen by her PCP, and to take her blood pressure at least twice a day at home. Pre-op evaluation 05/28/2025 Assessment & Plan (05/28/2025 5:33 PM EDT): She does not have symptoms to suggest angina. Due to urgency of the surgery, I will not pursue ischemia workup. Her blood pressure is elevated and we need to have a better control her BP. I will add a low-dose lisinopril and the dosage can be increased. We need to target systolic blood pressure around 130. Will like to schedule echocardiogram. Hypertension 05/28/2025 Assessment & Plan (05/28/2025 5:33 PM EDT): She drink alcohol quite heavily. We discussed about alcohol and hypertension. I strongly suggest her to quit alcohol. Orders: ECG 12 lead Malignant neoplasm of lower lobe of left lung (CMS/HCC V24, CMS/HCC V28) 05/24/2025 Assessment & Plan (07/17/2025 3:58 PM EDT): Ms. Stroud is a 69 y.o. female who had a robotic left lower lobe superior segmentectomy on June 20, 2025 for stage IA3 micropapillary adenocarcinoma. It was discussed with the patient about the recommendation to be referred to medical oncology for discussion regarding adjuvant treatment given a sublobar resection and a poorly differentiated adenocarcinoma, but at this time the patient declines the referral. She will continue to follow up in our office for routine surveillance screening, the next due in November 2025. The patient appears to be healing well following surgery. Her incisional sites are healing well as well. Chest x-ray today shows At this point we will proceed with lung cancer surveillance which include chest CT scans every 6 months for the first 2 years followed by annual scan thereafter. Will plan on seeing the patient in the office as part of her surveillance protocol after each scan for review and to perform a physical exam. Patient is told to call the office should she have any questions or concerns prior to that time. Assessment & Plan (07/05/2025 3:48 PM EDT): Ms. Stroud is a 69-year-old female who had a robotic left lower lobe superior segmentectomy on June 20, 2025 for a stage IA3 micropapillary adenocarcinoma. I will be referring the patient to medical oncology for discussion regarding adjuvant treatment given a sublobar resection and a poorly differentiated adenocarcinoma. Will follow-up on this conversation. The patient already has a CT ordered for November 2025. Assessment & Plan (06/29/2025 10:34 AM EDT): Ms. Stroud is a 69-year-old female who had a robotic left lower lobe superior segmentectomy on June 20, 2025. During her hospitalization she had a self- limited upper GI bleed of which she is seeing GI next week for. She was also noted to have some hypotension initially requiring holding of her home medications, as well as an ongoing air leak requiring discharge with chest tube. Postoperative pathology reveals a stage IA3 (pT1c, pN0) invasive micropapillary adenocarcinoma. Prolonged air leak Patient continues to have an air leak at the time of today's visit. She has no increasing shortness of breath and subcutaneous emphysema noted previously unchanged. She does not have any respiratory instability or shortness of breath at this time. Chest x-ray today showing stable appearance of PTX as well subcutaneous emphysema. Will continue chest tube to atrium with plans to follow up with the patient on Wednesday for an additional chest tube check and x-ray. A purse-string suture was placed today around her chest tube insertion site, secured to the chest tube to help decrease drainage from this site. Patient was educated that should she have any significantly increasing subcutaneous emphysema or shortness of breath that she should call our office, or if significant go to the emergency department, prior to her follow-up visit. Patient was educated to continue takin her prophylactic antibiotics as instructed. Stage IA3 lung cancer Patient's pathology was discussed at length during this visit. She does not require any adjuvant treatment given the stage of her cancer. Her case will be presented at our multidisciplinary thoracic tumor board conference on Wednesday to ensure no different recommendations from the team. I educated her on typical surveillance protocol which includes CT chest every 6 months for the first 2 years followed by annual CTs. I will arrange for her first chest CT to be done in November 2025. The patient will have a follow-up visit in the office after each of his CTs. Assessment & Plan (05/28/2025 12:07 PM EDT): Orders: Ambulatory referral to Cardiology Assessment & Plan (05/24/2025 1:16 PM EDT): Ms. Stroud is a 69-year-old female who was noted to have a growing mixed groundglass/solid nodule in the superior segment [...] the patient's most recent pulmonology notes from [facility] for review. Risks and benefits were [...] also need cardiac clearance prior to surgery. COPD (chronic obstructive pu lmonary disease) (CMS/HCC V24, CMS/HCC V28) 04/26/2025 Encounters Date Type Department Care Team Description 07/19/2025 11:16 AM EDT - 07/19/2025 11:59 PM EDT Hospital Encounter [facility] Xray [address] [place] [address] Malignant neoplasm of lower lobe of left lung (CMS/HCC V24, CMS/HCC V28) Discharge Disposition: Home or Self Care 07/19/2025 Telephone Thoracic Surgery - [place] [phone] Brandi Saravia MA 07/17/2025 3:30 PM EDT Office Visit Thoracic Surgery [address] [phone] Ngoc Chandra, JAZMIN Malignant neoplasm of lower lobe of left lung ([facility] V24, [facility] V28) (Primary Dx) 07/05/2025 2:00 PM EDT Office Visit Thoracic Surgery [address] [address] Herlinda Gonzalez PA Chest tube in place (Primary Dx); Malignant neoplasm of lower lobe of left lung ([facility]/HCC V24, [facility] V28) 07/05/2025 1:27 PM EDT - 07/05/2025 11:59 PM EDT Hospital Encounter [facility] Xray [address] [place] [address] Discharge Disposition: Home or Self Care 07/04/2025 11:00 AM EDT Consult Gastroenterology - [address] [place] [phone] Patricia Gil PA Ulcerative proctitis with rectal bleeding ([facility] V24, [facility] V28) (Primary Dx) 07/02/2025 10:00 AM EDT Office Visit Thoracic [address] [address] Ngoc Chandra NP Chest tube in place (Primary Dx) 07/02/2025 9:37 AM EDT - 07/02/2025 11:59 PM EDT Hospital Encounter [facility] Xray [address] [place] [address] Malignant neoplasm of lower lobe of left lung ([facility] V24, [facility] V28); Chest tube in place Discharge Disposition: Home or Self Care 06/29/2025 10:00 AM EDT Office Visit Thoracic Surgery [address] [address] Ngoc Chandra NP Malignant neoplasm of lower lobe of left lung (CMS/HCC V24, CMS/HCC V28) (Primary Dx); Chest tube in place 06/29/2025 9:20 AM EDT - 06/29/2025 11:59 PM EDT Hospital Encounter [facility] Xray [address] [place] [phone] Malignant neoplasm of lower lobe of left lung (CMS/HCC V24, CMS/HCC V28); Chest tube in place Discharge Disposition: Home or Self Care 06/26/2025 10:00 AM EDT Office Visit Thoracic Surgery - [place] [address] [facility] [address] [phone] Herlinda Gonzalez PA Chest tube in place (Primary Dx); Malignant neoplasm of lower lobe of left lung (CMS/HCC V24, CMS/HCC V28); Hypotension, unspecified hypotension type 06/26/2025 9:31 AM EDT - 06/26/2025 11:59 PM EDT Hospital Encounter [facility] X[facility] [address] [place] [address] Malignant neoplasm of lower lobe of left lung (CMS/HCC V24, CMS/HCC V28) Discharge Disposition: Home or Self Care 06/26/2025 Telephone Thoracic Surgery - [place] [address] [phone] Deja Shelley MS 06/20/2025 7:33 AM EDT Anesthesia Event [facility] OR [address] [place] [address] Saulo Mak DO 06/20/2025 7:30 AM EDT - 06/20/2025 11:[address] [facility] OR [address] [place] [address] Avi Donnelly MD DAVINCI left lower lobe superior segmentectomy, mediastinal lymphadenectomyCryo nerve block. [75435 (CPT ) +1 more] 06/20/2025 5:33 AM EDT - 06/23/2025 2:01 PM EDT Hospital Encounter [facility] [address] [place] [phone] Avi Donnelly MD Kela, Kashyap Devendrabhai, MD Malignant neoplasm of lower lobe of left lung ([facility] V24, [facility] V28) Discharge Disposition: Home-Health Care [facility] 06/14/2025 Telephone Thoracic Surgery - [place] [address] [facility] [address] [place] [phone] Catalina Gore, RN 06/13/2025 Telephone Thoracic Surgery - [place] [address] [facility] [address] [place] [phone] Catalina Gore, RN 06/11/2025 Telephone [facility] Cardiology [facility] [address] [facility] [address] [place] [phone] Lakeisha Brito MA 06/07/2025 Telephone Thoracic Surgery - [place] [address] [facility] [address] [place] [phone] Catalina Gore, RN 05/30/2025 9:30 AM EDT Ancillary Procedure [facility] Cardiology [facility] [address] [facility] [address] [place] [phone] SOB (shortness of breath) from Last 3 Months Surgical History Surgery Date Site/Laterality Comments APPENDECTOMY HYSTERECTOMY TONSILLECTOMY ILEOSTOMY OTHER SURGICAL HISTORY ankle sx OTHER SURGICAL HISTORY cataract sx TOTAL COLECTOMY OTHER SURGICAL HISTORY 05/17/2025 Left NavBronch EBUS Bx LLL OTHER SURGICAL HISTORY 06/20/2025 Left LLL Superior Segmentectomy TOTAL COLECTOMY 06/29/2018 - 07/29/2018 ESOPHAGOGASTRODUODENOSCOPY 08/09/2018 Normal esophagus, normal stomach, 2 AVMs in the second part of duodenum FLEXIBLE SIGMOIDOSCOPY 01/03/2019 Chronic proctitis OTHER SURGICAL HISTORY 08/22/2018 Capsule endoscopy: Failed to reach cecum, multiple superficial ulcers COLONOSCOPY 05/31/2018 COLONOSCOPY 09/28/2017 Medical History Medical History Date Comments COPD (chronic obstructive pu lmonary disease) ([facility] V24, [facility] V28) Depression Hyperlipidemia Hypertension Osteoporosis Pulmonary nodule Lung cancer ([facility] V24, [facility] V28) LLL Family History Medical History Relation Name Comments Colon cancer Neg Hx Colon polyps Neg Hx Social History Tobacco Use Types Packs/Day Years Used Date Smoking Tobacco: Former Cigarettes 1 969 - 05/02/2016 Smokeless Tobacco: Never Alcohol Use Standard Drinks/Week Comments Yes 4 (1 standard drink = 0.6 oz pur e alcohol) beer daily 4 Interpersonal Safety Answer Date Record ed Physical Abuse Unrecognized value 06/20/2025 Verbal Abuse Unrecognized value 06/20/2025 Comments No Sex and Gender Information Value Date Recorded Sex Assigned at Not on file Legal Sex Female 5:52 PM EST Gender Identity Not on file Sexual Orientation Not on file Obstetrics History Last Filed Vital Signs Vital Sign Reading Time Taken Comments Blood Pressure 121/76 07/17/2025 3:21 PM EDT Pulse 106 07/17/2025 3:21 PM EDT Temperature 37 C (98.6 F) 07/17/2025 3:21 PM EDT Respiratory Rate 16 07/17/2025 3:21 PM EDT Oxygen Saturation 94% 07/17/2025 3:21 PM EDT Inhaled Oxygen Concentration - - Weight 61.2 kg (135 lb) 07/17/2025 3:21 PM EDT Height 170.2 cm (5' 7 ) 07/17/2025 3:21 PM EDT Body Mass Index 21.14 07/17/2025 3:21 PM EDT Plan of Treatment Health Maintenance Due Date Last Done Comments Breast Cancer Screening 1955 COVID-19 Vaccine (#1) 1960 DTaP,Tdap,and Td Vaccines (1 - Tdap) 1974 Pneumococcal Vaccine: 50+ Years (1 of 2 - PCV) 1974 Zoster Vaccines (1 of 2) 1974 RSV Immunization Adult Patients (1 - Risk 60-74 years 1-dose series) 2015 Cholesterol Screening (Lipid Panel) 10/31/2022 Hepatitis C Screening 10/31/2022 Medicare Annual Wellness Visit 10/31/2022 Osteoporosis Screening (Bone Density Screening) 10/31/2022 Social Influencers of Health Screening 10/31/2022 Depression Screening 11/29/2024 Influenza Vaccine (#1) 2025 Falls Risk Assessment 06/23/2026 06/23/2025 Hypertension/CHF/CAD Annual BMP Blood Test 06/23/2026 06/23/2025, 06/21/2025, 06/20/2025, Additional history exists Colorectal Cancer Screening: Colonoscopy Discontinued 07/06/2025 HIB Vaccines Aged Out No longer eligi ble based on patient's age to complete this topic HPV Vaccines Aged Out No longer eligi ble based on patient's age to complete this topic Hepatitis A Vaccines Aged Out No long er eligible based on patient's age to complete this topic Hepatitis B Vaccines Aged Out No long er eligible based on patient's age to complete this topic IPV Vaccines Aged Out No longer eligi ble based on patient's age to complete this topic MMR Vaccines Aged Out No longer eligi ble based on patient's age to complete this topic Meningococcal ACWY Vaccine Aged Out N o longer eligible based on patient's age to complete this topic Meningococcal B Vaccine Aged Out No l onger eligible based on patient's age to complete this topic RSV Immunization Patients Under 20 months Aged Out No longer eligible based on patient's age to complete this topic Varicella Vaccines Aged Out No longer eligible based on patient's age to complete this topic Medical Devices Implanted Type Area Display And Banner Designer Device Identifier Shelf Expiration Date Model / Serial / Lot Sealant Fibrin Vistaseal 10ml - [id number] - [id number] Implanted:Qty : 1 on 06/20/2025 by Avi Donnelly MD at [facility] Hemostasis Left: Chest [employer] [id number] 12/19/2026 [id number] / [id number] / [id number] Internal And External Fixation Internal and External Fixation Right: Ankle Sealant Progel Air Pleural 4ml - Sna - [id number] Implanted:Qty : 1 on 06/20/2025 by Avi Donnelly MD at [facility] [employer] Left: Chest CR BARD [employer]OL [employer] [id number] 08/29/2026 [id number] / [id number] / [id number] Procedures Procedure Name Priority Date/Time Associated Diagnosis Comments XR CHEST 2 VIEWS Routine 07/19/2025 11:2 3 AM EDT Malignant neoplasm of lower lobe of left lung (CMS/HCC V24, CMS/HCC V28) COLONOSCOPY Routine 07/06/2025 3:00 PM EDT XR CHEST 2 VIEWS Routine 07/05/2025 1:33 PM EDT Chest tube in place XR CHEST 2 VIEWS Routine 07/02/2025 10:0 3 AM EDT Malignant neoplasm of lower lobe of left lung (CMS/HCC V24, CMS/HCC V28) Chest tube in place XR CHEST 2 VIEWS Routine 06/29/2025 9:25 AM EDT Malignant neoplasm of lower lobe of left lung (CMS/HCC V24, CMS/HCC V28) Chest tube in place XR CHEST 2 VIEWS Routine 06/26/2025 9:41 AM EDT Malignant neoplasm of lower lobe of left lung (CMS/HCC V24, CMS/HCC V28) HOME O2 EVAL (DESATURATION SCREEN) Routine 06/23/2025 9:46 AM EDT XR CHEST 1 VIEW Routine 06/23/2025 5:45 AM EDT CBC WITH AUTO DIFFERENTIAL Routine 06/23/2025 5:32 AM EDT BASIC METABOLIC PANEL Routine 06/23/2025 5:32 AM EDT CBC AND DIFFERENTIAL Routine 06/23/2025 5:32 AM EDT XR CHEST 1 VIEW STAT 06/22/2025 12:11 PM EDT OCCULT BLOOD STOOL, GUAIAC Routine 06/22/2025 11:41 AM EDT COMPLETE BLOOD COUNT Routine 06/22/2025 11:20 AM EDT XR CHEST 1 VIEW Routine 06/22/2025 5:10 AM EDT MAGNESIUM Routine 06/21/2025 5:52 AM EDT PHOSPHORUS Routine 06/21/2025 5:52 AM EDT COMPLETE BLOOD COUNT Timed 06/21/2025 5:52 AM EDT BASIC METABOLIC PANEL Routine 06/21/2025 5:52 AM EDT XR CHEST 1 VIEW Routine 06/21/2025 5:20 AM EDT PEP THERAPY Routine 06/20/2025 10:00 PM EDT MAGNESIUM STAT 06/20/2025 1:54 PM EDT PHOSPHORUS STAT 06/20/2025 1:54 PM EDT BASIC METABOLIC PANEL STAT 06/20/2025 1:54 PM EDT COMPLETE BLOOD COUNT STAT 06/20/2025 1:54 PM EDT PEP THERAPY [...] PREPARE RBC Routine 06/20/2025 8:44 AM EDT TH AN ARTERIAL LINE (CHARGE) Routine 06/20/2025 8:17 AM EDT ANESTHESIA PERIPHERAL IV PLACEMENT Routine 06/20/2025 8:17 AM EDT TH AN ENDOTRACHEAL(NO CHARGE) Routine 06/20/2025 8:15 AM EDT MN REMOVAL OF LUNG OTHER THAN PNEUMONECTOMY SINGLE LOBE 06/20/2025 7:33 AM EDT Malignant neoplasm of lower lobe of left lung (CMS/HCC V24, CMS/HCC V28) Case Notes [facility], [place] THORACOSCOPY SURGICAL WITH LOBECTOMY 06/20/2025 7:33 AM EDT Malignant neoplasm of lower lobe of left lung (CMS/HCC V24, CMS/HCC V28) Case Notes [employer], CBC WITH AUTO DIFFERENTIAL Routine 06/13/2025 8:39 AM EDT Malignant neoplasm of lower lobe of left lung (CMS/HCC V24, CMS/HCC V28) BASIC METABOLIC PANEL Routine 06/13/2025 8:39 AM EDT Malignant neoplasm of lower lobe of left lung (CMS/HCC V24, CMS/HCC V28) CBC AND DIFFERENTIAL Routine 06/13/2025 8:39 AM EDT Malignant neoplasm of lower lobe of left lung (CMS/HCC V24, CMS/HCC V28) PROTHROMBIN TIME WITH INR Routine 06/13/2025 8:39 AM EDT Malignant neoplasm of lower lobe of left lung (CMS/HCC V24, CMS/HCC V28) Neoplasm ACTIVATED PARTIAL THROMBOPLASTIN TIME Routine 06/13/2025 8:39 AM EDT Malignant neoplasm of lower lobe of left lung (CMS/HCC V24, CMS/HCC V28) Neoplasm TYPE AND SCREEN Routine 06/13/2025 8:39 AM EDT Malignant neoplasm of lower lobe of left lung (CMS/HCC V24, CMS/HCC V28) TRANSTHORACIC ECHOCARDIOGRAM (TTE) COMPLETE Routine 05/30/2025 10:01 AM EDT SOB (shortness of breath) from Last 3 Months Results * XR Chest 2 Views (07/19/2025 11:23 AM EDT) Only the most recent of5 resultswithin the time period is included. Anatomical Region Laterality Modality Body Radiographic Diana ging 07/19/2025 11:2 9 AM EDT Impressions 07/19/2025 11:33 AM EDT Postoperative changes in the left hemithorax as also seen on 07/05/2025. There is no pneumothorax following removal of the large bore left side surgical chest tube. Findings as above consistent with COPD. Code 04591 -------- FINAL REPORT -------- Dictated By: Nolan Novak Dictated Date: 07/19/2025 11:29 ET Assigned Physician: Nolan Novak Reviewed and Electronically Signed By: Nolan Novak Signed Date: 07/19/2025 11:33 ET Workstation ID: [id number] Transcribed By: Self Edit Transcribed Date: 07/19/2025 11:29 ET Narrative 07/19/2025 11:33 AM EDT HISTORY: The patient is a 69-year-old female with history of lung carcinoma for which left lower lobe superior segmentectomy was performed on 06/20/2025. The patient now presents for follow-up. FINDINGS: PA and lateral radiographs of the chest again demonstrate surgical sutures projecting over the left hilum, also present on prior studies most recently 07/05/2025. The large bore left side surgical chest tube has been removed since the prior study. The bony structures are of normal appearance. The cardiac silhouette is within normal limits. The aortic knob is calcified. Scarring in the left lower lobe is again seen. The lungs are again seen to be hyperinflated with flattening of the diaphragm consistent with chronic obstructive pulmonary disease. There is no consolidation, mass, pulmonary vascular congestion, or pleural effusion. The very small left apical pneumothorax seen on the prior study has resolved. Left subcutaneous emphysema has also decreased. Procedure Note Nolan Novak MD - 07/19/2025 HISTORY: The patient is a 69-year-old female with history of lungcarcinoma for which left lower lobe superior segmentectomy was performedon 06/20/2025. The patient now presents for follow-up. FINDINGS: PA and lateral radiographs of the chest again demonstratesurgical sutures projecting over the left hilum, also present on priorstudies most recently 07/05/2025. The large bore left side surgical chesttube has been removed since the prior study. The bony structures are ofnormal appearance. The cardiac silhouette is within normal limits. Theaortic knob is calcified. Scarring in the left lower lobe is again seen.The lungs are again seen to be hyperinflated with flattening of thediaphragm consistent with chronic obstructive pulmonary disease. There isno consolidation, mass, pulmonary vascular congestion, or pleuraleffusion. The very small left apical pneumothorax seen on the prior studyhas resolved. Left subcutaneous emphysema has also decreased. IMPRESSION: Postoperative changes in the left hemithorax as also seen on 07/05/2025.There is no pneumothorax following removal of the large bore left sidesurgical chest tube. Findings as above consistent with COPD. Code 17706 -------- FINAL REPORT -------- Dictated By: Nolan Novak Dictated Date: 07/19/2025 11:29 ET Assigned Physician: Nolan Novak Reviewed and Electronically Signed By: Nolan Novak Signed Date: 07/19/2025 11:33 ET Workstation ID: [id number] Transcribed By: Self Edit Transcribed Date: 07/19/2025 11:29 ET Ngoc Chandra [employer]STATE ATTORNEY IMG XR PROCEDURES Final Res ult * COLONOSCOPY (07/06/2025 3:00 PM EDT) Anatomical Region Laterality Modality Endoscopy Historical Provider GI~PROCEDURE ORDERABLES F inal Result * XR Chest 1 View (06/23/2025 5:45 AM EDT) Only the most recent of5 resultswithin the time period is included. Anatomical Region Laterality Modality Body Radiographic Diana ging 06/23/2025 8:13 AM EDT Impressions 06/23/2025 8:15 AM EDT Impression: 1. Postop changes in the left hemithorax with chest tube in place. 2. Small left apical pneumothorax, without significant change. 3. Persistent subcutaneous emphysema. Telerad CASSIDY ([id number]) -------- FINAL REPORT -------- Dictated By: Bernadine Reyes Dictated Date: 06/23/2025 08:13 ET Assigned Physician: Bernadine Reyes Reviewed and Electronically Signed By: Bernadine Reyes Signed Date: 06/23/2025 08:15 ET Workstation ID: [id number] Transcribed By: Self Edit Transcribed Date: 06/23/2025 [...] significant change. 3. Persistent subcutaneous emphysema. Telerad PA ([id number]) -------- FINAL REPORT -------- Dictated By: Bernadine Reyes Dictated Date: 06/23/2025 08:13 ET Assigned Physician: Bernadine Reyes Reviewed and Electronically Signed By: Bernadine Reyes Signed Date: 06/23/2025 08:15 ET Workstation ID: [id number] Transcribed By: Self Edit Transcribed Date: 06/23/2025 08:13 ET us Herlinda BENJAMIN IMG XR PROCEDURES Final Resul t * (ABNORMAL) CBC auto differential (06/23/2025 5:32 AM EDT) Only the most recent of2 resultswithin the time period is included. WBC 6.3 4.8 - 10.8 K/mcL LAB HEMETOLOGY METHOD 06/23/2025 6:38 AM EDT [facility] RBC 3.90 3.80 - 4.80 M/mcL LAB HEMETOLOGY METHOD 06/23/2025 6:38 AM [facility] Hemoglobin 11.9 11.5 - 16.0 g/dL LAB HEMETOLOGY METHOD 06/23/2025 6:38 AM [facility] Hematocrit 38.2 35.0 - 47.0 % LAB HEMETOLOGY METHOD 06/23/2025 6:38 AM [facility] MCV 97.0 79.0 - 98.0 FL LAB HEMETOLOGY METHOD 06/23/2025 6:38 AM [facility] MCH 30.2 27.0 - 32.0 pcg LAB HEMETOLOGY METHOD 06/23/2025 6:38 AM [facility] MCHC 31.2(L) 32.0 - 37.0 g/dL LAB HEMETOLOGY METHOD 06/23/2025 6:38 AM [facility] RDW 12.6 11.0 - 15.0 % LAB HEMETOLOGY METHOD 06/23/2025 6:38 AM [facility] Platelets 235 130 - 400 K/mcL LAB HEMETOLOGY METHOD 06/23/2025 6:38 AM [facility] MPV 10.6 7.0 - 11.0 FL LAB HEMETOLOGY METHOD 06/23/2025 6:38 AM EDT [facility] NRBC 0.0 <1.0 % LAB [...] LAB HEMETOLOGY METHOD 06/23/2025 6:38 AM EDT [facility] Basophils Absolute 0.01 0.00 - 0.20 K/mcL LAB HEMETOLOGY METHOD 06/23/2025 6:38 AM EDT [facility] Immature Granulocytes Absolute 0.03 0.00 - 0.03 K/[facility] LAB HEMETOLOGY METHOD 06/23/2025 6:38 AM T [facility] Blood Venous blood specimen / Unknown Venipuncture / Unknown 06/23/2025 5:32 AM EDT 06/23/2025 6:28 AM EDT Amalia BENJAMIN LAB BLOOD ORDERABLES Final Result [facility] [address] [place] [address], [place] [phone] * (ABNORMAL) Basic metabolic panel (06/23/2025 5:32 AM EDT) Only the most recent of4 resultswithin the time period is included. Sodium 140 133 - 145 mmol/L LAB [...] LAB CHEMISTRY METHOD 06/23/2025 7:21 AM EDT [facility] Creatinine 0.94 0.50 - 1.10 mg/dL LAB CHEMISTRY METHOD 06/23/2025 7:21 AM EDT [facility] eGFR 66 >=60 mL/min/1. 73m2 LAB CHEMISTRY METHOD 06/23/2025 7:21 AM EDT [facility] Comment:Calculation based on the Chronic Kidney Disease Epidemiology Collaboration (CKD-EPI) equation refit without adjustment for race. BUN/Creatinine Ratio 12.8 LAB CHEMISTRY METHOD 06/23/2025 7:21 AM EDT [facility] Calcium 9.5 8.5 - 10.5 mg/dL LAB CHEMISTRY METHOD 06/23/2025 7:21 AM EDT [facility] Blood Venous blood specimen / Unknown Venipuncture / Unknown 06/23/2025 5:32 AM EDT 06/23/2025 6:28 AM EDT Amalia BENJAMIN LAB BLOOD ORDERABLES Final Result [facility] [address] [place] [address], [place] [phone] * (ABNORMAL) Occult blood stool, guaiac (06/22/2025 11:41 AM EDT) Occult Blood, Stool #1 Positive( A) Negative 06/22/2025 12:02 PM EDT [facility] Stool Stoma / Unknown Non-blood Collection / Unknown 06/22/2025 11:41 AM EDT 06/22/2025 11:51 AM EDT Herlinda BENJAMIN LAB BODY FLUIDS AND STOOLS OR DERABLES Final Result [facility] [address] [place] [address], [place] [phone] * (ABNORMAL) Complete blood count (06/22/2025 11:20 AM EDT) Only the most recent of3 resultswithin the time period is included. [facility] Signature WBC 9.9 4.8 - 10.8 K/mcL LAB HEMETOLOGY METHOD 06/22/2025 11:29 AM [facility] RBC 3.90 3.80 - 4.80 M/mcL LAB HEMETOLOGY METHOD 06/22/2025 11:29 AM [facility] [...] % LAB HEMETOLOGY METHOD 06/22/2025 11:29 AM EDT [facility] NRBC Absolute 0.00 <0.10 K/mcL LAB HEMETOLOGY METHOD 06/22/2025 11:29 AM EDT [facility] Blood Venous blood specimen / Unknown Venipuncture / Unknown 06/22/2025 11:20 AM EDT 06/22/2025 11:24 AM EDT Herlinda BENJAMIN LAB BLOOD ORDERABLES Final Re sult Performing Organization Address City/[facility]/ZIP Co de Phone Number [facility] [address] [place] [address], [place] [phone] * Phosphorus (06/21/2025 5:52 AM EDT) Only the most recent of2 resultswithin the time period is included. Phosphorus 4.0 2.5 - 4.5 mg/dL LAB CHEMISTRY METHOD 06/21/2025 7:21 AM EDT [facility] Blood Venous blood specimen / Unknown Venipuncture / Unknown 06/21/2025 5:52 AM EDT 06/21/2025 6:23 AM EDT Herlinda BENJAMIN LAB BLOOD ORDERABLES Final Re sult Performing Organization Address City/[facility]/ZIP Co de Phone Number [facility] [address] [place] [address], [place] [phone] * Magnesium (06/21/2025 5:52 AM EDT) Only the most recent of2 resultswithin the time period is included. Magnesium 2.5 1.9 - 2.6 mg/dL LAB CHEMISTRY METHOD 06/21/2025 7:21 AM EDT [facility] Blood Venous blood specimen / Unknown Venipuncture / Unknown 06/21/2025 5:52 AM EDT 06/21/2025 6:23 AM EDT us Herlinda BENJAMIN LAB BLOOD ORDERABLES Final Re sult [facility] [address] [place] [address], [place] [phone] * Tissue exam (06/20/2025 9:24 AM EDT) [...] ADENOCARCINOMA -See synoptic summary 11:04 AM EDT [facility] Synoptic Checklist LUNG LUNG - All [...] negative for malignant cells. Fine needle aspirate [id number], right paratracheal node, [id number]: Left paratracheal node Regional Lymph Node Status: [...] Patchy organizing pneumonia, respiratory bronchiolitis Comment(s): INSM-1 highlights DIPNECH 5 11:04 AM EDT [facility] ([facility]) [facility] Gross Description A. Lymph Node, level [...] greatest dimension. A gross photograph is taken. Automatic Spooler Operator sections are submitted as follows: 1 and 2, mass to perpendicular parenchymal margin, one piece each 3 and 4, mass, one piece each 5, mass to pleura, one piece 6, en face bronchial and vascular margins and two possible lymph nodes 7-9, uninvolved parenchyma, one piece each-nine DARA 5 11:04 AM EDT [facility]) [facility] Disclaimer The immunohistochemistry and/or special stains were medically necessary and performed because additional information was needed by the pathologist to determine: 1) whether DIPNECH was present; 2) whether vascular invasion was present. The immunohistochemical tests and in situ hybridization tests were developed and their performance characteristics were determined by [facility]. They have not been [...] fixed and paraffin embedded. 11:04 AM EDT [facility] Tissue Lymph node specimen / [...] MD LAB PATHOLOGY ORDERABLES Final R esult [facility] [address] [place] [address], * Prepare RBC: 2 Units (06/20/2025 8:44 AM EDT) Product Code [id number] 06/21/2025 8:38 AM EDT [facility] Unit Number [id number] 06/21/20 8:38 AM EDT [facility] Crossmatch Compatible 06/20/2025 11:30 AM EDT [facility] Dispense Status Released From Crossmatch 06/21/2025 8:38 AM EDT [facility] Unit ABO Rh OPOS 06/21/2025 8:38 AM EDT [facility] Unit Expiration Date Time 06/21/2025 8:38 AM EDT [facility] Unit Blood Type 5100 06/21/2025 8:38 AM EDT [facility] Product Code [id number] 06/21/2025 8:38 AM EDT [facility] Unit Number [id number] 06/21/20 8:38 AM EDT [facility] Crossmatch Compatible 06/20/2025 11:31 AM EDT [facility] Dispense Status Released From Crossmatch 06/21/2025 8:38 AM EDT [facility] Unit ABO Rh OPOS 06/21/2025 8:38 AM EDT [facility] Unit Expiration Date Time [id number] 06/21/2025 8:38 AM EDT [facility] Unit Blood Type 5100 06/21/2025 8:38 AM EDT [facility] Blood Venous blood specimen / Unknown 06/20/2025 8:44 AM EDT 06/13/2025 8:56 AM EDT us Herlinda BENJAMIN BLOOD BANK PRODUCT ORDERABLES Final Result [facility] [address] [place] [address], * TH AN ARTERIAL LINE (CHARGE) (06/20/2025 8:17 AM EDT) Kolby Rivera CRNA - 06/20/2025 8:17 AM EDT Kolby Hernandez CRNA 06/20/2025 8:19 AM Arterial Line Performed by: Kolby Hernandez CRNA Authorized by: Saulo Mak DO Consent: Verbal consent obtained. Risks and benefits: risks, benefits and alternatives were discussed Consent given by: patient Patient understanding: patient states understanding of the procedure being performed Patient consent: the patient's understanding of the procedure matches consent given Procedure consent: procedure consent matches procedure scheduled Relevant documents: relevant documents present and verified Test results: test results available and properly labeled Site marked: the operative site was marked Imaging studies: imaging studies available Required items: required blood products, implants, devices, and special equipment available Patient identity confirmed: verbally with patient, arm band, provided demographic data and hospital-assigned identification number Time out: Immediately prior to procedure a time out was called to verify the correct patient, procedure, equipment, senior office support assistant sosa and site/side marked as required. Preparation: Patient was prepped and draped in the usual sterile fashion. Indications: hemodynamic monitoring Location: left radial Sedation: Patient sedated: yes Sedatives: see MAR for details Analgesia: see MAR for details Vitals: Vital signs were monitored during sedation. Alcon's test normal: yes Needle gauge: 20 Seldinger technique: Seldinger technique used Number of attempts: 2 Post-procedure: dressing applied Post-procedure CMS: normal Patient tolerance: patient tolerated the procedure well with no immediate complications Staffing Resident/WAIST PRESSER: Kolby Hernandez CRNA Saulo Mak DO ANESTHESIA ORDERABLES Final Res ult * Peripheral IV (06/20/2025 8:17 AM EDT) Kolby Rivera CRNA - 06/20/2025 8:17 AM EDT Kolby Hernandez CRNA 06/20/2025 8:17 AM Peripheral IV Inserted by: Kolby Hernandez CRNA Placement Needle size: 16 G Laterality: left Location: antecubital Site prep: alcohol Technique: anatomical landmarks Attempts: 1 Saulo Mak DO ANESTHESIA ORDERABLES Final Res ult * TH AN ENDOTRACHEAL(NO CHARGE) (06/20/2025 8:15 AM EDT) Narrative Kolby Hernandez CRNA - 06/20/2025 8:15 AM EDT Kolby Hernandez CRNA 06/20/2025 8:17 AM General Information and Staff Patient location during procedure: OR Resident/WAIST PRESSER: Kolby Hernandez CRNA Performed: resident/WAIST PRESSER/CAA Performed by: Kolby Hernandez CRNA Authorized by: Saulo Mak DO Intubation Airway not difficult Urgency: elective Final Airway Details Successful airway: ETT - double lumen left Cuffed: yes Successful intubation technique: direct laryngoscopy Facilitating devices/methods: intubating stylet Endotracheal tube insertion site: oral Blade: Sal Blade size: #3 ETT DL size (fr): 28 Cormack-Lehane Classification: grade I - full view of glottis Placement verified by: chest auscultation and capnometry Measured from: gums Number of attempts at approach: 1Final airway type: endotracheal airway Indications and Patient Condition Indications for airway management: anesthesia Spontaneous Ventilation: absent Sedation level: Yes Preoxygenated: yes Soft Tissue Damage: No Dentition Unchanged: Yes Patient position: sniffing MILS maintained throughout Mask difficulty assessment: 2 - vent by mask + OA or adjuvant +/- NMBA us Saulo Mak DO ANESTHESIA ORDERABLES Final Res ult * Activated partial thromboplastin time (06/13/2025 8:39 AM EDT) aPTT 31.3 24.1 - 39.3 sec LAB COAGULATION METHOD 06/13/2025 9:18 AM EDT [facility] Blood Venous blood specimen / Unknown Venipuncture / Unknown 06/13/2025 8:39 AM EDT 06/13/2025 8:55 AM EDT us Herlinda BENJAMIN LAB BLOOD ORDERABLES Final Re sult [facility] [address] [place] [address], [place] [phone] * (ABNORMAL) Prothrombin time with INR (06/13/2025 8:39 AM EDT) [facility] Protime 10.5(L) 10.6 - 13.9 sec LAB COAGULATION METHOD 06/13/2025 9:08 AM EDT [facility] INR 0.8 LAB COAGULATION METHOD 06/13/2025 9:08 AM EDT [facility] Blood Venous blood specimen / Unknown Venipuncture / Unknown 06/13/2025 8:39 AM EDT 06/13/2025 8:55 AM EDT Herlinda BENJAMIN LAB BLOOD ORDERABLES Final Re sult Performing Organization Address [facility]/ZIP Co de Phone Number [facility] [address] [place] [address], [place] [phone] * Type and screen (06/13/2025 8:39 AM EDT) [facility] ABO Group O 06/13/2025 11:24 AM EDT [facility] Rh Type Positive 06/13/2025 11:24 AM EDT [facility] Antibody Screen Negative 06/13/2025 11:24 AM EDT [facility] Blood Venous blood specimen / Unknown Venipuncture / Unknown 06/13/2025 8:39 AM EDT 06/13/2025 8:56 AM EDT us Herlinda BENJAMIN LAB BLOOD BANK TEST ORDERABLE S Final Result [facility] [address] [place] [address], [place] [phone] * (ABNORMAL) TRANSTHORACIC ECHOCARDIOGRAM (TTE) COMPLETE (05/30/2025 10:01 AM EDT) [facility] Left Atrium Minor Crewe 4.2 cm CV PACS Left Atrium Major Crewe 4.6 cm CV PACS LA Area Sys (A2C) 14 cm2 CV PACS LA Area Sys (A4C) 15 cm2 CV PACS LA Volume (BP) 39 mL CV PACS RA Area 10.3 cm2 CV PACS RA 2D Volume 23 mL CV PACS Aortic Sinus Valsalva 2.8 cm CV PACS Ascending Aorta 2.8 cm CV PACS IVSD 0.8 0.6 - 0.9 cm CV PACS LVIDD 4.3 3.8 - 5.2 cm CV PACS LVIDS 2.3 2.2 - 3.5 cm CV PACS LVOT Diameter 1.9 cm CV PACS LVOT Mean Jono 0.8 m/s CV PACS LVOT Mean Grad 3 mmHg CV PACS LVOT Peak VTI 26.1 cm CV PACS LVOT Peak Jono 1.1 m/s CV PACS LVOT Peak Gradient 5 mmHg CV PACS LVPWD 1.0(A) 0.6 - 0.9 cm CV PACS MV E' Tissue Velocity Lateral 6 cm/s CV PACS MV E' Tissue Velocity Septal 7 cm/s CV PACS LVOT Area 2.8 cm2 CV PACS LVOT Stroke Volume 74 mL CV PACS MV Deceleration Wagoner 4.1 m/s2 CV PACS E Wave Deceleration Time 209 119 - 242 ms CV PACS MV PHT 61 ms CV PACS MV Peak A Jono 0.84 m/s CV PACS MV Peak E Jono 0.85 m/s CV PACS MV Area PHT 3.6 cm2 CV PACS PV Acceleration Time 121 ms CV PACS PV Acceleration Time 121 ms CV PACS RV Diastolic Basal Dimension 2.9 2.5 - 4.1 cm CV PACS TAPSE 21 mm CV PACS E/E' Ratio Septal 12 CV PACS E/E' Ratio Averaged 13 CV PACS Relative Wall Thickness ratio 0.47 CV PACS FS 47 % CV PACS LV Mass 2D 123 g CV PACS LVOT flow 227 mL/s CV PACS E/A Ratio 1.0 CV PACS E/E' Ratio Lateral 14 CV PACS BSA 1.71 m2 CV PACS LA Volume Index (BP) 23 mL/m2 CV PACS LVIDD Index 2.50 cm/m2 CV PACS LVIDS Index 1.34 cm/m2 CV PACS LV Mass Index 2D 72 44 - 88 g/m2 CV PACS LVOT Stroke Index 43 mL/m2 CV PACS RA 2D Volume Index 13(A) 15 - 27 mL/m2 CV PACS Ascending Aorta Index 1.63 cm/m2 CV PACS Anatomical Region Laterality Modality Ultrasound Narrative 05/31/2025 8:30 AM EDT Left ventricle cavity size is normal. Wall thickness is normal. Systolic function is normal with an ejection fraction of 55-60%. There are no regional LV wall motion abnormalities. Right ventricle cavity is normal. Right ventricular systolic function is normal. No hemodynamically significant valvular disease. Left Ventricle Left ventricle cavity size is normal. Wall thickness is normal. Systolic function is normal with an ejection fraction of 55-60%. There are no regional LV wall motion abnormalities. Indeterminate diastolic function. Right Ventricle Right ventricle cavity appears normal. Systolic function is normal. Normal TAPSE (> 17 mm). Left Atrium Left atrium cavity size is normal. Right Atrium Right atrium cavity is normal. IVC/SVC RA pressures is estimated to be 3 mmHg (IVC diameter <21 mm and decreases >50% during inspiration). Mitral Valve Mitral valve structure is normal. There is no significant mitral valve regurgitation. There is no evidence of mitral valve stenosis. Tricuspid Valve Tricuspid valve structure is normal. Tricuspid regurgitation is inadequate for estimation of right ventricular systolic pressure. There is no significant tricuspid valve stenosis. Aortic Valve The aortic valve is trileaflet. The leaflets are not thickened and exhibit normal excursion. There is no regurgitation or stenosis. Pulmonic Valve The pulmonic valve was not well visualized. Ascending Aorta The aorta appears normal in size. Pericardium Pericardium appears normal. Study Details Overall the study quality was adequate. Aman Perla MD CV ECHO PROCEDURES Final Result from Last 3 Months Insurance MEDICARE MEDICAID - [place] Advance Directives * Full Code - Default (Latest Code Status on File) Date Activated Date Inactivated Comments 06/20/2025 11:20 AM 06/23/2025 4:06 PM This is ord er is used when code status has not been discussed with the patient, or code status is otherwise unknown/unconfirmed To update the patient's code status, place a code status order. Do not modify or discontinue any currently active code status orders. * Full Code - Default Date Activated Date Inactivated Comments 06/20/2025 5:57 AM 06/20/2025 11:20 AM This is ord er is used when code status has not been discussed with the patient, or code status is otherwise unknown/unconfirmed To update the patient's code status, place a code status order. Do not modify or discontinue any currently active code status orders. * Full Code - Default Date Activated Date Inactivated Comments 05/17/2025 8:18 AM 05/17/2025 5:03 PM This is orde r is used when code status has not been discussed with the patient, or code status is otherwise unknown/unconfirmed To update the patient's code status, place a code status order. Do not modify or discontinue any currently active code status orders. Care Teams Shade Hanger Relationship Specialty Start Date End Date Yeyo España MD PCP - General Family Medicine 04/26/25
== END ==
LOC: HO.HPS 10:46
PROVIDERS: PCP Family Medicine; Visit Provider Nurse Practitioner Family
DX: J44.9 Chronic obstructive pulmonary disease, unspecified (principal)
CPT/HCPCS: 94618

== ENCOUNTER 2025-10-08 09:22 | Outpatient (AMB) | payer MEDICARE, MEDICAID, SELFPAY ==
--- NOTE | 2025-10-08 09:39 | MHC.PC.OV ---
Vital Signs 10/08/25 09:41 10/08/25 09:43 Height 5 ft 7 in Weight 133 lb 6 oz BMI 20.9 BP 140/60 H 136/60 Blood Pressure Location Lt brachial Lt brachial Position Sitting Sitting Respiration 16 Pulse 89 Pulse Source Pulse Oximeter Temp 97.5 F Temp Source Oral Pulse Oximetry (%) 93 Oxygen Delivery Method Room Air Intake Visit Reasons: f/u HTN Intake Note: patient is scheduled for htn follow up with pcp Clinical Data Specialist Required: No Allergies No Known Allergies Allergy (Verified 10/08/25 09:39) Medication List - Last Reconciled 10/08/25 by Yeyo España MD albuterol sulfate 1.25 mg inhalation BID PRN albuterol sulfate 90 mcg/actuation (Ventolin HFA) 2 puffs inhalation Q6H PRN alendronate 70 mg PO QWEEK 28 days blood pressure monitor Automatic, Digital. Dx: I10. Daily As directed, 999 days/lifetime blood pressure monitor Automatic, Digital. Dx: I10. Daily As directed, 999 days/lifetime fenofibrate 160 mg PO DAILY 30 days ayansvijkcn-zyqsbcbuu-ncqtjnzg 200-62.5-25 mcg (Trelegy Ellipta) 1 inh inhalation DAILY 90 days ipratropium-albuterol 0.5 mg-3 mg(2.5 mg base)/3 mL 3 mL inhalation Q6H PRN ipratropium-albuterol 20-100 mcg/actuation (Combivent Respimat) 1 puff inhalation Q6H pantoprazole 40 mg PO DAILY pravastatin 40 mg PO BEDTIME 90 days sertraline 50 mg PO DAILY 90 days triamcinolone acetonide 0.025% 1 appl topical BID 14 days Tobacco use date assessed: 07/05/25 Dental Screening Dental Screen Date: 07/05/25 HPI f/u HTN HPI Details 69 y/o female presents to f/u hypertension. Blood pressure today 136/60. Hx of adenocarcinoma of lung. Continues to f/u with pulmonology. HPI Comments History of Present Illness Details Documentation assistance for Yeyo España MD, was provided by Ronak Pierce,? Surveyor Helper on 10/08/2025 at 9:51 AM EST. I, Dr. España, have read, observed, and verified documentation. ?? PFSH Medical History Depression COPD (chronic obstructive pulmonary disease) Personal history of nicotine dependence Surgical History History of appendectomy H/O: hysterectomy Hx of cataract surgery History of ileostomy (~2018) History of tonsillectomy History of ankle surgery Family History Brother History of mental health disorder in sibling Liver cancer Social History Household Members: None Housing: House Alcohol intake: current Patient Tobacco Use Status: Former Tobacco user Tobacco use type: Cigarette Years Smoked: (onset 13, 1.5ppd x 47yrs, 60pyh - quit 2015) e-Cigarette/Vaping Use: Never Used Second Hand Smoke Exposure: No Special carmen needs: No service: No Current occupational status: retired Current occupational exposures/hazards: No Cognitive needs: No Hearing needs: No Vision needs: No Questionnaire Thrive Questionnaire Date Thrive assessed: 03/27/25 I am a: Patient What is your living situation today?: I have a steady place to live Within the past 12 months, did the food you bought not last and you didn't have the money to get more?: Never true Within the past 12 months, did you worry whether your food would run out before you got money to buy more?: Never true Do you have trouble paying for medicines?: No Do you have trouble getting transportation to medical appointments?: No Do you have trouble paying your heating and electricity bill?: No Do you have trouble taking care of your child, family member or friend?: No Do you have trouble with day-to-day activities such as bathing, preparing meals, shopping, managing finances, etc.?: No Are you currently unemployed and looking for a job?: No Are you interested in more education?: No Please select the resources that you would like help with: None Currently or been in a relationship where the following occur: No concerns reported THRIVE Score: 0 ALIDA-7 AMB Questionnaire ALIDA-7 Date ALIDA - 7 assessed: 04/03/25 Source: Developed by Drs. Bartolome Geller, Iveth Kaye, Richie Swenson and colleagues, with an educational matilde from [employer]. Review of Systems Const Denies chills, Denies fatigue, Denies fever(s), Denies headache(s) and Denies weakness ENT Denies dizziness and Denies headache(s) Card Denies dyspnea Resp Denies cough, Denies dyspnea, Denies wheezing and Denies other (shortness of breath) Musc Denies numbness and Denies tingling Neuro Denies dizziness, Denies headache(s), Denies numbness, Denies tingling and Denies weakness Psych Denies anxiety and Denies depression Endo Denies fatigue Aller/Immun Denies wheezing Physical exam (Primary Care) Vital Signs: Last Vital Signs Temp 97.5 F 10/08/25 09:41 Pulse 89 10/08/25 09:41 Resp 16 10/08/25 09:41 BP 136/60 10/08/25 09:43 Pulse Ox 93 10/08/25 09:41 Oxygen Delivery Method Room Air 10/08/25 09:41 BMI result Body Mass Index 20.9 Tobacco/Smoking Status: Tobacco use Status Tobacco use date assessed 07/05/25 10/08/25 09:44 Patient Tobacco Use Status Former Tobacco user 10/08/25 09:44 Tobacco use type Cigarette 10/08/25 09:44 e-Cigarette/Vaping Use Never Used 10/08/25 09:44 Thrive Assessment: Date of Thrive Assessment Date Thrive assessed 03/27/25 10/08/25 09:44 Currently or been in a relationship where the following occur: No concerns reported Const General: well developed; No acute distress Nutritional Appearance: well nourished Orientation/consciousness: patient oriented [facility]3 [facility]: Yes normocephalic and Yes atraumatic Eyes General: appearance normal, both eyes and all related structures Pupils: Equal, round and reactive pupils present EOM: EOMs intact bilaterally Resp Effort & Inspection: normal respiratory effort Auscultation: clear to auscultation bilaterally Cardio Rate: regular rate Rhythm: regular rhythm Heart sounds: S1 normal heart sound present, S2 normal heart sound present, no gallops, no murmurs and no rubs Neuro General: patient oriented x3 and gait normal Cranial nerves: Yes Equal, round and reactive pupils present Psych Affect: normal affect Coding Level of Care Code Est Pt Level 3 (16246) Diagnoses Hypertension I10 Adenocarcinoma, lung C34.90 COPD (chronic obstructive pulmonary disease) J44.9 Assessment & Plan Assessment & Plan (1) Hypertension: Code(s): I10 - Essential (primary) hypertension Category: Medical Plan: Blood pressure remains in prehypertensive range off of antihypertensive medications. Continue to monitor home. She will let know if blood pressure is consistently above 140/90 Watch salt and sodium in diet maintain healthy weight (2) Adenocarcinoma, lung: Code(s): C34.90 - Malignant neoplasm of unspecified part of unspecified bronchus or lung Category: Medical (3) COPD (chronic obstructive pulmonary disease): Code(s): J44.9 - Chronic obstructive pulmonary disease, unspecified Category: Medical Plan History of adenocarcinoma of the lung with left lower lobe superior segmentectomy. Stable. COPD with improvement on oxygen. She uses her oxygen at home and at bedtime. Stable. Follow-up with pulmonology as recommended Orders: Orders Microalbumin, Random (w Creat) Today I10 - Essential (primary) hypertension Comprehensive Met. Panel Today I10 - Essential (primary) hypertension Medications: Refilled pravastatin 40 mg PO BEDTIME 90 tabs 2RF 90 days
[2025-10-08 09:41] VITALS: BP 140/60; PULSE 89; RESP 16; TEMP 36.4; O2SAT 93; BMI 20.9
[2025-10-08 09:43] VITALS: BP 136/60
--- OUTSIDE RECORDS SUMMARY | 2025-10-08 10:15 | XMS_ITS | Clinical Summary ---
Author Organization [facility] [address] [facility] Address [address] [place] [address] Phone Care Team Providers Care Senior Information Systems Architect Name Role Phone Yeyo España MD Primary [...] suppositoryIndi cations:Ulcerat michelle proctitis with rectal bleeding ([facility] V24, [facility] V28) Insert 1 suppository (1,000 mg total) into the rectum at bedtime. Use as directed 30 each 5 07/04/20 Active Active Problems Problem Noted Date Diagnosed Date Ulcerative proctitis ([facility] V24, [facility] V28) 07/04/2025 Assessment & Plan (07/04/2025 [...] & Plan (07/02/2025 2:25 PM EDT): Ms. Dillard is a 69-year-old female who had a [...] & Plan (06/26/2025 12:07 PM EDT): Ms. Dillard is a 69-year-old female who had a [...] & Plan (07/17/2025 3:58 PM EDT): Ms. Dillard is a 69 y.o. female who had [...] & Plan (07/05/2025 3:48 PM EDT): Ms. Dillrad is a 69-year-old female who had a [...] & Plan (06/29/2025 10:34 AM EDT): Ms. Dillard is a 69-year-old female who had a [...] & Plan (05/24/2025 1:16 PM EDT): Ms. Dillard is a 69-year-old female who [...] the patient's most recent pulmonology notes from [facility] for review. Risks and benefits were discussed [...] - 07/19/2025 11:59 PM EDT Hospital Encounter [facility] Xray [address] [place] [address] Malignant neoplasm of lower lobe of left lung (CMS/HCC V24, CMS/HCC V28) Discharge Disposition: Home or Self Care 07/19/2025 Telephone Thoracic Surgery - [place] [address] [facility] [address] [place] [id number] Brandi Saravia [place] 07/17/2025 3:30 PM EDT Office Visit Thoracic Surgery - [address] [place] [id number] Ngoc Chandra, JAZMIN Malignant neoplasm of lower lobe of left lung ([facility] V24, [facility] V28) (Primary Dx) from Last 3 Months Surgical History Surgery [...] Comments COPD (chronic obstructive pu lmonary disease) ([facility] V24, [facility] V28) Depression Hyperlipidemia Hypertension Osteoporosis Pulmonary nodule Lung cancer ([facility] V24, [facility] V28) 5 LLL Family History Medical History Relation Name [...] RSV Immunization Adult Patients (1 - Risk 50-74 years 1-dose series) 2005 Cholesterol Screening (Lipid Panel) 10/31/2022 Hepatitis C [...] this topic Medical Devices Implanted Type Area Svp Operations Device Identifier Shelf Expiration Date Model / Serial / Lot Sealant Fibrin Vistaseal 10ml - [id number] - [id number] Implanted:Qty : 1 on 06/20/2025 by Avi Donnelly MD at [facility] Hemostasis Left: Chest [employer] [id number] 12/19/2026 [id number] / [id number] / [id number] Internal And External Fixation Internal and External Fixation Right: Ankle Sealant Progel Air Pleural 4ml - Sna - [id number] Implanted:Qty : 1 on 06/20/2025 by Avi Donnelly MD at [facility] [employer] Left: Chest CR [employer]ARD [employer] [id number] 08/29/2026 [id number] / [id number] / [id number] Procedures Procedure Name Priority Date/Time Associated Diagnosis Comments XR CHEST 2 VIEWS Routine 07/19/2025 11:2 3 AM EDT Malignant neoplasm of lower lobe of left lung (CMS/HCC V24, CMS/HCC V28) COLONOSCOPY Routine 07/06/2025 3:00 PM EDT BASIC METABOLIC PANEL Routine 06/23/2025 5:32 AM EDT from Last 3 Months or Most Recently Relevant to Health Maintenance Results * XR Chest 2 Views (07/19/2025 11:23 AM EDT) Anatomical Region Laterality Modality Body Radiographic Diana ging 07/19/2025 11:2 9 AM EDT Impressions 07/19/2025 11:33 AM EDT Postoperative changes in the left hemithorax as also seen on 07/05/2025. There is no pneumothorax following removal of the large bore left side surgical chest tube. Findings as above consistent with COPD. Code 65815 -------- FINAL REPORT -------- Dictated By: Nolan Novak Dictated Date: 07/19/2025 11:29 ET Assigned Physician: Nolan Novak Reviewed and Electronically Signed By: Nolna Novak Signed Date: 07/19/2025 11:33 ET Workstation ID: [id number] Transcribed By: Self Edit Transcribed Date: 07/19/2025 [...] Findings as above consistent with COPD. Code 16355 -------- FINAL REPORT -------- Dictated By: Nolan Novak Dictated Date: 07/19/2025 11:29 ET Assigned Physician: Nolan Novak Reviewed and Electronically Signed By: Nolan Novak Signed Date: 07/19/2025 11:33 ET Workstation ID: [id number] Transcribed By: Self Edit Transcribed Date: 07/19/2025 11:29 ET Ngoc Chandra CARGO SERVICE SUPERVISOR IMG XR PROCEDURES Final Res ult * COLONOSCOPY (07/06/2025 3:00 PM EDT) Anatomical Region Laterality Modality Endoscopy Historical Provider GI~PROCEDURE ORDERABLES F inal Result * (ABNORMAL) Basic metabolic panel (06/23/2025 5:32 AM EDT) Sodium 140 133 - 145 mmol/L LAB CHEMISTRY METHOD 06/23/2025 7:21 AM [facility] Potassium 4.7 3.5 - 5.5 mmol/L LAB CHEMISTRY METHOD 06/23/2025 7:21 AM [facility] Chloride 106 96 - 110 mmol/L LAB CHEMISTRY METHOD 06/23/2025 7:21 AM [facility] CO2 32 21 - 32 mmol/L LAB CHEMISTRY METHOD 06/23/2025 7:21 AM [facility] Anion Gap 2(L) 3 - 11 LAB CHEMISTRY METHOD 06/23/2025 7:21 AM [facility] Glucose 104(H) 70 - 100 mg/dL LAB CHEMISTRY METHOD 06/23/2025 7:21 AM [facility] BUN 12 5 - 25 mg/dL LAB CHEMISTRY METHOD 06/23/2025 7:21 AM EDT [facility] Creatinine 0.94 0.50 - 1.10 mg/dL LAB CHEMISTRY METHOD 06/23/2025 7:21 AM EDT [facility] eGFR 66 >=60 mL/min/1. 73m2 LAB CHEMISTRY METHOD 06/23/2025 7:21 AM EDT [facility] Comment:Calculation based on the Chronic Kidney Disease Epidemiology Collaboration (CKD-EPI) equation refit without adjustment for race. BUN/Creatinine Ratio 12.8 LAB CHEMISTRY METHOD 06/23/2025 7:21 AM T [facility] Calcium 9.5 8.5 - 10.5 mg/dL LAB CHEMISTRY METHOD 06/23/2025 7:21 AM T [facility] Blood Venous blood specimen / Unknown Venipuncture / Unknown 06/23/2025 5:32 AM EDT 06/23/2025 6:28 AM EDT us Amalia BENJAMIN LAB BLOOD ORDERABLES Final Result [facility] [address] [place] [address], from Last 3 Months or Most Recently Relevant to Health Maintenance Insurance MEDICARE MEDICAID - [place] Advance Directives [...] currently active code status orders. Care Teams Senior Information Systems Architect Relationship Specialty Start Date End Date Yeyo España MD PCP - General Family Medicine 04/26/25
== END 2025-10-08 10:00 | disposition home or self-care (01) ==
LOC: HO.HMCFM 09:22
PROVIDERS: PCP Family Medicine; Visit Provider Family Medicine
DX: I10 Essential (primary) hypertension (principal); C34.90 Malignant neoplasm of unspecified part of unspecified bronchus or lung; J44.9 Chronic obstructive pulmonary disease, unspecified

== ENCOUNTER → 2025-10-08 09:22 | Outpatient (BNVA) | payer MEDICARE, MEDICAID, SELFPAY | PROVIDERS: PCP Family Medicine; Visit Provider Family Medicine | DX: I10 Essential (primary) hypertension (principal); C34.90 Malignant neoplasm of unspecified part of unspecified bronchus or lung; J44.9 Chronic obstructive pulmonary disease, unspecified; Z87.891 Personal history of nicotine dependence | CPT/HCPCS: 99212 ==

== ENCOUNTER 2025-10-09 10:51 | Outpatient (AMB) | payer MEDICARE, MEDICAID, SELFPAY ==
[2025-10-09 10:57] VITALS: BP 110/48; PULSE 92; O2SAT 95; BMI 21.2
--- NOTE | 2025-10-09 10:57 | MHC.OFFVIS ---
Vital Signs 10/09/25 10:57 Height 5 ft 7 in Weight 135 lb 8 oz BMI 21.2 BP 110/48 L Blood Pressure Location Lt brachial Position Sitting Pulse 92 Pulse Source Pulse Oximeter Pulse Oximetry (%) 95 Oxygen Delivery Method Room Air Intake Visit Reasons: COPD Allergies No Known Allergies Allergy (Verified 10/09/25 10:59) HPI HPI COPD: Details: Mica is a pleasant 69 year old female, former 47 pack year smoker, quit 2016, with underlying severe COPD, FEV1 26 and recent dx of adenocarcinoma of lung. ?Previous chest CT revealed left lower lobe spiculated semi solid nodule that increased in size from July 2024 to November 2024 scan. ?She had repeat scan in February which revealed stability of nodule however previously discussed concerning characteristics of nodule. Patient was in agreement to referral to Dr. Donnelly, thoracic, and underwent biopsy which revealed adenocarinoma. Ultimately patient underwent LLL superior segmentectomy on 06/20 and will be following with thoracic for further imaging follow up. She believes her next chest CT is scheduled May 2026 however will contact office to confirm. At this time she reports symptoms are moderately controlled with the use of Trelegy and since addition of Combivent b.i.d, she reports improvements in dyspnea on exertion. She underwent 6 minute walk test in August which continues to demonstrate need for 2 L of supplemental oxygen to maintain greater than 92%. She has been using wall within the home however does not use outside of the home as well as using 2 L NOC. She has been monitoring oxygen saturation and reports greater than 93% of the time on room air. She denies any visits urgent care hospitalizations related to respiratory distress since last visit. [facility] Medical History Depression COPD (chronic obstructive pulmonary disease) Personal history of nicotine dependence Surgical History History of appendectomy H/O: hysterectomy Hx of cataract surgery History of ileostomy (~2018) History of tonsillectomy History of ankle surgery Family History Brother History of mental health disorder in sibling Liver cancer Social History Household Members: None Housing: House Alcohol intake: current Patient Tobacco Use Status: Former Tobacco user Tobacco use type: Cigarette Years Smoked: (onset 13, 1.5ppd x 47yrs, 60pyh - quit 2016) e-Cigarette/Vaping Use: Never Used Second Hand Smoke Exposure: No Special carmen needs: No service: No Current occupational status: retired Current occupational exposures/hazards: No Cognitive needs: No Hearing needs: No Vision needs: No Review of Systems Const Denies chills, Denies excessive sweating, Denies fever(s), Denies headache(s) and Denies night sweats Eyes Denies dry eyes, Denies irritation and Denies itchy eyes ENT Reports Normal hearing present and Denies headache(s) Card Denies chest pain, Denies chest pain at rest, Denies chest pain with activity, Denies leg edema, Reports dyspnea on exertion, Denies orthopnea and Denies paroxysmal nocturnal dyspnea Resp Denies hemoptysis, Denies pain on inspiration, Denies pain with cough, Reports dyspnea on exertion and Denies stridor Musc Denies myalgias Neuro Reports Normal hearing present and Denies headache(s) Endo Denies excessive sweating Ramiro/Lymph Denies lymphadenopathy Aller/Immun Denies itchy eyes and Denies seasonal rhinorrhea Physical Exam Vital Signs: Last Vital Signs Pulse 92 10/09/25 10:57 BP 110/48 L 10/09/25 10:57 Pulse Ox 95 10/09/25 10:57 Oxygen Delivery Method Room Air 10/09/25 10:57 BMI result Body Mass Index 21.2 Const General: cooperative, no acute distress and alert Nutritional Appearance: thin Orientation/consciousness: patient oriented x3 Limitations: no limitations HEENT Head: Yes normal to inspection, Yes normocephalic and Yes atraumatic Ears: hearing grossly normal bilaterally and external ears normal Eyes General: appearance normal, both eyes and all related structures Eyelids: Yes eyelids normal Sclerae: sclerae normal EOM: EOMs intact bilaterally Neck Neck: Yes normal visual inspection and Yes no lymphadenopathy Lymphatic: no lymphadenopathy noted Chest Chest palpation & inspection: normal inspection of the chest Resp Effort & Inspection: able to speak in complete sentences, no audible wheezes, no cough, no stridor and prolonged expiratory phase Auscultation: no crackles, no rhonchi, no wheezes and diminished lung sounds Cardio Jugular venous distension: no JVD Rate: regular rate Rhythm: regular rhythm Skin Other: warm, dry General skin exam: no rashes or lesions noted Neuro General: patient oriented x3 Cranial nerves: Yes Normal hearing present Cognition (Neuro): normal cognition Gait exam (Neuro): Normal gait present Extrem General: Yes normal to inspection, Yes capillary refill normal, Yes no clubbing, cyanosis or edema and Yes no pedal edema Psych Appearance: grossly normal and well kempt Speech and movement: Normal speech and movement present and Clear speech present Affect: normal affect Attitude: cooperative Thought process: Normal thought process present Thought content: Normal thought content present Insight: Good insight present (Psych) Judgement: Good judgement present (Psych) Assessment & Plan Assessment & Plan (1) Adenocarcinoma, lung: Code(s): C34.90 - Malignant neoplasm of unspecified part of unspecified bronchus or lung Category: Medical (2) Status post lung surgery: Code(s): Z98.890 - Other specified postprocedural states Category: Surgical (3) COPD (chronic obstructive pulmonary disease): Code(s): J44.9 - Chronic obstructive pulmonary disease, unspecified Category: Medical (4) Multiple pulmonary nodules: Code(s): R91.8 - Other nonspecific abnormal finding of lung field Category: Medical Plan At this time Mica reports moderate control of respiratory symptoms on current regimen of Trelegy and Combivent b.i.d., advised to continue. She is aware to call if symptoms change. Discussed importance of continued use of supplemental oxygen to maintain oxygen saturation greater than 92%. She has consistently been using 2 L NOC, will assess continued need for this with overnight oximetry performed on room air. Will reach out to thoracic surgery to see when she has to be scheduled for her next chest CT. All questions were answered and patient is in agreement of plan. Will follow up in 3 months or sooner if needed. Orders: Orders Overnight Pulse Oximetry Today G47.34 - Idiopathic sleep related nonobstructive alveolar hypoventilation, J44.9 - Chronic obstructive pulmonary disease, unspecified Coding Level of Care Code Est Pt Level 4 (66869) Diagnoses Adenocarcinoma, lung C34.90 Status post lung surgery Z98.890 COPD (chronic obstructive pulmonary disease) J44.9 Multiple pulmonary nodules R91.8
--- OUTSIDE RECORDS SUMMARY | 2025-10-09 13:00 | XMS_ITS | Clinical Summary ---
Author Organization [facility] [address] [facility] Address [address] [place] [address] Phone Care Team Providers Care Track Mechanic Name Role Phone Yeyo España MD Primary Care Provider [phone] Allergies No known active allergies Medications albuterol [...] suppositoryIndi cations:Ulcerat michelle proctitis with rectal bleeding ([facility] V24, CMS/[facility] V28) Insert 1 suppository (1,000 mg total) into the rectum at bedtime. Use as directed 30 each 5 07/04/20 Active Active Problems Problem Noted Date Diagnosed Date Ulcerative proctitis ([facility] V24, [facility] V28) 07/04/2025 Assessment & Plan (07/04/2025 5:24 [...] & Plan (07/05/2025 3:48 PM EDT): Ms. Dillard is a 69-year-old [...] the patient's most recent pulmonology notes from [facility] for review. Risks and benefits were [...] - 07/19/2025 11:59 PM EDT Hospital Encounter [facility] Xray [address] [place] [address] Malignant neoplasm of lower lobe of left lung (CMS/HCC V24, CMS/HCC V28) Discharge Disposition: Home or Self Care 07/19/2025 Telephone Thoracic Surgery - [place] [address] [facility] [address] [place] [id number] Brandi Saravia [place] 07/17/2025 3:30 PM EDT Office Visit Thoracic Surgery - [address] [place] [id number] Ngoc Chandra, JAZMIN Malignant neoplasm of lower lobe of left lung ([facility] V24, [facility] V28) (Primary Dx) from Last 3 Months [...] Comments COPD (chronic obstructive pu lmonary disease) ([facility] V24, [facility] V28) Depression Hyperlipidemia Hypertension Osteoporosis Pulmonary nodule Lung cancer ([facility] V24, [facility] V28) 5 LLL Family History Medical History [...] this topic Medical Devices Implanted Type Area Tool Mechanic Device Identifier Shelf Expiration Date Model / Serial / Lot Sealant Fibrin Vistaseal 10ml - [id number] - [id number] Implanted:Qty : 1 on 06/20/2025 by Avi Donnelly MD at [facility] Hemostasis Left: Chest [employer] [id number] 12/19/2026 [id number] / [id number] / [id number] Internal And External Fixation Internal and External Fixation Right: Ankle Sealant Progel Air Pleural 4ml - Sna - [id number] Implanted:Qty : 1 on 06/20/2025 by Avi Donnelly MD at [facility] [employer] Left: Chest CR [employer] [id number] 08/29/2026 [id number] / [id number] / [id number] Procedures Procedure Name Priority Date/Time Associated [...] Findings as above consistent with COPD. Code 50747 -------- FINAL REPORT -------- Dictated By: Nolan Novak Dictated Date: 07/19/2025 11:29 ET Assigned Physician: Nolan Novak Reviewed and Electronically Signed By: Nolan Novak Signed Date: 07/19/2025 11:33 ET Workstation ID: [id number] Transcribed By: Self Edit Transcribed Date: 07/19/2025 [...] Findings as above consistent with COPD. Code 68303 -------- FINAL REPORT -------- Dictated By: Nolan Novak Dictated Date: 07/19/2025 11:29 ET Assigned Physician: Nolan Novak Reviewed and Electronically Signed By: Nolan Novak Signed Date: 07/19/2025 11:33 ET Workstation ID: [id number] Transcribed By: Self Edit Transcribed Date: 07/19/2025 11:29 ET Ngoc Chandra IN HOME TUTOR IMG XR PROCEDURES Final Res ult * COLONOSCOPY (07/06/2025 3:00 PM EDT) Anatomical Region Laterality Modality Endoscopy Historical Provider GI~PROCEDURE ORDERABLES F inal Result * (ABNORMAL) Basic metabolic panel (06/23/2025 5:32 AM EDT) Sodium 140 133 - 145 mmol/L LAB CHEMISTRY METHOD 06/23/2025 7:21 AM [facility] Potassium 4.7 3.5 - 5.5 mmol/L LAB CHEMISTRY METHOD 06/23/2025 7:21 AM [facility] Chloride 106 96 - 110 mmol/L LAB CHEMISTRY METHOD 06/23/2025 7:21 AM [facility] CO2 32 21 - 32 mmol/L LAB CHEMISTRY METHOD 06/23/2025 7:21 AM [facility] Anion Gap 2(L) 3 - 11 LAB CHEMISTRY METHOD 06/23/2025 7:21 AM [facility] Glucose 104(H) 70 - 100 mg/dL LAB CHEMISTRY METHOD 06/23/2025 7:21 AM [facility] BUN 12 5 - 25 mg/dL LAB CHEMISTRY METHOD 06/23/2025 7:21 AM EDT [facility] Creatinine 0.94 0.50 - 1.10 mg/dL LAB CHEMISTRY METHOD 06/23/2025 7:21 AM EDT [facility] eGFR 66 >=60 mL/min/1. 73m2 LAB CHEMISTRY METHOD 06/23/2025 7:21 AM EDT [facility] Comment:Calculation based on the Chronic Kidney Disease Epidemiology Collaboration (CKD-EPI) equation refit without adjustment for race. BUN/Creatinine Ratio 12.8 LAB CHEMISTRY METHOD 06/23/2025 7:21 AM T [facility] Calcium 9.5 8.5 - 10.5 mg/dL LAB CHEMISTRY METHOD 06/23/2025 7:21 AM T [facility] Blood Venous blood specimen / Unknown Venipuncture / Unknown 06/23/2025 5:32 AM EDT 06/23/2025 6:28 AM EDT us Amalia BENJAMIN LAB BLOOD ORDERABLES Final Result [facility] [address] [place] [address], from Last 3 Months or Most Recently [...] currently active code status orders. Care Teams Track Mechanic Relationship Specialty Start Date End Date Yeyo España MD PCP - General Family Medicine 04/26/25
== END 2025-10-09 11:25 | disposition home or self-care (01) ==
LOC: HO.HPSW 10:52
PROVIDERS: PCP Family Medicine; Visit Provider Nurse Practitioner Family
DX: C34.90 Malignant neoplasm of unspecified part of unspecified bronchus or lung (principal); Z98.890 Other specified postprocedural states; J44.9 Chronic obstructive pulmonary disease, unspecified; R91.8 Other nonspecific abnormal finding of lung field
CPT/HCPCS: 99214

== ENCOUNTER → 2025-10-09 10:51 | Outpatient (BNVA) | payer MEDICARE, MEDICAID, SELFPAY | PROVIDERS: PCP Family Medicine; Visit Provider Nurse Practitioner Family | DX: C34.32 Malignant neoplasm of lower lobe, left bronchus or lung (principal); J44.9 Chronic obstructive pulmonary disease, unspecified; R91.8 Other nonspecific abnormal finding of lung field; Z99.81 Dependence on supplemental oxygen; Z87.891 Personal history of nicotine dependence; Z98.890 Other specified postprocedural states | CPT/HCPCS: 99212 ==